=== PATIENT | male | born 1980 | race Two or more races ===

== ENCOUNTER 2024-03-11 21:15 | Inpatient (IN) | payer SELFPAY ==
[~2024-03-11] VITALS: Ht 175.3 cm; Wt 88.5 kg
[2024-03-11 21:45] LABS: Basophils # (auto) 0.1 10 ^3/uL (0-0.2); Basophils % (auto) 1.1 % (0.0-2.0); Eosinophils # (auto) 0.2 10 ^3/uL (0-0.8); Hematocrit 41.6 % (36.0-46.0); Hemoglobin 13.9 g/dL (12.2-16.2); Lymphocytes # (auto) 1.6 10 ^3/uL (0.4-5.4); Lymphocytes % (auto) 14.3 % (10.0-50.0); Mean Corpuscular Hemoglobin 27.5 pg (28.0-32.0); Mean Corpuscular Hgb Conc. 33.5 g/dL (32.0-36.0); Mean Corpuscular Volume 81.9 fL (80.0-100.0); Monocytes # (auto) 0.9 10 ^3/uL (0-1.3); Monocytes % (auto) 7.7 % (0.0-12.0); Neutrophils # (auto) 8.5 10 ^3/uL (1.6-8.6); Neutrophils % (auto) 74.9 % (37.0-80.0); Nucleated Red Blood Cells % 0.1 %; Red Blood Cells 5.08 10^6/uL (4.0-5.20); Red Cell Distribution Width 18.8 % (11.8-14.3); White Blood Cell 11.4 10^3/uL (4.4-10.8)
[2024-03-11 22:01] LABS: Anion Gap 8 (5-15); Carbon Dioxide 22 mmol/L (20-30); Chloride 109 mmol/L (98-107); Potassium 3.5 mmol/L (3.5-5.1); Sodium 139 mmol/L (136-145)
[2024-03-11 22:02] LABS: Calcium 8.7 mg/dL (8.5-10.1)
[2024-03-11 22:07] LABS: Blood Urea Nitrogen 22 mg/dL (9-23); Glucose 150 mg/dL (74-106)
[2024-03-12] VITALS (10 sets, daily range): BP systolic 103–190; BP diastolic 63–143; PULSE 67–100; RESP 16–22; TEMP 97.1–98.3; O2SAT 2–99
[2024-03-12] MEDS ORDERED: ONDANSETRON HCL 4 MG/2 ML VIAL IV PRN (03:15)
[2024-03-12] MEDS ORDERED: ACETAMINOPHEN 325 MG TAB PO PRN (03:15)
[2024-03-12] MEDS ORDERED: DOCUSATE SOD 100 MG CAP PO PRN (03:15)
[2024-03-12] MEDS: FUROSEMIDE 40 MG/4 ML VIAL IV ONE ×2 (03:21→09:41)
[2024-03-12] MEDS: cloNIDine HCL 0.1 MG TAB PO ONE (03:21)
[2024-03-12] MEDS: ASPirin 81 mg TAB PO ONE (03:30)
[2024-03-12] MEDS: HYDROcodone-ACET 5/325MG TAB PO PRN (04:07)
[2024-03-12 04:51] LABS: Basophils # (auto) 0.1 10 ^3/uL (0-0.2); Basophils % (auto) 1.1 % (0.0-2.0); Eosinophils # (auto) 0.3 10 ^3/uL (0-0.8); Eosinophils % (auto) 2.7 % (0.0-7.0); Hematocrit 41.4 % (41.0-53.0); Hemoglobin 13.7 g/dL (13.5-17.5); Lymphocytes # (auto) 1.9 10 ^3/uL (0.4-5.4); Mean Corpuscular Hemoglobin 27.2 pg (28.0-32.0); Mean Corpuscular Hgb Conc. 33.1 g/dL (32.0-36.0); Mean Corpuscular Volume 82.1 fL (80.0-100.0); Monocytes # (auto) 0.8 10 ^3/uL (0-1.3); Monocytes % (auto) 7.2 % (0.0-12.0); Neutrophils # (auto) 8.5 10 ^3/uL (1.6-8.6); Nucleated Red Blood Cells % 0.1 %; Red Blood Cells 5.05 10^6/uL (4.5-5.90); Red Cell Distribution Width 18.4 % (11.8-14.3); White Blood Cell 11.6 10^3/uL (4.4-10.8)
[2024-03-12 05:11] LABS: Alanine Aminotransferase 24 U/L (7-40); Albumin 3.6 g/dL (3.2-4.8); Alkaline Phosphatase 96 U/L (46-116); Anion Gap 10 (5-15); Aspartate Aminotransferase 23 U/L (13-40); BUN/Creatinine Ratio 18.6 (10.0-20.0); Blood Urea Nitrogen 21 mg/dL (9-23); Carbon Dioxide 24 mmol/L (20-30); Chloride 106 mmol/L (98-107); Glucose 119 mg/dL (74-106); Potassium 3.1 mmol/L (3.5-5.1); Sodium 140 mmol/L (136-145)
[2024-03-12 05:12] LABS: Bilirubin, Total 1.8 mg/dL (0.2-1.0); Total Protein 6.4 g/dL (5.7-8.2)
[2024-03-12] MEDS: SODIUM CHLOR 0.9% PF (SALINE LOCK) 10ML VIAL/SYR IV SCH (06:11)
[2024-03-12] MEDS ORDERED: MORPHINE SULFATE INJ 2 MG/ml SYRG IV PRN (06:15)
[2024-03-12] MEDS ORDERED: NITROGLYCERIN 0.4 MG SL TAB SL PRN (06:15)
[2024-03-12] MEDS: amLODIPine BESYLATE 5 MG TAB PO ONE (06:33)
[2024-03-12] MEDS: hydrALAZINE HCL 20 MG/ML VL IV PRN (07:01)
[2024-03-12] MEDS ORDERED: amLODIPine BESYLATE 5 MG TAB PO ONE (08:00)
[2024-03-12] MEDS: FUROSEMIDE 40 MG/4 ML VIAL IV SCH ×2 (08:17→18:29)
[2024-03-12] MEDS: CARVEDILOL 12.5 MG TAB PO SCH (08:17)
[2024-03-12] MEDS: amLODIPine BESYLATE 5 MG TAB PO SCH (08:17)
[2024-03-12] MEDS: ASPirin 81 mg TAB PO SCH (08:18)
[2024-03-12 08:29] LABS: Urine Bacteria None Seen /hpf (None Seen)
[2024-03-12 08:38] LABS: Urine Blood Negative /uL (Negative); Urine Clarity Clear (Clear); Urine Color Colorless (Yellow); Urine Protein, UAD Negative (Negative); Urine Specific Gravity 1.005 (1.001-1.035); Urine Urobilinogen Normal (Negative); Urine WBC 1 /hpf (0 - 3)
[2024-03-12 08:52] LABS: Amphetamine Screen, Urine Neg (NEGATIVE)
[2024-03-12 08:53] LABS: Barbiturate Scree,Urine Neg (NEGATIVE); Benzodiazephine Screen, Urine Neg (NEGATIVE); Cannabinoid Screen, Urine Pos (NEGATIVE); Cocaine Screen, Urine Neg (NEGATIVE); Opiate Scree,Urine Neg (NEGATIVE); Phencyclidine Screen, Urine Neg (NEGATIVE)
[2024-03-12 09:03] LABS: Magnesium 1.8 mg/dL (1.6-2.6)
[2024-03-12] MEDS: cloNIDine HCL 0.1 MG TAB PO PRN (09:39)
[2024-03-12] MEDS: ENOXAPARIN SOD 40 MG/0.4 ML SYRINGE SC ONE (09:40)
[2024-03-12] MEDS: POTASSIUM CHL 20 Meq TABLET PO ONE (09:41)
[2024-03-12] MEDS: cefTRIAXone 1GM/50ML D5W 50 ML IV SCH (09:41)
[2024-03-12] MEDS: LISINOPRIL 20 MG TAB PO SCH (10:45)
[2024-03-12] MEDS: SPIRONOLACTONE 25 MG TAB PO SCH (10:45)
[2024-03-12] MEDS: EMPAGLIFLOZIN 10 MG TAB PO SCH (10:45)
[2024-03-12] MEDS: MAGNESIUM SULFATE 1GM/100ML 100 ML IV SCH (11:34)
[2024-03-12] MEDS ORDERED: METO25TA93 PO (14:28)
[2024-03-12] MEDS ORDERED: ASPI-543 PO (14:28)
[2024-03-12] MEDS ORDERED: FURO1TAB32 PO (14:28)
[2024-03-12] MEDS ORDERED: SACU1TAB PO (14:28)
[2024-03-12] MEDS: ATORVASTATIN 20 MG TAB PO SCH (22:24)
[2024-03-13] VITALS (14 sets, daily range): BP systolic 118–137; BP diastolic 71–98; PULSE 68–86; RESP 16–23; TEMP 97.1–98.2; O2SAT 2–100
[2024-03-13 06:39] LABS: Basophils # (auto) 0.1 10 ^3/uL (0-0.2); Basophils % (auto) 0.6 % (0.0-2.0); Eosinophils # (auto) 0.4 10 ^3/uL (0-0.8); Eosinophils % (auto) 3.7 % (0.0-7.0); Hematocrit 41.8 % (41.0-53.0); Hemoglobin 13.9 g/dL (13.5-17.5); Lymphocytes # (auto) 1.4 10 ^3/uL (0.4-5.4); Lymphocytes % (auto) 12.4 % (10.0-50.0); Mean Corpuscular Hemoglobin 27.6 pg (28.0-32.0); Mean Corpuscular Hgb Conc. 33.2 g/dL (32.0-36.0); Monocytes # (auto) 1.2 10 ^3/uL (0-1.3); Monocytes % (auto) 10.1 % (0.0-12.0); Neutrophils # (auto) 8.4 10 ^3/uL (1.6-8.6); Neutrophils % (auto) 73.2 % (37.0-80.0); Nucleated Red Blood Cells % 0.6 %; Red Blood Cells 5.03 10^6/uL (4.5-5.90); Red Cell Distribution Width 18.3 % (11.8-14.3); White Blood Cell 11.5 10^3/uL (4.4-10.8)
[2024-03-13 06:58] LABS: Alanine Aminotransferase 24 U/L (7-40); Albumin 3.4 g/dL (3.2-4.8); Alkaline Phosphatase 94 U/L (46-116); Anion Gap 8 (5-15); Aspartate Aminotransferase 22 U/L (13-40); BUN/Creatinine Ratio 14.8 (10.0-20.0); Bilirubin, Total 1.2 mg/dL (0.2-1.0); Blood Urea Nitrogen 24 mg/dL (9-23); Carbon Dioxide 27 mmol/L (20-30); Chloride 104 mmol/L (98-107); Glucose 92 mg/dL (74-106); Sodium 139 mmol/L (136-145); Total Protein 6.4 g/dL (5.7-8.2)
[2024-03-13] MEDS ORDERED: amLODIPine BESYLATE 5 MG TAB PO SCH (10:00)
[2024-03-13] MEDS: ALBUTEROL SULF 2.5 MG/0.5ML(0.5%) NEB SOLN NEB PRN (14:20)
[2024-03-14] VITALS (9 sets, daily range): BP systolic 109–139; BP diastolic 76–101; PULSE 58–86; RESP 16–20; TEMP 97.4–98.9; O2SAT 92–97
[2024-03-14] MEDS: FUROSEMIDE 40 MG TAB PO SCH (17:34)
[2024-03-15] VITALS (7 sets, daily range): BP systolic 142–156; BP diastolic 95–98; PULSE 67–84; RESP 18–22; TEMP 36.7; O2SAT 96–98
[2024-03-15] MEDS: SPIRONOLACTONE 25 MG TAB PO SCH (10:00)
[2024-03-15] MEDS ORDERED: CLIN1CAP70 PO (10:25)
[2024-03-15] MEDS ORDERED: FURO1TAB32 PO (10:25)
== END 2024-03-15 17:36 | disposition home or self-care (01) | DRG 871 ==
LOC: EDSEX 21:15 → EDBD 21:15 → ER 21:15 → TELE 03-12 06:10 → EAST 03-12 13:30 → TELE-CENTR 03-12 16:23
PROVIDERS: ADMIT Internal Medicine; ATTEND Internal Medicine
DX: A41.9 Sepsis, unspecified organism (principal); I50.43 Acute on chronic combined systolic (congestive) and diastolic (congestive) heart failure; L03.115 Cellulitis of right lower limb; L03.116 Cellulitis of left lower limb; L97.919 Non-pressure chronic ulcer of unspecified part of right lower leg with unspecified severity; L97.929 Non-pressure chronic ulcer of unspecified part of left lower leg with unspecified severity; I42.7 Cardiomyopathy due to drug and external agent; I11.0 Hypertensive heart disease with heart failure; F17.210 Nicotine dependence, cigarettes, uncomplicated; F14.90 Cocaine use, unspecified, uncomplicated; E78.5 Hyperlipidemia, unspecified; R73.03 Prediabetes; I16.0 Hypertensive urgency; F19.10 Other psychoactive substance abuse, uncomplicated; I50.82 Biventricular heart failure; Z83.3 Family history of diabetes mellitus; Z91.199 Patient's noncompliance with other medical treatment and regimen due to unspecified reason
CPT/HCPCS: 36415; 71045; 80048; 80053; 80061; 80307; 81001; 82962; 83036; 83735; 83880; 84443; 84484; 85025; 87040; 87077; 87081; 87186; 87205; 93005; 93306; 94640; 99291; G0378

== ENCOUNTER 2024-06-27 13:09 | Inpatient (IN) | payer MEDICAID ==
[~2024-06-27] VITALS: Ht 175.3 cm; Wt 92.8 kg
[~2024-06-27 13:09] MED LIST: ASPI-543 PO; CLIN1CAP70 PO; FURO1TAB32 PO; METO25TA93 PO; SACU1TAB PO
[2024-06-27 14:19] LABS: Basophils # (auto) 0.1 10 ^3/uL (0-0.2); Basophils % (auto) 0.8 % (0.0-2.0); Eosinophils # (auto) 0.3 10 ^3/uL (0-0.8); Eosinophils % (auto) 2.8 % (0.0-7.0); Hematocrit 39.9 % (41.0-53.0); Hemoglobin 13.6 g/dL (13.5-17.5); Lymphocytes % (auto) 10.5 % (10.0-50.0); Mean Corpuscular Hemoglobin 29.8 pg (28.0-32.0); Mean Corpuscular Hgb Conc. 34.2 g/dL (32.0-36.0); Mean Corpuscular Volume 87.3 fL (80.0-100.0); Monocytes # (auto) 0.7 10 ^3/uL (0-1.3); Monocytes % (auto) 6.8 % (0.0-12.0); Neutrophils # (auto) 7.6 10 ^3/uL (1.6-8.6); Neutrophils % (auto) 79.1 % (37.0-80.0); Nucleated Red Blood Cells % 0.2 %; Red Blood Cells 4.57 10^6/uL (4.5-5.90); Red Cell Distribution Width 15.2 % (11.8-14.3); White Blood Cell 9.6 10^3/uL (4.4-10.8)
[2024-06-27 14:36] LABS: Alanine Aminotransferase 19 U/L (7-40); Albumin 3.8 g/dL (3.2-4.8); Alkaline Phosphatase 85 U/L (46-116); Anion Gap 8 (5-15); Aspartate Aminotransferase 20 U/L (13-40); BUN/Creatinine Ratio 18.4 (10.0-20.0); Bilirubin, Total 1.1 mg/dL (0.2-1.0); Blood Urea Nitrogen 21 mg/dL (9-23); Calcium 9.3 mg/dL (8.7-10.4); Carbon Dioxide 25 mmol/L (20-30); Chloride 106 mmol/L (98-107); Glucose 157 mg/dL (74-106); Potassium 3.4 mmol/L (3.5-5.1); Sodium 139 mmol/L (136-145); Total Protein 6.7 g/dL (5.7-8.2)
[2024-06-27] MEDS: FUROSEMIDE 40 MG/4 ML VIAL IV ONE (15:43)
[2024-06-27 15:51] VITALS: PULSE 102; O2SAT 98
[2024-06-27] MEDS: NICOTINE 14 MG/24HR TOPICAL PATCH TD ONE (16:23)
[2024-06-27] MEDS: hydrALAZINE HCL 20 MG/ML VL IV ONE (16:24)
[2024-06-27 16:56] LABS: Amphetamine Screen, Urine Pos (NEGATIVE); Barbiturate Scree,Urine Neg (NEGATIVE); Benzodiazephine Screen, Urine Neg (NEGATIVE); Cocaine Screen, Urine Neg (NEGATIVE); Opiate Scree,Urine Neg (NEGATIVE); Phencyclidine Screen, Urine Neg (NEGATIVE)
[2024-06-27 16:57] LABS: Cannabinoid Screen, Urine Pos (NEGATIVE)
[2024-06-27] MEDS ORDERED: ACETAMINOPHEN 325 MG TAB PO PRN (17:15)
[2024-06-27] MEDS ORDERED: MORPHINE SULFATE INJ 2 MG/ml SYRG IV PRN (17:15)
[2024-06-27] MEDS ORDERED: ONDANSETRON HCL 4 MG/2 ML VIAL IV PRN (17:15)
[2024-06-27] MEDS ORDERED: NITROGLYCERIN 0.4 MG SL TAB SL PRN (17:15)
[2024-06-27] MEDS ORDERED: DOCUSATE SOD 100 MG CAP PO PRN (17:15)
[2024-06-27] MEDS: ceFAZolin 1GM/50ML 50 ML IV ONE (18:00)
[2024-06-27] MEDS: HYDROmorphone HCL 2 MG/ML VL/or syr IV PRN (18:33)
[2024-06-27 19:30] VITALS: PULSE 77; RESP 20; O2SAT 97
[2024-06-27] MEDS: LABETALOL HCL 20 MG/4 ML VL IV PRN (21:19)
[2024-06-27] MEDS: SODIUM CHLOR 0.9% PF (SALINE LOCK) 10ML VIAL/SYR IV SCH (22:02)
[2024-06-28] MEDS: hydrALAZINE HCL 20 MG/ML VL IV ONE (03:34)
[2024-06-28] MEDS: HYDROcodone-ACET 5/325MG TAB PO PRN (04:18)
[2024-06-28 05:02] LABS: Alanine Aminotransferase 23 U/L (7-40); Albumin 3.9 g/dL (3.2-4.8); Alkaline Phosphatase 87 U/L (46-116); Anion Gap 5 (5-15); Aspartate Aminotransferase 21 U/L (13-40); BUN/Creatinine Ratio 16.4 (10.0-20.0); Basophils # (auto) 0.1 10 ^3/uL (0-0.2); Basophils % (auto) 0.5 % (0.0-2.0); Blood Urea Nitrogen 18 mg/dL (9-23); Calcium 9.3 mg/dL (8.7-10.4); Carbon Dioxide 30 mmol/L (20-30); Chloride 104 mmol/L (98-107); Eosinophils # (auto) 0.3 10 ^3/uL (0-0.8); Glucose 139 mg/dL (74-106); Hematocrit 41.5 % (41.0-53.0); Hemoglobin 14.4 g/dL (13.5-17.5); Lymphocytes # (auto) 0.8 10 ^3/uL (0.4-5.4); Lymphocytes % (auto) 7.9 % (10.0-50.0); Mean Corpuscular Hemoglobin 30.3 pg (28.0-32.0); Mean Corpuscular Hgb Conc. 34.7 g/dL (32.0-36.0); Mean Corpuscular Volume 87.2 fL (80.0-100.0); Monocytes # (auto) 0.6 10 ^3/uL (0-1.3); Monocytes % (auto) 5.8 % (0.0-12.0); Neutrophils # (auto) 8.2 10 ^3/uL (1.6-8.6); Neutrophils % (auto) 82.8 % (37.0-80.0); Nucleated Red Blood Cells % 0.1 %; Potassium 3.6 mmol/L (3.5-5.1); Red Blood Cells 4.76 10^6/uL (4.5-5.90); Red Cell Distribution Width 15.2 % (11.8-14.3); Sodium 139 mmol/L (136-145); White Blood Cell 9.9 10^3/uL (4.4-10.8)
[2024-06-28 05:03] LABS: Bilirubin, Total 1.5 mg/dL (0.2-1.0); Total Protein 7.2 g/dL (5.7-8.2)
[2024-06-28] MEDS: FUROSEMIDE 40 MG/4 ML VIAL IV SCH (06:03)
[2024-06-28 08:00] VITALS: PULSE 78; RESP 12; O2SAT 93
[2024-06-28] MEDS ORDERED: ATOR-507 PO (11:36)
[2024-06-28] MEDS ORDERED: CARV3.1240 PO (11:36)
[2024-06-28] MEDS: SACUBITRIL-VALSARTAN 24mg/26mg TAB PO SCH (22:54)
[2024-06-28] MEDS: CARVEDILOL 3.125 MG TAB PO SCH (23:00)
[2024-06-29] VITALS (10 sets, daily range): BP systolic 141–172; BP diastolic 92–118; PULSE 74–94; RESP 18–21; TEMP 97.6–98.1; O2SAT 95–100
[2024-06-29 07:25] LABS: Basophils # (auto) 0.1 10 ^3/uL (0-0.2); Basophils % (auto) 0.6 % (0.0-2.0); Eosinophils # (auto) 0.4 10 ^3/uL (0-0.8); Eosinophils % (auto) 3.9 % (0.0-7.0); Hematocrit 46.2 % (41.0-53.0); Hemoglobin 16.2 g/dL (13.5-17.5); Lymphocytes # (auto) 1.2 10 ^3/uL (0.4-5.4); Lymphocytes % (auto) 11.4 % (10.0-50.0); Mean Corpuscular Hgb Conc. 35.2 g/dL (32.0-36.0); Mean Corpuscular Volume 85.2 fL (80.0-100.0); Monocytes # (auto) 0.8 10 ^3/uL (0-1.3); Monocytes % (auto) 7.6 % (0.0-12.0); Neutrophils # (auto) 8.1 10 ^3/uL (1.6-8.6); Neutrophils % (auto) 76.5 % (37.0-80.0); Nucleated Red Blood Cells % 0.2 %; Red Blood Cells 5.42 10^6/uL (4.5-5.90); Red Cell Distribution Width 15.1 % (11.8-14.3); White Blood Cell 10.6 10^3/uL (4.4-10.8)
[2024-06-29 07:41] LABS: Alanine Aminotransferase 21 U/L (7-40); Alkaline Phosphatase 97 U/L (46-116); Anion Gap 8 (5-15); BUN/Creatinine Ratio 13.8 (10.0-20.0); Blood Urea Nitrogen 15 mg/dL (9-23); Calcium 9.3 mg/dL (8.7-10.4); Carbon Dioxide 28 mmol/L (20-30); Chloride 103 mmol/L (98-107); Glucose 115 mg/dL (74-106); Potassium 3.6 mmol/L (3.5-5.1); Sodium 139 mmol/L (136-145)
[2024-06-29 07:43] LABS: Aspartate Aminotransferase 19 U/L (13-40); Total Protein 7.7 g/dL (5.7-8.2)
[2024-06-29 09:06] LABS: LDL Cholesterol 87 mg/dL (< 100); Triglycerides 55 mg/dL (< 150)
[2024-06-29 09:08] LABS: Cholesterol 139 mg/dL (< 200); HDL Cholesterol 39 mg/dL (40-59)
[2024-06-29] MEDS ORDERED: SACUBITRIL-VALSARTAN 24mg/26mg TAB PO SCH (10:00)
[2024-06-29] MEDS: SPIRONOLACTONE 25 MG TAB PO SCH (10:00)
[2024-06-29] MEDS ORDERED: SACU1TAB PO (11:41)
[2024-06-29] MEDS ORDERED: ATOR-507 PO (11:41)
[2024-06-29] MEDS ORDERED: CARV3.1240 PO (11:41)
[2024-06-29] MEDS ORDERED: FURO1TAB31 PO (11:41)
[2024-06-29] MEDS ORDERED: ASPI-543 PO (11:41)
[2024-06-29] MEDS: EMPAGLIFLOZIN 10 MG TAB PO SCH (13:06)
[2024-06-29] MEDS: SACUBITRIL-VALSARTAN 24mg/26mg TAB PO SCH (13:06)
[2024-06-29] MEDS: CARVEDILOL 3.125 MG TAB PO SCH (16:00)
== END 2024-06-29 17:55 | disposition home or self-care (01) | DRG 194 ==
LOC: ER 13:09 → TELE 17:03 → TELE-WESTW 06-28 21:39
PROVIDERS: ADMIT Nurse Practitioner Acute Care; ATTEND Nurse Practitioner Acute Care
DX: I11.0 Hypertensive heart disease with heart failure (principal); J96.21 Acute and chronic respiratory failure with hypoxia; I50.43 Acute on chronic combined systolic (congestive) and diastolic (congestive) heart failure; L03.116 Cellulitis of left lower limb; R79.89 Other specified abnormal findings of blood chemistry; E78.5 Hyperlipidemia, unspecified; F15.10 Other stimulant abuse, uncomplicated; F12.90 Cannabis use, unspecified, uncomplicated; M13.88 Other specified arthritis, other site; F17.210 Nicotine dependence, cigarettes, uncomplicated; J44.9 Chronic obstructive pulmonary disease, unspecified; Z83.3 Family history of diabetes mellitus; Z91.148 Patient's other noncompliance with medication regimen for other reason; Z82.49 Family history of ischemic heart disease and other diseases of the circulatory system
CPT/HCPCS: 36415; 71045; 71046; 80053; 80061; 80307; 83036; 83605; 83880; 84443; 84484; 85025; 85379; 87040; 87081; 93005; 93925; G0378

== ENCOUNTER 2024-07-27 17:53 | Inpatient (IN) | payer MEDICAID ==
[~2024-07-27] VITALS: Ht 175.3 cm; Wt 78.9 kg
[~2024-07-27 17:53] MED LIST changes: +ATOR-507 PO; +CARV3.1240 PO; -CLIN1CAP70 PO; +FURO1TAB31 PO
[2024-07-27 18:28] LABS: Basophils # (auto) 0.1 10 ^3/uL (0-0.2); Eosinophils # (auto) 0.3 10 ^3/uL (0-0.8); Eosinophils % (auto) 3.5 % (0.0-7.0); Hematocrit 39.9 % (41.0-53.0); Lymphocytes # (auto) 1.1 10 ^3/uL (0.4-5.4); Lymphocytes % (auto) 13.8 % (10.0-50.0); Mean Corpuscular Hgb Conc. 35.1 g/dL (32.0-36.0); Mean Corpuscular Volume 85.4 fL (80.0-100.0); Monocytes # (auto) 0.6 10 ^3/uL (0-1.3); Monocytes % (auto) 8.1 % (0.0-12.0); Neutrophils # (auto) 5.9 10 ^3/uL (1.6-8.6); Neutrophils % (auto) 73.6 % (37.0-80.0); Nucleated Red Blood Cells % 0.2 %; Platelet Count (auto) 241 10^3/uL (140-450); Red Blood Cells 4.67 10^6/uL (4.5-5.90); Red Cell Distribution Width 15.2 % (11.8-14.3)
[2024-07-27] MEDS: IPRATROPIUM BROM 0.5 MG/2.5ML INH SOL NEB ONE (18:36)
[2024-07-27] MEDS: ALBUTEROL SULF 2.5 MG/0.5ML(0.5%) NEB SOLN NEB ONE (18:36)
[2024-07-27 18:38] VITALS: PULSE 87; RESP 20; O2SAT 98
[2024-07-27 18:49] LABS: INR 1.19 (0.9-1.15); Partial Thromboplastin Time 28.4 SEC (24.5-34.5); Prothrombin Time 12.5 sec (9.3-11.8)
[2024-07-27 18:54] LABS: Alanine Aminotransferase 23 U/L (7-40); Albumin 3.6 g/dL (3.2-4.8); Alkaline Phosphatase 99 U/L (46-116); Anion Gap 7 (5-15); Aspartate Aminotransferase 18 U/L (13-40); BUN/Creatinine Ratio 19.1 (10.0-20.0); Bilirubin, Total 1.2 mg/dL (0.2-1.0); Blood Urea Nitrogen 22 mg/dL (9-23); Calcium 9.1 mg/dL (8.7-10.4); Carbon Dioxide 22 mmol/L (20-30); Chloride 111 mmol/L (98-107); Glucose 153 mg/dL (74-106); Potassium 3.7 mmol/L (3.5-5.1); Sodium 140 mmol/L (136-145); Total Protein 6.8 g/dL (5.7-8.2)
[2024-07-27] MEDS: FUROSEMIDE 100 MG/10ML VIAL IV ONE (19:02)
[2024-07-27] MEDS: CARVEDILOL 3.125 MG TAB PO ONE (19:03)
[2024-07-27 19:47] VITALS: PULSE 87; RESP 19; O2SAT 94
[2024-07-27] MEDS: SPIRONOLACTONE 25 MG TAB PO ONE (20:40)
[2024-07-27] MEDS: hydrALAZINE HCL 20 MG/ML VL IV ONE (20:40)
[2024-07-27] MEDS ORDERED: NITROGLYCERIN 0.4 MG SL TAB SL PRN (22:45)
[2024-07-27] MEDS ORDERED: TEMAZEPAM 15 MG CAP PO PRN (22:45)
[2024-07-27] MEDS ORDERED: ONDANSETRON HCL 4 MG/2 ML VIAL IV PRN (22:45)
[2024-07-27] MEDS: ENOXAPARIN SOD 40 MG/0.4 ML SYRINGE SC ONE (23:51)
[2024-07-27] MEDS: CARVEDILOL 3.125 MG TAB PO SCH (23:53)
[2024-07-27] MEDS: SACUBITRIL-VALSARTAN 24mg/26mg TAB PO SCH (23:53)
[2024-07-27] MEDS: SILVER SULFADIAZINE 1 % TOPICAL CREAM 50GM TOP SCH (23:59)
[2024-07-28] MEDS: CLINDAMYCIN 600MG IV 50 ML IV ONE (00:05)
[2024-07-28] MEDS: HYDROcodone-ACET 5/325MG TAB PO PRN (00:59)
[2024-07-28 04:23] LABS: Chloride 110 mmol/L (98-107); Potassium 3.4 mmol/L (3.5-5.1); Sodium 141 mmol/L (136-145)
[2024-07-28 04:24] LABS: Anion Gap 6 (5-15); Calcium 8.8 mg/dL (8.7-10.4); Carbon Dioxide 25 mmol/L (20-30)
[2024-07-28 04:29] LABS: BUN/Creatinine Ratio 18.6 (10.0-20.0); Blood Urea Nitrogen 21 mg/dL (9-23); Glucose 102 mg/dL (74-106)
[2024-07-28] MEDS: hydrALAZINE HCL 20 MG/ML VL IV PRN (05:23)
[2024-07-28] MEDS: FUROSEMIDE 40 MG/4 ML VIAL IV SCH (06:15)
[2024-07-28 07:39] VITALS: PULSE 64; RESP 18; O2SAT 96
[2024-07-28 08:24] LABS: Rapid Influenza A Negative (Negative); Rapid Influenza B Negative (Negative)
[2024-07-28 08:25] LABS: COVID19 ANTIGEN SOFIA FIA NEGATIVE (NEGATIVE)
[2024-07-28] MEDS: MORPHINE SULFATE INJ 2 MG/ml SYRG IV PRN (08:40)
[2024-07-28] MEDS ORDERED: EMPAGLIFLOZIN 10 MG TAB PO SCH (10:00)
[2024-07-28] MEDS ORDERED: CARVEDILOL 3.125 MG TAB PO SCH (10:00)
[2024-07-28] MEDS: MAGNESIUM OXIDE 400 MG TAB PO ONE (10:37)
[2024-07-28] MEDS: EMPAGLIFLOZIN 10 MG TAB PO SCH (10:38)
[2024-07-28] MEDS: ASPirin 81 mg TAB PO SCH (10:38)
[2024-07-28] MEDS: ENOXAPARIN SOD 40 MG/0.4 ML SYRINGE SC SCH (10:39)
[2024-07-28] MEDS: SPIRONOLACTONE 25 MG TAB PO SCH (10:41)
[2024-07-28] MEDS ORDERED: VANCOMYCIN PER PHARMACY 0 MG IV SCH (12:00)
[2024-07-28] MEDS: POTASSIUM CHLORIDE 40 MEQ, LIDOCAINE 1% (LOCAL ANESTH.) 4 ML in SODIUM CHL 0.9% 250 ML IV ONE (12:18)
[2024-07-28 13:00] VITALS: BP 144/92; PULSE 69; RESP 20; TEMP 97.4; O2SAT 98
[2024-07-28] MEDS: VANCOMYCIN 1.5GM/300ML 300 ML IV ONE (13:00)
[2024-07-28] MEDS: NICOTINE 21MG/24 HR TOPICAL PATCH TD ONE (13:16)
[2024-07-28] MEDS: cefTRIAXone 1GM/50ML D5W 50 ML IV ONE (13:16)
[2024-07-28 17:00] VITALS: BP 128/88; PULSE 73; RESP 97; TEMP 98; O2SAT 97
[2024-07-28 20:00] VITALS: PULSE 82
[2024-07-28 21:00] VITALS: BP 111/83; PULSE 72; RESP 18; TEMP 98.3; O2SAT 99
[2024-07-28 21:41] LABS: Amphetamine Screen, Urine Neg (NEGATIVE); Barbiturate Scree,Urine Neg (NEGATIVE); Benzodiazephine Screen, Urine Neg (NEGATIVE); Cocaine Screen, Urine Neg (NEGATIVE)
[2024-07-28 21:42] LABS: Cannabinoid Screen, Urine Pos (NEGATIVE); Opiate Scree,Urine Neg (NEGATIVE); Phencyclidine Screen, Urine Neg (NEGATIVE)
[2024-07-28] MEDS: ATORVASTATIN 20 MG TAB PO SCH (21:53)
[2024-07-29] VITALS (9 sets, daily range): BP systolic 109–145; BP diastolic 78–104; PULSE 61–80; RESP 16–20; TEMP 97.6–98.6; O2SAT 96–98
[2024-07-29] MEDS: VANCOMYCIN 1GM/200ML 200 ML IV SCH (00:37)
[2024-07-29 06:26] LABS: Calcium 9.4 mg/dL (8.7-10.4); Chloride 106 mmol/L (98-107); Potassium 3.5 mmol/L (3.5-5.1); Sodium 136 mmol/L (136-145)
[2024-07-29 06:27] LABS: Anion Gap 8 (5-15); Carbon Dioxide 22 mmol/L (20-30)
[2024-07-29 06:32] LABS: Basophils # (auto) 0.1 10 ^3/uL (0-0.2); Eosinophils # (auto) 0.7 10 ^3/uL (0-0.8); Monocytes # (auto) 1.2 10 ^3/uL (0-1.3)
[2024-07-29 06:33] LABS: BUN/Creatinine Ratio 17.6 (10.0-20.0); Blood Urea Nitrogen 21 mg/dL (9-23); Glucose 112 mg/dL (74-106)
[2024-07-29 06:38] LABS: Basophils % (auto) 0.9 % (0.0-2.0); Eosinophils % (auto) 5.3 % (0.0-7.0); Hematocrit 50.2 % (41.0-53.0); Lymphocytes # (auto) 1.5 10 ^3/uL (0.4-5.4); Lymphocytes % (auto) 11.6 % (10.0-50.0); Mean Corpuscular Hemoglobin 30.2 pg (28.0-32.0); Mean Corpuscular Hgb Conc. 35.7 g/dL (32.0-36.0); Mean Corpuscular Volume 84.6 fL (80.0-100.0); Monocytes % (auto) 9.3 % (0.0-12.0); Neutrophils # (auto) 9.3 10 ^3/uL (1.6-8.6); Neutrophils % (auto) 72.9 % (37.0-80.0); Platelet Count (auto) 291 10^3/uL (140-450); Red Blood Cells 5.94 10^6/uL (4.5-5.90); Red Cell Distribution Width 15.1 % (11.8-14.3); White Blood Cell 12.7 10^3/uL (4.4-10.8)
[2024-07-29] MEDS: cefTRIAXone 1GM/50ML D5W 50 ML IV SCH (09:15)
[2024-07-29] MEDS: NICOTINE 21MG/24 HR TOPICAL PATCH TD SCH (09:18)
[2024-07-30 01:00] VITALS: BP 138/93; PULSE 78; RESP 16; TEMP 98.5; O2SAT 95
[2024-07-30 05:00] VITALS: BP 128/90; PULSE 77; RESP 16; TEMP 97.8; O2SAT 93
[2024-07-30] MEDS: FUROSEMIDE 40 MG/4 ML VIAL IV SCH (06:39)
[2024-07-30 08:00] VITALS: PULSE 79; O2SAT 96
[2024-07-30 08:14] LABS: Chloride 106 mmol/L (98-107); Potassium 3.9 mmol/L (3.5-5.1); Sodium 135 mmol/L (136-145)
[2024-07-30 08:15] LABS: Anion Gap 8 (5-15); Calcium 9.4 mg/dL (8.7-10.4); Carbon Dioxide 21 mmol/L (20-30)
[2024-07-30 08:20] LABS: Glucose 125 mg/dL (74-106)
[2024-07-30 09:00] VITALS: BP 145/90; PULSE 78; RESP 19; TEMP 97.6; O2SAT 94
[2024-07-30 10:19] LABS: Red Cell Distribution Width 15.2 % (11.8-14.3)
[2024-07-30 10:20] LABS: Hematocrit 52.5 % (41.0-53.0); Hemoglobin 18.2 g/dL (13.5-17.5); Mean Corpuscular Hemoglobin 29.2 pg (28.0-32.0); Mean Corpuscular Hgb Conc. 34.7 g/dL (32.0-36.0); Mean Corpuscular Volume 84.1 fL (80.0-100.0); Platelet Count (auto) 285 10^3/uL (140-450); Red Blood Cells 6.24 10^6/uL (4.5-5.90); White Blood Cell 12.3 10^3/uL (4.4-10.8)
[2024-07-30 10:31] LABS: Band Neutrophils % (manual) 0; Basophils % (manual) 0 (0.0-2.0); Blast Cells 0; Metamyelocytes % 0; Myelocytes % 0; Promyelocytes % 0; Reactive Lymphocytes 0
[2024-07-30 11:06] LABS: BUN/Creatinine Ratio 19.7 (10.0-20.0); Blood Urea Nitrogen 25 mg/dL (9-23)
[2024-07-30] MEDS ORDERED: DOXY-267 PO (11:48)
[2024-07-30 11:55] LABS: Eosinophils % (manual) 7 (0-7); Lymphocytes % (manual) 16 (10.0-50.0); Monocytes % (manual) 6 (0-12); Platelet Estimate Adequate
[2024-07-30 13:00] VITALS: BP 138/94; PULSE 69; RESP 19; TEMP 97.7; O2SAT 97
[2024-07-30 14:52] VITALS: BP 138/94; PULSE 69; RESP 19; TEMP 97.7; O2SAT 97
== END 2024-07-30 15:23 | disposition home or self-care (01) | DRG 133 ==
LOC: ER 17:53 → TELE 22:41 → TELE-WESTW 07-28 11:04
PROVIDERS: ADMIT Internal Medicine Pulmonary Disease; ATTEND Anesthesiology
DX: J96.21 Acute and chronic respiratory failure with hypoxia (principal); I50.23 Acute on chronic systolic (congestive) heart failure; I42.7 Cardiomyopathy due to drug and external agent; L97.929 Non-pressure chronic ulcer of unspecified part of left lower leg with unspecified severity; J44.9 Chronic obstructive pulmonary disease, unspecified; I11.0 Hypertensive heart disease with heart failure; Z99.81 Dependence on supplemental oxygen; I16.0 Hypertensive urgency; F17.210 Nicotine dependence, cigarettes, uncomplicated; F12.10 Cannabis abuse, uncomplicated; F15.10 Other stimulant abuse, uncomplicated; T50.905A Adverse effect of unspecified drugs, medicaments and biological substances, initial encounter; Z20.822 Contact with and (suspected) exposure to COVID-19; E87.6 Hypokalemia; F14.10 Cocaine abuse, uncomplicated; E78.5 Hyperlipidemia, unspecified; Z79.899 Other long term (current) drug therapy; Z83.3 Family history of diabetes mellitus; Z79.82 Long term (current) use of aspirin; Z81.1 Family history of alcohol abuse and dependence; Z71.6 Tobacco abuse counseling; Y92.89 Other specified places as the place of occurrence of the external cause
CPT/HCPCS: 36415; 71045; 80048; 80053; 80202; 80307; 82306; 82607; 83605; 83735; 83880; 84484; 85007; 85025; 85027; 85610; 85730; 87077; 87186; 87205; 87426; 87804; 93005; 93970; 94640; 97163; 99291; G0378; J2001; J3490

== ENCOUNTER 2024-10-03 12:17 | Inpatient (IN) | payer MEDICAID ==
[2024-10-03] VITALS (8 sets, daily range): BP systolic 170–177; BP diastolic 118–135; PULSE 78–104; RESP 16–26; TEMP 98.3–98.7; O2SAT 90–100
[~2024-10-03] VITALS: Ht 175.3 cm; Wt 106.3 kg
[~2024-10-03 12:17] MED LIST changes: +DOXY-267 PO; -FURO1TAB32 PO
[2024-10-03] MEDS ORDERED: ATORVASTATIN (12:26)
[2024-10-03] MEDS ORDERED: FURO40TA4 PO (12:26)
--- NOTE | 2024-10-03 12:53 | ED.PDOC ---
HPI Comments 44Y M with PMHx CHF, HTN, HLD, COPD, and hernia repair presents to ED for chief complaint chest pain with SOB, abd pain, back pain, leg pain, and nausea. Pt states chest pain is left-sided and feels like pressure. Pt denies vomiting and diarrhea. Pt says he feels his abd pain is coming from water retention. Pt is currently taking Lasix 40mg bid but it is prescribed as once daily. Pt states his urine output has decreased in the last 2-3days despite taking his Lasix. No known allergies. Chief Complaint: Chest Pain Time Seen by MD: 12:23 Primary Care Provider: DARYL Hernandez Notes: Medications, Allergies Allergies: Coded Allergies: NO KNOWN ALLERGIES (Unverified , 03/11/24) Home Meds Active Scripts Doxycycline Monohydrate (Doxycycline Monohydrate) 100 Mg Cap, 1 CAP PO BID, #14 CAP Prov:EMILY RENTERIA RESIDENT 07/30/24 Furosemide (Lasix) 40 Mg Tab, 40 MG PO DAILY for 30 Days, #30 TAB 3 Refills Prov:JASPER TRAVIS COMPOSITE BOND TECHNICIAN 06/29/24 Atorvastatin Calcium (Lipitor) 40 Mg Tab, 1 TAB PO DAILY for 30 Days, #30 TAB 3 Refills Prov:JASPER TRAVIS COMPOSITE BOND TECHNICIAN 06/29/24 Carvedilol (Carvedilol) 3.125 Mg Tab, 1 TAB PO BID for 30 Days, #60 TAB 3 Refills Prov:JASPER TRAVIS COMPOSITE BOND TECHNICIAN 06/29/24 Sacubitril-Valsartan (Entresto 24-26 mg) 1 Tab Tab, 1 TAB PO BID for 30 Days, #60 TAB 3 Refills Prov:JASPER TRAVIS COMPOSITE BOND TECHNICIAN 06/29/24 Aspirin (Aspir-Low) 81 Mg Tab, 1 TAB PO QAM for 30 Days, #30 TAB 3 Refills Prov:JASPER TRAVIS COMPOSITE BOND TECHNICIAN 06/29/24 Reported Medications Furosemide (Furosemide) 40 Mg Tab, 1 TAB PO DAILY 10/03/24 [Atorvastatin] No Conflict Check 10/03/24 Metoprolol Succinate (Metoprolol Succinate Er) 25 Mg Tab, 1 TAB PO DAILY 03/12/24 Information Source: Patient Mode of Arrival: Wheelchair Severity: Moderate Timing: Hours Duration: Since onset Location: Chest (L) Radiation: Abdomen, Back Quality: Pressure Onset: At Rest Cardiac Risk Factors: Smoker, Hyperlipidemia, HTN, Drugs PE Risk Factors: None History of: Other Modifying Factors: Nothing Associated Signs and Symptoms: SOB, Abdominal Pain, N/V, Back Pain Past Medical History PAST MEDICAL HISTORY: CHF, COPD, High Lipids, HTN Surgical History: Hernia Repair Family History Family History: Family hx of DM Social History Smoker: Cigarettes Alcohol: Rarely Drugs: Cocaine, Marijuana, Methamphetamine Lives In: Home Constitutional: denies: chills, diaphoresis, fatigue, fever, malaise, sweats, weakness, others EENTM: denies: blurred vision, double vision, ear bleeding, ear discharge, ear drainage, ear pain, ear ringing, eye pain, eye redness, hearing loss, mouth pain, mouth swelling, nasal discharge, nose bleeding, nose congestion, nose pain, photophobia, tearing, throat pain, throat swelling, voice changes, others Respiratory: reports: shortness of breath; denies: cough, hemoptysis, orthopnea, SOB at rest, SOB with excertion, stridor, wheezing, others Cardiovascular: reports: chest pain; denies: dizzy spells, diaphoresis, Dyspnea on exertion, edema, irregular heart beat, left arm pain, lightheadedness, palpitations, PND, syncope, others Gastrointestinal: reports: abdominal pain, nausea; denies: abdomen distended, blood streaked bowels, constipated, diarrhea, dysphagia, difficulty swallowing, hematemesis, melena, poor appetite, poor fluid intake, rectal bleeding, rectal pain, vomiting, others Genitourinary: denies: burning, dysuria, flank pain, frequency, hematuria, incontinence, penile discharge, penile sore, pain, testicle pain, testicle swelling, urgency, others Neurological: denies: dizziness, fainting, headache, left sided numbness, left sided weakness, numbness, paresthesia, pre-existing deficit, right sided numbness, right sided weakness, seizure, speech problems, tingling, tremors, weakness, others Musculoskeletal: reports: back pain; denies: gout, joint pain, joint swelling, muscle pain, muscle stiffness, neck pain, others Integumetry: denies: bruises, change in color, change in hair/nails, dryness, laceration, lesions, lumps, rash, wounds, others Allergic/Immunocompromised: denies: Difficulty Healing, Frequent Infections, Hives, Itching, others Hematologic/Lymphatic: denies: anemia, blood clots, easy bleeding, easy bruising, swollen glands, others Endocrine: denies: excessive hunger, excessive sweating, excessive thirst, excessive urination, flushing, intolerance to cold, intolerance to heat, unexplained weight gain, unexplained weight loss, others Psychiatric: denies: anxiety, bipolar disorder, depression, hopeless, panic disorder, schizophrenia, sleepless, suicidal, others All Other Systems: Reviewed and Negative Physical Exam General Appearance: Moderate Distress HEENT: Other (Pupils symmetric, dry mucous membranes) Neck: Full Range of Motion, Normal Inspection, Supple Respiratory: Accessory Muscle Use, Rales, Respiratory Distress Cardiovascular: No JVD, Regular Rate/Rhythm Breast Exam: Deferred Gastrointestinal: Soft, Tenderness (Diffuse lower abdominal soft tissue tenderness, edema and mild erythema) Genitalia: Deferred Pelvic: Deferred Rectal: Deferred Extremities: Leg edema, Normal range of motion, Pedal edema, Swelling, Tender Neurologic: Alert, No Motor Deficits, Normal Affect, Normal Mood, No Sensory Deficits Cerebellar Function: NOT DONE Reflexes: NOT DONE Skin: Dry, Warm, Other (Bilateral lower extremity erythema, edema and soft tissue tenderness. Lower abdominal soft tissue tenderness, edema and erythema in) Lymphatic: NOT DONE EKG EKG : Comments Sinus rhythm, rate 95, short MN interval at 69, normal QRS interval, QTC slightly prolonged at 462, normal axis, normal QRS complex, baseline wander, nonspecific T change Was a procedure done? Was a procedure done?: No CP Differential Dx Differential Diagnosis: Anxiety / Panic Attack, Electrolyte Disorder, Heart Failure, MO Differential Diagnosis: CHF Differential Diagnosis: Angina, Chest Wall Pain, Esophageal reflux/spasm, Pericarditis X-Ray, Labs, Meds, VS Vital Signs Date Time Temp Pulse Resp B/P (MAP) Pulse Ox O2 Delivery O2 Flow Rate FiO2 10/03/24 14:39 86 16 96 Nasal Cannula* 4 36 10/03/24 14:38 98.3 86 16 176/128 (144) 96 98.3 10/03/24 14:35 171/126 10/03/24 14:10 20 100 Simple Mask* 6 50 10/03/24 14:00 91 26 171/126 (141) 90 10/03/24 13:21 89 10/03/24 13:19 98.1 92 26 180/144 (156) 98 98.1 10/03/24 13:19 92 26 Simple Mask* 8 60 10/03/24 13:15 180/93 10/03/24 13:07 180/144 10/03/24 12:33 98.4 93 20 162/121 (135) 96 10/03/24 12:23 95 Lab Test 10/03/24 14:09 10/03/24 13:30 10/03/24 12:56 Range/Units Troponin I High Sensitivity 72 *H 73 *H </=54 ng/L Triglycerides Level 56 < 150 mg/dL Cholesterol Level 92 < 200 mg/dL LDL Cholesterol 48 < 100 mg/dL HDL Cholesterol 34 L 40-59 mg/dL Urine Color Light-yellow Yellow Urine Clarity Clear Clear Urine pH 5.5 5.0-9.0 Urine Specific [place] 1.011 1.001-1.035 Urine Protein Trace H Negative Urine Ketones Negative Negative Urine Blood 1+ H Negative /uL Urine Nitrite Negative Negative Urine Bilirubin Negative Negative Urine Urobilinogen Normal Negative mg/dL Urine Leukocyte Esterase Negative Negative /uL Urine RBC 1 0 - 3 /hpf Urine WBC 1 0 - 3 /hpf Urine Squamous Epithelial Cells None seen <5 /hpf Urine Bacteria None seen None Seen /hpf Urine Glucose Normal Normal mg/dL Urine Opiates Screen Neg NEGATIVE Urine Fentanyl Screen Neg NEGATIVE Urine Barbiturates Screen Neg NEGATIVE Urine Phencyclidine Screen Neg NEGATIVE Urine Amphetamines Screen Pos NEGATIVE Urine Benzodiazepines Screen Neg NEGATIVE Urine Cocaine Screen Neg NEGATIVE Urine Cannabinoids Screen Pos NEGATIVE White Blood Count 10.1 4.4-10.8 10^3/uL Red Blood Count 4.78 4.5-5.90 10^6/uL Hemoglobin 13.6 13.5-17.5 g/dL Hematocrit 40.2 L 41.0-53.0 % Mean Corpuscular Volume 83.9 80.0-100.0 fL Mean Corpuscular Hemoglobin 28.5 28.0-32.0 pg Mean Corpuscular Hemoglobin Concent 33.9 32.0-36.0 g/dL Red Cell Distribution Width 16.5 H 11.8-14.3 % Platelet Count 252 140-450 10^3/uL Mean Platelet Volume 7.6 6.9-10.8 fL Neutrophils (%) (Auto) 76.5 37.0-80.0 % Lymphocytes (%) (Auto) 11.4 10.0-50.0 % Monocytes (%) (Auto) 7.6 0.0-12.0 % Eosinophils (%) (Auto) 3.7 0.0-7.0 % Basophils (%) (Auto) 0.8 0.0-2.0 % Neutrophils # (Auto) 7.7 1.6-8.6 10 ^3/uL Lymphocytes # (Auto) 1.1 0.4-5.4 10 ^3/uL Monocytes # (Auto) 0.8 0-1.3 10 ^3/uL Eosinophils # (Auto) 0.4 0-0.8 10 ^3/uL Basophils # (Auto) 0.1 0-0.2 10 ^3/uL Nucleated Red Blood Cells 0.0 % Sodium Level 141 136-145 mmol/L Potassium Level 3.2 L 3.5-5.1 mmol/L Chloride Level 108 H 98-107 mmol/L Carbon Dioxide Level 24 20-31 mmol/L Anion Gap 9 5-15 Blood Urea Nitrogen 30 H 9-23 mg/dL Creatinine 1.37 H 0.700-1.30 mg/dL Glomerular Filtration Rate Calc 64 >90 mL/min BUN/Creatinine Ratio 21.9 H 10.0-20.0 Serum Glucose 105 74-106 mg/dL Calcium Level 9.1 8.7-10.4 mg/dL Magnesium Level 2.0 1.6-2.6 mg/dL B-Type Natriuretic Peptide 2911.67 0-100 pg/mL Current Medications Medications (Trade) Dose Ordered Sig/Guilherme Route Start Time Stop Time Status Last Admin Furosemide (Lasix Injection) 80 mg ONCE ONCE IV 10/03/24 13:00 10/03/24 13:01 DC 10/03/24 13:07 Nitroglycerin (Nitro-Bid) 1 pkg ONCE ONCE TD 10/03/24 13:00 10/03/24 13:01 DC 10/03/24 13:15 Albuterol (Ventolin Medneb) 5 mg ONCE ONCE NEB 10/03/24 13:00 10/03/24 13:01 DC 10/03/24 14:10 Ipratropium Cornelia (Atrovent Medneb) 0.5 mg ONCE ONCE NEB 10/03/24 13:00 10/03/24 13:01 DC 10/03/24 14:09 Potassium Chloride (Klor-Con Tablet) 40 meq ONCE ONCE PO 10/03/24 14:00 10/03/24 15:44 DC 10/03/24 15:50 Methylprednisolone Sodium Succinate (Solu Medrol) 125 mg ONCE ONCE IV 10/03/24 14:15 10/03/24 15:44 DC 10/03/24 15:50 Aspirin 325 mg ONCE ONCE PO 10/03/24 14:15 10/03/24 15:44 DC 10/03/24 15:49 Morphine Sulfate 4 mg ONCE ONCE IV 10/03/24 14:15 10/03/24 15:44 DC 10/03/24 15:51 Ondansetron HCl (Zofran) 4 mg ONCE ONCE IV 10/03/24 14:15 10/03/24 15:44 DC 10/03/24 15:50 PROCEDURE(s): CXRP - CHEST PORTABLE REASON: sob ORDER NUMBER(s): [id number], ACCESSION NUMBER(s): [id number] CHEST RADIOGRAPH Indication:sob Technique: Single frontal view of the chest was obtained COMPARISON: XY CHEST PORTABLE on DOS: 07/27/24, XY CHEST PORTABLE on DOS: 06/29/24, XY CHEST PORTABLE on DOS: 06/28/24, XY CHEST PORTABLE on DOS: 03/11/24 FINDINGS: Lines and Tubes: None Lungs: Probable mild interstitial pulmonary edema. Pleura: No effusion. No pneumothorax. Cardiomediastinal contours: Cardiomegaly Bones: Unremarkable IMPRESSION: 1. Probable mild interstitial pulmonary edema. X-Ray, Labs, Meds, VS Comment 44Y M with PMHx CHF, HTN, HLD, COPD, and hernia repair feeling with shortness of breath, chest pain and lower abdominal and lower extremity swelling and pain Vitals remarkable for BP 162/121 Exam remarkable for bilateral rales, respiratory distress, lower abdominal wall and bilateral lower extremity edema erythema EKG sinus rhythm, rate 95, short MN interval at 69, normal QRS interval, QTC 462, normal axis, nonspecific T changes of baseline wander Chest x-ray independently interpreted by me cardiomegaly with pulmonary vascular congestion, right greater than left, increased interstitial markings on the right which may represent an infiltrate, no definite effusion, normal mediastinal width, grossly normal bony thorax, no free air, no pneumothorax CC unremarkable, basic metabolic panel remarkable for potassium 3.2, chloride 108, BUN 30, creatinine 1.37. Of note, BUN and creatinine in July 2024 were 25/1.27 Troponin 73 BNP pending Patient treated with the following in the ED: Aspirin 325 mg p.o., Lasix 80 mg IV, nitro Dur 1 in to chest wall, albuterol 5 mg/Atrovent 0.5 mg nebulized, Solu-Medrol 125 mg IV, morphine 4 mg IV, Zofran 4 mg IV On re-evaluation, patient states pain and difficulty breathing have improved. Plan is to admit the patient for diuresis, respiratory support as needed and cardiology evaluation Time of 1ST Reevaluation: 12:53 Reevaluation 1ST: Unchanged Patient Education/Counseling: Diagnosis, Treatment Family Education/Counseling: No Family Present Departure 1 Departure Time of Disposition: 14:08 Impression: Primary Impression: Acute chest pain Additional Impressions: Elevated troponin Acute exacerbation of chronic heart failure Decompensated COPD with exacerbation (chronic obstructive pulmonary disease) Acute kidney injury Disposition: ADMITTED INPATIENT Admit to: Tele Condition: Guarded Critical Care Note Critical Care Time?: Yes (35 min-critical care time only) Critical care comment: Critical care time including multiple bedside re-evaluations, review of laboratory and imaging studies, and discussion of the case with the admitting provider. Patient is high risk for hemodynamic and/or respiratory decompensation. Stability Stability form required: No Heart Score Heart Score: Heart Score Response (Comments) Value History Highly Suspicious 2 EKG Repolarization Disturb 1 Age 45-64 1 Risk Factors >3 or Hx ASHD 2 Troponin 1-2 x's Normal limit 1 Total 7 I personally scribed for EARLENE PASTOR MD ([email or web address]) on 10/03/24 at 12:53. Electronically submitted by Stephanie Nolan ([email or web address]). I personally scribed for EARLENE PASTOR MD ([email or web address]) on 10/03/24 at 14:52. Electronically submitted by Stephanie Nolan ([email or web address]). EARLENE PASTOR MD Oct 03, 2024 12:53
[2024-10-03] MEDS: FUROSEMIDE 100 MG/10ML VIAL IV ONE (13:07)
[2024-10-03] MEDS: NITROGLYCERIN 2% OINT 1GM PKG TD ONE (13:15)
[2024-10-03 13:32] LABS: Basophils # (auto) 0.1 10 ^3/uL (0-0.2); Basophils % (auto) 0.8 % (0.0-2.0); Eosinophils # (auto) 0.4 10 ^3/uL (0-0.8); Eosinophils % (auto) 3.7 % (0.0-7.0); Hematocrit 40.2 % (41.0-53.0); Hemoglobin 13.6 g/dL (13.5-17.5); Lymphocytes # (auto) 1.1 10 ^3/uL (0.4-5.4); Lymphocytes % (auto) 11.4 % (10.0-50.0); Mean Corpuscular Hemoglobin 28.5 pg (28.0-32.0); Mean Corpuscular Hgb Conc. 33.9 g/dL (32.0-36.0); Mean Corpuscular Volume 83.9 fL (80.0-100.0); Monocytes # (auto) 0.8 10 ^3/uL (0-1.3); Monocytes % (auto) 7.6 % (0.0-12.0); Neutrophils # (auto) 7.7 10 ^3/uL (1.6-8.6); Neutrophils % (auto) 76.5 % (37.0-80.0); Platelet Count (auto) 252 10^3/uL (140-450); Red Blood Cells 4.78 10^6/uL (4.5-5.90); Red Cell Distribution Width 16.5 % (11.8-14.3); White Blood Cell 10.1 10^3/uL (4.4-10.8)
[2024-10-03 13:44] LABS: Chloride 108 mmol/L (98-107); Potassium 3.2 mmol/L (3.5-5.1); Sodium 141 mmol/L (136-145)
[2024-10-03 13:45] LABS: Anion Gap 9 (5-15); Carbon Dioxide 24 mmol/L (20-31)
[2024-10-03 13:46] LABS: Calcium 9.1 mg/dL (8.7-10.4)
[2024-10-03 13:47] LABS: Urine Bacteria None Seen /hpf (None Seen)
[2024-10-03 13:50] LABS: BUN/Creatinine Ratio 21.9 (10.0-20.0); Blood Urea Nitrogen 30 mg/dL (9-23); Glucose 105 mg/dL (74-106)
--- NOTE | 2024-10-03 13:55 | DVH ---
CHEST RADIOGRAPH Indication:sob Technique: Single frontal view of the chest was obtained COMPARISON: XY CHEST PORTABLE on DOS: 07/27/24, XY CHEST PORTABLE on DOS: 06/29/24, XY CHEST PORTABLE o n DOS: 06/28/24, XY CHEST PORTABLE on DOS: 03/11/24 FINDINGS: Lines and Tubes: None Lungs: Probable mild interstitial pulmonary edema. Pleura: No effusion. No pneumothorax. Cardiomediastinal contours: Cardiomegaly Bones: Unremarkable IMPRESSION: 1. Probable mild interstitial pulmonary edema.
[2024-10-03 13:59] LABS: Urine Blood 1+ /uL (Negative); Urine Clarity Clear (Clear); Urine Color Light-Yellow (Yellow); Urine Protein, UAD TRACE (Negative); Urine Specific Gravity 1.011 (1.001-1.035); Urine Urobilinogen Normal (Negative); Urine WBC 1 /hpf (0 - 3); Urine pH 5.5 (5.0-9.0)
[2024-10-03] MEDS: IPRATROPIUM BROM 0.5 MG/2.5ML INH SOL NEB ONE (14:09)
[2024-10-03] MEDS: ALBUTEROL SULF 2.5 MG/0.5ML(0.5%) NEB SOLN NEB ONE (14:10)
[2024-10-03] MEDS ORDERED: MORPHINE SULFATE INJ 2 MG/ml SYRG IV PRN (15:45)
[2024-10-03] MEDS ORDERED: ACETAMINOPHEN 325 MG TAB PO PRN (15:45)
[2024-10-03] MEDS ORDERED: IPRATROPIUM BROM 0.5 MG/2.5ML INH SOL NEB PRN (15:45)
[2024-10-03] MEDS ORDERED: NITROGLYCERIN 0.4 MG SL TAB SL PRN (15:45)
[2024-10-03] MEDS ORDERED: ALBUTEROL SULF 2.5 MG/0.5ML(0.5%) NEB SOLN NEB PRN (15:45)
[2024-10-03] MEDS: ASPirin 325 MG TAB PO ONE (15:49)
[2024-10-03] MEDS: POTASSIUM CHL 20 Meq TABLET PO ONE (15:50)
[2024-10-03] MEDS: ONDANSETRON HCL 4 MG/2 ML VIAL IV ONE (15:50)
[2024-10-03] MEDS: methylPREDNISolone SOD SUCC 125 MG/2 ML VL IV ONE (15:50)
[2024-10-03] MEDS: MORPHINE SULFATE 4 MG/ML SYR/VIAL IV ONE (15:51)
--- NOTE | 2024-10-03 15:51 | DVHHP2 ---
History of Present Illness Reason for Visit: Shortness of breath History of Present Illness This 44-year-old male presents in the ED with a chief complaint of shortness of breath. The patient reports progressive shortness of breath for the past two days, associated with chest pain, dyspnea, and bilateral lower extremity edema. The patient reports Lasix prescription is prescribed 40 mg daily but due to water retention he started taking two tablets daily. The patient reports edema has progressed for which prompted his ER visit. The patient denies follow-up with Cardiology. Past medical history of heart failure with low EF 20%, drug- induced cardiomyopathy, hypertension, hyperlipidemia, COPD, and lower extremity open wound. Past Medical History As stated in HPI Past Surgical History Hernia Family History Reviewed, non-contributory to the management of this case. Past Social History Admit to tobacco and marijuana use Review of Systems Constitutional: Yes: Malaise; No: Fever, Chills, Sweats, Weakness, Other Eyes: No: Pain, Vision change, Conjunctivae inflammation, Eyelid inflammation, Other, Redness ENT: No: Ear pain, Ear discharge, Nose pain, Nose discharge, Nose congestion, Mouth pain, Mouth swelling, Throat pain, Throat swelling, Other Respiratory: No: Cough, Dry, Shortness of breath, SOB with excertion, Wheezing, Hemoptysis, Pleuritic Pain, Sputum, Wheezing, Other Cardiovascular: Chest Pain, Orthopnea, Paroxysmal Noc. Dyspnea, Edema; No: Palpitations, Lt Headedness, Other Gastrointestinal: No: Nausea, Vomiting, Abdominal Pain, Diarrhea, Constipation, Melena, Hematochezia, Other Genitourinary: No Dysuria, No Frequency, No Incontinence, No Hematuria, No Retention, No Other Musculoskeletal: No: other, neck pain, shoulder pain, arm pain, back pain, hand pain, leg pain, foot pain Skin: Lesions, Other (Left lower extremity open wound) Neurological: No: Weakness, Numbness, Incoordination, Change in speech, Confusion, Seizures, Other Allergies: Coded Allergies: NO KNOWN ALLERGIES (Unverified , 03/11/24) Exam Vital Signs Vital Signs Date Time Temp Pulse Resp B/P (MAP) Pulse Ox O2 Delivery O2 Flow Rate FiO2 10/03/24 14:39 86 16 96 Nasal Cannula* 4 36 10/03/24 14:38 98.3 176/128 (144) 98.3 General Appearance: Alert, Oriented X3, Cooperative, mild distress HEENT: Atraumatic, PERRLA, EOMI Respiratory: Clear to auscultation, Normal air movement Cardiovascular: Regular rate, Normal S1, Normal S2, Other (Dyspnea on exertion, orthopnea, bilateral lower extremity +3 pitting edema) Abdominal: Normal bowel sounds, Soft, No tenderness Extremities: No clubbing, No cyanosis, Other (Edema, venous stasis) Neuro: Normal gait, Normal speech, Normal tone Psych/Mental Status: Mental status NL Labs/Xrays Labs Test 10/03/24 14:09 10/03/24 13:30 10/03/24 12:56 Range/Units Troponin I High Sensitivity 72 *H </=54 ng/L Urine Color Light-yellow Yellow Urine Clarity Clear Clear Urine pH 5.5 5.0-9.0 Urine Specific [place] 1.011 1.001-1.035 Urine Protein Trace H Negative Urine Ketones Negative Negative Urine Blood 1+ H Negative /uL Urine Nitrite Negative Negative Urine Bilirubin Negative Negative Urine Urobilinogen Normal Negative mg/dL Urine Leukocyte Esterase Negative Negative /uL Urine RBC 1 0 - 3 /hpf Urine WBC 1 0 - 3 /hpf Urine Squamous Epithelial Cells None seen <5 /hpf Urine Bacteria None seen None Seen /hpf Urine Glucose Normal Normal mg/dL White Blood Count 10.1 4.4-10.8 10^3/uL Red Blood Count 4.78 4.5-5.90 10^6/uL Hemoglobin 13.6 13.5-17.5 g/dL Hematocrit 40.2 L 41.0-53.0 % Mean Corpuscular Volume 83.9 80.0-100.0 fL Mean Corpuscular Hemoglobin 28.5 28.0-32.0 pg Mean Corpuscular Hemoglobin Concent 33.9 32.0-36.0 g/dL Red Cell Distribution Width 16.5 H 11.8-14.3 % Platelet Count 252 140-450 10^3/uL Mean Platelet Volume 7.6 6.9-10.8 fL Neutrophils (%) (Auto) 76.5 37.0-80.0 % Lymphocytes (%) (Auto) 11.4 10.0-50.0 % Monocytes (%) (Auto) 7.6 0.0-12.0 % Eosinophils (%) (Auto) 3.7 0.0-7.0 % Basophils (%) (Auto) 0.8 0.0-2.0 % Neutrophils # (Auto) 7.7 1.6-8.6 10 ^3/uL Lymphocytes # (Auto) 1.1 0.4-5.4 10 ^3/uL Monocytes # (Auto) 0.8 0-1.3 10 ^3/uL Eosinophils # (Auto) 0.4 0-0.8 10 ^3/uL Basophils # (Auto) 0.1 0-0.2 10 ^3/uL Nucleated Red Blood Cells 0.0 % Sodium Level 141 136-145 mmol/L Potassium Level 3.2 L 3.5-5.1 mmol/L Chloride Level 108 H 98-107 mmol/L Carbon Dioxide Level 24 20-31 mmol/L Anion Gap 9 5-15 Blood Urea Nitrogen 30 H 9-23 mg/dL Creatinine 1.37 H 0.700-1.30 mg/dL Glomerular Filtration Rate Calc 64 >90 mL/min BUN/Creatinine Ratio 21.9 H 10.0-20.0 Serum Glucose 105 74-106 mg/dL Calcium Level 9.1 8.7-10.4 mg/dL B-Type Natriuretic Peptide 2911.67 0-100 pg/mL PROCEDURE(s): CXRP - CHEST PORTABLE REASON: sob ORDER NUMBER(s): [id number], ACCESSION NUMBER(s): [id number] CHEST RADIOGRAPH Indication:sob Technique: Single frontal view of the chest was obtained COMPARISON: XY CHEST PORTABLE on DOS: 07/27/24, XY CHEST PORTABLE on DOS: 06/29/24, XY CHEST PORTABLE on DOS: 06/28/24, XY CHEST PORTABLE on DOS: 03/11/24 FINDINGS: Lines and Tubes: None Lungs: Probable mild interstitial pulmonary edema. Pleura: No effusion. No pneumothorax. Cardiomediastinal contours: Cardiomegaly Bones: Unremarkable IMPRESSION: 1. Probable mild interstitial pulmonary edema. Assessment/Plan Assessment/Plan # Acute exacerbation of systolic and diastolic heart failure # HFrEF - recent echo (03/12/24) EF 20% # drug-induced cardiomyopathy # atypical chest pain # NSTEMI likely 2/2 to CHF exacerbation Admit telemetry unit Continue with heart failure medication IV diuresis with furosemide 40 b.i.d. Hart catheter- strict I & O, Daily wt Chest x-ray in a.m. BNP in AM Cardiology consult # left lower extremity cellulitis # lower venous stasis # rule out DVT Clindamycin IV Ultrasound bilateral lower extremity pending Wound consult Wound Care # GASTON on CKD 3B # acute cardiorenal syndrome # hypokalemia Nephrology consult Potassium replaced in ED Monitor, consider Nephrology consult as necessary # tobacco use # marijuana use Nicotine patch UDS Smoking cessation and marijuana use counseled # hypertension On Entresto, carvedilol Hydralazine prn Monitor DASH diet education # hyperlipidemia Statins Check lipid panel # copd MED NEB O2 SUPPLEMENT # obesity Lifestyle modification counseled with regular diet, exercise and weight loss # possible medical noncompliant Counseled DVT prophylaxis Medical plan discussed with patient and RN Plan discussed with: Patient My Orders Orders - ECTOR MUÑOZ [employer]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 Procedure Category Date Status Time Aspirin Enteric PHA 10/04/24 Logged Coated Tablet 07:00 Carvedilol Tablet PHA 10/03/24 Logged (Coreg Tablet) 22:00 Sacubitril-Valsartan PHA 10/03/24 Logged (Entresto 24-26 Mg 22:00 (Nf) Atorvastatin PHA 10/04/24 Logged Calcium (Lipitor) 10:00 * Cardiology Consult CONS 10/03/24 Transmitted 15:25 Electrocardigram EKG 10/04/24 Logged 04:00 Furosemide Injection PHA 10/03/24 Logged (Lasix Injection) 18:00 Insert Hart Catheter STEVAN 10/03/24 In Process 15:25 Strict I & O STEVAN 10/03/24 In Process 15:25 Daily Weight STEVAN 10/03/24 In Process 15:25 * Wound Consult CONS 10/03/24 Transmitted Wound Culture W/ Gs MONTY 10/03/24 Logged 15:25 Blood Culture MONTY 10/03/24 Logged 15:25 Magnesium LAB 10/03/24 Logged 15:25 Clindamycin 600mg Iv PHA 10/03/24 Logged (Cleocin Iv) 22:00 Clindamycin 600mg Iv PHA 10/03/24 Logged (Cleocin Iv) 15:45 Drug Screen LAB 10/03/24 Logged 15:35 Nicotine 7mg/24hr PHA 10/03/24 Logged (Nicoderm 7mg/24hr) 15:45 Nicotine 7mg/24hr PHA 10/04/24 Logged (Nicoderm 7mg/24hr) 10:00 Date of Service: Oct 03, 2024 Billing Provider: ECTOR MUÑOZ Common Visit Codes: [id number] INP/OBS CARE (HIGH) ECTOR MUÑOZ Oct 03, 2024 15:51
[2024-10-03 15:58] LABS: Amphetamine Screen, Urine Pos (NEGATIVE); Barbiturate Scree,Urine Neg (NEGATIVE); Benzodiazephine Screen, Urine Neg (NEGATIVE); Cannabinoid Screen, Urine Pos (NEGATIVE); Cocaine Screen, Urine Neg (NEGATIVE); Opiate Scree,Urine Neg (NEGATIVE); Phencyclidine Screen, Urine Neg (NEGATIVE)
[2024-10-03 16:14] LABS: Triglycerides 56 mg/dL (< 150)
[2024-10-03 16:15] LABS: LDL Cholesterol 48 mg/dL (< 100)
[2024-10-03 16:16] LABS: Cholesterol 92 mg/dL (< 200); HDL Cholesterol 34 mg/dL (40-59)
--- NOTE | 2024-10-03 16:21 | DVH ---
Bilateral lower extremity venous duplex Clinical History: swelling bilat LE Comparison: US BILAT LOWER DVT on DOS: 07/27/24, US BILAT LOW EXT ART DUPLEX on DOS: 06/28/24 Technique: Duplex Doppler evaluation of the deep venous systems of both lower extremities from the common femora l veins to the popliteal veins including color Doppler and spectral/pulsed waveform analysis was perf ormed. Findings: RIGHT SIDE: The common femoral vein demonstrates appropriate compressibility and waveform variability. There is compressibility/patency of the great saphenous vein at the proximal thigh. The femoral vein demonstrates appropriate compressibility and waveform variability. The deep femoral vein demonstrates appropriate compressibility and waveform variability. The popliteal vein demonstrates appropriate compressibility and waveform variability. There is normal compressibility at the tibioperoneal trunk. LEFT SIDE: The common femoral vein demonstrates appropriate compressibility and waveform variability. There is compressibility/patency of the great saphenous vein at the proximal thigh. The femoral vein demonstrates appropriate compressibility and waveform variability. The deep femoral vein demonstrates appropriate compressibility and waveform variability. The popliteal vein demonstrates appropriate compressibility and waveform variability. There is normal compressibility at the tibioperoneal trunk. Impression: 1. No right or left femoropopliteal venous thrombosis.
[2024-10-03] MEDS: NICOTINE 7MG/24HR TOPICAL PATCH TD ONE (16:40)
[2024-10-03] MEDS: CLINDAMYCIN 600MG IV 50 ML IV ONE (16:40)
[2024-10-03] MEDS: FUROSEMIDE 40 MG/4 ML VIAL IV SCH (17:18)
[2024-10-03 18:23] LABS: Base Excess -3.6 mmol/L (-2.0-3.0)
[2024-10-03] MEDS: hydrALAZINE HCL 20 MG/ML VL IV PRN (18:50)
[2024-10-03] MEDS: SACUBITRIL-VALSARTAN 24mg/26mg TAB PO SCH (21:53)
[2024-10-03] MEDS: ATORVASTATIN 20 MG TAB PO SCH (21:54)
[2024-10-03] MEDS: cloNIDine HCL 0.1 MG TAB PO ONE (21:54)
[2024-10-03] MEDS: CARVEDILOL 3.125 MG TAB PO SCH (21:54)
[2024-10-03] MEDS: CLINDAMYCIN 600MG IV 50 ML IV SCH (22:40)
[2024-10-04] VITALS (11 sets, daily range): BP systolic 100–150; BP diastolic 68–104; PULSE 72–102; RESP 17–19; TEMP 97.3–98.8; O2SAT 90–97
[2024-10-04] MEDS: hydrALAZINE HCL 20 MG/ML VL IV ONE (02:15)
[2024-10-04] MEDS: ASPirin-EC 81 mg tab PO SCH (05:45)
[2024-10-04 05:53] LABS: Basophils # (auto) 0 10 ^3/uL (0-0.2); Basophils % (auto) 0.2 % (0.0-2.0); Eosinophils # (auto) 0 10 ^3/uL (0-0.8); Hematocrit 41.1 % (41.0-53.0); Lymphocytes # (auto) 0.6 10 ^3/uL (0.4-5.4); Lymphocytes % (auto) 5.6 % (10.0-50.0); Mean Corpuscular Hemoglobin 28.7 pg (28.0-32.0); Mean Corpuscular Hgb Conc. 34.1 g/dL (32.0-36.0); Mean Corpuscular Volume 84.1 fL (80.0-100.0); Monocytes # (auto) 0.5 10 ^3/uL (0-1.3); Monocytes % (auto) 4.3 % (0.0-12.0); Neutrophils # (auto) 9.5 10 ^3/uL (1.6-8.6); Neutrophils % (auto) 89.9 % (37.0-80.0); Nucleated Red Blood Cells % 0.1 %; Platelet Count (auto) 264 10^3/uL (140-450); Red Blood Cells 4.88 10^6/uL (4.5-5.90); Red Cell Distribution Width 16.1 % (11.8-14.3); White Blood Cell 10.5 10^3/uL (4.4-10.8)
[2024-10-04 06:08] LABS: Alanine Aminotransferase 26 U/L (7-40); Albumin 3.6 g/dL (3.2-4.8); Alkaline Phosphatase 114 U/L (46-116); Anion Gap 8 (5-15); Aspartate Aminotransferase 26 U/L (13-40); BUN/Creatinine Ratio 18.5 (10.0-20.0); Bilirubin, Total 1.4 mg/dL (0.2-1.0); Blood Urea Nitrogen 24 mg/dL (9-23); Calcium 8.9 mg/dL (8.7-10.4); Carbon Dioxide 27 mmol/L (20-31); Chloride 104 mmol/L (98-107); Potassium 3.5 mmol/L (3.5-5.1); Sodium 139 mmol/L (136-145)
[2024-10-04 06:09] LABS: Glucose 242 mg/dL (74-106)
--- NOTE | 2024-10-04 06:36 | ECG ---
[facility] Test Date: 2024-10-03 Test Time: 12:23:28 Pat Name: KLEBER ARREDONDO Department: ER Room: 0212T Gender: M Thoracic Surgeon: YONNY : 1980 Requested By: EARLENE SOOD Order Number: [id number] Reading MD: Measurements Intervals [place] Rate: 95 P: 72 NE: 69 QRS: 80 QRSD: 109 T: 230 QT: 367 QTc: 462 Interpretive Statements Sinus rhythm Short NE interval LAE, consider biatrial enlargement Repol abnrm suggests ischemia, diffuse leads Minimal ST elevation, lateral leads Baseline wander in lead(s) V4 Please click the below link to view image of tracing.
--- NOTE | 2024-10-04 09:34 | DVHPN2 ---
Subjective 44-year-old male with a history of cardiomyopathy, drug-induced, hypertension, dyslipidemia, COPD, tobacco abuse, methamphetamine use, cannabinoids uterus comes with chief complaint of shortness of breaths and swelling for 2 days He has a history of ejection fraction 20% cardiomyopathy, has a history of chronic wounds on his bilateral lower extremities Changes from previous H/P or p: Changes Eyes: No Pain, No Vision change, No Conjunctivae inflammation, No Eyelid inflammation, No Other, No Redness ENT: No Ear pain, No Ear discharge, No Nose pain, No Nose discharge, No Nose congestion, No Mouth pain, No Mouth swelling, No Throat pain, No Throat swelling, No Other Cardiovascular: Chest Pain; No Palpitations; Orthopnea, Paroxysmal Noc. Dyspnea , Edema; No Lt Headedness, No Other Respiratory: No Cough, No Dry, No Shortness of breath, No SOB with excertion, No Wheezing, No Hemoptysis, No Pleuritic Pain, No Sputum, No Other Gastrointestinal: No Nausea, No Vomiting, No Abdominal Pain, No Diarrhea, No Constipation, No Melena, No Hematochezia, No Other Genitourinary: No Dysuria, No Frequency, No Incontinence, No Hematuria, No Retention, No Other Musculoskeletal: No other, No neck pain, No shoulder pain, No arm pain, No back pain, No hand pain, No leg pain, No foot pain Skin: Lesions, Other (Left lower extremity open wound) Objective Vitals Vital Signs Date Time Temp Pulse Resp B/P (MAP) Pulse Ox O2 Delivery O2 Flow Rate FiO2 10/04/24 09:05 98.2 95 19 150/103 (119) 93 98.2 10/03/24 21:47 Nasal Cannula* 6 44 Intake/Output Intake and Output 10/04/24 07:00 Intake Total 820 ml Output Total 800 ml Balance 20 ml Intake Oral 670 ml IV Total 150 ml Output Urine Total 800 ml General Appearance: Alert, Oriented X3, Cooperative, No acute distress Lungs: Clear to auscultation, Normal air movement Cardiovascular: Regular rate, Normal S1, Normal S2 Abdomen: Normal bowel sounds, Soft, No tenderness Extremities: Other (1+ edema bilaterally in the lower extremities) Medications Current Medications Medications Dose Ordered Sig/Guilherme Route Start Time Stop Time Status Last Admin Dose Admin Aspirin 81 mg QAM PO 10/04/24 07:00 10/04/24 05:45 81 MG Carvedilol 3.125 mg BID PO 10/03/24 22:00 10/03/24 21:54 3.125 MG Sacubitril/ Valsartan 1 tab BID PO 10/03/24 22:00 10/03/24 21:53 1 TAB Atorvastatin Calcium 40 mg HS PO 10/03/24 22:00 10/03/24 21:54 40 MG Furosemide 40 mg BIDD IV 10/03/24 18:00 10/04/24 05:46 40 MG Clindamycin Phosphate 50 ml @ 50 mls/hr Q8HR IV 10/03/24 22:00 10/04/24 05:46 50 MLS/HR Nicotine 1 patch DAILY TD 10/04/24 10:00 Acetaminophen/ Hydrocodone Bitart 1 tab Q4HP PRN PO 10/03/24 15:45 Ondansetron HCl 4 mg Q4HP PRN IV 10/03/24 15:45 Enoxaparin Sodium 40 mg DAILY SC 10/04/24 10:00 Acetaminophen 650 mg Q6HP PRN PO 10/03/24 15:45 Morphine Sulfate 2 mg Q4HPRN PRN IV 10/03/24 15:45 Nitroglycerin 0.4 mg Q5MINP PRN SL 10/03/24 15:45 Morphine Sulfate 2 mg Q30M PRN IV 10/03/24 15:45 Albuterol 2.5 mg Q4HPRN PRN NEB 10/03/24 15:45 Ipratropium [place] 0.5 mg Q4HPRN PRN NEB 10/03/24 15:45 Laboratory Results Laboratory Tests 10/04/24 05:10 Chemistry Test 10/03/24 12:56 10/04/24 05:10 Calcium Level 9.1 mg/dL (8.7-10.4) 8.9 mg/dL (8.7-10.4) Magnesium Level 2.0 mg/dL (1.6-2.6) Albumin 3.6 g/dL (3.2-4.8) Total Protein 7.0 g/dL (5.7-8.2) Lipid panel Test 10/03/24 14:09 Cholesterol Level 92 mg/dL (< 200) HDL Cholesterol 34 mg/dL (40-59) L Triglycerides Level 56 mg/dL (< 150) Cardiac Markers Test 10/03/24 12:56 10/04/24 05:10 B-Type Natriuretic Peptide 2911.67 pg/mL (0-100) 3634.58 pg/mL (0-100) LFT Test 10/04/24 05:10 Alanine Aminotransferase (ALT) 26 U/L (7-40) Alkaline Phosphatase 114 U/L (46-116) Aspartate Amino Transferase (AST) 26 U/L (13-40) Total Bilirubin 1.4 mg/dL (0.2-1.0) H Urinalysis Test 10/03/24 13:30 Urine Color Light-yellow (Yellow) Urine Clarity Clear (Clear) Urine pH 5.5 (5.0-9.0) Urine Specific [place] 1.011 (1.001-1.035) Urine Protein Trace (Negative) H Urine Ketones Negative (Negative) Urine Blood 1+ /uL (Negative) H Urine Nitrite Negative (Negative) Urine Bilirubin Negative (Negative) Urine Urobilinogen Normal mg/dL (Negative) Urine Leukocyte Esterase Negative /uL (Negative) Urine RBC 1 /hpf (0 - 3) Urine WBC 1 /hpf (0 - 3) Urine Squamous Epithelial Cells None seen /hpf (<5) Urine Bacteria None seen /hpf (None Seen) Urine Glucose Normal mg/dL (Normal) Blood Gas Results Test 10/03/24 18:16 Arterial Blood pH 7.365 (7.350-7.450) FiO2 % 44.0 Microbiology Microbiology Date/Time Source Procedure Growth Status 10/03/24 16:10 Leg Gram Stain Pending Resulted 10/03/24 16:10 Leg Wound Culture - Preliminary Resulted Assessment/Plan Assessment/Plan Acute on chronic hypoxic respiratory failure Acute on chronic systolic heart failure, Drug-induced cardiomyopathy, last ejection fraction 20% COPD 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 cellulitis Dyslipidemia Hypertension Tobacco use Cannabinoids use Methamphetamine use Plan IV antibiotics clindamycin Beta gadiel, continue Coreg Continue Entresto Add Aldactone 25 mg daily Add Jardiance 10 mg daily Echocardiogram Cardiology consult Lipitor Aspirin Med neb treatments as needed Lasix 40 mg IV twice a day [place] p.r.n. Nicotine patch Patient was counseled about drug and smoking abuse cessation Full code Advance directives discussed for more than 20 minutes Plan discussed with: Patient My Orders Orders - SKYLAR ANDERSON MD Procedure Category Date Status Time Mrsa Screen MONTY 10/04/24 Uncollected 09:17 Echo 2d Mode Cardiac US 10/04/24 Logged DOP 09:18 Date of Service: Oct 04, 2024 Billing Provider: SKYLAR ANDERSON MD Common Visit Codes: [id number] INP/OBS CARE(HIGH) Secondary Visit Codes: [id number] CARE PLAN 30 MINUTES SKYLAR ANDERSON MD Oct 04, 2024 09:34
[2024-10-04] MEDS ORDERED: NICOTINE 7MG/24HR TOPICAL PATCH TD SCH (10:00)
[2024-10-04] MEDS: EMPAGLIFLOZIN 10 MG TAB PO SCH (10:38)
[2024-10-04] MEDS: SPIRONOLACTONE 25 MG TAB PO ONE (10:39)
[2024-10-04] MEDS: ENOXAPARIN SOD 40 MG/0.4 ML SYRINGE SC SCH (10:41)
[2024-10-04] MEDS: NICOTINE 21MG/24 HR TOPICAL PATCH TD ONE (10:41)
[2024-10-04] MEDS ORDERED: hydrALAZINE HCL 20 MG/ML VL IV PRN (11:30)
--- NOTE | 2024-10-04 11:34 | DVHINCON2 ---
Date Seen: Oct 04, 2024 Referring Physician SANTIAGO Rodríguez Reason for Consultation CHF History of Present Illness This is a 44-year-old man who presented to the emergency room with a chief complaint of chest pain. At time of assessment the patient was found extremely somnolent. Information obtained from records which indicate the patient presented with complaints of chest pain localized to the left inframammary area, pressure-like, and associated with shortness of breath, abdominal pain, back pain, lower extremity pain, and nausea. At time of assessment the patient endorsed his symptoms to fluid overload. Denies following up with the primary director of hotel operations as an outpatient. He underwent a 12 lead electrocardiogram revealing a sinus rhythm suggestive of left atrial enlargement. Troponin levels peaked at 73 ng/L. Significant medical history includes a drug-induced cardiomyopathy, hypertension, dyslipidemia, prediabetes, polysubstance abuse including methamphetamines, cannabinoids, tobacco, and remote history of cocaine use. Past Medical History Past medical history reviewed. No other significant than mentioned above. Past Surgical History Past surgical history reviewed. No other significant than mentioned above. Family History: Alcoholism G8 FATHER Arthritis Diabetes mellitus FH: congestive heart failure G8 MOTHER, Family History Unable to retrieve family history at this time. Social History See HPI. Allergies: Coded Allergies: NO KNOWN ALLERGIES (Unverified , 03/11/24) Home Meds Active Scripts Furosemide (Lasix) 40 Mg Tab, 40 MG PO DAILY for 30 Days, #30 TAB 3 Refills Prov:JASPER TRAVIS NP 06/29/24 Atorvastatin Calcium (Lipitor) 40 Mg Tab, 1 TAB PO DAILY for 30 Days, #30 TAB 3 Refills Prov:JASPER TRAVIS NP 06/29/24 Carvedilol (Carvedilol) 3.125 Mg Tab, 1 TAB PO BID for 30 Days, #60 TAB 3 Refills Prov:JASPER TRAVIS NP 06/29/24 Aspirin (Aspir-Low) 81 Mg Tab, 1 TAB PO QAM for 30 Days, #30 TAB 3 Refills Prov:JASPER TRAVIS NP 06/29/24 Reported Medications Furosemide (Furosemide) 40 Mg Tab, 1 TAB PO DAILY 10/03/24 [Atorvastatin] No Conflict Check 10/03/24 Metoprolol Succinate (Metoprolol Succinate Er) 25 Mg Tab, 1 TAB PO DAILY 03/12/24 Home Meds Home medications reviewed. Current Medications Current Medications Medications (Trade) Dose Ordered Sig/Guilherme Route PRN Reason Start Time Stop Time Status Last Admin Aspirin (Ecotrin Enteric Coated Tablet) 81 mg QAM PO 10/04/24 07:00 10/04/24 05:45 Carvedilol (Coreg Tablet) 3.125 mg BID PO 10/03/24 22:00 10/04/24 10:39 Sacubitril/ Valsartan (Entresto 24-26 Mg tab) 1 tab BID PO 10/03/24 22:00 10/04/24 10:40 Atorvastatin Calcium (Lipitor) 40 mg HS PO 10/03/24 22:00 10/03/24 21:54 Furosemide (Lasix Injection) 40 mg BIDD IV 10/03/24 18:00 10/04/24 05:46 Clindamycin Phosphate 50 ml @ 50 mls/hr Q8HR IV 10/03/24 22:00 10/04/24 05:46 Nicotine (Nicoderm 7MG/ 24HR) 1 patch DAILY TD 10/04/24 10:00 10/04/24 09:31 DC Acetaminophen/ Hydrocodone Bitart ([place] 5/325MG Tab) 1 tab Q4HP PRN PO MODERATE PAIN (4-6 PAIN SCALE) 10/03/24 15:45 Ondansetron HCl (Zofran) 4 mg Q4HP PRN IV NAUSEA / VOMITING 10/03/24 15:45 Enoxaparin Sodium (Lovenox) 40 mg DAILY SC 10/04/24 10:00 10/04/24 10:41 Acetaminophen (Tylenol Tablet) 650 mg Q6HP PRN PO PAIN SCALE 1-3 OR TEMP>100.4 10/03/24 15:45 Morphine Sulfate 2 mg Q4HPRN PRN IV SEVERE PAIN (7-10 PAIN SCALE) 10/03/24 15:45 Nitroglycerin (Ntrostat Sublingual) 0.4 mg Q5MINP PRN SL FOR CHEST PAIN 10/03/24 15:45 Morphine Sulfate 2 mg Q30M PRN IV FOR CHEST PAIN 10/03/24 15:45 Hydralazine HCl (Apresoline Injection) 10 mg Q6HP PRN IV SBP>150 10/03/24 15:45 10/03/24 21:47 DC 10/03/24 18:50 Albuterol (Ventolin Medneb) 2.5 mg Q4HPRN PRN NEB SHORTNESS OF BREATH 10/03/24 15:45 Ipratropium [place] (Atrovent Medneb) 0.5 mg Q4HPRN PRN NEB SHORTNESS OF BREATH 10/03/24 15:45 Nicotine (Nicoderm 21MG/ 24HR) 1 patch DAILY TD 10/05/24 10:00 Empaglifozin (Jardiance) 10 mg DAILY PO 10/04/24 10:00 10/04/24 10:38 Review of Systems Constitutional: No symptom reported Ears, Nose, & Throat: No symptom reported Eyes: No symptom reported Neurological: No symptoms reported Pulmonary/Respiratory: SOB Cardiovascular: Chest pain Gastrointestinal: No symptom reported Genitourinary: No symptom reported Musculoskeletal: No symptom reported Skin: No symptom reported Psychiatric: No symptom reported Endocrine: No symptom reported Hemotologic/Lymphatic: No symptom reported Vital Signs Vital Signs Date Time Temp Pulse Resp B/P (MAP) Pulse Ox O2 Delivery O2 Flow Rate FiO2 10/04/24 10:39 95 150/103 10/04/24 09:05 98.2 19 93 98.2 10/03/24 21:47 Nasal Cannula* 6 44 Physical Exam General Appearance: Somnolent. Unkept Head Exam: Normal inspection Neck Exam: Normal inspection. Non-tender. Normal alignment Pulmonary/Respiratory: Chest non-tender. Crackles to bilateral breath sounds Cardiovascular/Chest: Regular rate and rhythm. S1, S2. SR with LAE. Peripheral Pulses: 2+ Radial (R). 2+ Radial (L). 2+ Pedal (R). 2+ Pedal (L) Abdominal Exam: Normal bowel sounds. Soft. Nontender. No hepatospenomegaly. No masses Ankle Exam: Positive ankle edema ++ Lower extremities: Positive lower extremity edema +++ Neuro/Mental Status: A&O x2. Very poor historian. Somnolent Thoughts/Psych: Unable to assess at this time Appearance: Somnolent. Unkept Skin Exam: Wound/scab to left lateral lower extremity Labs/Diagnostic Data Labs Test 10/04/24 05:10 10/03/24 18:16 10/03/24 14:09 11/17/24 13:30 Range/Units White Blood Count 10.5 4.4-10.8 10^3/uL Red Blood Count 4.88 4.5-5.90 10^6/uL Hemoglobin 14.0 13.5-17.5 g/dL Hematocrit 41.1 41.0-53.0 % Mean Corpuscular Volume 84.1 80.0-100.0 fL Mean Corpuscular Hemoglobin 28.7 28.0-32.0 pg Mean Corpuscular Hemoglobin Concent 34.1 32.0-36.0 g/dL Red Cell Distribution Width 16.1 H 11.8-14.3 % Platelet Count 264 140-450 10^3/uL Mean Platelet Volume 7.6 6.9-10.8 fL Neutrophils (%) (Auto) 89.9 H 37.0-80.0 % Lymphocytes (%) (Auto) 5.6 L 10.0-50.0 % Monocytes (%) (Auto) 4.3 0.0-12.0 % Eosinophils (%) (Auto) 0.0 0.0-7.0 % Basophils (%) (Auto) 0.2 0.0-2.0 % Neutrophils # (Auto) 9.5 H 1.6-8.6 10 ^3/uL Lymphocytes # (Auto) 0.6 0.4-5.4 10 ^3/uL Monocytes # (Auto) 0.5 0-1.3 10 ^3/uL Eosinophils # (Auto) 0 0-0.8 10 ^3/uL Basophils # (Auto) 0 0-0.2 10 ^3/uL Nucleated Red Blood Cells 0.1 % Sodium Level 139 136-145 mmol/L Potassium Level 3.5 3.5-5.1 mmol/L Chloride Level 104 98-107 mmol/L Carbon Dioxide Level 27 20-31 mmol/L Anion Gap 8 5-15 Blood Urea Nitrogen 24 H 9-23 mg/dL Creatinine 1.30 0.700-1.30 mg/dL Glomerular Filtration Rate Calc 69 >90 mL/min BUN/Creatinine Ratio 18.5 10.0-20.0 Serum Glucose 242 #H 74-106 mg/dL Calcium Level 8.9 8.7-10.4 mg/dL Total Bilirubin 1.4 H 0.2-1.0 mg/dL Aspartate Amino Transferase (AST) 26 13-40 U/L Alanine Aminotransferase (ALT) 26 7-40 U/L Alkaline Phosphatase 114 46-116 U/L B-Type Natriuretic Peptide 3634.58 0-100 pg/mL Total Protein 7.0 5.7-8.2 g/dL Albumin 3.6 3.2-4.8 g/dL Blood Gas Specimen Type Arterial Blood Gas Sample Site Right radial Blood Gas Patient Temperature 37.0 Arterial Blood Date Drawn [id number] Arterial Blood pH 7.365 7.350-7.450 Arterial Blood Partial Pressure CO2 38.0 35.0-48.0 mmHg Arterial Blood Partial Pressure O2 67.1 L 83.0-108.0 mmHg Arterial Blood HCO3 21.2 21.0-28.0 mmol/L Arterial Blood Oxygen Saturation 89.9 L 94.0-98.0 % Arterial Blood Base Excess -3.6 L -2.0-3.0 mmol/L Arterial Blood Oxyhemoglobin 87.7 L 94.0-98.0 % Arterial Blood Carboxyhemoglobin 1.8 H 0.5-1.5 % Arterial Blood Methemoglobin 0.6 0.0-1.5 % Samson Test Yes Blood Gas Total Hemoglobin 15.40 13.5-17.5 g/dL Blood Gas Liter Flow 6.00 Blood Gas Modality Nasal cannula FiO2 % 44.0 Troponin I High Sensitivity 72 *H </=54 ng/L Triglycerides Level 56 < 150 mg/dL Cholesterol Level 92 < 200 mg/dL LDL Cholesterol 48 < 100 mg/dL HDL Cholesterol 34 L 40-59 mg/dL Urine Color Light-yellow Yellow Urine Clarity Clear Clear Urine pH 5.5 5.0-9.0 Urine Specific [place] 1.011 1.001-1.035 Urine Protein Trace H Negative Urine Ketones Negative Negative Urine Blood 1+ H Negative /uL Urine Nitrite Negative Negative Urine Bilirubin Negative Negative Urine Urobilinogen Normal Negative mg/dL Urine Leukocyte Esterase Negative Negative /uL Urine RBC 1 0 - 3 /hpf Urine WBC 1 0 - 3 /hpf Urine Squamous Epithelial Cells None seen <5 /hpf Urine Bacteria None seen None Seen /hpf Urine Glucose Normal Normal mg/dL Urine Opiates Screen Neg NEGATIVE Urine Fentanyl Screen Neg NEGATIVE Urine Barbiturates Screen Neg NEGATIVE Urine Phencyclidine Screen Neg NEGATIVE Urine Amphetamines Screen Pos NEGATIVE Urine Benzodiazepines Screen Neg NEGATIVE Urine Cocaine Screen Neg NEGATIVE Urine Cannabinoids Screen Pos NEGATIVE Test 10/03/24 12:56 Range/Units Magnesium Level 2.0 1.6-2.6 mg/dL Microbiology Date/Time Source Procedure Growth Status 10/03/24 16:10 Leg Gram Stain Pending Resulted 10/03/24 16:10 Leg Wound Culture - Preliminary Resulted Assessment Acute on chronic decompensated HFrEF Drug-induced/biventricular cardiomyopathy with an EF of 20% Hypertensive urgency NSTEMI type 2 secondary to above Polysubstance abuse Medical noncompliance/nonadherence Obesity Plan/Recommendation We will continue the following plan/recommendations (Dr. Mccollum): * Echocardiogram from 03/12/24 revealed EF 20% * GDMT for CHF, uptitrate as tolerated * Strict I&Os. Daily weight. Maintain fluid restrictions * Aggressive blood pressure control as above * Conservative management given poor medical compliance * DVT/VTE prophylaxis Thank you for allowing us to participate in this patient's care. Please call if you have any questions or concerns. This medical document was created using an electronic medical record system with voice recognition software and computerized dictation system. Although this document has been carefully reviewed, there might still be some phonetic and typographical errors. Occasional wrong-word or ``sound-alike substitutions may have occurred due to the inherent limitations of voice recognition software. These areas are purely typographical due to imperfections of the software programs and do not reflect any compromise in the patient's medical care. Pl ease read the chart carefully and recognize, using context, where these substitutions have occurred. Plan discussed with: Patient, Other Date of Service: Oct 04, 2024 Billing Provider: KAMRAN MCCOLLUM MD Cardiology Common Codes: [id number] INP/OBS CARE (High) SAMINA GARCIA INSPECTOR TESTER SORTER Oct 04, 2024 11:33
[2024-10-04] MEDS: CARVEDILOL 12.5 MG TAB PO ONE (12:39)
[2024-10-04] MEDS: MORPHINE SULFATE INJ 2 MG/ml SYRG IV PRN (18:57)
[2024-10-04] MEDS: HYDROcodone-ACET 5/325MG TAB PO PRN (20:13)
[2024-10-04] MEDS: CARVEDILOL 12.5 MG TAB PO SCH (21:02)
[2024-10-05] VITALS (12 sets, daily range): BP systolic 109–127; BP diastolic 79–94; PULSE 68–78; RESP 18–21; TEMP 97.4–98.2; O2SAT 91–99
[2024-10-05 06:23] LABS: Anion Gap 5 (5-15); Carbon Dioxide 31 mmol/L (20-31); Chloride 102 mmol/L (98-107); Potassium 3.5 mmol/L (3.5-5.1); Sodium 138 mmol/L (136-145)
[2024-10-05 06:24] LABS: Calcium 8.6 mg/dL (8.7-10.4)
[2024-10-05 06:29] LABS: BUN/Creatinine Ratio 20.9 (10.0-20.0); Blood Urea Nitrogen 29 mg/dL (9-23)
[2024-10-05 06:30] LABS: Magnesium 2.1 mg/dL (1.6-2.6)
[2024-10-05 06:41] LABS: Glucose 115 mg/dL (74-106)
[2024-10-05 06:53] LABS: Triglycerides 60 mg/dL (< 150)
[2024-10-05 06:54] LABS: LDL Cholesterol 41 mg/dL (< 100)
[2024-10-05 06:55] LABS: Cholesterol 84 mg/dL (< 200); HDL Cholesterol 29 mg/dL (40-59)
[2024-10-05] MEDS: NICOTINE 21MG/24 HR TOPICAL PATCH TD SCH (09:29)
--- NOTE | 2024-10-05 09:31 | DVHPN2 ---
Subjective He is better Less swelling Still has 1+ edema in his legs Changes from previous H/P or p: Changes Eyes: No Pain, No Vision change, No Conjunctivae inflammation, No Eyelid inflammation, No Other, No Redness ENT: No Ear pain, No Ear discharge, No Nose pain, No Nose discharge, No Nose congestion, No Mouth pain, No Mouth swelling, No Throat pain, No Throat swelling, No Other Cardiovascular: Chest Pain; No Palpitations; Orthopnea, Paroxysmal Noc. Dyspnea , Edema; No Lt Headedness, No Other Respiratory: No Cough, No Dry, No Shortness of breath, No SOB with excertion, No Wheezing, No Hemoptysis, No Pleuritic Pain, No Sputum, No Other Gastrointestinal: No Nausea, No Vomiting, No Abdominal Pain, No Diarrhea, No Constipation, No Melena, No Hematochezia, No Other Genitourinary: No Dysuria, No Frequency, No Incontinence, No Hematuria, No Retention, No Other Musculoskeletal: No other, No neck pain, No shoulder pain, No arm pain, No back pain, No hand pain, No leg pain, No foot pain Skin: Lesions, Other (Left lower extremity open wound) Objective Vitals Vital Signs Date Time Temp Pulse Resp B/P (MAP) Pulse Ox O2 Delivery O2 Flow Rate FiO2 10/05/24 07:03 94 Nasal Cannula 5.0 10/05/24 07:03 40 10/05/24 05:47 127/94 10/05/24 05:00 97.5 68 20 97.5 Intake/Output Intake and Output 10/05/24 07:00 Intake Total 1750 ml Output Total 2150 ml Balance -400 ml Intake Oral 1650 ml IV Total 100 ml Output Urine Total 2150 ml # Voids 1 General Appearance: Alert, Oriented X3, Cooperative, No acute distress Lungs: Clear to auscultation, Normal air movement Cardiovascular: Regular rate, Normal S1, Normal S2 Abdomen: Normal bowel sounds, Soft, No tenderness Extremities: Other (1+ edema bilaterally in the lower extremities) Medications Current Medications Medications Dose Ordered Sig/Guilherme Route Start Time Stop Time Status Last Admin Dose Admin Aspirin 81 mg QAM PO 10/04/24 07:00 10/05/24 05:47 81 MG Sacubitril/ Valsartan 1 tab BID PO 10/03/24 22:00 10/04/24 21:03 1 TAB Furosemide 40 mg BIDD IV 10/03/24 18:00 10/05/24 05:47 40 MG Clindamycin Phosphate 50 ml @ 50 mls/hr Q8HR IV 10/03/24 22:00 10/05/24 05:47 50 MLS/HR Acetaminophen/ Hydrocodone Bitart 1 tab Q4HP PRN PO 10/03/24 15:45 10/04/24 20:13 1 TAB Ondansetron HCl 4 mg Q4HP PRN IV 10/03/24 15:45 Enoxaparin Sodium 40 mg DAILY SC 10/04/24 10:00 10/04/24 10:41 40 MG Acetaminophen 650 mg Q6HP PRN PO 10/03/24 15:45 Morphine Sulfate 2 mg Q4HPRN PRN IV 10/03/24 15:45 10/04/24 18:57 2 MG Nitroglycerin 0.4 mg Q5MINP PRN SL 10/03/24 15:45 Morphine Sulfate 2 mg Q30M PRN IV 10/03/24 15:45 Albuterol 2.5 mg Q4HPRN PRN NEB 10/03/24 15:45 Ipratropium [place] 0.5 mg Q4HPRN PRN NEB 10/03/24 15:45 Nicotine 1 patch DAILY TD 10/05/24 10:00 Empaglifozin 10 mg DAILY PO 10/04/24 10:00 10/04/24 10:38 10 MG Carvedilol 25 mg Q12HR PO 10/04/24 22:00 10/04/24 21:02 25 MG Hydralazine HCl 10 mg Q6HP PRN IV 10/04/24 11:30 Laboratory Results Laboratory Tests 10/04/24 05:10 10/05/24 04:36 Chemistry Test 10/05/24 04:36 Calcium Level 8.6 mg/dL (8.7-10.4) L Magnesium Level 2.1 mg/dL (1.6-2.6) Lipid panel Test 10/05/24 04:36 Cholesterol Level 84 mg/dL (< 200) HDL Cholesterol 29 mg/dL (40-59) L Triglycerides Level 60 mg/dL (< 150) Urinalysis Test 10/03/24 13:30 Urine Color Light-yellow (Yellow) Urine Clarity Clear (Clear) Urine pH 5.5 (5.0-9.0) Urine Specific [place] 1.011 (1.001-1.035) Urine Protein Trace (Negative) H Urine Ketones Negative (Negative) Urine Blood 1+ /uL (Negative) H Urine Nitrite Negative (Negative) Urine Bilirubin Negative (Negative) Urine Urobilinogen Normal mg/dL (Negative) Urine Leukocyte Esterase Negative /uL (Negative) Urine RBC 1 /hpf (0 - 3) Urine WBC 1 /hpf (0 - 3) Urine Squamous Epithelial Cells None seen /hpf (<5) Urine Bacteria None seen /hpf (None Seen) Urine Glucose Normal mg/dL (Normal) Microbiology Microbiology Date/Time Source Procedure Growth Status 10/03/24 16:30 Blood Blood Culture - Preliminary NO GROWTH AFTER 24 HOURS OF INCUBATION. Resulted 10/03/24 16:10 Leg Gram Stain Pending Resulted 10/03/24 16:10 Leg Wound Culture - Preliminary Resulted Assessment/Plan Assessment/Plan Acute on chronic hypoxic respiratory failure Acute on chronic systolic heart failure, Drug-induced cardiomyopathy, last ejection fraction 20% COPD 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 cellulitis Dyslipidemia Hypertension Tobacco use Cannabinoids use Methamphetamine use Plan 10/04/2024: IV antibiotics clindamycin Beta gadiel, continue Coreg Continue Entresto Add Aldactone 25 mg daily Add Jardiance 10 mg daily Echocardiogram Cardiology consult Lipitor Aspirin Med neb treatments as needed Lasix 40 mg IV twice a day [place] p.r.n. Nicotine patch Patient was counseled about drug and smoking abuse cessation Full code Advance directives discussed for more than 20 minutes 10/05/2024: Continue IV Lasix Continue IV antibiotics Aldactone was discontinued by Cardiology Entresto was added Monitor the patient in the hospital 1 more day Plan discussed with: Patient My Orders Orders - SKYALR ANDERSON MD Procedure Category Date Status Time Empagliflozin PHA 10/04/24 In Process (Jardiance) 10:00 Nicotine 21mg/24hr PHA 10/05/24 In Process (Nicoderm 21mg/24hr) 10:00 * Dietary Consult CONS 10/04/24 Transmitted 14:00 Cleanse Wound With STEVAN 10/04/24 In Process Wound Clean 10:38 Date of Service: Oct 05, 2024 Billing Provider: SKYLAR ANDERSON MD Common Visit Codes: [id number] INP/OBS CARE(HIGH) SKYLAR ANDERSON MD Oct 05, 2024 09:31
[2024-10-05] MEDS: ONDANSETRON HCL 4 MG/2 ML VIAL IV PRN (09:33)
--- NOTE | 2024-10-05 10:28 | DVHPN2 ---
Consult Progress Note Date Seen: Oct 05, 2024 Subjective Review of Systems: CVS:Normal, RESPIRATORY:Normal, MSK:Abnormal, NEURO:Normal Other Systems: C/o LLE pain Objective vital signs Vital Sign Date Time Temp Pulse Resp B/P (MAP) Pulse Ox O2 Delivery O2 Flow Rate FiO2 10/05/24 09:34 69 18 127/84 10/05/24 09:00 97.8 94 97.8 10/05/24 07:03 Nasal Cannula 5.0 10/05/24 07:03 40 Total Intake and Output 10/04/24 10/04/24 10/05/24 15:00 23:00 07:00 Intake Total 1600 ml 150 ml Output Total 950 ml 1200 ml Balance 650 ml -1050 ml medications Current Medications Medications Dose Ordered Sig/Guilherme Route Start Time Stop Time Status Last Admin Dose Admin Aspirin 81 mg QAM PO 10/04/24 07:00 10/05/24 05:47 81 MG Sacubitril/ Valsartan 1 tab BID PO 10/03/24 22:00 10/05/24 09:31 1 TAB Furosemide 40 mg BIDD IV 10/03/24 18:00 10/05/24 05:47 40 MG Clindamycin Phosphate 50 ml @ 50 mls/hr Q8HR IV 10/03/24 22:00 10/05/24 05:47 50 MLS/HR Acetaminophen/ Hydrocodone Bitart 1 tab Q4HP PRN PO 10/03/24 15:45 10/04/24 20:13 1 TAB Ondansetron HCl 4 mg Q4HP PRN IV 10/03/24 15:45 10/05/24 09:33 4 MG Enoxaparin Sodium 40 mg DAILY SC 10/04/24 10:00 10/05/24 09:32 40 MG Acetaminophen 650 mg Q6HP PRN PO 10/03/24 15:45 Morphine Sulfate 2 mg Q4HPRN PRN IV 10/03/24 15:45 10/05/24 09:34 2 MG Nitroglycerin 0.4 mg Q5MINP PRN SL 10/03/24 15:45 Morphine Sulfate 2 mg Q30M PRN IV 10/03/24 15:45 Albuterol 2.5 mg Q4HPRN PRN NEB 10/03/24 15:45 Ipratropium [place] 0.5 mg Q4HPRN PRN NEB 10/03/24 15:45 Nicotine 1 patch DAILY TD 10/05/24 10:00 10/05/24 09:29 1 PATCH Empaglifozin 10 mg DAILY PO 10/04/24 10:00 10/05/24 09:31 10 MG Carvedilol 25 mg Q12HR PO 10/04/24 22:00 10/05/24 09:31 25 MG Hydralazine HCl 10 mg Q6HP PRN IV 10/04/24 11:30 Examination: GENERAL:Abnormal (Unkept), LUNGS:Abnormal (Crackles), CVS:Normal, NEURO:Normal laboratory and microbiology Laboratory Tests 10/05/24 04:36 10/04/24 05:10 Test 10/05/24 04:36 Range/Units Serum Glucose 115 #H 74-106 mg/dL Problem List/Assessment/Plan Problem List/Assessment/Plan Acute on chronic decompensated HFrEF 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 Mccollum) * Echocardiogram from 03/12/24 revealed EF 20% * GDMT for CHF, uptitrate as tolerated. Monitor renal function closely * Strict I&Os. Daily weight. Maintain fluid restrictions * Aggressive blood pressure control as above * Conservative management given poor medical compliance * DVT/VTE prophylaxis There is no further cardiac work-up indicated at this time. Strongly counseled on polysubstance abuse cessation, medical compliance, and regular follow-ups with Cardiology within 3-4 weeks post-discharge. Kindly call if in need to re- consult. Thank you for allowing us to participate in this patient's care. This medical document was created using an electronic medical record system with voice recognition software and computerized dictation system. Although this document has been carefully reviewed, there might still be some phonetic and typographical errors. Occasional wrong-word or ``sound-alike substitutions may have occurred due to the inherent limitations of voice recognition software. These areas are purely typographical due to imperfections of the software programs and do not reflect any compromise in the patient's medical care. Please read the chart carefully and recognize, using context, where these substitutions have occurred. Plan discussed with: Patient, Other Date of Service: Oct 05, 2024 Billing Provider: KAMRAN MCCOLLUM MD Cardiology Common Codes: [id number] INP/OBS CARE(Mod) SAMINA GARCIA [facility] Oct 05, 2024 10:28
--- NOTE | 2024-10-05 11:19 | DVHSR ---
APPROVED REPORT EXAM: Two-dimensional and M-mode echocardiogram with Doppler and color Doppler. Blood Pressure: 150/103 mmHg INDICATION CHF RISK FACTORS Height: 5'9", Weight: 229 DIMENSIONS LVDd5.5 (3.8-5.7cm)LA (2D)5.1 (1.9-4.0cm)Aortic Root3.8 (2.0-3.7cm) LVDs4.9 (2.5-4.0cm)LA (MM) (1.9-4.0cm)Aortic Cusp Exc1.8 (1.5-2.0cm) EF (%) 20.0 (55-70%)Rt. Atrium5.6 (1.9-4.0cm)Asc. Aorta cm IVSd1.5 (0.7-1.1cm)RV (D)5.2 (1.8-2.4cm) PWd1.6 (0.7-1.1cm) Mitral Valve MitralMitral Stenosis E wave1.13m/sMV Mean GR.mmHg A wave0.36m/sMV Peak GR.mmHg E/A ratio3.12D MVAcm2 DECEL [id number] 1/2 Tim[place] Aortic Valve Aortic ValveAortic Stenosis V10.89m/Bakari Mean GR.2mmHg V20.93m/Bakari Peak GR.3mmHg LVOT Diameter2.0 (1.8-2.4cm)Doppler AVA3.00cm2 Pulmonic Valve V20.73m/s Tricuspid Valve TR Velocity2.42m/s [id number] Conclusion Severely dilated left ventricle. Severely reduced left ventricular systolic function estimated eject ion fraction of 20% in a global fashion. There is a grade 3 restrictive filling pattern of diastolic dysfunction. Severely reduced right ventricular systolic function. [id number] increased right ventricular systolic [id number] mm of mercury Moderately dilated right and left atria. Normal aortic valve structure and function. Normal mitral valve structure and function. There is mild mitral valve regurgitation. Normal tricuspid valve structure and function. There is mild tricuspid valve regurgitation. The pulmonary valve is grossly normal. No pericardial effusion.
[2024-10-05] MEDS: POTASSIUM CHL 20 Meq TABLET PO ONE (11:45)
[2024-10-06] VITALS (9 sets, daily range): BP systolic 101–128; BP diastolic 75–92; PULSE 67–78; RESP 16–21; TEMP 36.8; O2SAT 93–99
[2024-10-06 06:09] LABS: Calcium 9.1 mg/dL (8.7-10.4); Chloride 100 mmol/L (98-107); Potassium 3.9 mmol/L (3.5-5.1); Sodium 137 mmol/L (136-145)
[2024-10-06 06:10] LABS: Anion Gap 5 (5-15); Carbon Dioxide 32 mmol/L (20-31)
[2024-10-06 06:15] LABS: BUN/Creatinine Ratio 19.6 (10.0-20.0); Blood Urea Nitrogen 31 mg/dL (9-23); Glucose 119 mg/dL (74-106)
[2024-10-06] MEDS ORDERED: ASPI1TAB20 PO (09:45)
[2024-10-06] MEDS ORDERED: FURO1TAB31 PO (09:45)
[2024-10-06] MEDS ORDERED: EMPA1TAB PO (09:45)
[2024-10-06] MEDS ORDERED: SPIR25TA PO (09:45)
[2024-10-06] MEDS ORDERED: SACU1TAB PO (09:45)
[2024-10-06] MEDS ORDERED: MUPI2CRE17 EX (09:45)
[2024-10-06] MEDS ORDERED: ATOR-507 PO (09:45)
[2024-10-06] MEDS ORDERED: CARV-216 OR (09:45)
[2024-10-06] MEDS ORDERED: DOXY1CAP57 PO (09:46)
[2024-10-06] MEDS: SPIRONOLACTONE 25 MG TAB PO SCH (10:47)
--- NOTE | 2024-10-06 15:52 | DVHDS2 ---
Discharge Summary Date of Admission Oct 03, 2024 at 15:36 Date of Discharge: Oct 06, 2024 Labs/Diagnostic Data: Laboratory Results Test 10/06/24 05:30 10/05/24 04:36 10/04/24 05:10 10/03/24 18:16 Sodium Level 137 mmol/L (136-145) Potassium Level 3.9 mmol/L (3.5-5.1) Chloride Level 100 mmol/L (98-107) Carbon Dioxide Level 32 mmol/L (20-31) Anion Gap 5 (5-15) Blood Urea Nitrogen 31 mg/dL (9-23) Creatinine 1.58 mg/dL (0.700-1.30) Glomerular Filtration Rate Calc 54 mL/min (>90) BUN/Creatinine Ratio 19.6 (10.0-20.0) Serum Glucose 119 mg/dL (74-106) Calcium Level 9.1 mg/dL (8.7-10.4) Magnesium Level 2.1 mg/dL (1.6-2.6) Triglycerides Level 60 mg/dL (< 150) Cholesterol Level 84 mg/dL (< 200) LDL Cholesterol 41 mg/dL (< 100) HDL Cholesterol 29 mg/dL (40-59) White Blood Count 10.5 10^3/uL (4.4-10.8) Red Blood Count 4.88 10^6/uL (4.5-5.90) Hemoglobin 14.0 g/dL (13.5-17.5) Hematocrit 41.1 % (41.0-53.0) Mean Corpuscular Volume 84.1 fL (80.0-100.0) Mean Corpuscular Hemoglobin 28.7 pg (28.0-32.0) Mean Corpuscular Hemoglobin Concent 34.1 g/dL (32.0-36.0) Red Cell Distribution Width 16.1 % (11.8-14.3) Platelet Count 264 10^3/uL (140-450) Mean Platelet Volume 7.6 fL (6.9-10.8) Neutrophils (%) (Auto) 89.9 % (37.0-80.0) Lymphocytes (%) (Auto) 5.6 % (10.0-50.0) Monocytes (%) (Auto) 4.3 % (0.0-12.0) Eosinophils (%) (Auto) 0.0 % (0.0-7.0) Basophils (%) (Auto) 0.2 % (0.0-2.0) Neutrophils # (Auto) 9.5 10 ^3/uL (1.6-8.6) Lymphocytes # (Auto) 0.6 10 ^3/uL (0.4-5.4) Monocytes # (Auto) 0.5 10 ^3/uL (0-1.3) Eosinophils # (Auto) 0 10 ^3/uL (0-0.8) Basophils # (Auto) 0 10 ^3/uL (0-0.2) Nucleated Red Blood Cells 0.1 % Total Bilirubin 1.4 mg/dL (0.2-1.0) Aspartate Amino Transferase (AST) 26 U/L (13-40) Alanine Aminotransferase (ALT) 26 U/L (7-40) Alkaline Phosphatase 114 U/L (46-116) B-Type Natriuretic Peptide 3634.58 pg/mL (0-100) Total Protein 7.0 g/dL (5.7-8.2) Albumin 3.6 g/dL (3.2-4.8) Blood Gas Specimen Type Arterial Blood Gas Sample Site Right radial Blood Gas Patient Temperature 37.0 Arterial Blood Date Drawn [id number] Arterial Blood pH 7.365 (7.350-7.450) Arterial Blood Partial Pressure CO2 38.0 mmHg (35.0-48.0) Arterial Blood Partial Pressure O2 67.1 mmHg (83.0-108.0) Arterial Blood HCO3 21.2 mmol/L (21.0-28.0) Arterial Blood Oxygen Saturation 89.9 % (94.0-98.0) Arterial Blood Base Excess -3.6 mmol/L (-2.0-3.0) Arterial Blood Oxyhemoglobin 87.7 % (94.0-98.0) Arterial Blood Carboxyhemoglobin 1.8 % (0.5-1.5) Arterial Blood Methemoglobin 0.6 % (0.0-1.5) Samson Test Yes Blood Gas Total Hemoglobin 15.40 g/dL (13.5-17.5) Blood Gas Liter Flow 6.00 Blood Gas Modality Nasal cannula FiO2 % 44.0 Test 10/03/24 14:09 10/03/24 13:30 Troponin I High Sensitivity 72 ng/L (</=54) Urine Color Light-yellow (Yellow) Urine Clarity Clear (Clear) Urine pH 5.5 (5.0-9.0) Urine Specific [place] 1.011 (1.001-1.035) Urine Protein Trace (Negative) Urine Ketones Negative (Negative) Urine Blood 1+ /uL (Negative) Urine Nitrite Negative (Negative) Urine Bilirubin Negative (Negative) Urine Urobilinogen Normal mg/dL (Negative) Urine Leukocyte Esterase Negative /uL (Negative) Urine RBC 1 /hpf (0 - 3) Urine WBC 1 /hpf (0 - 3) Urine Squamous Epithelial Cells None seen /hpf (<5) Urine Bacteria None seen /hpf (None Seen) Urine Glucose Normal mg/dL (Normal) Urine Opiates Screen Neg (NEGATIVE) Urine Fentanyl Screen Neg (NEGATIVE) Urine Barbiturates Screen Neg (NEGATIVE) Urine Phencyclidine Screen Neg (NEGATIVE) Urine Amphetamines Screen Pos (NEGATIVE) Urine Benzodiazepines Screen Neg (NEGATIVE) Urine Cocaine Screen Neg (NEGATIVE) Urine Cannabinoids Screen Pos (NEGATIVE) Other Laboratory Tests 10/06/24 05:30 10/04/24 05:10 Brief Hx & Hospital Course: Final diagnoses: Acute on chronic hypoxic respiratory failure Acute on chronic systolic heart failure, Drug-induced cardiomyopathy COPD 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 He was diuresed with IV Lasix He also had wounds on his legs Cardiology saw him and repeat echocardiogram showed ejection fraction of 20% Overall he did well He is stable now to be discharged He uses oxygen at 2-4 L at home and he has been maintaining same level here He ran out of his medications at home and therefore he will be given new prescriptions for aspirin and Lipitor and Coreg and Jardiance and Lasix and Entresto and Aldactone Also he is going to be on doxycycline for 10 days and mupirocin cream to apply to his bilateral legs wounds twice a day Follow up with his primary care physician as soon as possible He already has home O2 Condition at Discharge: Stable Final Diagnosis/Problems List Acute on chronic hypoxic respiratory failure Acute on chronic systolic heart failure, Drug-induced cardiomyopathy COPD 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 Patient was counseled about treatment plan, medications, possible side effects, patientverbalized understanding. All questions were answered to the best of my ability. 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
== END 2024-10-06 14:36 | disposition left against medical advice (07) | DRG 133 ==
LOC: ER 12:17 → TELE 15:36 → TELE-CENTR 21:26
PROVIDERS: ADMIT Registered Nurse; ATTEND Internal Medicine Geriatric Medicine
DX: J96.21 Acute and chronic respiratory failure with hypoxia (principal); I21.A1 Myocardial infarction type 2; I50.23 Acute on chronic systolic (congestive) heart failure; N17.9 Acute kidney failure, unspecified; I42.7 Cardiomyopathy due to drug and external agent; L03.115 Cellulitis of right lower limb; J44.1 Chronic obstructive pulmonary disease with (acute) exacerbation; I13.0 Hypertensive heart and chronic kidney disease with heart failure and stage 1 through stage 4 chronic kidney disease, or unspecified chronic kidney disease; E78.5 Hyperlipidemia, unspecified; Z53.29 Procedure and treatment not carried out because of patient's decision for other reasons; L03.116 Cellulitis of left lower limb; I87.8 Other specified disorders of veins; N18.32 Chronic kidney disease, stage 3b; E87.6 Hypokalemia; F17.210 Nicotine dependence, cigarettes, uncomplicated; E66.9 Obesity, unspecified; F15.90 Other stimulant use, unspecified, uncomplicated; I16.0 Hypertensive urgency; T50.995A Adverse effect of other drugs, medicaments and biological substances, initial encounter; Z83.3 Family history of diabetes mellitus; Z82.49 Family history of ischemic heart disease and other diseases of the circulatory system; Z91.199 Patient's noncompliance with other medical treatment and regimen due to unspecified reason; Y92.89 Other specified places as the place of occurrence of the external cause; Z68.31 Body mass index [BMI] 31.0-31.9, adult
CPT/HCPCS: 36415; 36600; 71045; 80048; 80053; 80061; 80307; 81001; 82805; 83735; 83880; 84484; 85025; 87040; 87077; 87081; 87186; 87205; 93005; 93306; 93970; 94640; 99291; G0378; J2405; J3490

== ENCOUNTER 2024-11-16 07:50 | Inpatient (IN) | payer MEDICAID ==
[~2024-11-16] VITALS: Ht 182.9 cm; Wt 91.5 kg
[~2024-11-16 07:50] MED LIST changes: +ASPI1TAB20 PO; +CARV-216 OR; +CARV12.544 PO; -DOXY-267 PO; +DOXY1CAP57 PO; +EMPA1TAB PO; +FURO40TA4 PO; +MUPI2CRE17 EX; +SPIR25TA PO
--- NOTE | 2024-11-16 08:09 | ED.PDOC ---
History of Present Illness HPI Comments 44 y/o M, with a Hx of CHF, COPD, HLD, HTN, and polysubstance abuse, is BIBA for c/o shortness of breath and left lower leg wound with associated drainage and pain for the past 3x days, today. Per EMS report, patient was found with an initial SpO2 of 90% RA and increased work of breathing and infected wound to his left lower leg. En route, patient was placed on 2LPM NC, with improvement. At time of assessment, patient comments on pain in his legs worsening, last night, in addition to it feeling "rock hard" to touch. He reports no additional relevant or pertinent Hx. He denies having any chest pain, palpitations, cough, wheezing, fever, chills, or other associated symptoms or modifiers at this time. Time Seen by MD: 07:45 Primary Care Provider: DARYL Reviewed Notes: Nurses Notes, Casting Technician Notes, Medications, Allergies Allergies: Coded Allergies: NO KNOWN ALLERGIES (Unverified , 03/11/24) Home Meds Active Scripts Doxycycline Monohydrate (Doxycycline Monohydrate) 100 Mg Cap, 1 CAP PO BID, #20 CAP Prov:SKYLAR ANDERSON MD 10/06/24 Atorvastatin Calcium (Lipitor) 40 Mg Tab, 1 TAB PO DAILY, #30 TAB 5 Refills Prov:SKYLAR ANDERSON MD 10/06/24 Aspirin (Aspir-81) 81 Mg Tab, 1 TAB PO DAILY, #90 TAB 1 Refill Prov:SKYLAR ANDERSON MD 10/06/24 Empagliflozin (Jardiance) 10 Mg Tab, 10 MG PO DAILY for 30 Days, #30 TAB 3 Refills Prov:SKYLAR ANDERSON MD 10/06/24 Mupirocin Calcium (Topical) (MUPIROCIN) 2 % Cre, 2 % EX BID, #60 GRAMS 0 Refills APPLY BID TO LEG WOUNDS X 2 WEEKS Prov:SKYLAR ANDERSON MD 10/06/24 Carvedilol (COREG) 12.5 Mg Tab, 12.5 MG OR BID for 30 Days, #60 TAB 3 Refills Prov:SKYLAR ANDERSON MD 10/06/24 Furosemide (Lasix) 40 Mg Tab, 40 MG PO DAILY, #30 TAB 3 Refills Prov:SKYLAR ANDERSON MD 10/06/24 Sacubitril-Valsartan (Entresto 24-26 mg) 1 Tab Tab, 1 TAB PO BID for 30 Days, #60 TAB 3 Refills Prov:SKYLAR ANDERSON MD 10/06/24 Spironolactone (Aldactone) 25 Mg Tab, 12.5 MG PO DAILY for 30 Days, #15 TAB 3 Refills Prov:SKYLAR ANDERSON MD 10/06/24 Atorvastatin Calcium (Lipitor) 40 Mg Tab, 1 TAB PO DAILY for 30 Days, #30 TAB 3 Refills Prov:JASPER TRAVIS NP 06/29/24 Carvedilol (Carvedilol) 3.125 Mg Tab, 1 TAB PO BID for 30 Days, #60 TAB 3 Refills Prov:JASPER TRAVIS NP 06/29/24 Aspirin (Aspir-Low) 81 Mg Tab, 1 TAB PO QAM for 30 Days, #30 TAB 3 Refills Prov:JASPER TRAVIS NP 06/29/24 Reported Medications Furosemide (Furosemide) 40 Mg Tab, 1 TAB PO DAILY 10/03/24 Metoprolol Succinate (Metoprolol Succinate Er) 25 Mg Tab, 1 TAB PO DAILY 03/12/24 Information Source: Patient, Emergency Med Personnel Mode of Arrival: EMS Severity: Moderate Timing: Days Duration: Since onset Prehospital treatment: 12 Lead EKG, Menagerie Superintendent, Oxygen Past Medical History PAST MEDICAL HISTORY: CHF, COPD, High Lipids, HTN Past Medical History (Other): acute on chronic hypoxic respiratory failure, Drug-induced cardiomyopathy 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 cellulitis Surgical History: Hernia Repair Family History Family History: Family hx of DM Social History Smoker: Cigarettes Alcohol: Rarely Drugs: Cocaine, Marijuana, Methamphetamine Lives In: Home Respiratory: reports: shortness of breath Musculoskeletal: reports: others (left leg pain) Integumetry: reports: wounds (left lower leg wound w/associated discharge ) All Other Systems: Reviewed and Negative Physical Exam General Appearance: No Apparent Distress, Normal HEENT: Normal ENT Inspection, Pharynx Normal, TMs Normal Neck: Full Range of Motion, Non-Tender, Normal, Normal Inspection Respiratory: Chest Non-Tender, Lungs Clear, No Accessory Muscle Use, No Respira tory Distress, Normal Breath Sounds Cardiovascular: No Edema, No JVD, No Murmur, No Gallop, Normal Peripheral Pulses, Regular Rate/Rhythm Breast Exam: Deferred Gastrointestinal: No Organomegaly, Non Tender, No Pulsatile Mass, Normal Bowel Sounds, Soft Genitalia: Deferred Pelvic: Deferred Rectal: Deferred Extremities: Leg edema (2+ bilateral pedal edema), No calf tenderness, Normal capillary refill, Normal range of motion, Swelling Musculoskeletal : Apperance: Normal Neurologic: Alert, vmware architect II-XII nml as Tested, No Motor Deficits, Normal Affect, Normal Mood, No Sensory Deficits Cerebellar Function: Normal Reflexes: Normal Skin: Dry, Normal Color, Warm, Wounds (posterior left lower extremity dry open wound with erythema ) Lymphatic: No Adenopathy Was a procedure done? Was a procedure done?: No EKG EKG : Pulse Rate (adult): 86 Hood: Normal Cardiac Rhythm: NSR Block: None Hypertrophy: None ST: Nonsp Differential Dx Considerations may include: cellulitis, CHF exacerbation, COPD exacerbation, PE, ID, PNA, URI, viral syndrome X-Ray, Labs, Meds, VS Vital Signs Date Time Temp Pulse Resp B/P (MAP) Pulse Ox O2 Delivery O2 Flow Rate FiO2 11/16/24 10:19 98.6 82 24 158/121 (133) 98.6 11/16/24 09:33 82 24 158/121 11/16/24 09:03 81 16 128/97 11/16/24 08:27 74 18 95 Room Air* 0 21 11/16/24 08:25 97.8 77 22 134/93 (107) 95 97.8 11/16/24 08:25 77 11/16/24 08:01 86 11/16/24 07:55 Nasal Cannula* 2 28 11/16/24 07:54 97.7 82 18 142/91 (108) 93 Lab Test 11/16/24 09:32 11/16/24 08:28 Range/Units Troponin I High Sensitivity 32 31 </=54 ng/L White Blood Count 8.0 4.4-10.8 10^3/uL Red Blood Count 4.81 4.5-5.90 10^6/uL Hemoglobin 12.5 L 13.5-17.5 g/dL Hematocrit 38.5 L 41.0-53.0 % Mean Corpuscular Volume 80.0 80.0-100.0 fL Mean Corpuscular Hemoglobin 25.9 L 28.0-32.0 pg Mean Corpuscular Hemoglobin Concent 32.4 32.0-36.0 g/dL Red Cell Distribution Width 17.5 H 11.8-14.3 % Platelet Count 250 140-450 10^3/uL Mean Platelet Volume 7.5 6.9-10.8 fL Neutrophils (%) (Auto) 75.5 37.0-80.0 % Lymphocytes (%) (Auto) 10.3 10.0-50.0 % Monocytes (%) (Auto) 10.9 0.0-12.0 % Eosinophils (%) (Auto) 2.4 0.0-7.0 % Basophils (%) (Auto) 0.9 0.0-2.0 % Neutrophils # (Auto) 6.1 1.6-8.6 10 ^3/uL Lymphocytes # (Auto) 0.8 0.4-5.4 10 ^3/uL Monocytes # (Auto) 0.9 0-1.3 10 ^3/uL Eosinophils # (Auto) 0.2 0-0.8 10 ^3/uL Basophils # (Auto) 0.1 0-0.2 10 ^3/uL Nucleated Red Blood Cells 0.1 % Sodium Level 141 136-145 mmol/L Potassium Level 3.8 3.5-5.1 mmol/L Chloride Level 111 H 98-107 mmol/L Carbon Dioxide Level 21 20-31 mmol/L Anion Gap 9 5-15 Blood Urea Nitrogen 26 H 9-23 mg/dL Creatinine 1.49 H 0.700-1.30 mg/dL Glomerular Filtration Rate Calc 58 >90 mL/min BUN/Creatinine Ratio 17.4 10.0-20.0 Serum Glucose 141 H 74-106 mg/dL Calcium Level 9.2 8.7-10.4 mg/dL B-Type Natriuretic Peptide 2518.27 0-100 pg/mL Current Medications Medications (Trade) Dose Ordered Sig/Guilherme Route Start Time Stop Time Status Last Admin Ceftriaxone Sodium 50 ml @ 100 mls/hr ONCE ONCE IV 11/16/24 08:15 11/16/24 08:44 DC 11/16/24 08:22 Ketorolac Tromethamine (Toradol Injection) 15 mg ONCE ONCE IM 11/16/24 08:15 11/16/24 08:16 DC 11/16/24 08:23 Morphine Sulfate 2 mg ONCE ONCE IV 11/16/24 09:00 11/16/24 09:01 DC 11/16/24 09:03 Time of 1ST Reevaluation: 08:15 Reevaluation 1ST: Unchanged (cardiac rrhythm- nsr) Time of 2ND Reevaluation: 10:47 Reevaluation 2ND: Improved (cardiac rhythm- nsr) Patient Education/Counseling: Diagnosis, Treatment, Prognosis, Need For Follow Up Family Education/Counseling: No Family Present Additional Information - I reviewed the following notes from patient's past medical encounters: hospital admission discharge summary report on 10/06/24 - The following tests were ordered, and results were reviewed by me: CXR,CBC, CHEMISTRY, TROPONIN, AND BNP, EKG, US LLE DVT - Additional information was gathered from interviewing the following independent Historian: EMT - I reviewed and agreed with the following test results read by other provider: CXR, US LLE DVT - I discussed treatments and results with medical personnel Departure 1 Departure Time of Disposition: 10:42 Impression: Primary Impression: Acute exacerbation of CHF (congestive heart failure) Qualified Codes: I50.23 - Acute on chronic systolic (congestive) heart failure Additional Impressions: Lower extremity cellulitis Qualified Codes: L03.116 - Cellulitis of left lower limb Chronic pain syndrome Disposition: ADMITTED INPATIENT Condition: Stable Critical Care Note Critical Care Time?: Yes (55 min-critical care time only) Critical care comment: Due to concerns for patients condition deteriorating, the care required my highest level of attention and readiness to intervene. I assessed the patient, reviewed the medical records, ordered the appropriate tests and treatments, then reassessed for results and responsiveness. I communicated with medical personnel and consultants and formulated a plan of care. Total critical care time excludes any procedures Stability Stability form required: No Heart Score Heart Score: Heart Score Response (Comments) Value History N/A 0 EKG N/A 0 Age N/A 0 Risk Factors N/A 0 Troponin N/A 0 Total 0 I personally scribed for STAS RAYMUNDO MD ([email or web address]) on 11/16/24 at 08:09. Electr onically submitted by Femi Kolb ([email or web address]). STAS RAYMUNDO MD Nov 16, 2024 08:09
--- NOTE | 2024-11-16 08:12 | ECG ---
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
[2024-11-16] MEDS: cefTRIAXone 1GM/50ML D5W 50 ML IV ONE (08:22)
[2024-11-16] MEDS: KETOROLAC TROMETH 30 MG/ML 1ML VIAL IM ONE (08:23)
[2024-11-16 08:27] VITALS: PULSE 74; RESP 18; O2SAT 95
[2024-11-16 08:50] LABS: Basophils # (auto) 0.1 10 ^3/uL (0-0.2); Eosinophils # (auto) 0.2 10 ^3/uL (0-0.8); Eosinophils % (auto) 2.4 % (0.0-7.0); Lymphocytes # (auto) 0.8 10 ^3/uL (0.4-5.4); Neutrophils # (auto) 6.1 10 ^3/uL (1.6-8.6); Nucleated Red Blood Cells % 0.1 %
[2024-11-16 08:52] LABS: Basophils % (auto) 0.9 % (0.0-2.0); Hematocrit 38.5 % (41.0-53.0); Hemoglobin 12.5 g/dL (13.5-17.5); Lymphocytes % (auto) 10.3 % (10.0-50.0); Mean Corpuscular Hemoglobin 25.9 pg (28.0-32.0); Mean Corpuscular Hgb Conc. 32.4 g/dL (32.0-36.0); Monocytes # (auto) 0.9 10 ^3/uL (0-1.3); Monocytes % (auto) 10.9 % (0.0-12.0); Neutrophils % (auto) 75.5 % (37.0-80.0); Platelet Count (auto) 250 10^3/uL (140-450); Red Blood Cells 4.81 10^6/uL (4.5-5.90); Red Cell Distribution Width 17.5 % (11.8-14.3)
[2024-11-16] MEDS: MORPHINE SULFATE INJ 2 MG/ml SYRG IV ONE (09:03)
[2024-11-16 09:16] LABS: Potassium 3.8 mmol/L (3.5-5.1); Sodium 141 mmol/L (136-145)
[2024-11-16 09:17] LABS: Anion Gap 9 (5-15); Calcium 9.2 mg/dL (8.7-10.4); Carbon Dioxide 21 mmol/L (20-31)
[2024-11-16 09:18] LABS: Chloride 111 mmol/L (98-107)
[2024-11-16 09:22] LABS: BUN/Creatinine Ratio 17.4 (10.0-20.0)
[2024-11-16 09:24] LABS: Blood Urea Nitrogen 26 mg/dL (9-23); Glucose 141 mg/dL (74-106)
--- NOTE | 2024-11-16 10:13 | DVH ---
Left lower extremity venous duplex Clinical History: r/o dvt Comparison: US BILAT LOWER DVT on DOS: 10/03/24, US BILAT LOWER DVT on DOS: 07/27/24 Technique: Duplex Doppler evaluation of the deep venous system of the left lower extremity from the common femor al vein to the popliteal vein including color Doppler and spectral/pulsed waveform analysis was perfo rmed. Findings: The common femoral vein demonstrates appropriate compressibility and waveform variability. There is compressibility/patency of the great saphenous vein at the proximal thigh. The femoral vein demonstrates appropriate compressibility and waveform variability. The deep femoral vein demonstrates appropriate compressibility and waveform variability. The popliteal vein demonstrates appropriate compressibility and waveform variability. There is normal compressibility at the tibioperoneal trunk. Impression: No left femoropopliteal venous thrombosis.
--- NOTE | 2024-11-16 10:48 | DVH ---
EXAM: XY CHEST PORTABLE Indication: sob Technique: Single frontal view of the chest was obtained Comparison: XY CHEST PORTABLE on DOS: 10/03/24, XY CHEST PORTABLE on DOS: 07/27/24, XY CHEST PORTABLE on DOS: 06/29/24, XY CHEST PORTABLE on DOS: 06/28/24, XY CHEST PORTABLE on DOS: 03/11/24 FINDINGS: Lines and Tubes: None Lungs: Pulmonary vascular congestion. Pleura: No effusion. No pneumothorax. Cardiomediastinal contours: Cardiomegaly Bones: No acute osseous abnormality. IMPRESSION: Cardiomegaly with pulmonary vascular congestion
[2024-11-16] MEDS ORDERED: DOCUSATE SOD 100 MG CAP PO PRN (12:30)
[2024-11-16] MEDS: HYDROcodone-ACET 5/325MG TAB PO PRN (16:36)
[2024-11-16] MEDS: FUROSEMIDE 40 MG/4 ML VIAL IV ONE (16:36)
--- NOTE | 2024-11-16 17:33 | DVHHP2 ---
History of Present Illness Reason for Visit: Acute exacerbation congestive heart failure History of Present Illness The patient is a 44-year-old male with multiple past medical history including COPD, CHF, and hypertension who presented to [facility] ED with complaint of shortness of breaths. Patient reports symptoms progressively get worse with bilateral lower extremity swelling, chronic left lower leg drainage, painful, rating pain 7/10 numeric scale, increased work of breathing, getting worse that prompted this visit. Patient was seen and evaluated in the ED, la boratory data shows WBC 8.0, platelets 250, sodium 141, potassium 3.8, BUN 26, creatinine 1.49, GFR 58, glucose 141, troponin 30, BNP 2518.27, blood pressure 155/121, heart rate 86, temperature 98.6 F, O2 saturation 96% on oxygen. Chest x-ray revealing cardiomegaly with pulmonary vascular congestion. Patient was started on IV Lasix 40 mg daily, given morphine sulfate 2 mg IV x1, please see medication orders section in the computer. On my assessment, patient denies chest pain, no headache, no dizziness, no diarrhea, no nausea, no vomiting, no fever, no chills. Patient was admitted for further evaluation and medical management. Past Medical History CHF, COPD, High Lipids, HTN, Drug-induced cardiomyopathy 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 cellulitis Past Surgical History Hernia Repair Family History Reviewed, noncontributory to the management of this case. Past Social History Patient lives at home, smokes cigarettes, drinks alcohol occasionally, uses cocaine, marijuana, and methamphetamine. Review of Systems Constitutional: Yes: Weakness; No: Fever, Chills, Sweats, Malaise, Other Eyes: No: Pain, Vision change, Conjunctivae inflammation, Eyelid inflammation, Other, Redness ENT: No: Ear pain, Ear discharge, Nose pain, Nose discharge, Nose congestion, Mouth pain, Mouth swelling, Throat pain, Throat swelling, Other Respiratory: Shortness of breath, SOB with excertion, Other (SOB at rest); No: Cough, Dry, Wheezing, Hemoptysis, Pleuritic Pain, Sputum, Wheezing Cardiovascular: No: Chest Pain, Palpitations, Orthopnea, Paroxysmal Noc. Dyspnea, Edema, Lt Headedness, Other Gastrointestinal: No: Nausea, Vomiting, Abdominal Pain, Diarrhea, Constipation, Melena, Hematochezia, Other Genitourinary: No Dysuria, No Frequency, No Incontinence, No Hematuria, No Retention, No Other Musculoskeletal: other (left leg pain); No: neck pain, shoulder pain, arm pain, back pain, hand pain, leg pain, foot pain Skin: Other (left lower leg wound w/associated discharge ); No: Rash, Lesions, Jaundice, Bruising Neurological: No: Weakness, Numbness, Incoordination, Change in speech, Confusion, Seizures, Other Allergies: Coded Allergies: NO KNOWN ALLERGIES (Unverified , 03/11/24) Medications Current Medications Medications Dose Ordered Sig/Guilherme Route Start Time Stop Time Status Last Admin Dose Admin Aspirin 81 mg DAILY PO 11/17/24 10:00 Carvedilol 3.125 mg Q12HR PO 11/16/24 22:00 Atorvastatin Calcium 40 mg HS PO 11/16/24 22:00 Furosemide 40 mg DAILY IV 11/17/24 10:00 Acetaminophen/ Hydrocodone Bitart 1 tab Q4HP PRN PO 11/16/24 12:30 11/16/24 16:36 1 TAB Ondansetron HCl 4 mg Q4HP PRN IV 11/16/24 12:30 Docusate Sodium 100 mg BIDPRN PRN PO 11/16/24 12:30 Acetaminophen 650 mg Q6HP PRN PO 11/16/24 12:30 Exam Vital Signs Vital Signs Date Time Temp Pulse Resp B/P (MAP) Pulse Ox O2 Delivery O2 Flow Rate FiO2 11/16/24 16:36 163/122 11/16/24 10:48 86 11/16/24 10:19 98.6 24 98.6 11/16/24 08:27 95 Room Air* 0 21 General Appearance: Alert, Oriented X3, Cooperative, No acute distress HEENT: Atraumatic, PERRLA, EOMI, Mucous membr. moist/pink Respiratory: Other (Diminished breath sounds) Cardiovascular: Regular rate, Normal S1, Normal S2, No murmurs Abdominal: Normal bowel sounds, Soft, No tenderness, No hepatospenomegaly, No masses Extremities: No clubbing, No cyanosis, No edema, Normal pulses, Other (Left lower extremity swelling) Skin: No rashes, No breakdown, No significant lesion Neuro: Normal speech, Normal tone, Sensation intact, Cranial nerves 3-12 NL, Reflexes 2+, Other (Generalized weakness) Psych/Mental Status: Mental status NL, Mood NL Labs/Xrays Labs Test 11/16/24 11:40 11/16/24 08:28 Range/Units Troponin I High Sensitivity 30 </=54 ng/L White Blood Count 8.0 4.4-10.8 10^3/uL Red Blood Count 4.81 4.5-5.90 10^6/uL Hemoglobin 12.5 L 13.5-17.5 g/dL Hematocrit 38.5 L 41.0-53.0 % Mean Corpuscular Volume 80.0 80.0-100.0 fL Mean Corpuscular Hemoglobin 25.9 L 28.0-32.0 pg Mean Corpuscular Hemoglobin Concent 32.4 32.0-36.0 g/dL Red Cell Distribution Width 17.5 H 11.8-14.3 % Platelet Count 250 140-450 10^3/uL Mean Platelet Volume 7.5 6.9-10.8 fL Neutrophils (%) (Auto) 75.5 37.0-80.0 % Lymphocytes (%) (Auto) 10.3 10.0-50.0 % Monocytes (%) (Auto) 10.9 0.0-12.0 % Eosinophils (%) (Auto) 2.4 0.0-7.0 % Basophils (%) (Auto) 0.9 0.0-2.0 % Neutrophils # (Auto) 6.1 1.6-8.6 10 ^3/uL Lymphocytes # (Auto) 0.8 0.4-5.4 10 ^3/uL Monocytes # (Auto) 0.9 0-1.3 10 ^3/uL Eosinophils # (Auto) 0.2 0-0.8 10 ^3/uL Basophils # (Auto) 0.1 0-0.2 10 ^3/uL Nucleated Red Blood Cells 0.1 % Sodium Level 141 136-145 mmol/L Potassium Level 3.8 3.5-5.1 mmol/L Chloride Level 111 H 98-107 mmol/L Carbon Dioxide Level 21 20-31 mmol/L Anion Gap 9 5-15 Blood Urea Nitrogen 26 H 9-23 mg/dL Creatinine 1.49 H 0.700-1.30 mg/dL Glomerular Filtration Rate Calc 58 >90 mL/min BUN/Creatinine Ratio 17.4 10.0-20.0 Serum Glucose 141 H 74-106 mg/dL Hemoglobin A1c 6.4 H <5.7 % A1C Calcium Level 9.2 8.7-10.4 mg/dL B-Type Natriuretic Peptide 2518.27 0-100 pg/mL PATIENT: KLEBER ARREDONDO TACCT: [id number] UNIT: [id number] : 1980 LOC: ER ROOM / BED: / AGE / SEX: 44 / M ADM STATUS: REG ER SERVICE 5 ORDERING PHYSICIAN: STAS RAYMUNDO MD PROCEDURE(s): LLDVT - LT Lower DVT REASON: r/o dvt ORDER NUMBER(s): [id number], ACCESSION NUMBER(s): [id number] Left lower extremity venous duplex Clinical History: r/o dvt Comparison: US BILAT LOWER DVT on DOS: 10/03/24, US BILAT LOWER DVT on DOS: 07/27/24 Technique: Duplex Doppler evaluation of the deep venous system of the left lower extremity from the common femoral vein to the popliteal vein including color Doppler and spectral/pulsed waveform analysis was performed. Findings: The common femoral vein demonstrates appropriate compressibility and waveform variability. There is compressibility/patency of the great saphenous vein at the proximal thigh. The femoral vein demonstrates appropriate compressibility and waveform variability. The deep femoral vein demonstrates appropriate compressibility and waveform variability. The popliteal vein demonstrates appropriate compressibility and waveform variability. There is normal compressibility at the tibioperoneal trunk. Impression: No left femoropopliteal venous thrombosis. ORDERING PHYSICIAN: STAS RAYMUNDO MD PROCEDURE(s): CXRP - CHEST PORTABLE REASON: sob ORDER NUMBER(s): [id number], ACCESSION NUMBER(s): [id number] EXAM: XY CHEST PORTABLE Indication: sob Technique: Single frontal view of the chest was obtained Comparison: XY CHEST PORTABLE on DOS: 10/03/24, XY CHEST PORTABLE on DOS: 07/27/24, XY CHEST PORTABLE on DOS: 06/29/24, XY CHEST PORTABLE on DOS: 06/28/24, XY CHEST PORTABLE on DOS: 03/11/24 FINDINGS: Lines and Tubes: None Lungs: Pulmonary vascular congestion. Pleura: No effusion. No pneumothorax. Cardiomediastinal contours: Cardiomegaly Bones: No acute osseous abnormality. IMPRESSION: Cardiomegaly with pulmonary vascular congestion Assessment/Plan Assessment/Plan Acute exacerbation of congestive heart failure Lower extremity cellulitis Cellulitis of left lower limb Chronic pain syndrome Hypertension Acute on chronic systolic (congestive) heart failure Plan 1. Admit to telemetry unit 2. Breathing treatment 3. Pain control management 4. IV antibiotic management 5. Management of fluids and electrolytes 6. Consultation for hospitalist/wound care 7. Diagnostic test extremity venous study 8. DVT prophylaxis-on Lovenox 9. Repeat labs CBC, CMP in a.m. 10. Home medication reviewed and reconciled 11. Continue with current medical management 12. Treatment plan discussed with patient and RN. Patient verbalized understanding. Plan discussed with: Patient, Other (RN) My Orders Orders - LARRY MARCOS DNP Procedure Category Date Status Time Aspirin Tablet PHA 11/17/24 In Process 10:00 Carvedilol Tablet PHA 11/16/24 In Process (Coreg Tablet) 22:00 Atorvastatin (Lipitor) PHA 11/16/24 In Process 22:00 Furosemide Injection PHA 11/17/24 In Process (Lasix Injection) 10:00 Allergies SETVAN 11/16/24 In Process 12:25 Code Status CODE 11/16/24 Transmitted 12:25 Oxygen Per Hour RT 11/16/24 Transmitted 12:25 Hydrocodone-Acet PHA 11/16/24 In Process 5/325mg Tab ([place] 12:30 Ondansetron Hcl PHA 11/16/24 In Process (Zofran) 12:30 Docusate Sodium PHA 11/16/24 In Process Capsule (Colace 12:30 Complete Blood Count LAB 11/17/24 Verified 04:00 Comprehensive LAB 11/17/24 Verified Metabolic Panel 04:00 Cardiac DIET 11/16/24 Transmitted Diet-2gna,Lofat,Lochol Lunch Condition: Serious STEVAN 11/16/24 In Process 12:25 Acetaminophen Tablet PHA 11/16/24 In Process (Tylenol Tablet) 12:30 Bedrest With Bathroom STEVAN 11/16/24 In Process Privileg 12:25 Sequential STEVAN 11/16/24 In Process Compression Device * Cardiology Consult CONS 11/16/24 Transmitted 12:25 Problem List: (1) Acute exacerbation of CHF (congestive heart failure) (2) Chronic pain syndrome (3) Cellulitis of left lower limb (4) Lower extremity cellulitis (5) Hypertension (6) Acute on chronic systolic (congestive) heart failure Date of Service: Nov 16, 2024 Billing Provider: LARRY MARCOS DNP Common Visit Codes: [id number] INP/OBS CARE (HIGH) LARRY MARCOS DNP Nov 16, 2024 17:33
[2024-11-16] MEDS ORDERED: NITROGLYCERIN 0.4 MG SL TAB SL PRN (17:45)
[2024-11-16] MEDS: HYDROcodone-ACET 5/325MG TAB PO ONE (18:37)
[2024-11-16] MEDS: amLODIPine BESYLATE 5 MG TAB PO ONE (20:59)
[2024-11-16] MEDS: HYDROcodone-ACET 10/325MG TAB PO PRN (20:59)
[2024-11-16 22:00] VITALS: PULSE 100; RESP 20; O2SAT 96
[2024-11-16] MEDS: CARVEDILOL 3.125 MG TAB PO SCH (22:15)
[2024-11-16] MEDS: ATORVASTATIN 20 MG TAB PO SCH (22:16)
[2024-11-16 23:40] VITALS: O2SAT 92
[2024-11-17] MEDS: MORPHINE SULFATE INJ 2 MG/ml SYRG IV PRN (02:35)
[2024-11-17 04:38] LABS: Basophils # (auto) 0.1 10 ^3/uL (0-0.2); Eosinophils # (auto) 0.2 10 ^3/uL (0-0.8)
[2024-11-17 04:39] LABS: Basophils % (auto) 0.4 % (0.0-2.0); Hematocrit 39.3 % (41.0-53.0); Hemoglobin 13.1 g/dL (13.5-17.5); Lymphocytes # (auto) 1.3 10 ^3/uL (0.4-5.4); Lymphocytes % (auto) 5.7 % (10.0-50.0); Mean Corpuscular Hemoglobin 26.3 pg (28.0-32.0); Mean Corpuscular Hgb Conc. 33.3 g/dL (32.0-36.0); Mean Corpuscular Volume 79.1 fL (80.0-100.0); Monocytes # (auto) 2.3 10 ^3/uL (0-1.3); Neutrophils # (auto) 19.2 10 ^3/uL (1.6-8.6); Neutrophils % (auto) 82.9 % (37.0-80.0); Platelet Count (auto) 272 10^3/uL (140-450); Red Blood Cells 4.97 10^6/uL (4.5-5.90); Red Cell Distribution Width 17.2 % (11.8-14.3); White Blood Cell 23.1 10^3/uL (4.4-10.8)
[2024-11-17 04:55] LABS: Alanine Aminotransferase 22 U/L (7-40); Albumin 3.7 g/dL (3.2-4.8); Alkaline Phosphatase 112 U/L (46-116); Anion Gap 9 (5-15); Aspartate Aminotransferase 27 U/L (13-40); BUN/Creatinine Ratio 14.5 (10.0-20.0); Calcium 9.2 mg/dL (8.7-10.4); Carbon Dioxide 24 mmol/L (20-31); Chloride 105 mmol/L (98-107); Potassium 3.5 mmol/L (3.5-5.1); Sodium 138 mmol/L (136-145); Total Protein 7.2 g/dL (5.7-8.2)
[2024-11-17 05:22] LABS: Bilirubin, Total 1.6 mg/dL (0.2-1.0); Blood Urea Nitrogen 23 mg/dL (9-23); Glucose 157 mg/dL (74-106)
[2024-11-17] MEDS: ACETAMINOPHEN 325 MG TAB PO PRN (06:35)
[2024-11-17 08:00] VITALS: PULSE 93; RESP 22; O2SAT 91
[2024-11-17] MEDS: hydrALAZINE HCL 20 MG/ML VL IV PRN (08:34)
[2024-11-17] MEDS: cefTRIAXone 1GM/50ML D5W 50 ML IV SCH (10:24)
[2024-11-17] MEDS: ASPirin 81 mg TAB PO SCH (10:25)
[2024-11-17] MEDS: FUROSEMIDE 40 MG/4 ML VIAL IV SCH (10:25)
[2024-11-17] MEDS: amLODIPine BESYLATE 5 MG TAB PO SCH (10:26)
--- NOTE | 2024-11-17 10:47 | DVHINCON2 ---
Date Seen: Nov 17, 2024 Referring Physician SANTIAGO Aguillon Reason for Consultation CHF History of Present Illness This is a 44-year-old male patient who presents to the emergency room with chief complaint of worsening shortness of breath, bilateral lower extremity edema, and left lower extremity wound. Patient denies any chest pain or palpitations. Patient does report dyspnea on exertion and orthopnea. Cardiology has now been consulted for CHF exacerbation. Initial twelve lead electrocardiogram reveals normal sinus rhythm with nonspecific ST segment changes to lateral leads. Serial troponin levels have been negative. Initial BNP level of 2518.27pg/mL. Significant past medical history includes congestive heart failure, hypertension, dyslipidemia, prediabetes, polysubstance abuse, cannabinoid use, and tobacco use. He denies any recent amphetamine use, toxicology screen positive for amphetamines. 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 Past Medical History Past medical history reviewed. No other significant than mentioned above. Past Surgical History Umbilical hernia repair Family History: Alcoholism G8 FATHER Arthritis Diabetes mellitus FH: congestive heart failure G8 MOTHER, Family History Family history reviewed. Social History Patient has a 10 pack-year history, smokes approximately half a pack per day Patient denies any alcohol use Polysubstance abuse including amphetamines and cannabinoids Allergies: Coded Allergies: NO KNOWN ALLERGIES (Unverified , 03/11/24) Home Meds Active Scripts Doxycycline Monohydrate (Doxycycline Monohydrate) 100 Mg Cap, 1 CAP PO BID, #20 CAP Prov:SKYLAR ANDERSON MD 10/06/24 Atorvastatin Calcium (Lipitor) 40 Mg Tab, 1 TAB PO DAILY, #30 TAB 5 Refills Prov:SKYLAR ANDERSON MD 10/06/24 Aspirin (Aspir-81) 81 Mg Tab, 1 TAB PO DAILY, #90 TAB 1 Refill Prov:SKYLAR ANDERSON MD 10/06/24 Empagliflozin (Jardiance) 10 Mg Tab, 10 MG PO DAILY for 30 Days, #30 TAB 3 Refills Prov:SKYLAR ANDERSON MD 10/06/24 Mupirocin Calcium (Topical) (MUPIROCIN) 2 % Cre, 2 % EX BID, #60 GRAMS 0 Refills APPLY BID TO LEG WOUNDS X 2 WEEKS Prov:SKYLAR ANDERSON MD 10/06/24 Furosemide (Lasix) 40 Mg Tab, 40 MG PO DAILY, #30 TAB 3 Refills Prov:SKYLAR ANDERSON MD 10/06/24 Sacubitril-Valsartan (Entresto 24-26 mg) 1 Tab Tab, 1 TAB PO BID for 30 Days, #60 TAB 3 Refills Prov:SKYLAR ANDERSON MD 10/06/24 Spironolactone (Aldactone) 25 Mg Tab, 12.5 MG PO DAILY for 30 Days, #15 TAB 3 Refills Prov:SKYLAR ANDERSON MD 10/06/24 Reported Medications Carvedilol (Carvedilol) 12.5 Mg Tab, 1 TAB PO BID for 30 Days, #60 11/17/24 Metoprolol Succinate (Metoprolol Succinate Er) 25 Mg Tab, 1 TAB PO DAILY 03/12/24 Home Meds Home medications reviewed. Current Medications Current Medications Medications (Trade) Dose Ordered Sig/Guilherme Route PRN Reason Start Time Stop Time Status Last Admin Aspirin 81 mg DAILY PO 11/17/24 10:00 11/17/24 10:25 Carvedilol (Coreg Tablet) 3.125 mg Q12HR PO 11/16/24 22:00 11/17/24 10:26 Atorvastatin Calcium (Lipitor) 40 mg HS PO 11/16/24 22:00 11/16/24 22:16 Furosemide (Lasix Injection) 40 mg DAILY IV 11/17/24 10:00 11/17/24 10:25 Acetaminophen/ Hydrocodone Bitart ([place] 5/325MG Tab) 1 tab Q4HP PRN PO MODERATE PAIN (4-6 PAIN SCALE) 11/16/24 12:30 11/16/24 16:36 Ondansetron HCl (Zofran) 4 mg Q4HP PRN IV NAUSEA / VOMITING 11/16/24 12:30 Docusate Sodium (Colace Capsule) 100 mg BIDPRN PRN PO FOR CONSTIPATION 11/16/24 12:30 Acetaminophen (Tylenol Tablet) 650 mg Q6HP PRN PO PAIN SCALE 1-3 OR TEMP>100.4 11/16/24 12:30 11/17/24 06:35 Nitroglycerin (Ntrostat Sublingual) 0.4 mg Q5MINP PRN SL FOR CHEST PAIN 11/16/24 17:45 Morphine Sulfate 2 mg Q30M PRN IV FOR CHEST PAIN 11/16/24 17:45 1/1/25 07:05 Amlodipine Besylate (Norvasc Tablet) 5 mg DAILY PO 11/17/24 10:00 11/17/24 10:26 Hydralazine HCl (Apresoline Injection) 10 mg Q6HP PRN IV SBP>150 11/16/24 18:15 11/17/24 08:34 Ceftriaxone Sodium 50 ml @ 100 mls/hr DAILY@09 IV 11/17/24 09:00 11/17/24 10:24 Acetaminophen/ Hydrocodone Bitart ([place] 10/325MG Tab) 1 tab Q4HP PRN PO SEVERE PAIN (7-10 PAIN SCALE) 11/16/24 22:20 11/17/24 06:35 Review of Systems Constitutional: No symptom reported Ears, Nose, & Throat: No symptom reported Eyes: No symptom reported Neurological: No symptoms reported Pulmonary/Respiratory: Shortness of breath Cardiovascular: Bilateral lower extremity edema Gastrointestinal: No symptom reported Genitourinary: No symptom reported Musculoskeletal: No symptom reported Skin: Left lower extremity wound Psychiatric: No symptom reported Endocrine: No symptom reported Hematologic/Lymphatic: No symptom reported Vital Signs Vital Signs Date Time Temp Pulse Resp B/P (MAP) Pulse Ox O2 Delivery O2 Flow Rate FiO2 11/17/24 10:26 150/96 11/17/24 10:26 90 11/17/24 08:00 98.6 22 91 98.6 11/17/24 08:00 Nasal Cannula* 2 28 Physical Exam General Appearance: Cooperative. Well-developed. Well-nourished. No acute distress. Pulmonary/Respiratory: Coarse bilateral upper lobes Cardiovascular/Chest: Regular rate and rhythm. Peripheral Pulses: 2+ Radial (R). 2+ Radial (L). Abdominal Exam: Normal bowel sounds. Ankle Exam: 3+ pitting edema Lower extremities: 3+ pitting edema Neuro/Mental Status: A/OX4, coherent. Thoughts/Psych: Normal thought pattern. Appropriate mood and affect. Good judgment and insight. Appearance: No acute distress. Skin Exam: Left lower extremity wound, covered with dressing. Dorsal right toes scattered scabs Labs/Diagnostic Data Labs Test 11/17/24 05:46 11/17/24 04:56 11/17/24 04:26 11/16/24 11:40 Range/Units Thyroid Stimulating Hormone (TSH) 1.88 0.55-4.78 uIU/mL White Blood Count 23.1 #H 4.4-10.8 10^3/uL Red Blood Count 4.97 4.5-5.90 10^6/uL Hemoglobin 13.1 L 13.5-17.5 g/dL Hematocrit 39.3 L 41.0-53.0 % Mean Corpuscular Volume 79.1 L 80.0-100.0 fL Mean Corpuscular Hemoglobin 26.3 L 28.0-32.0 pg Mean Corpuscular Hemoglobin Concent 33.3 32.0-36.0 g/dL Red Cell Distribution Width 17.2 H 11.8-14.3 % Platelet Count 272 140-450 10^3/uL Mean Platelet Volume 7.3 6.9-10.8 fL Neutrophils (%) (Auto) 82.9 H 37.0-80.0 % Lymphocytes (%) (Auto) 5.7 L 10.0-50.0 % Monocytes (%) (Auto) 10.0 0.0-12.0 % Eosinophils (%) (Auto) 1.0 0.0-7.0 % Basophils (%) (Auto) 0.4 0.0-2.0 % Neutrophils # (Auto) 19.2 H 1.6-8.6 10 ^3/uL Lymphocytes # (Auto) 1.3 0.4-5.4 10 ^3/uL Monocytes # (Auto) 2.3 H 0-1.3 10 ^3/uL Eosinophils # (Auto) 0.2 0-0.8 10 ^3/uL Basophils # (Auto) 0.1 0-0.2 10 ^3/uL Nucleated Red Blood Cells 0.0 % Sodium Level 138 136-145 mmol/L Potassium Level 3.5 3.5-5.1 mmol/L Chloride Level 105 98-107 mmol/L Carbon Dioxide Level 24 20-31 mmol/L Anion Gap 9 5-15 Blood Urea Nitrogen 23 9-23 mg/dL Creatinine 1.59 H 0.700-1.30 mg/dL Glomerular Filtration Rate Calc 54 >90 mL/min BUN/Creatinine Ratio 14.5 10.0-20.0 Serum Glucose 157 H 74-106 mg/dL Calcium Level 9.2 8.7-10.4 mg/dL Total Bilirubin 1.6 H 0.2-1.0 mg/dL Aspartate Amino Transferase (AST) 27 13-40 U/L Alanine Aminotransferase (ALT) 22 7-40 U/L Alkaline Phosphatase 112 46-116 U/L Total Protein 7.2 5.7-8.2 g/dL Albumin 3.7 3.2-4.8 g/dL Troponin I High Sensitivity 30 </=54 ng/L Test 11/16/24 08:28 Range/Units Hemoglobin A1c 6.4 H <5.7 % A1C B-Type Natriuretic Peptide 2518.27 0-100 pg/mL Assessment Acute on chronic decompensated HFrEF, NYHA class III Likely drug induced cardiomyopathy Hypertension Dyslipidemia Prediabetes Mild mitral valve regurgitation Mild tricuspid valve regurgitation Acute kidney injury History of polysubstance use Obesity Medical noncompliance Plan/Recommendation We will continue with following plan/recommendations (Dr. Abreu): * Transthoracic echocardiogram from 10/04/2024 reveals EF 20%, RVSP 38 mmHg * Initiate guideline directed medical therapy for CHF * Hold JUAN/ARB/ARNI and spironolactone until creatinine improves * Strict intake and output, daily weights, maintain fluid restriction * Aggressive diuresis as tolerated * Lipid-lowering agent Patient seen and examined at bedside with . Thank you for allowing us to care for this patient. Please call with any questions or concerns. Critical care time spent: 40 minutes This medical document was created using an electronic medical record system with voice recognition software and computerized dictation system. Although this document has been carefully reviewed, there might still be some phonetic and typographical errors. Occasional wrong-word or ``sound-alike substitutions may have occurred due to the inherent limitations of voice recognition software. These areas are purely typographical due to imperfections of the software programs and do not reflect any compromise in the patient's medical care. Please read the chart carefully and recognize, using context, where these substitutions have occurred. Plan discussed with: Patient NYHA Physical activity limitations: Class3(Marked) ordinary (activity causes symtoms) Date of Service: Nov 17, 2024 Billing Provider: SHELLIE SIERRA Cardiology Common Codes: [id number] INP/OBS CARE (High) Cardiology Consultation Codes: [id number] CONSULT <45MIN SHELLIE SIERRA Nov 17, 2024 10:47
[2024-11-17 10:52] LABS: Magnesium 1.7 mg/dL (1.6-2.6)
[2024-11-17 11:20] VITALS: BP 123/92; PULSE 93; RESP 22; TEMP 97.5; O2SAT 96
[2024-11-17 11:23] VITALS: BP 141/97; PULSE 93; RESP 22; TEMP 97.9; O2SAT 97
[2024-11-17 12:20] LABS: Amphetamine Screen, Urine Pos (NEGATIVE); Barbiturate Scree,Urine Neg (NEGATIVE); Benzodiazephine Screen, Urine Neg (NEGATIVE)
[2024-11-17 12:21] LABS: Cannabinoid Screen, Urine Pos (NEGATIVE)
[2024-11-17 12:23] LABS: Cocaine Screen, Urine Neg (NEGATIVE); Opiate Scree,Urine Pos (NEGATIVE); Phencyclidine Screen, Urine Neg (NEGATIVE)
--- NOTE | 2024-11-17 13:23 | DVHPN2 ---
Subjective Still redness and pain in the left foot Reviewed: Care Plan, H&P, Labs, Medications, Previous Orders, Radiology Changes from previous H/P or p: No Changes Objective Vitals Vital Signs Date Time Temp Pulse Resp B/P (MAP) Pulse Ox O2 Delivery O2 Flow Rate FiO2 11/17/24 11:26 93 141/97 11/17/24 11:23 97.9 22 97 97.9 11/17/24 11:23 Nasal Cannula* 4 36 General Appearance: Alert, Oriented X3, Cooperative, No acute distress HEENT: Atraumatic Lungs: Other (Very few crackles bilateral lungs and good air entry) Abdomen: Other (Presence of ventral hernias) Extremities: Other (Redness bilateral feet more so on the left with some swelling. right 2nd and 4th dorsal scab on left fott and dry wounds on dorsal 1st,2nd and 3rd toes on left) Medications Current Medications Medications Dose Ordered Sig/Guilherme Route Start Time Stop Time Status Last Admin Dose Admin Aspirin 81 mg DAILY PO 11/17/24 10:00 11/17/24 10:25 81 MG Carvedilol 3.125 mg Q12HR PO 11/16/24 22:00 11/17/24 10:26 3.125 MG Atorvastatin Calcium 40 mg HS PO 11/16/24 22:00 11/16/24 22:16 40 MG Furosemide 40 mg DAILY IV 11/17/24 10:00 11/17/24 10:25 40 MG Acetaminophen/ Hydrocodone Bitart 1 tab Q4HP PRN PO 11/16/24 12:30 11/16/24 16:36 1 TAB Ondansetron HCl 4 mg Q4HP PRN IV 11/16/24 12:30 Docusate Sodium 100 mg BIDPRN PRN PO 11/16/24 12:30 Acetaminophen 650 mg Q6HP PRN PO 11/16/24 12:30 11/17/24 06:35 650 MG Nitroglycerin 0.4 mg Q5MINP PRN SL 11/16/24 17:45 Morphine Sulfate 2 mg Q30M PRN IV 11/16/24 17:45 11/17/24 07:05 2 MG Amlodipine Besylate 5 mg DAILY PO 11/17/24 10:00 11/17/24 10:26 5 MG Hydralazine HCl 10 mg Q6HP PRN IV 11/16/24 18:15 11/17/24 08:34 10 MG Ceftriaxone Sodium 50 ml @ 100 mls/hr DAILY@09 IV 11/17/24 09:00 11/17/24 10:24 100 MLS/HR Acetaminophen/ Hydrocodone Bitart 1 tab Q4HP PRN PO 11/16/24 22:20 11/17/24 06:35 1 TAB Linezolid 300 ml @ 150 mls/hr Q12HR IV 11/17/24 22:00 Empaglifozin 10 mg DAILY PO 11/18/24 10:00 Laboratory Results Laboratory Tests 11/17/24 04:26 Chemistry Test 11/17/24 04:26 11/17/24 04:56 Albumin 3.7 g/dL (3.2-4.8) Calcium Level 9.2 mg/dL (8.7-10.4) Total Protein 7.2 g/dL (5.7-8.2) Magnesium Level 1.7 mg/dL (1.6-2.6) Lipid panel Test 11/17/24 04:56 Cholesterol Level 86 mg/dL (< 200) HDL Cholesterol 31 mg/dL (40-59) L Triglycerides Level 62 mg/dL (< 150) LFT Test 11/17/24 04:26 Alanine Aminotransferase (ALT) 22 U/L (7-40) Alkaline Phosphatase 112 U/L (46-116) Aspartate Amino Transferase (AST) 27 U/L (13-40) Total Bilirubin 1.6 mg/dL (0.2-1.0) H HgA1c, TSH Test 11/17/24 05:46 Thyroid Stimulating Hormone (TSH) 1.88 uIU/mL (0.55-4.78) Assessment/Plan Assessment/Plan LEFT FOOT CELLULITIS ACUTE ON CHRONIC HFrEF/cardiomyopathy GASTON/CKD HTN DYSLIPIDEMIA COPD PRE DM NEUROPATHY AND CHRONIC PAIN SYNDROME MILD MR/TR OBESITY POLYSUBSTANCE USE PLAN: PER ORDERS. ANTIBIOTICS. PAIN CONTROL. REPEAT LABS. Plan discussed with: Patient, Other (NURSING) My Orders Orders - MONROE NIEVES MD Procedure Category Date Status Time Linezolid 600mg/300ml PHA 11/17/24 In Process (Zyvox) 22:00 Education - Smoking STEVAN 11/17/24 In Process Cessation 12:16 * Smoking Cessation CONS 11/17/24 Transmitted Consult 12:16 * Continuity Reader CONS 1/1/25 Transmitted Consult 12:16 Date of Service: Nov 17, 2024 Billing Provider: MONROE NIEVES MD Common Visit Codes: [id number] INP/OBS CARE(HIGH) MONROE NIEVES MD Nov 17, 2024 13:23
[2024-11-17 17:00] VITALS: BP 164/105; PULSE 94; RESP 20; TEMP 97.5; O2SAT 96
[2024-11-17 20:00] VITALS: PULSE 95; RESP 20; O2SAT 96
[2024-11-17 21:00] VITALS: BP 146/100; PULSE 95; RESP 20; TEMP 97.7; O2SAT 96
[2024-11-17] MEDS: LINEZOLID 600MG/300ML 300 ML IV SCH (21:55)
--- NOTE | 2024-11-17 22:37 | DVHINCON2 ---
Date Seen: Nov 17, 2024 Referring Physician SANTIAGO Aguillon Reason for Consultation CHF History of Present Illness This is a 44-year-old male with a past medical history congestive heart failure, hypertension, dyslipidemia, prediabetes, polysubstance abuse, cannabinoid use, and tobacco use who presents to the emergency room with a complaint of worsening shortness of breath, bilateral lower extremity edema, and left lower extremity wound. Patient denies any chest pain or palpitations. Patient does report dyspnea on exertion and orthopnea. He denies any recent amphetamine use, toxicology screen positive for amphetamines. The patient states that he does not follow up with a certified pedorthotist in the outpatient setting. Cardiology has now been consulted for CHF exacerbation. Initial twelve lead electrocardiogram reveals normal sinus rhythm with nonspecific ST segment changes to lateral leads. Serial troponin levels have been negative. Initial BNP level of 2518.27pg/mL. Chest x- ray shows cardiomegaly with pulmonary vascular congestion. Left lower extremity venous duplex is negative for DVT. Family History: Alcoholism G8 FATHER Arthritis Diabetes mellitus FH: congestive heart failure G8 MOTHER, Allergies: Coded Allergies: NO KNOWN ALLERGIES (Unverified , 03/11/24) Home Meds Active Scripts Doxycycline Monohydrate (Doxycycline Monohydrate) 100 Mg Cap, 1 CAP PO BID, #20 CAP Prov:SKYLAR ANDERSON MD 10/06/24 Atorvastatin Calcium (Lipitor) 40 Mg Tab, 1 TAB PO DAILY, #30 TAB 5 Refills Prov:SKYLAR ANDERSON MD 10/06/24 Aspirin (Aspir-81) 81 Mg Tab, 1 TAB PO DAILY, #90 TAB 1 Refill Prov:SKYLAR ANDERSON MD 10/06/24 Empagliflozin (Jardiance) 10 Mg Tab, 10 MG PO DAILY for 30 Days, #30 TAB 3 Refills Prov:SKYLAR ANDERSON MD 10/06/24 Mupirocin Calcium (Topical) (MUPIROCIN) 2 % Cre, 2 % EX BID, #60 GRAMS 0 Refills APPLY BID TO LEG WOUNDS X 2 WEEKS Prov:SKYLAR ANDERSON MD 10/06/24 Furosemide (Lasix) 40 Mg Tab, 40 MG PO DAILY, #30 TAB 3 Refills Prov:SKYLAR ANDERSON MD 10/06/24 Sacubitril-Valsartan (Entresto 24-26 mg) 1 Tab Tab, 1 TAB PO BID for 30 Days, #60 TAB 3 Refills Prov:SKYLAR ANDERSON MD 10/06/24 Spironolactone (Aldactone) 25 Mg Tab, 12.5 MG PO DAILY for 30 Days, #15 TAB 3 Refills Prov:SKYLAR ANDERSON MD 10/06/24 Reported Medications Carvedilol (Carvedilol) 12.5 Mg Tab, 1 TAB PO BID for 30 Days, #60 11/17/24 Metoprolol Succinate (Metoprolol Succinate Er) 25 Mg Tab, 1 TAB PO DAILY 03/12/24 Current Medications Current Medications Medications (Trade) Dose Ordered Sig/Guilherme Route PRN Reason Start Time Stop Time Status Last Admin Aspirin 81 mg DAILY PO 11/17/24 10:00 11/17/24 10:25 Furosemide (Lasix Injection) 40 mg DAILY IV 11/17/24 10:00 11/17/24 10:25 Amlodipine Besylate (Norvasc Tablet) 5 mg DAILY PO 11/17/24 10:00 11/17/24 10:26 Ceftriaxone Sodium 50 ml @ 100 mls/hr DAILY@09 IV 11/17/24 09:00 11/17/24 10:24 Linezolid 300 ml @ 150 mls/hr Q12HR IV 11/17/24 22:00 11/17/24 21:55 Empaglifozin (Jardiance) 10 mg DAILY PO 11/18/24 10:00 Review of Systems Constitutional: No symptom reported Ears, Nose, & Throat: No symptom reported Eyes: No symptom reported Neurological: No symptoms reported Pulmonary/Respiratory: Shortness of breath Cardiovascular: Bilateral lower extremity edema Gastrointestinal: No symptom reported Genitourinary: No symptom reported Musculoskeletal: No symptom reported Skin: Left lower extremity wound Psychiatric: No symptom reported Endocrine: No symptom reported Hematologic/Lymphatic: No symptom reported Vital Signs Vital Signs Date Time Temp Pulse Resp B/P (MAP) Pulse Ox O2 Delivery O2 Flow Rate FiO2 11/17/24 21:54 95 146/100 11/17/24 21:00 97.7 20 96 97.7 11/17/24 20:00 Nasal Cannula* 4 36 Physical Exam GENERAL: Awake, alert, oriented. LUNGS: Coarse breath sounds. CARDIOVASCULAR: Heart sounds are good. ABDOMEN: Soft. EXT: +3 pitting edema. SKIN: Left lower extremity wound, covered with dressing. Dorsal right toes scattered scabs Labs/Diagnostic Data Labs Test 11/17/24 09:02 11/17/24 05:46 11/17/24 04:56 11/17/24 04:26 Range/Units Urine Opiates Screen Pos NEGATIVE Urine Fentanyl Screen Neg NEGATIVE Urine Barbiturates Screen Neg NEGATIVE Urine Phencyclidine Screen Neg NEGATIVE Urine Amphetamines Screen Pos NEGATIVE Urine Benzodiazepines Screen Neg NEGATIVE Urine Cocaine Screen Neg NEGATIVE Urine Cannabinoids Screen Pos NEGATIVE Thyroid Stimulating Hormone (TSH) 1.88 0.55-4.78 uIU/mL Magnesium Level 1.7 1.6-2.6 mg/dL Triglycerides Level 62 < 150 mg/dL Cholesterol Level 86 < 200 mg/dL LDL Cholesterol 48 < 100 mg/dL HDL Cholesterol 31 L 40-59 mg/dL White Blood Count 23.1 #H 4.4-10.8 10^3/uL Red Blood Count 4.97 4.5-5.90 10^6/uL Hemoglobin 13.1 L 13.5-17.5 g/dL Hematocrit 39.3 L 41.0-53.0 % Mean Corpuscular Volume 79.1 L 80.0-100.0 fL Mean Corpuscular Hemoglobin 26.3 L 28.0-32.0 pg Mean Corpuscular Hemoglobin Concent 33.3 32.0-36.0 g/dL Red Cell Distribution Width 17.2 H 11.8-14.3 % Platelet Count 272 140-450 10^3/uL Mean Platelet Volume 7.3 6.9-10.8 fL Neutrophils (%) (Auto) 82.9 H 37.0-80.0 % Lymphocytes (%) (Auto) 5.7 L 10.0-50.0 % Monocytes (%) (Auto) 10.0 0.0-12.0 % Eosinophils (%) (Auto) 1.0 0.0-7.0 % Basophils (%) (Auto) 0.4 0.0-2.0 % Neutrophils # (Auto) 19.2 H 1.6-8.6 10 ^3/uL Lymphocytes # (Auto) 1.3 0.4-5.4 10 ^3/uL Monocytes # (Auto) 2.3 H 0-1.3 10 ^3/uL Eosinophils # (Auto) 0.2 0-0.8 10 ^3/uL Basophils # (Auto) 0.1 0-0.2 10 ^3/uL Nucleated Red Blood Cells 0.0 % Sodium Level 138 136-145 mmol/L Potassium Level 3.5 3.5-5.1 mmol/L Chloride Level 105 98-107 mmol/L Carbon Dioxide Level 24 20-31 mmol/L Anion Gap 9 5-15 Blood Urea Nitrogen 23 9-23 mg/dL Creatinine 1.59 H 0.700-1.30 mg/dL Glomerular Filtration Rate Calc 54 >90 mL/min BUN/Creatinine Ratio 14.5 10.0-20.0 Serum Glucose 157 H 74-106 mg/dL Calcium Level 9.2 8.7-10.4 mg/dL Total Bilirubin 1.6 H 0.2-1.0 mg/dL Aspartate Amino Transferase (AST) 27 13-40 U/L Alanine Aminotransferase (ALT) 22 7-40 U/L Alkaline Phosphatase 112 46-116 U/L Total Protein 7.2 5.7-8.2 g/dL Albumin 3.7 3.2-4.8 g/dL Test 11/16/24 11:40 11/16/24 08:28 Range/Units Troponin I High Sensitivity 30 </=54 ng/L Hemoglobin A1c 6.4 H <5.7 % A1C B-Type Natriuretic Peptide 2518.27 0-100 pg/mL Assessment Acute on chronic decompensated HFrEF, NYHA class III. 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 Hypertension. Dyslipidemia. Prediabetes. Mild mitral valve regurgitation. Mild tricuspid valve regurgitation. Acute kidney injury. History of polysubstance use. Obesity. Medical noncompliance. Plan/Recommendation I agree with your ongoing assessment and care of plan. Patient has been seen by Georgiana Singletary NP on my behalf, her and I discussed the plan with the patient. Transthoracic echocardiogram from 10/04/2024 reveals EF 20%, RVSP 38 mmHg. Initiate guideline directed medical therapy for CHF. Hold JUAN/ARB/ARNI and spironolactone until creatinine improves. Strict intake and output, daily weights, maintain fluid restriction. Aggressive diuresis as tolerated. Lipid-lowering agent. Additional plan as per the hospital course. Plan discussed with: Patient Date of Service: Nov 17, 2024 Billing Provider: ROSA ISELA GUILLERMO MD Cardiology Common Codes: [id number] INP/OBS CARE (High) Cardiology Consultation Codes: [id number] CONSULT <45MIN ROSA ISELA GUILLERMO MD Nov 17, 2024 22:26
[2024-11-18] VITALS (7 sets, daily range): BP systolic 14–155; BP diastolic 85–108; PULSE 79–90; RESP 19–20; TEMP 97.4–99; O2SAT 90–96
--- NOTE | 2024-11-18 05:45 | DVH ---
CHEST RADIOGRAPH Indication: FU CHF Technique: Single frontal view of the chest was obtained COMPARISON: XY CHEST PORTABLE on DOS: 11/16/24, XY CHEST PORTABLE on DOS: 10/03/24, XY CHEST PORTABLE on DOS: 07/27/24, XY CHEST PORTABLE on DOS: 06/29/24, XY CHEST PORTABLE on DOS: 06/28/24 FINDINGS: Lines and Tubes: None Lungs: Congestion Pleura: No effusion. No pneumothorax. Cardiomediastinal contours: Cardiomegaly Bones: Unremarkable IMPRESSION: No significant interval change.
[2024-11-18 07:56] LABS: Eosinophils # (auto) 0.4 10 ^3/uL (0-0.8); Hemoglobin 12.5 g/dL (13.5-17.5); Lymphocytes # (auto) 1.2 10 ^3/uL (0.4-5.4); Monocytes # (auto) 1.5 10 ^3/uL (0-1.3); Neutrophils # (auto) 8.3 10 ^3/uL (1.6-8.6); Nucleated Red Blood Cells % 0.1 %; White Blood Cell 11.4 10^3/uL (4.4-10.8)
[2024-11-18 07:59] LABS: Basophils # (auto) 0 10 ^3/uL (0-0.2); Basophils % (auto) 0.4 % (0.0-2.0); Eosinophils % (auto) 3.3 % (0.0-7.0); Lymphocytes % (auto) 10.6 % (10.0-50.0); Mean Corpuscular Hemoglobin 25.9 pg (28.0-32.0); Mean Corpuscular Hgb Conc. 32.2 g/dL (32.0-36.0); Mean Corpuscular Volume 80.5 fL (80.0-100.0); Monocytes % (auto) 13.1 % (0.0-12.0); Neutrophils % (auto) 72.6 % (37.0-80.0); Platelet Count (auto) 268 10^3/uL (140-450); Red Blood Cells 4.84 10^6/uL (4.5-5.90); Red Cell Distribution Width 17.7 % (11.8-14.3)
[2024-11-18 08:01] LABS: Alanine Aminotransferase 20 U/L (7-40); Albumin 3.5 g/dL (3.2-4.8); Alkaline Phosphatase 99 U/L (46-116); Anion Gap 8 (5-15); Aspartate Aminotransferase 20 U/L (13-40); BUN/Creatinine Ratio 19.1 (10.0-20.0); Bilirubin, Total 1.2 mg/dL (0.2-1.0); Blood Urea Nitrogen 21 mg/dL (9-23); Calcium 9.2 mg/dL (8.7-10.4); Carbon Dioxide 24 mmol/L (20-31); Chloride 106 mmol/L (98-107); Potassium 3.5 mmol/L (3.5-5.1); Sodium 138 mmol/L (136-145); Total Protein 6.7 g/dL (5.7-8.2)
[2024-11-18 08:08] LABS: Glucose 112 mg/dL (74-106)
[2024-11-18 08:58] LABS: Erythrocyte Sedimentation Rate 10 mm/hr (0-20)
[2024-11-18] MEDS: EMPAGLIFLOZIN 10 MG TAB PO SCH (09:20)
--- NOTE | 2024-11-18 19:37 | DVHPN2 ---
Subjective Still redness and pain in the left foot Reviewed: Care Plan, H&P, Labs, Medications, Previous Orders, Radiology Changes from previous H/P or p: No Changes Objective Vitals Vital Signs Date Time Temp Pulse Resp B/P (MAP) Pulse Ox O2 Delivery O2 Flow Rate FiO2 11/18/24 13:00 97.9 79 20 147/85 (105) 91 97.9 11/18/24 08:00 Room Air* 0 21 Intake/Output Intake and Output 11/18/24 07:00 Intake Total 1250 ml Output Total 1450 ml Balance -200 ml Intake Oral 900 ml IV Total 350 ml Output Urine Total 1450 ml # Bowel Movements 1 General Appearance: Alert, Oriented X3, Cooperative, No acute distress HEENT: Atraumatic Lungs: Other (Very few crackles bilateral lungs and good air entry) Abdomen: Other (Presence of ventral hernias) Extremities: Other (Redness bilateral feet more so on the left with some swelling. right 2nd and 4th dorsal scab on left fott and dry wounds on dorsal 1st,2nd and 3rd toes on left) Medications Current Medications Medications Dose Ordered Sig/Guilherme Route Start Time Stop Time Status Last Admin Dose Admin Aspirin 81 mg DAILY PO 11/17/24 10:00 11/18/24 09:21 81 MG Carvedilol 3.125 mg Q12HR PO 11/16/24 22:00 11/18/24 09:27 3.125 MG Atorvastatin Calcium 40 mg HS PO 11/16/24 22:00 11/17/24 21:53 40 MG Furosemide 40 mg DAILY IV 11/17/24 10:00 11/18/24 09:26 40 MG Acetaminophen/ Hydrocodone Bitart 1 tab Q4HP PRN PO 11/16/24 12:30 11/16/24 16:36 1 TAB Ondansetron HCl 4 mg Q4HP PRN IV 11/16/24 12:30 Docusate Sodium 100 mg BIDPRN PRN PO 11/16/24 12:30 Acetaminophen 650 mg Q6HP PRN PO 11/16/24 12:30 11/17/24 06:35 650 MG Nitroglycerin 0.4 mg Q5MINP PRN SL 11/16/24 17:45 Morphine Sulfate 2 mg Q30M PRN IV 11/16/24 17:45 11/17/24 07:05 2 MG Amlodipine Besylate 5 mg DAILY PO 11/17/24 10:00 11/18/24 09:27 5 MG Hydralazine HCl 10 mg Q6HP PRN IV 11/16/24 18:15 11/17/24 16:45 10 MG Ceftriaxone Sodium 50 ml @ 100 mls/hr DAILY@09 IV 11/17/24 09:00 11/18/24 09:20 100 MLS/HR Acetaminophen/ Hydrocodone Bitart 1 tab Q4HP PRN PO 11/16/24 22:20 11/18/24 16:07 1 TAB Linezolid 300 ml @ 150 mls/hr Q12HR IV 11/17/24 22:00 11/18/24 09:20 150 MLS/HR Empaglifozin 10 mg DAILY PO 11/18/24 10:00 11/18/24 09:20 10 MG Laboratory Results Laboratory Tests 11/18/24 06:33 Chemistry Test 11/18/24 06:33 Albumin 3.5 g/dL (3.2-4.8) Calcium Level 9.2 mg/dL (8.7-10.4) Total Protein 6.7 g/dL (5.7-8.2) LFT Test 11/18/24 06:33 Alanine Aminotransferase (ALT) 20 U/L (7-40) Alkaline Phosphatase 99 U/L (46-116) Aspartate Amino Transferase (AST) 20 U/L (13-40) Total Bilirubin 1.2 mg/dL (0.2-1.0) H Assessment/Plan Assessment/Plan LEFT FOOT CELLULITIS ACUTE ON CHRONIC HFrEF/cardiomyopathy GASTON/CKD HTN DYSLIPIDEMIA COPD PRE DM NEUROPATHY AND CHRONIC PAIN SYNDROME MILD MR/TR OBESITY 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 ANTIBIOTICS. PAIN CONTROL. REPEAT LABS. Plan discussed with: Patient My Orders Orders - MONROE NIEVES MD Procedure Category Date Status Time Cleanse Wound With STEVAN 11/18/24 In Process Wound Clean 15:00 Apply: STEVAN 11/18/24 In Process 15:00 Date of Service: Nov 18, 2024 Billing Provider: MONROE NIEVES MD Common Visit Codes: [id number] INP/OBS CARE(HIGH) MONROE NIEVES MD Nov 18, 2024 19:37
--- NOTE | 2024-11-18 20:25 | DVHPN2 ---
Progress Note - Dictate Date Seen: Nov 18, 2024 Medical Necessity Reason Pt with a Central, PICC or Fol: No Subjective Patient was seen and evaluated in follow up. Patient is complaining of generalized pain. Patient received wound care earlier today. WBC 11.4. HDL 31. TSH is WNL. vital signs Vital Sign Date Time Temp Pulse Resp B/P (MAP) Pulse Ox O2 Delivery O2 Flow Rate FiO2 11/18/24 10:27 79 147/85 11/18/24 09:00 99.0 20 90 99.0 11/18/24 08:00 Room Air* 0 21 Total Intake and Output 11/17/24 11/17/24 11/18/24 15:00 23:00 07:00 Intake Total 50 ml 340 ml 860 ml Output Total 1000 ml 450 ml Balance 50 ml -660 ml 410 ml medications Current Medications Medications Dose Ordered Sig/Guilherme Route Start Time Stop Time Status Last Admin Dose Admin Aspirin 81 mg DAILY PO 11/17/24 10:00 11/18/24 09:21 81 MG Carvedilol 3.125 mg Q12HR PO 11/16/24 22:00 11/18/24 09:27 3.125 MG Atorvastatin Calcium 40 mg HS PO 11/16/24 22:00 11/17/24 21:53 40 MG Furosemide 40 mg DAILY IV 11/17/24 10:00 11/18/24 09:26 40 MG Acetaminophen/ Hydrocodone Bitart 1 tab Q4HP PRN PO 11/16/24 12:30 11/16/24 16:36 1 TAB Ondansetron HCl 4 mg Q4HP PRN IV 11/16/24 12:30 Docusate Sodium 100 mg BIDPRN PRN PO 11/16/24 12:30 Acetaminophen 650 mg Q6HP PRN PO 11/16/24 12:30 11/17/24 06:35 650 MG Nitroglycerin 0.4 mg Q5MINP PRN SL 11/16/24 17:45 Morphine Sulfate 2 mg Q30M PRN IV 11/16/24 17:45 11/17/24 07:05 2 MG Amlodipine Besylate 5 mg DAILY PO 11/17/24 10:00 11/18/24 09:27 5 MG Hydralazine HCl 10 mg Q6HP PRN IV 11/16/24 18:15 11/17/24 16:45 10 MG Ceftriaxone Sodium 50 ml @ 100 mls/hr DAILY@09 IV 11/17/24 09:00 11/18/24 09:20 100 MLS/HR Acetaminophen/ Hydrocodone Bitart 1 tab Q4HP PRN PO 11/16/24 22:20 11/18/24 16:07 1 TAB Linezolid 300 ml @ 150 mls/hr Q12HR IV 11/17/24 22:00 11/18/24 09:20 150 MLS/HR Empaglifozin 10 mg DAILY PO 11/18/24 10:00 11/18/24 09:20 10 MG objective GENERAL: Awake, alert, oriented. LUNGS: Coarse breath sounds. CARDIOVASCULAR: Heart sounds are good. ABDOMEN: Soft. EXT: +3 pitting edema. SKIN: Left lower extremity wound, covered with dressing. Dorsal right toes scattered scabs laboratory and microbiology Laboratory Tests 11/18/24 06:33 Test 11/18/24 06:33 Range/Units Serum Glucose 112 H 74-106 mg/dL Problem List Acute on chronic decompensated HFrEF, NYHA class III. 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 Hypertension. Dyslipidemia. Prediabetes. Mild mitral valve regurgitation. Mild tricuspid valve regurgitation. Acute kidney injury. History of polysubstance use. Obesity. Medical noncompliance. Assessment/Plan Continued all current supportive medical care. Morphine and [place] for pain management. Amlodipine, Coreg. Aspirin, Lipitor. IV antibiotics as ordered. Jardiance. Diuretics with Lasix. Additional plan as per the hospital course. Dietary Evaluation Review Comments: recommend CCHO-60 2GNa Low Fat Low choleterol cardiac Diet Expected Outcomes/Goals: maintained blood glucose WNL, gradual weight loss Plan discussed with: Patient ROSA ISELA GUILLERMO MD Nov 18, 2024 17:23
--- NOTE | 2024-11-18 20:46 | DVH ---
EXAM: US BILAT LOW EXT ART DUPLEX HISTORY: maximilian toes lesions COMPARISON: US BILAT LOW EXT ART DUPLEX on DOS: 06/28/24 TECHNIQUE: Real-time grayscale and color Doppler images of the bilateral lower extremities were obta ined with spectral waveform analysis. Findings: Arterial peak systolic velocities reported in units of centimeters per second (cm/sec): Right side: Common femoral - 132.2 Profunda femoris - 59.5 Proximal SFA - 136.9 Mid SFA - 107.3 Distal SFA - 94.2 Popliteal - 102.0 Posterior tibial - 133.7 Dorsalis pedis - 115.4 Diffuse triphasic waveforms. Left side: Common femoral - 124.2 Profunda femoris - 57.4 Proximal SFA - 105.2 Mid SFA - 110.9 Distal SFA - 112.7 Popliteal - 116.3 Posterior tibial - 91.6 Dorsalis pedis - 61.0 Diffuse triphasic waveforms. IMPRESSION: No evidence of hemodynamically significant stenosis throughout the bilateral lower extremity arterial systems.
[2024-11-18 22:02] LABS: Erythrocyte Sedimentation Rate 13 mm/hr (0-20)
[2024-11-19] VITALS (8 sets, daily range): BP systolic 134–163; BP diastolic 93–111; PULSE 80–95; RESP 18–21; TEMP 97.5–98.8; O2SAT 92–97
--- NOTE | 2024-11-19 10:27 | DVH ---
CLINICAL INDICATION: pain, ro osteo TECHNIQUE: 3 radiographic views of the right foot were obtained. Comparison: None FINDINGS/IMPRESSION: There is no evidence of acute fracture or dislocation. The visualized joint space is well maintained. The alignment is anatomical. There is no radiopaque foreign body.
--- NOTE | 2024-11-19 10:27 | DVH ---
CLINICAL INDICATION: pain, ro osteo TECHNIQUE: 3 radiographic views of the left foot were obtained. Comparison: None FINDINGS/IMPRESSION: There is no evidence of acute fracture or dislocation. Small posterior calcaneal enthesophyte. The visualized joint space is well maintained. The alignment is anatomical. There is no radiopaque foreign body.
--- NOTE | 2024-11-19 11:48 | DVH ---
CLINICAL INDICATION: 44 years old, Male; ro ostep. COMPARISON: Radiographs of the left foot performed earlier same date TECHNIQUE: Multiplanar, multisequence MRI of the left foot was performed without intravenous contrast . Contrast: None. INTERPRETATION: Bones: No evidence of acute fracture. There is no marrow replacing lesion. Soft tissues: The Lisfranc ligament is intact. The medial and lateral collateral ligaments are intac t at the metatarsophalangeal joints. The flexor and extensor tendons are intact. There is no planta r plate tear. There is soft tissue swelling in the medial and lateral foot. There is no soft tissue mass or fluid collection. The intrinsic muscles of the foot are unremarkable. IMPRESSION: 1. Soft tissue swelling in the medial and lateral aspects of the hindfoot which may represent celluli tis or sequela of venous stasis. No fluid collection. 2. No MR evidence of osteomyelitis.
--- NOTE | 2024-11-19 12:26 | DVH ---
EXAM: MRI MRI R FOOT WO CONTRAST HISTORY: ro osteo COMPARISON: Radiograph dated 11/19/2024 TECHNIQUE: Multiplanar, multisequence MRI of the right foot was performed. FINDINGS: The visualized osseous structures demonstrate normal cortical and bone marrow signal intensity withou t evidence of fracture, trabecular bony injury, or dislocation. Hallux sesamoid complex is intact. The Lisfranc ligament is intact. The visualized portions of tibialis posterior, flexor hallucis longus, and flexor digitorum tendons a re intact. Visualized portions of peroneus longus and brevis tendons are intact. Visualized portion s of the tibialis anterior, extensor digitorum, and extensor hallucis tendons are intact. The partially visualized plantar fascia is intact. There is no evidence of intermetatarsal bursitis or Kelly's neuroma. No significant muscle atrophy is noted. Moderate dorsal subcutaneous edema noted. No drainable fluid collection this limited unenh anced and motion degraded exam. IMPRESSION: 1. Suboptimal motion degraded study. 2. Moderate subcutaneous edema. No drainable fluid collection or signs of osteomyelitis.
--- NOTE | 2024-11-19 14:53 | DVHPN2 ---
Subjective Still redness and pain in the left foot Reviewed: Care Plan, H&P, Labs, Medications, Previous Orders, Radiology Changes from previous H/P or p: No Changes Objective Vitals Vital Signs Date Time Temp Pulse Resp B/P (MAP) Pulse Ox O2 Delivery O2 Flow Rate FiO2 11/19/24 12:56 97.8 91 18 163/99 (120) 92 97.8 11/19/24 08:00 Nasal Cannula* 4 36 Intake/Output Intake and Output 11/19/24 07:00 Intake Total 1988 ml Output Total 4275 ml Balance -2287 ml Intake Oral 1338 ml IV Total 650 ml Output Urine Total 4275 ml # Bowel Movements 1 General Appearance: Alert, Oriented X3, Cooperative, No acute distress HEENT: Atraumatic Lungs: Other (Very few crackles bilateral lungs and good air entry) Abdomen: Other (Presence of ventral hernias) Extremities: Other (Redness bilateral feet more so on the left with some swelling. right 2nd and 4th dorsal scab on left fott and dry wounds on dorsal 1st,2nd and 3rd toes on left) Medications Current Medications Medications Dose Ordered Sig/Guilherme Route Start Time Stop Time Status Last Admin Dose Admin Aspirin 81 mg DAILY PO 11/17/24 10:00 11/19/24 09:20 81 MG Carvedilol 3.125 mg Q12HR PO 11/16/24 22:00 11/19/24 09:21 3.125 MG Atorvastatin Calcium 40 mg HS PO 11/16/24 22:00 11/18/24 21:23 40 MG Furosemide 40 mg DAILY IV 11/17/24 10:00 11/19/24 09:23 40 MG Acetaminophen/ Hydrocodone Bitart 1 tab Q4HP PRN PO 11/16/24 12:30 11/19/24 04:03 1 TAB Ondansetron HCl 4 mg Q4HP PRN IV 11/16/24 12:30 Docusate Sodium 100 mg BIDPRN PRN PO 11/16/24 12:30 Acetaminophen 650 mg Q6HP PRN PO 11/16/24 12:30 11/17/24 06:35 650 MG Nitroglycerin 0.4 mg Q5MINP PRN SL 11/16/24 17:45 Morphine Sulfate 2 mg Q30M PRN IV 11/16/24 17:45 11/17/24 07:05 2 MG Amlodipine Besylate 5 mg DAILY PO 11/17/24 10:00 11/19/24 09:21 5 MG Hydralazine HCl 10 mg Q6HP PRN IV 11/16/24 18:15 11/19/24 00:56 10 MG Ceftriaxone Sodium 50 ml @ 100 mls/hr DAILY@09 IV 11/17/24 09:00 11/19/24 09:23 100 MLS/HR Acetaminophen/ Hydrocodone Bitart 1 tab Q4HP PRN PO 11/16/24 22:20 11/19/24 09:22 1 TAB Linezolid 300 ml @ 150 mls/hr Q12HR IV 11/17/24 22:00 11/19/24 11:55 150 MLS/HR Empaglifozin 10 mg DAILY PO 11/18/24 10:00 11/19/24 09:23 10 MG Laboratory Results Laboratory Tests 11/18/24 06:33 Assessment/Plan Assessment/Plan LEFT FOOT CELLULITIS ACUTE ON CHRONIC HFrEF/cardiomyopathy GASTON/CKD HTN DYSLIPIDEMIA COPD PRE DM NEUROPATHY AND CHRONIC PAIN SYNDROME MILD MR/TR OBESITY POLYSUBSTANCE USE PLAN: Continue current plan of care Plan discussed with: Patient My Orders Orders - MONROE NIEVES MD Procedure Category Date Status Time Cleanse Wound With STEVAN 11/18/24 In Process Wound Clean 15:00 Apply: STEVAN 11/18/24 In Process 15:00 Bilat Low Ext Art US 11/18/24 Resulted Duplex 19:38 *Podiatry Consult CONS 11/18/24 Transmitted [facility]) 19:38 L Foot 3 View Xray XY 11/18/24 Resulted 19:38 R Foot 3 View Xray XY 11/18/24 Resulted 19:38 Mri L Foot Wo Contrast MRI 11/19/24 Resulted 19:38 Mri R Foot Wo Contrast MRI 11/19/24 Resulted 19:38 Date of Service: Nov 19, 2024 Billing Provider: MONROE NIEVES MD Common Visit Codes: [id number] INP/OBS CARE(HIGH) MONROE NIEVES MD Nov 19, 2024 14:53
--- NOTE | 2024-11-19 15:25 | DVHINCON2 ---
Date Seen: Nov 19, 2024 Reason for Consultation Bilateral foot wounds History of Present Illness The patient is a 44-year-old male with multiple past medical history including COPD, CHF, and hypertension who presented to [facility] ED with complaint of shortness of breaths. Patient reports symptoms progressively get worse with bilateral lower extremity swelling, chronic left lower leg drainage, painful, rating pain 7/10 numeric scale, increased work of breathing, getting worse that prompted this visit. Patient was seen and evaluated in the ED, laboratory data shows WBC 8.0, platelets 250, sodium 141, potassium 3.8, BUN 26, creatinine 1.49, GFR 58, glucose 141, troponin 30, BNP 2518.27, blood pressure 155/121, heart rate 86, temperature 98.6 F, O2 saturation 96% on oxygen. Chest x-ray revealing cardiomegaly with pulmonary vascular congestion. Patient was started on IV Lasix 40 mg daily, given morphine sulfate 2 mg IV x1, please see medication orders section in the computer. On my assessment, patient denies chest pain, no headache, no dizziness, no diarrhea, no nausea, no vomiting, no fever, no chills. Patient was admitted for further evaluation and medical management. Past Medical History See H&P Past Surgical History See H&P Family History: Alcoholism G8 FATHER Arthritis Diabetes mellitus FH: congestive heart failure G8 MOTHER, Allergies: Coded Allergies: NO KNOWN ALLERGIES (Unverified , 03/11/24) Home Meds Active Scripts Doxycycline Monohydrate (Doxycycline Monohydrate) 100 Mg Cap, 1 CAP PO BID, #20 CAP Prov:SKYLAR ANDERSON MD 10/06/24 Atorvastatin Calcium (Lipitor) 40 Mg Tab, 1 TAB PO DAILY, #30 TAB 5 Refills Prov:SKYLAR ANDERSON MD 10/06/24 Aspirin (Aspir-81) 81 Mg Tab, 1 TAB PO DAILY, #90 TAB 1 Refill Prov:SKYLAR ANDERSON MD 10/06/24 Empagliflozin (Jardiance) 10 Mg Tab, 10 MG PO DAILY for 30 Days, #30 TAB 3 Refills Prov:SKYLAR ANDERSON MD 10/06/24 Mupirocin Calcium (Topical) (MUPIROCIN) 2 % Cre, 2 % EX BID, #60 GRAMS 0 Refills APPLY BID TO LEG WOUNDS X 2 WEEKS Prov:SKYLAR ANDERSON MD 10/06/24 Furosemide (Lasix) 40 Mg Tab, 40 MG PO DAILY, #30 TAB 3 Refills Prov:SKYLAR ANDERSON MD 10/06/24 Sacubitril-Valsartan (Entresto 24-26 mg) 1 Tab Tab, 1 TAB PO BID for 30 Days, #60 TAB 3 Refills Prov:SKYLAR ANDERSON MD 10/06/24 Spironolactone (Aldactone) 25 Mg Tab, 12.5 MG PO DAILY for 30 Days, #15 TAB 3 Refills Prov:SKYLAR ANDERSON MD 10/06/24 Reported Medications Carvedilol (Carvedilol) 12.5 Mg Tab, 1 TAB PO BID for 30 Days, #60 11/17/24 Metoprolol Succinate (Metoprolol Succinate Er) 25 Mg Tab, 1 TAB PO DAILY 03/12/24 Vital Signs Vital Signs Date Time Temp Pulse Resp B/P (MAP) Pulse Ox O2 Delivery O2 Flow Rate FiO2 11/19/24 12:56 97.8 91 18 163/99 (120) 92 97.8 11/19/24 08:00 Nasal Cannula* 4 36 Physical Exam DERMATOLOGIC EXAM: - Skin is dry and cool to the touch dry bilaterally. - Nails 1-5 of the bilateral foot are thickened, discolored, dystrophic, and tender to palpate with subungual debris - Hair loss noted to bilateral feet - multiple eschars on toes Wound #1: Location: Left posterior leg Measurements: Length 4 cm x width 3 cm x depth 0.5 cm. Wound margins: Hyperkeratotic. Wound base: Full thickness. General Appearance: Mixed fibrosis Probes to Bone: No Purulent drainage: No Serous drainage: No Erythema: Absent VASCULAR EXAM: - DP and PT pulses are palpable bilaterally. - TABLET TECHNICIAN is brisk to all digits. - Feet are cool to touch compared to lower legs bilaterally. NEUROLOGIC EXAM: - Normal light touch sensation to the superficial peroneal, deep peroneal, sural, saphenous, and tibial nerve branches. - Protective sensation is diminished as tested with a 5.07 10g [place] bilaterally. MUSCULOSKELETAL EXAM: - No gross deformities - Muscle strength is 5/5 and active motion is pain-free and symmetrical bilaterally - No pain or crepitation with passive range of motion bilaterally to all major pedal joints Labs/Diagnostic Data Labs Test 11/18/24 20:57 11/18/24 06:33 11/17/24 09:02 11/17/24 05:46 Range/Units Erythrocyte Sedimentation Rate 13 0-20 mm/hr C-Reactive Protein High Sensitivity 5.18 H <1.0 mg/dL White Blood Count 11.4 #H 4.4-10.8 10^3/uL Red Blood Count 4.84 4.5-5.90 10^6/uL Hemoglobin 12.5 L 13.5-17.5 g/dL Hematocrit 39.0 L 41.0-53.0 % Mean Corpuscular Volume 80.5 80.0-100.0 fL Mean Corpuscular Hemoglobin 25.9 L 28.0-32.0 pg Mean Corpuscular Hemoglobin Concent 32.2 32.0-36.0 g/dL Red Cell Distribution Width 17.7 H 11.8-14.3 % Platelet Count 268 140-450 10^3/uL Mean Platelet Volume 7.5 6.9-10.8 fL Neutrophils (%) (Auto) 72.6 37.0-80.0 % Lymphocytes (%) (Auto) 10.6 10.0-50.0 % Monocytes (%) (Auto) 13.1 H 0.0-12.0 % Eosinophils (%) (Auto) 3.3 0.0-7.0 % Basophils (%) (Auto) 0.4 0.0-2.0 % Neutrophils # (Auto) 8.3 1.6-8.6 10 ^3/uL Lymphocytes # (Auto) 1.2 0.4-5.4 10 ^3/uL Monocytes # (Auto) 1.5 H 0-1.3 10 ^3/uL Eosinophils # (Auto) 0.4 0-0.8 10 ^3/uL Basophils # (Auto) 0 0-0.2 10 ^3/uL Nucleated Red Blood Cells 0.1 % Sodium Level 138 136-145 mmol/L Potassium Level 3.5 3.5-5.1 mmol/L Chloride Level 106 98-107 mmol/L Carbon Dioxide Level 24 20-31 mmol/L Anion Gap 8 5-15 Blood Urea Nitrogen 21 9-23 mg/dL Creatinine 1.10 0.700-1.30 mg/dL Glomerular Filtration Rate Calc 84 >90 mL/min BUN/Creatinine Ratio 19.1 10.0-20.0 Serum Glucose 112 H 74-106 mg/dL Calcium Level 9.2 8.7-10.4 mg/dL Total Bilirubin 1.2 H 0.2-1.0 mg/dL Aspartate Amino Transferase (AST) 20 13-40 U/L Alanine Aminotransferase (ALT) 20 7-40 U/L Alkaline Phosphatase 99 46-116 U/L Total Protein 6.7 5.7-8.2 g/dL Albumin 3.5 3.2-4.8 g/dL Urine Opiates Screen Pos NEGATIVE Urine Fentanyl Screen Neg NEGATIVE Urine Barbiturates Screen Neg NEGATIVE Urine Phencyclidine Screen Neg NEGATIVE Urine Amphetamines Screen Pos NEGATIVE Urine Benzodiazepines Screen Neg NEGATIVE Urine Cocaine Screen Neg NEGATIVE Urine Cannabinoids Screen Pos NEGATIVE Thyroid Stimulating Hormone (TSH) 1.88 0.55-4.78 uIU/mL Test 11/17/24 04:56 11/16/24 11:40 11/16/24 08:28 Range/Units Magnesium Level 1.7 1.6-2.6 mg/dL Triglycerides Level 62 < 150 mg/dL Cholesterol Level 86 < 200 mg/dL LDL Cholesterol 48 < 100 mg/dL HDL Cholesterol 31 L 40-59 mg/dL Troponin I High Sensitivity 30 </=54 ng/L Hemoglobin A1c 6.4 H <5.7 % A1C B-Type Natriuretic Peptide 2518.27 0-100 pg/mL Problems(with codes): (1) Leukocytosis, unspecified (2) Accelerated hypertension (3) Acute on chronic diastolic heart failure (4) Cellulitis of left leg (5) Acute on chronic congestive heart failure (6) Ulcer of left lower extremity (7) Hypertensive urgency (8) Decompensated COPD with exacerbation (chronic obstructive pulmonary disease) (9) Elevated troponin (10) Acute chest pain (11) Acute kidney injury (12) Acute exacerbation of chronic heart failure (13) Chronic pain syndrome (14) Acute exacerbation of CHF (congestive heart failure) (15) Lower extremity cellulitis (16) Acute on chronic systolic (congestive) heart failure (17) Cellulitis of left lower limb (18) Hypertension Plan/Recommendation ASSESSMENT: Patient is a 44-year-old male seen on the floor for a left leg wound and bilateral foot wounds PLAN: - The patients chart was reviewed, clinical findings were discussed with the patient, the etiologies of the conditions were discussed in detail, and a treatment plan was agreed to at this time, with both oral and written instructions provided. - discussed with the patient that the wounds appear to be superficial at this point - reviewed MRI which did not show any abscess or signs of osteomyelitis - discussed with the patient that he will just need local wound care - recommend Medihoney of the posterior leg to perform enzymatic debridement - patient can be followed by wound care as an inpatient - patient can follow up with me as an outpatient once discharged All questions were answered and concerns addressed to the patient's satisfaction. The patient was given the phone number to the clinic and was told how to make contact with the clinic should any concerns or questions arise. Patient understands that if any questions or concerns arise prior to the next appointment, we should be contacted immediately. FOLLOW-UP: Patient will follow up with me in 1 week for continued wound care Plan discussed with: Patient Date of Service: Nov 19, 2024 Billing Provider: CHASTITY EWING DPM Common Visit Codes: [id number] INP/OBS CARE (HIGH) CHASTITY EWING DPM Nov 19, 2024 15:25
[2024-11-19] MEDS: guaiFENesin-DM 100/10mg/5ml SYR PO PRN (23:24)
[2024-11-20] VITALS (7 sets, daily range): BP systolic 145–174; BP diastolic 91–111; PULSE 92–104; RESP 19–26; TEMP 98–98.7; O2SAT 95–99
--- NOTE | 2024-11-20 00:02 | DVHPN2 ---
Progress Note - Dictate Date Seen: Nov 19, 2024 Medical Necessity Reason Pt with a Central, PICC or Fol: No Subjective Patient was seen and evaluated in follow up. Patient is complaining of generalized pain. MRI right foot showed suboptimal motion degraded study. Moderate subcutaneous edema. No drainable fluid collection or signs of osteomyelitis. MRI left foot revealed soft tissue swelling in the medial and lateral aspects of the hindfoot which may represent cellulitis or sequela of venous stasis. No fluid collection. vital signs Vital Sign Date Time Temp Pulse Resp B/P (MAP) Pulse Ox O2 Delivery O2 Flow Rate FiO2 11/19/24 09:23 160/97 11/19/24 09:21 88 11/19/24 09:00 97.5 20 96 97.5 11/19/24 08:00 Nasal Cannula* 4 36 Total Intake and Output 11/18/24 11/18/24 11/19/24 15:00 23:00 07:00 Intake Total 350 ml 920 ml 718 ml Output Total 3050 ml 1225 ml Balance 350 ml -2130 ml -507 ml medications Current Medications Medications Dose Ordered Sig/Guilherme Route Start Time Stop Time Status Last Admin Dose Admin Aspirin 81 mg DAILY PO 11/17/24 10:00 11/19/24 09:20 81 MG Carvedilol 3.125 mg Q12HR PO 11/16/24 22:00 11/19/24 09:21 3.125 MG Atorvastatin Calcium 40 mg HS PO 11/16/24 22:00 11/18/24 21:23 40 MG Furosemide 40 mg DAILY IV 11/17/24 10:00 11/19/24 09:23 40 MG Acetaminophen/ Hydrocodone Bitart 1 tab Q4HP PRN PO 11/16/24 12:30 11/19/24 04:03 1 TAB Ondansetron HCl 4 mg Q4HP PRN IV 11/16/24 12:30 Docusate Sodium 100 mg BIDPRN PRN PO 11/16/24 12:30 Acetaminophen 650 mg Q6HP PRN PO 11/16/24 12:30 11/17/24 06:35 650 MG Nitroglycerin 0.4 mg Q5MINP PRN SL 11/16/24 17:45 Morphine Sulfate 2 mg Q30M PRN IV 11/16/24 17:45 11/17/24 07:05 2 MG Amlodipine Besylate 5 mg DAILY PO 11/17/24 10:00 11/19/24 09:21 5 MG Hydralazine HCl 10 mg Q6HP PRN IV 11/16/24 18:15 11/19/24 00:56 10 MG Ceftriaxone Sodium 50 ml @ 100 mls/hr DAILY@09 IV 11/17/24 09:00 11/19/24 09:23 100 MLS/HR Acetaminophen/ Hydrocodone Bitart 1 tab Q4HP PRN PO 11/16/24 22:20 11/19/24 09:22 1 TAB Linezolid 300 ml @ 150 mls/hr Q12HR IV 11/17/24 22:00 11/19/24 11:55 150 MLS/HR Empaglifozin 10 mg DAILY PO 11/18/24 10:00 11/19/24 09:23 10 MG objective GENERAL: Awake, alert, oriented. LUNGS: Coarse breath sounds. CARDIOVASCULAR: Heart sounds are good. ABDOMEN: Soft. EXT: +3 pitting edema. SKIN: Left lower extremity wound, covered with dressing. Dorsal right toes scattered scabs laboratory and microbiology Laboratory Tests 11/18/24 06:33 Test 11/18/24 06:33 Range/Units Serum Glucose 112 H 74-106 mg/dL Problem List Acute on chronic decompensated HFrEF, NYHA class III. 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 Hypertension. Dyslipidemia. Prediabetes. Mild mitral valve regurgitation. Mild tricuspid valve regurgitation. Acute kidney injury. History of polysubstance use. Obesity. Medical noncompliance. Assessment/Plan Continued all current supportive medical care. Morphine and [place] for pain management. Amlodipine, Coreg. Aspirin, Lipitor. IV antibiotics as ordered. Jardiance. Diuretics with Lasix. Additional plan as per the hospital course. Dietary Evaluation Review Comments: recommend CCHO-60 2GNa Low Fat Low choleterol cardiac Diet Expected Outcomes/Goals: maintained blood glucose WNL, gradual weight loss Plan discussed with: Patient ROSA ISELA GUILLERMO MD Nov 19, 2024 12:57
[2024-11-20 06:22] LABS: Eosinophils # (auto) 0.2 10 ^3/uL (0-0.8); Lymphocytes # (auto) 0.4 10 ^3/uL (0.4-5.4); Mean Corpuscular Hemoglobin 26.2 pg (28.0-32.0)
[2024-11-20 06:25] LABS: Basophils # (auto) 0 10 ^3/uL (0-0.2); Basophils % (auto) 0.5 % (0.0-2.0); Eosinophils % (auto) 2.2 % (0.0-7.0); Hematocrit 37.9 % (41.0-53.0); Hemoglobin 12.6 g/dL (13.5-17.5); Lymphocytes % (auto) 4.5 % (10.0-50.0); Mean Corpuscular Hgb Conc. 33.3 g/dL (32.0-36.0); Mean Corpuscular Volume 78.4 fL (80.0-100.0); Monocytes % (auto) 10.8 % (0.0-12.0); Neutrophils # (auto) 7.4 10 ^3/uL (1.6-8.6); Nucleated Red Blood Cells % 0.1 %; Platelet Count (auto) 265 10^3/uL (140-450); Red Blood Cells 4.83 10^6/uL (4.5-5.90); Red Cell Distribution Width 17.6 % (11.8-14.3)
[2024-11-20 08:50] LABS: Rapid Influenza A Negative (Negative); Rapid Influenza B Negative (Negative)
[2024-11-20] MEDS: ONDANSETRON HCL 4 MG/2 ML VIAL IV PRN (10:10)
--- NOTE | 2024-11-20 14:15 | DVHPN2 ---
Progress Note - Dictate Date Seen: Nov 20, 2024 Medical Necessity Reason Pt with a Central, PICC or Fol: No Subjective Patient was seen and evaluated in follow up. Patient is complaining of flu-like symptoms. Influenza A&B returned negative. vital signs Vital Sign Date Time Temp Pulse Resp B/P (MAP) Pulse Ox O2 Delivery O2 Flow Rate FiO2 11/20/24 12:57 98.1 94 22 146/91 (109) 96 98.1 11/20/24 07:30 Nasal Cannula* 4 36 Total Intake and Output 11/19/24 11/19/24 11/20/24 15:00 23:00 07:00 Intake Total 350 ml 716 ml 600 ml Output Total 3375 ml 1500 ml Balance 350 ml -2659 ml -900 ml medications Current Medications Medications Dose Ordered Sig/Guilherme Route Start Time Stop Time Status Last Admin Dose Admin Aspirin 81 mg DAILY PO 11/17/24 10:00 11/20/24 08:37 81 MG Carvedilol 3.125 mg Q12HR PO 11/16/24 22:00 11/20/24 08:37 3.125 MG Atorvastatin Calcium 40 mg HS PO 11/16/24 22:00 11/19/24 21:46 40 MG Furosemide 40 mg DAILY IV 11/17/24 10:00 11/20/24 08:31 40 MG Acetaminophen/ Hydrocodone Bitart 1 tab Q4HP PRN PO 11/16/24 12:30 11/19/24 04:03 1 TAB Ondansetron HCl 4 mg Q4HP PRN IV 11/16/24 12:30 11/20/24 10:10 4 MG Docusate Sodium 100 mg BIDPRN PRN PO 11/16/24 12:30 Acetaminophen 650 mg Q6HP PRN PO 11/16/24 12:30 11/17/24 06:35 650 MG Nitroglycerin 0.4 mg Q5MINP PRN SL 11/16/24 17:45 Morphine Sulfate 2 mg Q30M PRN IV 11/16/24 17:45 11/17/24 07:05 2 MG Amlodipine Besylate 5 mg DAILY PO 11/17/24 10:00 11/20/24 08:38 5 MG Hydralazine HCl 10 mg Q6HP PRN IV 11/16/24 18:15 11/20/24 04:10 10 MG Ceftriaxone Sodium 50 ml @ 100 mls/hr DAILY@09 IV 11/17/24 09:00 11/20/24 08:30 100 MLS/HR Acetaminophen/ Hydrocodone Bitart 1 tab Q4HP PRN PO 11/16/24 22:20 11/20/24 08:23 1 TAB Linezolid 300 ml @ 150 mls/hr Q12HR IV 11/17/24 22:00 11/20/24 10:00 150 MLS/HR Empaglifozin 10 mg DAILY PO 11/18/24 10:00 11/20/24 08:37 10 MG Guaifenesin/ Dextromethorphan 10 ml Q6HP PRN PO 11/19/24 23:00 11/20/24 05:32 10 ML objective GENERAL: Awake, alert, oriented. LUNGS: Coarse breath sounds. CARDIOVASCULAR: Heart sounds are good. ABDOMEN: Soft. EXT: +3 pitting edema. SKIN: Left lower extremity wound, covered with dressing. Dorsal right toes scattered scabs laboratory and microbiology Laboratory Tests 11/20/24 05:40 11/18/24 06:33 Test 11/18/24 06:33 Range/Units Serum Glucose 112 H 74-106 mg/dL Problem List Acute on chronic decompensated HFrEF, NYHA class III. 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 Hypertension. Dyslipidemia. Prediabetes. Mild mitral valve regurgitation. Mild tricuspid valve regurgitation. Acute kidney injury. History of polysubstance use. Obesity. Medical noncompliance. Assessment/Plan Continued all current supportive medical care. Morphine and [place] for pain management. Amlodipine, Coreg. Aspirin, Lipitor. IV antibiotics as ordered. Jardiance. Diuretics with Lasix. Additional plan as per the hospital course. Dietary Evaluation Review Comments: recommend CCHO-60 2GNa Low Fat Low choleterol cardiac Diet Expected Outcomes/Goals: maintained blood glucose WNL, gradual weight loss Plan discussed with: Patient ROSA ISELA GUILLERMO MD Nov 20, 2024 13:31
--- NOTE | 2024-11-20 18:47 | DVHPN2 ---
Subjective Better feet. Complain of some cough and congestion in the upper respiratory and nose Reviewed: Care Plan, H&P, Labs, Medications, Previous Orders, Radiology Changes from previous H/P or p: No Changes Objective Vitals Vital Signs Date Time Temp Pulse Resp B/P (MAP) Pulse Ox O2 Delivery O2 Flow Rate FiO2 11/20/24 17:00 98.7 96 24 161/105 (123) 95 98.7 11/20/24 07:30 Nasal Cannula* 4 36 Intake/Output Intake and Output 11/20/24 07:00 Intake Total 1666 ml Output Total 4875 ml Balance -3209 ml Intake Oral 1016 ml IV Total 650 ml Output Urine Total 4875 ml General Appearance: Alert, Oriented X3, Cooperative, No acute distress HEENT: Atraumatic Lungs: Other (Very few crackles bilateral lungs and good air entry) Abdomen: Other (Presence of ventral hernias) Extremities: Other (Redness bilateral feet more so on the left with some swelling. right 2nd and 4th dorsal scab on left fott and dry wounds on dorsal 1st,2nd and 3rd toes on left) Medications Current Medications Medications Dose Ordered Sig/Guilherme Route Start Time Stop Time Status Last Admin Dose Admin Aspirin 81 mg DAILY PO 11/17/24 10:00 11/20/24 08:37 81 MG Carvedilol 3.125 mg Q12HR PO 11/16/24 22:00 11/20/24 08:37 3.125 MG Atorvastatin Calcium 40 mg HS PO 11/16/24 22:00 11/19/24 21:46 40 MG Furosemide 40 mg DAILY IV 11/17/24 10:00 11/20/24 08:31 40 MG Acetaminophen/ Hydrocodone Bitart 1 tab Q4HP PRN PO 11/16/24 12:30 11/19/24 04:03 1 TAB Ondansetron HCl 4 mg Q4HP PRN IV 11/16/24 12:30 11/20/24 10:10 4 MG Docusate Sodium 100 mg BIDPRN PRN PO 11/16/24 12:30 Acetaminophen 650 mg Q6HP PRN PO 11/16/24 12:30 11/17/24 06:35 650 MG Nitroglycerin 0.4 mg Q5MINP PRN SL 11/16/24 17:45 Morphine Sulfate 2 mg Q30M PRN IV 11/16/24 17:45 11/17/24 07:05 2 MG Amlodipine Besylate 5 mg DAILY PO 11/17/24 10:00 11/20/24 08:38 5 MG Hydralazine HCl 10 mg Q6HP PRN IV 11/16/24 18:15 11/20/24 04:10 10 MG Ceftriaxone Sodium 50 ml @ 100 mls/hr DAILY@09 IV 11/17/24 09:00 11/20/24 08:30 100 MLS/HR Acetaminophen/ Hydrocodone Bitart 1 tab Q4HP PRN PO 11/16/24 22:20 11/20/24 15:37 1 TAB Linezolid 300 ml @ 150 mls/hr Q12HR IV 11/17/24 22:00 11/20/24 10:00 150 MLS/HR Empaglifozin 10 mg DAILY PO 11/18/24 10:00 11/20/24 08:37 10 MG Guaifenesin/ Dextromethorphan 10 ml Q6HP PRN PO 11/19/24 23:00 11/20/24 05:32 10 ML Laboratory Results Laboratory Tests 11/18/24 06:33 11/20/24 05:40 Assessment/Plan Assessment/Plan LEFT FOOT CELLULITIS ACUTE ON CHRONIC HFrEF/cardiomyopathy Upper respiratory infection GASTON/CKD HTN DYSLIPIDEMIA COPD PRE DM NEUROPATHY AND CHRONIC PAIN SYNDROME MILD MR/TR OBESITY POLYSUBSTANCE USE PLAN: Chest x-ray. Sputum culture. Continue antibiotics. Further plan per orders Plan discussed with: Patient My Orders Orders - MONROE NIEVES MD Procedure Category Date Status Time Respiratory Culture MONTY 11/20/24 In Process W/ Gs 15:47 Chest Portable XY 11/20/24 Transmitted 18:45 Date of Service: Nov 20, 2024 Billing Provider: MONROE NIEVES MD Common Visit Codes: [id number] INP/OBS CARE(HIGH) MONROE NIEVES MD Nov 20, 2024 18:47
[2024-11-21] VITALS (9 sets, daily range): BP systolic 122–175; BP diastolic 80–120; PULSE 80–102; RESP 16–20; TEMP 97.6–98.8; O2SAT 90–97
--- NOTE | 2024-11-21 06:31 | DVH ---
CHEST RADIOGRAPH Indication: cough Technique: Single frontal view of the chest was obtained Comparison: XY CHEST PORTABLE on DOS: 11/18/24, XY CHEST PORTABLE on DOS: 11/16/24, XY CHEST PORTABLE o n DOS: 10/03/24, XY CHEST PORTABLE on DOS: 07/27/24, XY CHEST PORTABLE on DOS: 06/29/24, XY CHEST VANDANA BLE on DOS: 11/18/24 FINDINGS: Lines and Tubes: None Lungs: Congestion Pleura: No effusion. No pneumothorax. Cardiomediastinal contours: Cardiomegaly Bones: Unremarkable IMPRESSION: No significant interval change.
--- NOTE | 2024-11-21 15:27 | DVHPN2 ---
Subjective Better feet. Still Complain of some cough and congestion in the upper respiratory and nose Reviewed: Care Plan, H&P, Labs, Medications, Previous Orders, Radiology Changes from previous H/P or p: No Changes Objective Vitals Vital Signs Date Time Temp Pulse Resp B/P (MAP) Pulse Ox O2 Delivery O2 Flow Rate FiO2 11/21/24 09:55 92 137/94 11/21/24 05:00 98.8 20 97 98.8 11/20/24 20:00 Nasal Cannula* 4 36 Intake/Output Intake and Output 11/21/24 07:00 Intake Total 1085 ml Output Total 2675 ml Balance -1590 ml Intake Oral 785 ml IV Total 300 ml Output Urine Total 2675 ml # Bowel Movements 1 General Appearance: Alert, Oriented X3, Cooperative, No acute distress HEENT: Atraumatic Lungs: Other (Some wheezes and rhonchi bilateral lungs) Abdomen: Other (Presence of ventral hernias) Extremities: Other (Redness bilateral feet more so on the left with some swelling. right 2nd and 4th dorsal scab on left fott and dry wounds on dorsal 1st,2nd and 3rd toes on left) Medications Current Medications Medications Dose Ordered Sig/Guilherme Route Start Time Stop Time Status Last Admin Dose Admin Aspirin 81 mg DAILY PO 11/17/24 10:00 11/21/24 08:54 81 MG Carvedilol 3.125 mg Q12HR PO 11/16/24 22:00 11/21/24 08:55 3.125 MG Atorvastatin Calcium 40 mg HS PO 11/16/24 22:00 11/20/24 22:13 40 MG Furosemide 40 mg DAILY IV 11/17/24 10:00 11/21/24 08:53 40 MG Acetaminophen/ Hydrocodone Bitart 1 tab Q4HP PRN PO 11/16/24 12:30 11/19/24 04:03 1 TAB Ondansetron HCl 4 mg Q4HP PRN IV 11/16/24 12:30 11/20/24 10:10 4 MG Docusate Sodium 100 mg BIDPRN PRN PO 11/16/24 12:30 Acetaminophen 650 mg Q6HP PRN PO 11/16/24 12:30 11/21/24 13:25 650 MG Nitroglycerin 0.4 mg Q5MINP PRN SL 11/16/24 17:45 Morphine Sulfate 2 mg Q30M PRN IV 11/16/24 17:45 11/17/24 07:05 2 MG Amlodipine Besylate 5 mg DAILY PO 11/17/24 10:00 11/21/24 08:54 5 MG Hydralazine HCl 10 mg Q6HP PRN IV 11/16/24 18:15 11/21/24 06:45 10 MG Ceftriaxone Sodium 50 ml @ 100 mls/hr DAILY@09 IV 11/17/24 09:00 11/21/24 08:42 100 MLS/HR Acetaminophen/ Hydrocodone Bitart 1 tab Q4HP PRN PO 11/16/24 22:20 11/21/24 04:34 1 TAB Linezolid 300 ml @ 150 mls/hr Q12HR IV 11/17/24 22:00 11/21/24 10:00 150 MLS/HR Empaglifozin 10 mg DAILY PO 11/18/24 10:00 11/21/24 08:54 10 MG Guaifenesin/ Dextromethorphan 10 ml Q6HP PRN PO 11/19/24 23:00 11/20/24 05:32 10 ML Laboratory Results Laboratory Tests 11/18/24 06:33 11/20/24 05:40 Microbiology Microbiology Date/Time Source Procedure Growth Status 11/20/24 15:36 Sputum Gram Stain - Final Resulted 11/20/24 15:36 Sputum Respiratory Culture - Preliminary Resulted Assessment/Plan Assessment/Plan COPD exacerbation/started with upper respiratory infection started yesterday LEFT FOOT CELLULITIS ACUTE ON CHRONIC HFrEF/cardiomyopathy Upper respiratory infection G[place]/CKD HTN DYSLIPIDEMIA COPD PRE DM NEUROPATHY AND CHRONIC PAIN SYNDROME MILD MR/TR OBESITY POLYSUBSTANCE USE PLAN: Solu-Medrol. Med nebs. Plan discussed with: Patient My Orders Orders - MONROE NIEVES MD Procedure Category Date Status Time Respiratory Culture MONTY 11/20/24 In Process W/ Gs 15:47 Chest Portable XY 11/20/24 Resulted 18:45 Date of Service: Nov 21, 2024 Billing Provider: MONROE NIEVES MD Common Visit Codes: [id number] INP/OBS CARE(HIGH) MONROE NIEVES MD Nov 21, 2024 15:27
[2024-11-21] MEDS ORDERED: ALBUTEROL SULF 2.5 MG/0.5ML(0.5%) NEB SOLN NEB PRN (15:30)
[2024-11-21] MEDS: methylPREDNISolone SOD SUCC 40 MG/ML VL IV SCH (17:08)
[2024-11-21] MEDS: IPRATROPIUM BROM 0.5 MG/2.5ML INH SOL NEB SCH (18:00)
[2024-11-21] MEDS: ALBUTEROL SULF 2.5 MG/0.5ML(0.5%) NEB SOLN NEB SCH (18:00)
[2024-11-22] VITALS (10 sets, daily range): BP systolic 137–166; BP diastolic 98–117; PULSE 82–103; RESP 18–20; TEMP 97.5–98.7; O2SAT 91–99
--- NOTE | 2024-11-22 00:14 | DVHPN2 ---
Progress Note - Dictate Date Seen: Nov 21, 2024 Medical Necessity Reason Pt with a Central, PICC or Fol: No Subjective Patient was seen and evaluated in follow up. Patient complains of a productive cough with chest and nose congestion. Patient is hypertensive 150/105. vital signs Vital Sign Date Time Temp Pulse Resp B/P (MAP) Pulse Ox O2 Delivery O2 Flow Rate FiO2 11/21/24 09:55 92 137/94 11/21/24 05:00 98.8 20 97 98.8 11/20/24 20:00 Nasal Cannula* 4 36 Total Intake and Output 11/20/24 11/20/24 11/21/24 15:00 23:00 07:00 Intake Total 360 ml 725 ml Output Total 1750 ml 925 ml Balance -1390 ml -200 ml medications Current Medications Medications Dose Ordered Sig/Guilherme Route Start Time Stop Time Status Last Admin Dose Admin Aspirin 81 mg DAILY PO 11/17/24 10:00 11/21/24 08:54 81 MG Carvedilol 3.125 mg Q12HR PO 11/16/24 22:00 11/21/24 08:55 3.125 MG Atorvastatin Calcium 40 mg HS PO 11/16/24 22:00 11/20/24 22:13 40 MG Furosemide 40 mg DAILY IV 11/17/24 10:00 11/21/24 08:53 40 MG Acetaminophen/ Hydrocodone Bitart 1 tab Q4HP PRN PO 11/16/24 12:30 11/19/24 04:03 1 TAB Ondansetron HCl 4 mg Q4HP PRN IV 11/16/24 12:30 11/20/24 10:10 4 MG Docusate Sodium 100 mg BIDPRN PRN PO 11/16/24 12:30 Acetaminophen 650 mg Q6HP PRN PO 11/16/24 12:30 11/21/24 13:25 650 MG Nitroglycerin 0.4 mg Q5MINP PRN SL 11/16/24 17:45 Morphine Sulfate 2 mg Q30M PRN IV 11/16/24 17:45 11/17/24 07:05 2 MG Amlodipine Besylate 5 mg DAILY PO 11/17/24 10:00 11/21/24 08:54 5 MG Hydralazine HCl 10 mg Q6HP PRN IV 11/16/24 18:15 11/21/24 06:45 10 MG Ceftriaxone Sodium 50 ml @ 100 mls/hr DAILY@09 IV 11/17/24 09:00 11/21/24 08:42 100 MLS/HR Acetaminophen/ Hydrocodone Bitart 1 tab Q4HP PRN PO 11/16/24 22:20 11/21/24 04:34 1 TAB Linezolid 300 ml @ 150 mls/hr Q12HR IV 11/17/24 22:00 11/21/24 10:00 150 MLS/HR Empaglifozin 10 mg DAILY PO 11/18/24 10:00 11/21/24 08:54 10 MG Guaifenesin/ Dextromethorphan 10 ml Q6HP PRN PO 11/19/24 23:00 11/20/24 05:32 10 ML objective GENERAL: Awake, alert, oriented. LUNGS: Coarse breath sounds. CARDIOVASCULAR: Heart sounds are good. ABDOMEN: Soft. EXT: +3 pitting edema. SKIN: Left lower extremity wound, covered with dressing. Dorsal right toes scattered scabs laboratory and microbiology Laboratory Tests 11/20/24 05:40 11/18/24 06:33 Test 11/18/24 06:33 Range/Units Serum Glucose 112 H 74-106 mg/dL Problem List Acute on chronic decompensated HFrEF, NYHA class III. 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 Hypertension. Dyslipidemia. Prediabetes. Mild mitral valve regurgitation. Mild tricuspid valve regurgitation. Acute kidney injury. History of polysubstance use. Obesity. Medical noncompliance. Assessment/Plan Continued all current supportive medical care. Morphine and [place] for pain management. Amlodipine, Coreg. Aspirin, Lipitor. IV antibiotics as ordered. Jardiance. Diuretics with Lasix. Additional plan as per the hospital course. Dietary Evaluation Review Comments: recommend CCHO-60 2GNa Low Fat Low choleterol cardiac Diet Expected Outcomes/Goals: maintained blood glucose WNL, gradual weight loss Plan discussed with: Patient ROSA ISELA GUILLERMO MD Nov 21, 2024 13:46
[2024-11-22] MEDS ORDERED: CEPH500T PO (14:12)
--- NOTE | 2024-11-22 14:19 | DVHDS2 ---
Discharge Summary Date of Admission Nov 16, 2024 at 17:32 Date of Discharge: Nov 22, 2024 Admitting Diagnosis Acute exacerbation of congestive heart failure Labs/Diagnostic Data: Laboratory Results Test 11/20/24 05:45 11/20/24 05:40 11/18/24 20:57 11/18/24 06:33 Influenza Type A Antigen Negative (Negative) Influenza Type B Antigen Negative (Negative) White Blood Count 9.0 10^3/uL (4.4-10.8) Red Blood Count 4.83 10^6/uL (4.5-5.90) Hemoglobin 12.6 g/dL (13.5-17.5) Hematocrit 37.9 % (41.0-53.0) Mean Corpuscular Volume 78.4 fL (80.0-100.0) Mean Corpuscular Hemoglobin 26.2 pg (28.0-32.0) Mean Corpuscular Hemoglobin Concent 33.3 g/dL (32.0-36.0) Red Cell Distribution Width 17.6 % (11.8-14.3) Platelet Count 265 10^3/uL (140-450) Mean Platelet Volume 7.3 fL (6.9-10.8) Neutrophils (%) (Auto) 82.0 % (37.0-80.0) Lymphocytes (%) (Auto) 4.5 % (10.0-50.0) Monocytes (%) (Auto) 10.8 % (0.0-12.0) Eosinophils (%) (Auto) 2.2 % (0.0-7.0) Basophils (%) (Auto) 0.5 % (0.0-2.0) Neutrophils # (Auto) 7.4 10 ^3/uL (1.6-8.6) Lymphocytes # (Auto) 0.4 10 ^3/uL (0.4-5.4) Monocytes # (Auto) 1.0 10 ^3/uL (0-1.3) Eosinophils # (Auto) 0.2 10 ^3/uL (0-0.8) Basophils # (Auto) 0 10 ^3/uL (0-0.2) Nucleated Red Blood Cells 0.1 % C-Reactive Protein High Sensitivity 3.22 mg/dL (<1.0) Erythrocyte Sedimentation Rate 13 mm/hr (0-20) Sodium Level 138 mmol/L (136-145) Potassium Level 3.5 mmol/L (3.5-5.1) Chloride Level 106 mmol/L (98-107) Carbon Dioxide Level 24 mmol/L (20-31) Anion Gap 8 (5-15) Blood Urea Nitrogen 21 mg/dL (9-23) Creatinine 1.10 mg/dL (0.700-1.30) Glomerular Filtration Rate Calc 84 mL/min (>90) BUN/Creatinine Ratio 19.1 (10.0-20.0) Serum Glucose 112 mg/dL (74-106) Calcium Level 9.2 mg/dL (8.7-10.4) Total Bilirubin 1.2 mg/dL (0.2-1.0) Aspartate Amino Transferase (AST) 20 U/L (13-40) Alanine Aminotransferase (ALT) 20 U/L (7-40) Alkaline Phosphatase 99 U/L (46-116) Total Protein 6.7 g/dL (5.7-8.2) Albumin 3.5 g/dL (3.2-4.8) Test 11/17/24 09:02 11/17/24 05:46 11/17/24 04:56 11/16/24 11:40 Urine Opiates Screen Pos (NEGATIVE) Urine Fentanyl Screen Neg (NEGATIVE) Urine Barbiturates Screen Neg (NEGATIVE) Urine Phencyclidine Screen Neg (NEGATIVE) Urine Amphetamines Screen Pos (NEGATIVE) Urine Benzodiazepines Screen Neg (NEGATIVE) Urine Cocaine Screen Neg (NEGATIVE) Urine Cannabinoids Screen Pos (NEGATIVE) Thyroid Stimulating Hormone (TSH) 1.88 uIU/mL (0.55-4.78) Magnesium Level 1.7 mg/dL (1.6-2.6) Triglycerides Level 62 mg/dL (< 150) Cholesterol Level 86 mg/dL (< 200) LDL Cholesterol 48 mg/dL (< 100) HDL Cholesterol 31 mg/dL (40-59) Troponin I High Sensitivity 30 ng/L (</=54) Test 11/16/24 08:28 Hemoglobin A1c 6.4 % A1C (<5.7) B-Type Natriuretic Peptide 2518.27 pg/mL (0-100) Other Laboratory Tests 11/20/24 05:40 11/18/24 06:33 Brief Hx & Hospital Course: History of Present Illness The patient is a 44-year-old male with multiple past medical history including COPD, CHF, and hypertension who presented to [facility] ED with complaint of shortness of breaths. Patient reports symptoms progressively get worse with bilateral lower extremity swelling, chronic left lower leg drainage, painful, rating pain 7/10 numeric scale, increased work of breathing, getting worse that prompted this visit. Patient was seen and evaluated in the ED, laboratory data shows WBC 8.0, platelets 250, sodium 141, potassium 3.8, BUN 26, creatinine 1.49, GFR 58, glucose 141, troponin 30, BNP 2518.27, blood pressure 155/121, heart rate 86, temperature 98.6 F, O2 saturation 96% on oxygen. Chest x-ray revealing cardiomegaly with pulmonary vascular congestion. Patient was started on IV Lasix 40 mg daily, given morphine sulfate 2 mg IV x1, please see medication orders section in the computer. On my assessment, patient denies chest pain, no headache, no dizziness, no diarrhea, no nausea, no vomiting, no fever, no chills. Patient was admitted for further evaluation and medical management. Course of hospitalization: Patient was started on IV antibiotic therapy, goal-directed medical therapy for heart failure. Patient was wound has improved without any noticeable drainage. All cultures have been negative. Patient's white blood cell count is now normal. Discussion was made with the patient regarding illicit drug use, given positive toxicology screen. Lifestyle modification education for 10 minutes spent with the patient. Patient is requesting to be discharged home. Patient will be provided antibiotic therapy for additional seven days in the form of Keflex 500 mg 4 times a day. Continue all previous home medications. He was instructed to follow up with his PCP in 2-3 weeks, in the discharge Clinic in one week. Patient was agreeable with discharge plan. All questions answered. Physical examination General: Alert and Oriented x3. No acute distress. Well-nourished. Eyes: EOMI. Anicteric. HENT: Moist mucous membranes. Lungs: Clear to auscultation bilaterally. No accessory muscle use. Cardiovascular: Regular rate and rhythm. No murmur. No JVD. Abdomen: Soft, non-tender and non-distended. No palpable masses. Extremities: No edema. Non-tender. Skin: No rashes or lesions. Warm. Wound dry and intact Neurologic: No focal neurological deficits. CN II-XII grossly intact, but not individually tested. Psychiatric: Cooperative. Appropriate mood and affect. Total time spent with patient discussing and formulating plan of care: 35 minutes. This medical document was created using an electronic medical record system with [employer] dictation system. Although this document has been carefully reviewed, there may still be some phonetic and typographical errors. These areas are purely typographical due to imperfections of the software programs, and do not reflect any compromise in the patient's medical care. Consults/Reason for consult Cardiology: Decompensated heart failure Condition at Discharge: Fair Final Diagnosis/Problems List ACUTE ON CHRONIC SYSTOLIC HEART FAILURE Secondary Diagnosis: Sepsis secondary to cellulitis Cellulitis left lower extremity Polysubstance use Acute kidney injury, vasomotor nephropathy Discharge Disposition: Home Discharge Instruct/Medications Diet: Consistent carbohydrate, Cardiac 2g Na,low cholest Activity: No Restrictions, As Tolerated Follow Up/Referral: Discharge Clinic in one week Follow up with PCP in 2-3 weeks Medications: Continue all previous home medications Keflex 500 mg p.o. 4 times a day x7 days 36 Discharge Statement: "Patient was advised to return to the ER or call 911 if any headaches, dizziness, shortness of breath, chest pain, abdominal pain, bleeding, fevers, or worsening of medical condition. Patient was counseled about treatment plan, medications, possible side effects, patientverbalized understanding. All questions were answered to the best of my ability. This discharge took greater then 30 minutes in planning, reviewing documentation, counseling the patient, and discussing with other team members." ASSESSMENT ASSESSMENT Assessment ACUTE ON CHRONIC SYSTOLIC HEART FAILURE Date of Service: Nov 22, 2024 Billing Provider: JASPER TRAVIS NP Common Visit Codes: 00081-IDW/OBS DISCH DAY >30min JASPER TRAVIS NP Nov 22, 2024 14:19
[2024-11-22] MEDS ORDERED: ACET300T51 PO (14:23)
--- NOTE | 2024-11-22 23:43 | DVHPN2 ---
Progress Note - Dictate Date Seen: Nov 22, 2024 Medical Necessity Reason Pt with a Central, PICC or Fol: No Subjective Patient was seen and evaluated in follow up. Patient has no new complaints at this time. Patient denies any cardiac symptoms. Patient is cardiac stable for discharge. vital signs Vital Sign Date Time Temp Pulse Resp B/P (MAP) Pulse Ox O2 Delivery O2 Flow Rate FiO2 11/22/24 12:55 97.9 90 18 149/98 (115) 94 97.9 11/22/24 11:30 Nasal Cannula* 2 28 Total Intake and Output 11/21/24 11/21/24 11/22/24 15:00 23:00 07:00 Intake Total 50 ml 1060 ml 737 ml Output Total 1630 ml 1000 ml Balance 50 ml -570 ml -263 ml objective GENERAL: Awake, alert, oriented. LUNGS: Coarse breath sounds. CARDIOVASCULAR: Heart sounds are good. ABDOMEN: Soft. EXT: +3 pitting edema. SKIN: Left lower extremity wound, covered with dressing. Dorsal right toes scattered scabs laboratory and microbiology Laboratory Tests 11/20/24 05:40 11/18/24 06:33 Test 11/18/24 06:33 Range/Units Serum Glucose 112 H 74-106 mg/dL Problem List Acute on chronic decompensated HFrEF, NYHA class III. 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 Hypertension. Dyslipidemia. Prediabetes. Mild mitral valve regurgitation. Mild tricuspid valve regurgitation. Acute kidney injury. History of polysubstance use. Obesity. Medical noncompliance. Assessment/Plan Continued all current supportive medical care. Morphine and [place] for pain management. Amlodipine, Coreg. Aspirin, Lipitor. IV antibiotics as ordered. Jardiance. Diuretics with Lasix. Additional plan as per the hospital course. Dietary Evaluation Review Comments: recommend CCHO-60 2GNa Low Fat Low choleterol cardiac Diet Expected Outcomes/Goals: maintained blood glucose WNL, gradual weight loss Plan discussed with: Patient ROSA ISELA GUILELRMO MD Nov 22, 2024 23:43
== END 2024-11-22 16:00 | disposition home or self-care (01) | DRG 720 ==
LOC: EDBD 07:50 → ER 07:50 → TELE 17:32 → TELE-EAST 11-17 11:19
PROVIDERS: ADMIT Internal Medicine; ATTEND Nurse Practitioner Acute Care
DX: A41.9 Sepsis, unspecified organism (principal); N17.0 Acute kidney failure with tubular necrosis; J96.01 Acute respiratory failure with hypoxia; I50.23 Acute on chronic systolic (congestive) heart failure; J44.1 Chronic obstructive pulmonary disease with (acute) exacerbation; S91.301A Unspecified open wound, right foot, initial encounter; L03.116 Cellulitis of left lower limb; G89.4 Chronic pain syndrome; E66.9 Obesity, unspecified; E78.5 Hyperlipidemia, unspecified; G62.9 Polyneuropathy, unspecified; I13.0 Hypertensive heart and chronic kidney disease with heart failure and stage 1 through stage 4 chronic kidney disease, or unspecified chronic kidney disease; N18.9 Chronic kidney disease, unspecified; F17.210 Nicotine dependence, cigarettes, uncomplicated; I08.1 Rheumatic disorders of both mitral and tricuspid valves; S91.302A Unspecified open wound, left foot, initial encounter; F14.90 Cocaine use, unspecified, uncomplicated; Z68.27 Body mass index [BMI] 27.0-27.9, adult; Z83.3 Family history of diabetes mellitus; Z82.49 Family history of ischemic heart disease and other diseases of the circulatory system; Z91.199 Patient's noncompliance with other medical treatment and regimen due to unspecified reason; X58.XXXA Exposure to other specified factors, initial encounter; Y93.89 Activity, other specified; Y92.89 Other specified places as the place of occurrence of the external cause; Y99.8 Other external cause status
CPT/HCPCS: 36415; 71045; 73630; 73718; 80048; 80053; 80061; 80307; 83036; 83735; 83880; 84443; 84484; 85025; 85652; 86141; 87070; 87077; 87081; 87205; 87804; 93005; 93925; 93971; 94640; 99291; G0378; J1885; J2405

== ENCOUNTER 2025-06-22 14:10 | Inpatient (IN) | payer MEDICAID ==
[~2025-06-22] VITALS: Ht 167.6 cm; Wt 73.0 kg
[~2025-06-22 14:10] MED LIST changes: +ACET300T51 PO; -ASPI-543 PO; -CARV-216 OR; -CARV3.1240 PO; +CEPH500T PO; -DOXY1CAP57 PO; -FURO40TA4 PO; -MUPI2CRE17 EX
--- NOTE | 2025-06-22 14:33 | ED.PDOC ---
SOB-HPI HPI Comments 44-year-old male with PMHx CHF brought in by EMS presents with a chief complaint of SOB. Patient states "I can't breathe". Patient is currently on 2L via [place] by EMS. Patient mentions that he also is having chest pain that is localized to his sternal chest, nonradiating, and started yesterday. 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 Past Medical History PAST MEDICAL HISTORY: CHF, COPD, High Lipids, HTN Surgical History: Hernia Repair Family History Family History: Family hx of DM Social History Smoker: Cigarettes Alcohol: Rarely Drugs: Cocaine, Marijuana, Methamphetamine Lives In: Home Constitutional: denies: chills, diaphoresis, fatigue, fever, malaise, sweats, weakness, others EENTM: denies: blurred vision, double vision, ear bleeding, ear discharge, ear drainage, ear pain, ear ringing, eye pain, eye redness, hearing loss, mouth pain, mouth swelling, nasal discharge, nose bleeding, nose congestion, nose pain, photophobia, tearing, throat pain, throat swelling, voice changes, others Respiratory: reports: shortness of breath; denies: cough, hemoptysis, orthopnea, SOB at rest, SOB with excertion, stridor, wheezing, others Cardiovascular: denies: chest pain, dizzy spells, diaphoresis, Dyspnea on exertion, edema, irregular heart beat, left arm pain, lightheadedness, palpitations, PND, syncope, others Gastrointestinal: denies: abdomen distended, abdominal pain, blood streaked bowels, constipated, diarrhea, dysphagia, difficulty swallowing, hematemesis, melena, nausea, poor appetite, poor fluid intake, rectal bleeding, rectal pain, vomiting, others Genitourinary: denies: burning, dysuria, flank pain, frequency, hematuria, incontinence, penile discharge, penile sore, pain, testicle pain, testicle swelling, urgency, others Neurological: denies: dizziness, fainting, headache, left sided numbness, left sided weakness, numbness, paresthesia, pre-existing deficit, right sided numbness, right sided weakness, seizure, speech problems, tingling, tremors, weakness, others Musculoskeletal: denies: back pain, gout, joint pain, joint swelling, muscle pain, muscle stiffness, neck pain, others Integumetry: denies: bruises, change in color, change in hair/nails, dryness, laceration, lesions, lumps, rash, wounds, others Allergic/Immunocompromised: denies: Difficulty Healing, Frequent Infections, Hives, Itching, others Hematologic/Lymphatic: denies: anemia, blood clots, easy bleeding, easy bruising, swollen glands, others Endocrine: denies: excessive hunger, excessive sweating, excessive thirst, excessive urination, flushing, intolerance to cold, intolerance to heat, un explained weight gain, unexplained weight loss, others Psychiatric: denies: anxiety, bipolar disorder, depression, hopeless, panic disorder, schizophrenia, sleepless, suicidal, others All Other Systems: Reviewed and Negative Physical Exam General Appearance: Moderate Distress, Obese HEENT: Normal ENT Inspection, PERRL/EOMI, Pharynx Normal, TMs Normal, Other (Slurred speech) Neck: Full Range of Motion, Non-Tender, Normal, Normal Inspection Respiratory: Chest Non-Tender, Lungs Clear, No Accessory Muscle Use, No Respiratory Distress, Normal Breath Sounds Cardiovascular: No Edema, No JVD, No Murmur, No Gallop, Normal Peripheral Pulses, Regular Rate/Rhythm Breast Exam: Deferred Gastrointestinal: No Organomegaly, Non Tender, No Pulsatile Mass, Normal Bowel Sounds, Soft Genitalia: Deferred Pelvic: Deferred Rectal: Deferred Extremities: No calf tenderness, Normal capillary refill, Normal inspection, Normal range of motion, Non-tender, No pedal edema Musculoskeletal : Apperance: Normal Neurologic: Alert, angiographer II-XII nml as Tested, Depressed Affect, No Motor Deficits, No Sensory Deficits Cerebellar Function: Normal Reflexes: Normal Skin: Dry, Normal Color, Warm Peripheral Pulses: 1+ carotid (R), 1+ carotid (L) Lymphatic: No Adenopathy EKG EKG : Pulse Rate (adult): 67 [place]: LAD Cardiac Rhythm: NSR Was a procedure done? Was a procedure done?: No Differential Dx Differential Diagnosis: CHF, Dysrhythmia, Hypertension, Hyponatremia, Pneumonia X-Ray, Labs, Meds, VS Vital Signs Date Time Temp Pulse Resp B/P (MAP) Pulse Ox O2 Delivery O2 Flow Rate FiO2 06/22/25 14:46 67 06/22/25 14:16 67 06/22/25 14:15 97.7 77 26 165/120 98 97.7 Lab Test 06/22/25 15:31 06/22/25 14:15 Range/Units Troponin I High Sensitivity Pending 44 </=54 ng/L White Blood Count 7.7 4.4-10.8 10^3/uL Red Blood Count 4.94 4.5-5.90 10^6/uL Hemoglobin 14.0 13.5-17.5 g/dL Hematocrit 41.5 41.0-53.0 % Mean Corpuscular Volume 83.9 80.0-100.0 fL Mean Corpuscular Hemoglobin 28.3 28.0-32.0 pg Mean Corpuscular Hemoglobin Concent 33.7 32.0-36.0 g/dL Red Cell Distribution Width 16.5 H 11.8-14.3 % Platelet Count 243 140-450 10^3/uL Mean Platelet Volume 7.3 6.9-10.8 fL Neutrophils (%) (Auto) 67.2 37.0-80.0 % Lymphocytes (%) (Auto) 16.2 10.0-50.0 % Monocytes (%) (Auto) 11.6 0.0-12.0 % Eosinophils (%) (Auto) 4.0 0.0-7.0 % Basophils (%) (Auto) 1.0 0.0-2.0 % Neutrophils # (Auto) 5.2 1.6-8.6 10 ^3/uL Lymphocytes # (Auto) 1.3 0.4-5.4 10 ^3/uL Monocytes # (Auto) 0.9 0-1.3 10 ^3/uL Eosinophils # (Auto) 0.3 0-0.8 10 ^3/uL Basophils # (Auto) 0.1 0-0.2 10 ^3/uL Nucleated Red Blood Cells 0.2 % Prothrombin Time 12.8 H 9.3-11.8 sec Prothrombin Time INR 1.23 H 0.9-1.15 Activated Partial Thromboplast Time 28.9 24.5-34.5 SEC D-Dimer, Quantitative 0.56 H 0.0-0.49 mg/L FEU Sodium Level 141 136-145 mmol/L Potassium Level 3.7 3.5-5.1 mmol/L Chloride Level 108 H 98-107 mmol/L Carbon Dioxide Level 24 20-31 mmol/L Anion Gap 9 5-15 Blood Urea Nitrogen 28 H 9-23 mg/dL Creatinine 1.17 0.700-1.30 mg/dL Glomerular Filtration Rate Calc 78 >90 mL/min BUN/Creatinine Ratio 23.9 H 10.0-20.0 Serum Glucose 109 H 74-106 mg/dL Calcium Level 8.5 L 8.7-10.4 mg/dL Magnesium Level 2.0 1.6-2.6 mg/dL Total Bilirubin 1.7 H 0.2-1.0 mg/dL Aspartate Amino Transferase (AST) 26 13-40 U/L Alanine Aminotransferase (ALT) 18 7-40 U/L Alkaline Phosphatase 96 46-116 U/L B-Type Natriuretic Peptide 3177.60 0-100 pg/mL Total Protein 6.5 5.7-8.2 g/dL Albumin 3.6 3.2-4.8 g/dL Thyroid Stimulating Hormone (TSH) 4.21 0.55-4.78 uIU/mL X-Ray, Labs, Meds, VS Comment Course in the emergency department eventful patient came in complaining of chest pain and shortness of breath EKG shows normal sinus rhythm at 67 with left atrial enlargement chest x-ray shows CHF and cardiomegaly CBC normal CMP normal Magnesium 2.0 BNP 3177.60 TSH 0.21 INR 1.23 D-dimer 0.56 Troponin 44 Patient will be admitted for further care Time of 1ST Reevaluation: 14:49 Reevaluation 1ST: Unchanged Patient Education/Counseling: Diagnosis, Treatment, Prognosis, Need For Follow Up Family Education/Counseling: Diagnosis, Treatment, Prognosis, Need For Follow Up, No Family Present SEPSIS Sepsis Screen Physician Orders Electrocardigram (06/22/25 14:21) Electrocardigram (06/22/25 15:21) Electrocardigram (06/22/25 17:21) Chest Portable (06/22/25 14:34) He[place]ock Iv (06/22/25 14:34) Sodium Chloride 0.9% (06/22/25 14:45) Urinalysis (06/22/25 14:34) Troponin-I Hs (06/22/25 15:34) Troponin-I Hs (06/22/25 17:34) Vital Signs Date Time Temp Pulse Resp B/P (MAP) Pulse Ox O2 Delivery O2 Flow Rate FiO2 06/22/25 14:46 67 06/22/25 14:16 67 06/22/25 14:15 97.7 77 26 165/120 98 97.7 Laboratory Tests Test 06/22/25 14:15 White Blood Count 7.7 10^3/uL (4.4-10.8) Departure 1 Departure Time of Disposition: 16:04 Impression: Primary Impression: Acute exacerbation of chronic heart failure Additional Impression: Acute chest pain Disposition: ADMITTED INPATIENT Admit to: Tele Condition: Serious Critical Care Note Critical Care Time?: No Stability Stability form required: Yes Heart Score Heart Score: Heart Score Response (Comments) Value History Moderate Suspicious 1 EKG Normal 0 Age 45-64 1 Risk Factors >3 or Hx ASHD 2 Troponin Normal limit 0 Total 4 I personally scribed for SAÚL BELTRAN MD ([email or web address]) on 06/22/25 at 14:33. Electronically submitted by Stu George [email or web address]). SAÚL BELTRAN MD Jun 22, 2025 14:33
[2025-06-22] MEDS: SODIUM CHLORIDE 0.9% 1,000 ML IV ONE (14:45)
[2025-06-22 14:57] LABS: Hematocrit 41.5 % (41.0-53.0); Hemoglobin 14.0 g/dL (13.5-17.5); Mean Corpuscular Hemoglobin 28.3 pg (28.0-32.0); Mean Corpuscular Volume 83.9 fL (80.0-100.0); Nucleated Red Blood Cells % 0.2 %
[2025-06-22 15:10] LABS: INR 1.23 (0.9-1.15); Partial Thromboplastin Time 28.9 SEC (24.5-34.5); Prothrombin Time 12.8 sec (9.3-11.8)
[2025-06-22 15:15] LABS: Alanine Aminotransferase 18 U/L (7-40); Albumin 3.6 g/dL (3.2-4.8); Alkaline Phosphatase 96 U/L (46-116); Anion Gap 9 (5-15); BUN/Creatinine Ratio 23.9 (10.0-20.0); Carbon Dioxide 24 mmol/L (20-31); Magnesium 2.0 mg/dL (1.6-2.6); Potassium 3.7 mmol/L (3.5-5.1); Sodium 141 mmol/L (136-145); Total Protein 6.5 g/dL (5.7-8.2)
[2025-06-22 15:16] LABS: Bilirubin, Total 1.7 mg/dL (0.2-1.0); Blood Urea Nitrogen 28 mg/dL (9-23); Calcium 8.5 mg/dL (8.7-10.4); Chloride 108 mmol/L (98-107); Glucose 109 mg/dL (74-106)
--- NOTE | 2025-06-22 15:40 | DVH ---
CHEST RADIOGRAPH Indication: Chest pain CHF Technique: Single frontal view of the chest was obtained Comparison: XY CHEST PORTABLE on DOS: 11/21/24, XY CHEST PORTABLE on DOS: 11/18/24, XY CHEST PORTABLE on DOS: 11/16/24 FINDINGS: Lines and Tubes: None Lungs: Mild interstitial prominence with perihilar fullness. Pleura: No effusion. No pneumothorax. Cardiomediastinal contours: Moderate cardiomegaly with [id number] atherosclerotic calcification and uncoiling of the aorta. Bones: No acute osseous abnormality. IMPRESSION: Moderate cardiomegaly with findings suggestive of mild congestive heart failure.
[2025-06-22] MEDS: SPIRONOLACTONE 25 MG TAB PO ONE (16:32)
[2025-06-22 16:34] VITALS: PULSE 64; TEMP 96.1; O2SAT 94
[2025-06-22] MEDS: FUROSEMIDE 40 MG/4 ML VIAL IV ONE (16:34)
[2025-06-22 16:36] VITALS: BP 154/127; RESP 20
[2025-06-22 17:37] LABS: Urine Protein, UAD Negative (Negative)
[2025-06-22] MEDS ORDERED: FUROSEMIDE 40 MG/4 ML VIAL IV ONE (18:15)
[2025-06-22] MEDS ORDERED: ONDANSETRON HCL 4 MG/2 ML VIAL IV PRN (18:15)
[2025-06-22] MEDS ORDERED: MORPHINE SULFATE INJ 2 MG/ml SYRG IV PRN (18:15)
[2025-06-22] MEDS ORDERED: NITROGLYCERIN 0.4 MG SL TAB SL PRN (18:15)
[2025-06-22] MEDS ORDERED: ACETAMINOPHEN 325 MG TAB PO PRN (18:15)
[2025-06-22] MEDS ORDERED: SPIRONOLACTONE 25 MG TAB PO SCH (18:30)
[2025-06-22] MEDS ORDERED: EMPAGLIFLOZIN 10 MG TAB PO SCH (18:30)
[2025-06-22 18:47] LABS: Cannabinoid Screen, Urine Pos (NEGATIVE); Phencyclidine Screen, Urine Neg (NEGATIVE)
[2025-06-22 18:53] LABS: Amphetamine Screen, Urine Pos (NEGATIVE); Barbiturate Scree,Urine Neg (NEGATIVE); Benzodiazephine Screen, Urine Neg (NEGATIVE); Cocaine Screen, Urine Neg (NEGATIVE); Opiate Scree,Urine Neg (NEGATIVE)
--- NOTE | 2025-06-22 18:55 | DVHHPRES ---
History of Present Illness Resident Creating Document: KATE SOSA RESIDENT History of Present Illness 44 year old male with history of Congestive heart failure, hyperlipidemia, hypertension presents to the ED with complaints of SOB and cough. The patient is currently on 2L of O2 via nasal cannula. There is bilaterasl lower limb edema . The shortness of breath was present since today. It is present at rest and with minimal exertion. Cardiovascular: CHF, HTN, hyperipidemia Past Surgical History: Hernia Repair Family History: DM Smoke: 1 pack per day ALCOHOL: rare Drugs: Cocaine, Marijuana Review of Systems Respiratory: Cough, Shortness of breath Cardiovascular: Orthopnea, Edema Allergies: Coded Allergies: NO KNOWN ALLERGIES (Unverified , 03/11/24) Medications Current Medications Medications Dose Ordered Sig/Guilherme Route Start Time Stop Time Status Last Admin Dose Admin Ondansetron HCl 4 mg Q4HP PRN IV 06/22/25 18:15 Acetaminophen 650 mg Q6HP PRN PO 06/22/25 18:15 Nitroglycerin 0.4 mg Q5MINP PRN SL 06/22/25 18:15 Morphine Sulfate 2 mg Q30M PRN IV 06/22/25 18:15 Enoxaparin Sodium 40 mg DAILY SC 06/23/25 10:00 UNV Spironolactone 25 mg DAILY PO 06/22/25 18:30 UNV Empaglifozin 10 mg DAILY PO 06/22/25 18:30 UNV Aspirin 81 mg DAILY PO 06/23/25 10:00 UNV Atorvastatin Calcium 40 mg HS PO 06/22/25 22:00 UNV Doxycycline Hyclate 100 ml @ 50 mls/hr BID IV 06/22/25 22:00 UNV Exam Vital Signs Vital Signs Date Time Temp Pulse Resp B/P (MAP) Pulse Ox O2 Delivery O2 Flow Rate FiO2 06/22/25 17:11 Nasal Cannula* 4 36 06/22/25 16:36 20 154/127 (136) 06/22/25 16:34 96.1 64 94 96.1 General Appearance: Alert, Oriented X3, Cooperative, moderate distress HEENT: Atraumatic, PERRLA, EOMI, Mucous membr. moist/pink Cardiovascular: Other Abdominal: Normal bowel sounds, Soft Extremities: No clubbing, No cyanosis, Normal pulses, No tenderness/swelling Neuro: Normal gait Psych/Mental Status: Mental status NL Labs/Xrays Labs Test 06/22/25 17:29 06/22/25 17:16 06/22/25 14:15 Range/Units Troponin I High Sensitivity 42 </=54 ng/L Urine Color Yellow Yellow Urine Clarity Clear Clear Urine pH 5.0 5.0-9.0 Urine Specific [place] 1.013 1.001-1.035 Urine Protein Negative Negative Urine Ketones Negative Negative Urine Blood 1+ H Negative /uL Urine Nitrite Negative Negative Urine Bilirubin Negative Negative Urine Urobilinogen Normal Negative mg/dL Urine Leukocyte Esterase Negative Negative /uL Urine RBC 1 0 - 3 /hpf Urine Microscopic WBC 1 0-3 /HPF Urine Squamous Epithelial Cells None seen <5 /hpf Urine Bacteria None seen None Seen /hpf Urine Glucose Normal Normal mg/dL White Blood Count 7.7 4.4-10.8 10^3/uL Red Blood Count 4.94 4.5-5.90 10^6/uL Hemoglobin 14.0 13.5-17.5 g/dL Hematocrit 41.5 41.0-53.0 % Mean Corpuscular Volume 83.9 80.0-100.0 fL Mean Corpuscular Hemoglobin 28.3 28.0-32.0 pg Mean Corpuscular Hemoglobin Concent 33.7 32.0-36.0 g/dL Red Cell Distribution Width 16.5 H 11.8-14.3 % Platelet Count 243 140-450 10^3/uL Mean Platelet Volume 7.3 6.9-10.8 fL Neutrophils (%) (Auto) 67.2 37.0-80.0 % Lymphocytes (%) (Auto) 16.2 10.0-50.0 % Monocytes (%) (Auto) 11.6 0.0-12.0 % Eosinophils (%) (Auto) 4.0 0.0-7.0 % Basophils (%) (Auto) 1.0 0.0-2.0 % Neutrophils # (Auto) 5.2 1.6-8.6 10 ^3/uL Lymphocytes # (Auto) 1.3 0.4-5.4 10 ^3/uL Monocytes # (Auto) 0.9 0-1.3 10 ^3/uL Eosinophils # (Auto) 0.3 0-0.8 10 ^3/uL Basophils # (Auto) 0.1 0-0.2 10 ^3/uL Nucleated Red Blood Cells 0.2 % Prothrombin Time 12.8 H 9.3-11.8 sec Prothrombin Time INR 1.23 H 0.9-1.15 Activated Partial Thromboplast Time 28.9 24.5-34.5 SEC D-Dimer, Quantitative 0.56 H 0.0-0.49 mg/L FEU Sodium Level 141 136-145 mmol/L Potassium Level 3.7 3.5-5.1 mmol/L Chloride Level 108 H 98-107 mmol/L Carbon Dioxide Level 24 20-31 mmol/L Anion Gap 9 5-15 Blood Urea Nitrogen 28 H 9-23 mg/dL Creatinine 1.17 0.700-1.30 mg/dL Glomerular Filtration Rate Calc 78 >90 mL/min BUN/Creatinine Ratio 23.9 H 10.0-20.0 Serum Glucose 109 H 74-106 mg/dL Calcium Level 8.5 L 8.7-10.4 mg/dL Magnesium Level 2.0 1.6-2.6 mg/dL Total Bilirubin 1.7 H 0.2-1.0 mg/dL Aspartate Amino Transferase (AST) 26 13-40 U/L Alanine Aminotransferase (ALT) 18 7-40 U/L Alkaline Phosphatase 96 46-116 U/L B-Type Natriuretic Peptide 3177.60 0-100 pg/mL Total Protein 6.5 5.7-8.2 g/dL Albumin 3.6 3.2-4.8 g/dL Thyroid Stimulating Hormone (TSH) 4.21 0.55-4.78 uIU/mL SEPSIS Sepsis Screen Date sepsis recognized/suspect: Jun 22, 2025 Time Sepsis recognized/suspect: 1414 Recent Procedure: No On Antibiotic Therapy: No Respiratory Rate >20: Yes Heart Rate >90: No Temp<36 C (96.8 F) or >38.3 C: No SBP <90 or MAP <65 mmHG: No New Acute Mental Status Change: No Is the patient on CPAP, BIPAP,: No Physician Orders Electrocardigram (06/22/25 14:21) Electrocardigram (06/22/25 15:21) Electrocardigram (06/22/25 17:21) Chest Portable (06/22/25 14:34) Heplock Iv (06/22/25 14:34) Admit (06/22/25 18:09) Allergies (06/22/25 18:09) Code Status (06/22/25 18:09) Ondansetron Hcl (Zofran) (06/22/25 18:15) Comprehensive Metabolic Panel (06/23/25 04:00) Cardiac Diet-2gna,Lofat,Lochol (06/22/25 Dinner) Condition: Fair (06/22/25 18:09) Acetaminophen Tablet (Tylenol Tablet) (06/22/25 18:15) Nitroglycerin Sublingual (Ntrostat Subli (06/22/25 18:15) Morphine Sulfate Injection (06/22/25 18:15) Oxygen By Nasal Cannula (06/22/25 18:09) Stat Ekg For Chest Pain (06/22/25 18:09) Notify Of Changes From Base (06/22/25 18:09) Steep Tender For 24 Hours (06/22/25 18:09) Emergency Dysrhythmia Protocol (06/22/25 18:09) Rhythm Strips Once Every Shift (06/22/25 18:09) Lactic Acid W/ Reflex Order (06/22/25 18:13) Echo 2d Mode Cardiac Dop (06/22/25 18:15) Furosemide Injection (Lasix Injection) (06/22/25 18:15) Furosemide Injection (Lasix Injection) (06/23/25 10:00) Enoxaparin Sodium (Lovenox) (06/23/25 10:00) * Wound Consult (06/22/25 ) Wound Culture W/ Gs (06/22/25 18:15) Blood Culture (06/22/25 18:15) Covid19 Antigen Betty (06/22/25 ) Rapid Influenza A&B (06/22/25 18:15) Drug Screen (06/22/25 18:15) Spironolactone (Aldactone) (06/22/25 18:30) Empagliflozin (Jardiance) (06/22/25 18:30) Aspirin Tablet (06/23/25 10:00) Atorvastatin (Lipitor) (06/22/25 22:00) Doxycycline 100mg/100ml (Vibramycin) (06/22/25 22:00) LIVER (06/22/25 18:25) Obtain Daily Weight 22 (06/22/25 18:27) Daily Weight (06/22/25 18:27) Teach: Heart Failure (06/22/25 18:27) Vital Signs Date Time Temp Pulse Resp B/P (MAP) Pulse Ox O2 Delivery O2 Flow Rate FiO2 06/22/25 17:11 Nasal Cannula* 4 36 06/22/25 16:36 20 154/127 (136) 06/22/25 16:34 163/143 06/22/25 16:34 163/143 (150) 06/22/25 16:34 96.1 64 20 163/131 (142) 94 96.1 06/22/25 14:46 67 06/22/25 14:16 67 06/22/25 14:15 97.7 77 26 165/120 98 97.7 Laboratory Tests Test 06/22/25 14:15 White Blood Count 7.7 10^3/uL (4.4-10.8) Medications Medications Dose Ordered Sig/Guilherme Route Start Time Stop Time Status Last Admin Dose Admin Furosemide 40 mg ONCE ONCE IV 06/22/25 16:15 06/22/25 16:16 DC 06/22/25 16:34 40 MG Spironolactone 50 mg ONCE ONCE PO 06/22/25 16:15 06/22/25 16:16 DC 06/22/25 16:32 50 MG Assessment/Plan Assessment/Plan # it with acute on chronic heart failure, IV Lasix, NYHA class 3, daily weight, salt restricted diet, education. # acute hypoxic respiratory failure on 4 L of nasal cannula oxygen # heart failure with reduced ejection fraction 20% ejection fraction last noted in 10/10, complicated with diastolic dysfunction, partially GDM T, started on spironolactone and Jardiance, at GDM T as tolerated # hypertension target blood pressure 140/90 or below # dyslipidemia, statin to continue # ASCVD risk on statin atorvastatin, continue Plan discussed with: Patient Date of Service: Jun 22, 2025 Billing Provider: KARMA RODRÍGUEZ MD Common Visit Codes: 79107-[id number] INP/OBS CARE (HIGH) KATE SOSA RESIDENT Jun 22, 2025 18:37 KARMA RODRÍGUEZ MD Jun 26, 2025 20:33
--- NOTE | 2025-06-22 18:59 | ECG ---
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
--- NOTE | 2025-06-22 20:03 | DVH ---
INDICATION: rule out hepatobiliary pathology TECHNIQUE: Multiple real-time sonographic images of the abdomen were obtained. COMPARISON: None FINDINGS: Hepatic steatosis. The liver measures 16.03 cm. No intrahepatic biliary ductal dilatation is noted. The gallbladder wall measures 0.261 cm and is unremarkable. No gallstones or sludge is seen. The c ommon duct measures 3.46 mm and is unremarkable. No pericholecystic fluid is noted. The right kidney measures 10.15 cm. No hydronephrosis. The pancreas is not well visualized due to obscuration from bowel gas. IMPRESSION: 1. 16.03 cm liver with steatosis. 2. No gallstones negative ultrasound price's sign. 3. Right kidney measures 10.15 cm with no hydronephrosis 4. Is a small right pleural effusion. 5. Ascites is present.
[2025-06-22] MEDS ORDERED: DOXYCYCLINE 100MG/100ML 100 ML IV SCH (22:00)
[2025-06-22] MEDS ORDERED: ATORVASTATIN 20 MG TAB PO SCH (22:00)
[2025-06-23] MEDS ORDERED: ENOXAPARIN SOD 40 MG/0.4 ML SYRINGE SC SCH (10:00)
[2025-06-23] MEDS ORDERED: FUROSEMIDE 40 MG/4 ML VIAL IV SCH (10:00)
--- NOTE | 2025-06-23 18:32 | DVHDSRES ---
Discharge Summary Date of Admission Resident Creating Document: KATE SOSA RESIDENT Jun 22, 2025 at 18:09 Date of Discharge: Jun 23, 2025 Admitting Diagnosis CHF exacerbation Wounds: left calf woozing wound. Labs/Diagnostic Data: Laboratory Results Test 06/22/25 17:29 06/22/25 17:16 06/22/25 16:39 06/22/25 14:15 Troponin I High Sensitivity 42 ng/L (</=54) Urine Color Yellow (Yellow) Urine Clarity Clear (Clear) Urine pH 5.0 (5.0-9.0) Urine Specific [place] 1.013 (1.001-1.035) Urine Protein Negative (Negative) Urine Ketones Negative (Negative) Urine Blood 1+ /uL (Negative) Urine Nitrite Negative (Negative) Urine Bilirubin Negative (Negative) Urine Urobilinogen Normal mg/dL (Negative) Urine Leukocyte Esterase Negative /uL (Negative) Urine RBC 1 /hpf (0 - 3) Urine Microscopic WBC 1 /HPF (0-3) Urine Squamous Epithelial Cells None seen /hpf (<5) Urine Bacteria None seen /hpf (None Seen) Urine Glucose Normal mg/dL (Normal) Urine Opiates Screen Neg (NEGATIVE) Urine Fentanyl Screen Neg (NEGATIVE) Urine Barbiturates Screen Neg (NEGATIVE) Urine Phencyclidine Screen Neg (NEGATIVE) Urine Amphetamines Screen Pos (NEGATIVE) Urine Benzodiazepines Screen Neg (NEGATIVE) Urine Cocaine Screen Neg (NEGATIVE) Urine Cannabinoids Screen Pos (NEGATIVE) Lactic Acid Level 1.4 mmol/L (0.4-2.0) White Blood Count 7.7 10^3/uL (4.4-10.8) Red Blood Count 4.94 10^6/uL (4.5-5.90) Hemoglobin 14.0 g/dL (13.5-17.5) Hematocrit 41.5 % (41.0-53.0) Mean Corpuscular Volume 83.9 fL (80.0-100.0) Mean Corpuscular Hemoglobin 28.3 pg (28.0-32.0) Mean Corpuscular Hemoglobin Concent 33.7 g/dL (32.0-36.0) Red Cell Distribution Width 16.5 % (11.8-14.3) Platelet Count 243 10^3/uL (140-450) Mean Platelet Volume 7.3 fL (6.9-10.8) Neutrophils (%) (Auto) 67.2 % (37.0-80.0) Lymphocytes (%) (Auto) 16.2 % (10.0-50.0) Monocytes (%) (Auto) 11.6 % (0.0-12.0) Eosinophils (%) (Auto) 4.0 % (0.0-7.0) Basophils (%) (Auto) 1.0 % (0.0-2.0) Neutrophils # (Auto) 5.2 10 ^3/uL (1.6-8.6) Lymphocytes # (Auto) 1.3 10 ^3/uL (0.4-5.4) Monocytes # (Auto) 0.9 10 ^3/uL (0-1.3) Eosinophils # (Auto) 0.3 10 ^3/uL (0-0.8) Basophils # (Auto) 0.1 10 ^3/uL (0-0.2) Nucleated Red Blood Cells 0.2 % Prothrombin Time 12.8 sec (9.3-11.8) Prothrombin Time INR 1.23 (0.9-1.15) Activated Partial Thromboplast Time 28.9 SEC (24.5-34.5) D-Dimer, Quantitative 0.56 mg/L FEU (0.0-0.49) Sodium Level 141 mmol/L (136-145) Potassium Level 3.7 mmol/L (3.5-5.1) Chloride Level 108 mmol/L (98-107) Carbon Dioxide Level 24 mmol/L (20-31) Anion Gap 9 (5-15) Blood Urea Nitrogen 28 mg/dL (9-23) Creatinine 1.17 mg/dL (0.700-1.30) Glomerular Filtration Rate Calc 78 mL/min (>90) BUN/Creatinine Ratio 23.9 (10.0-20.0) Serum Glucose 109 mg/dL (74-106) Calcium Level 8.5 mg/dL (8.7-10.4) Magnesium Level 2.0 mg/dL (1.6-2.6) Total Bilirubin 1.7 mg/dL (0.2-1.0) Aspartate Amino Transferase (AST) 26 U/L (13-40) Alanine Aminotransferase (ALT) 18 U/L (7-40) Alkaline Phosphatase 96 U/L (46-116) B-Type Natriuretic Peptide 3177.60 pg/mL (0-100) Total Protein 6.5 g/dL (5.7-8.2) Albumin 3.6 g/dL (3.2-4.8) Thyroid Stimulating Hormone (TSH) 4.21 uIU/mL (0.55-4.78) Other Laboratory Tests 06/22/25 14:15 Brief Hx & Hospital Course: 44-year-old male with a history of HFrEF (20%), congestive heart failure and hypertension presents with worsening dyspnea, lower extremity edema, and fatigue over the past week, accompanied by orthopnea and paroxysmal nocturnal dyspnea; denies chest pain, palpitations, or syncope was admitted and treated for CHF exacerbation with IV Lasix and GDMT management along with acute hypoxic respiratory failure. before patient could be revaluated eloped from hospital. Medical conditions treated in hospital: # acute on chronic heart failure, NYHA class 3 # acute hypoxic respiratory failure on 4 L of nasal cannula oxygen # heart failure with reduced ejection fraction 20% ejection fraction last noted in 10/10, complicated with diastolic dysfunction, partially on GDM T # essential hypertension # dyslipidemia on statin # ASCVD risk on statin atorvastatin, continue # Liver steatosis #small right pleural effusion. #Mild to moderate Ascites Physical Examination: Patient left before follow up Follow up instructions and medications: as per chart Discharge planning needed [address] Glover. Operations or Procedures PATIENT: KLEBER ARREDONDO ACCT: [id number] UNIT: [id number] : 1980 LOC: OVERFLOW ROOM / BED: [address] [place] [address] AGE / SEX: 44 / M ADM STATUS: ADM IN SERVICE 1825 ORDERING PHYSICIAN: JIGNA VARGAS RESIDENT PROCEDURE(s): LIVUS - LIVER REASON: rule out hepatobiliary pathology ORDER NUMBER(s): [id number], ACCESSION NUMBER(s): [id number] INDICATION: rule out hepatobiliary pathology TECHNIQUE: Multiple real-time sonographic images of the abdomen were obtained. COMPARISON: None FINDINGS: Hepatic steatosis. The liver measures 16.03 cm. No intrahepatic biliary ductal dilatation is noted. The gallbladder wall measures 0.261 cm and is unremarkable. No gallstones or sludge is seen. The common duct measures 3.46 mm and is unremarkable. No pericholecystic fluid is noted. The right kidney measures 10.15 cm. No hydronephrosis. The pancreas is not well visualized due to obscuration from bowel gas. IMPRESSION: 1. 16.03 cm liver with steatosis. 2. No gallstones negative ultrasound price's sign. 3. Right kidney measures 10.15 cm with no hydronephrosis 4. Is a small right pleural effusion. 5. Ascites is present. ATED BY: MARLON RODRIGUEZ Jr., DO DICTATED DATE/TIME: 06/22/252000 SIGNED BY: MARLON RODRIGUEZ Jr., DO SIGNED DATE/TIME: 06/22/252000 CC: [place] [id number] Ph: [phone] DIAGNOSTIC IMAGING Diagnostic Imaging Report : [id number] Signed PATIENT: KLEBER ARREDONDO ACCT: [id number] UNIT: [id number] : 1980 LOC: ER ROOM / BED: / AGE / SEX: 44 / M ADM STATUS: REG ER SERVICE 1434 ORDERING PHYSICIAN: SAÚL BELTRAN MD PROCEDURE(s): CXRP - CHEST PORTABLE REASON: Chest pain CHF ORDER NUMBER(s): [id number], ACCESSION NUMBER(s): [id number] CHEST RADIOGRAPH Indication: Chest pain CHF Technique: Single frontal view of the chest was obtained Comparison: XY CHEST PORTABLE on DOS: 11/21/24, XY CHEST PORTABLE on DOS: 11/18/24, XY CHEST PORTABLE on DOS: 11/16/24 FINDINGS: Lines and Tubes: None Lungs: Mild interstitial prominence with perihilar fullness. Pleura: No effusion. No pneumothorax. Cardiomediastinal contours: Moderate cardiomegaly with [id number] atherosclerotic calcification and uncoiling of the aorta. Bones: No acute osseous abnormality. IMPRESSION: Moderate cardiomegaly with findings suggestive of mild congestive heart failure. ATED BY: NEGRA FOSS DO DICTATED DATE/TIME: 06/22/25 1537 SIGNED BY: NEGRA FOSS DO SIGNED DATE/TIME: 06/22/25 1537 CC: Condition at Discharge: Guarded Final Diagnosis/Problems List # acute on chronic heart failure, NYHA class 3 # acute hypoxic respiratory failure on 4 L of nasal cannula oxygen # heart failure with reduced ejection fraction 20% ejection fraction last noted in 10/10, complicated with diastolic dysfunction, partially on GDM T # essential hypertension # dyslipidemia on statin # ASCVD risk on statin atorvastatin, continue # Liver steatosis #small right pleural effusion. #Mild to moderate Ascites Discharge Disposition: Eloped Discharge Instruct/Medications Diet: Cardiac 2g Na,low cholest Activity: No Restrictions, As Tolerated Follow Up/Referral: PCP follow up within 1 week Follow up Cardiology for HF management. Medications: as per EHR Scheduled Acetaminophen W/ Codeine (Acetaminophen/Codeine), 1 TAB PO TID Aspirin (Aspir-81), 1 TAB PO DAILY Atorvastatin Calcium (Lipitor), 1 TAB PO DAILY Carvedilol (Carvedilol), 1 TAB PO BID, (Reported) Cephalexin Monohydrate (Cephalexin), 1 TAB PO QID Empagliflozin (Jardiance), 10 MG PO DAILY Furosemide (Lasix), 40 MG PO DAILY Metoprolol Succinate (Metoprolol Succinate Er), 1 TAB PO DAILY, (Reported) Sacubitril-Valsartan (Entresto 24-26 mg), 1 TAB PO BID Spironolactone (Aldactone), 12.5 MG PO DAILY Discharge Statement: "Patient was advised to return to the ER or call 911 if any headaches, dizziness, shortness of breath, chest pain, abdominal pain, bleeding, fevers, or worsening of medical condition. Patient was counseled about treatment plan, medications, possible side effects, patientverbalized understanding. All questions were answered to the best of my ability. This discharge took greater then 30 minutes in planning, reviewing documentation, counseling the patient, and discussing with other team members." ASSESSMENT ASSESSMENT Assessment Date of Service: Jun 23, 2025 Billing Provider: KARMA GLOVER MD Common Visit Codes: 75999-HUD/OBS DISCH DAY >30min JIGNA VARGAS Jun 23, 2025 18:31 KARMA GLOVER MD Jun 26, 2025 20:47
== END 2025-06-22 22:14 | disposition left against medical advice (07) | DRG 194 ==
LOC: ER 14:10 → EDBD 14:10 → OVERFLOW 18:09
PROVIDERS: ADMIT Student in an Organized Health Care Education/Training Program; ATTEND Emergency Medicine
DX: I11.0 Hypertensive heart disease with heart failure (principal); J96.01 Acute respiratory failure with hypoxia; R18.8 Other ascites; I50.23 Acute on chronic systolic (congestive) heart failure; K76.0 Fatty (change of) liver, not elsewhere classified; J44.9 Chronic obstructive pulmonary disease, unspecified; E78.5 Hyperlipidemia, unspecified; F17.210 Nicotine dependence, cigarettes, uncomplicated; I25.10 Atherosclerotic heart disease of native coronary artery without angina pectoris; Z53.29 Procedure and treatment not carried out because of patient's decision for other reasons; Z83.3 Family history of diabetes mellitus
CPT/HCPCS: 36415; 71045; 76705; 80053; 80307; 81001; 83605; 83735; 83880; 84443; 84484; 85025; 85379; 85610; 85730; 87040; 93005; 96374; G0378

== ENCOUNTER 2025-07-11 10:02 | Inpatient (IN) | payer MEDICAID ==
[~2025-07-11] VITALS: Ht 175.3 cm; Wt 96.6 kg
--- NOTE | 2025-07-11 10:35 | DVH ---
CHEST RADIOGRAPH Indication: sob Technique: Single frontal view of the chest was obtained COMPARISON: XY CHEST PORTABLE on DOS: 06/22/25, XY CHEST PORTABLE on DOS: 11/21/24, XY CHEST PORTABLE on DOS: 11/18/24, XY CHEST PORTABLE on DOS: 11/16/24, XY CHEST PORTABLE on DOS: 10/03/24 FINDINGS: Lines and Tubes: None Lungs: Congestion Pleura: No effusion. No pneumothorax. Cardiomediastinal contours: Cardiomegaly Bones: Unremarkable IMPRESSION: Increased interstital prominence. This may represent pulmonary vascular congestion and/or viral pneum onia. Clinical correlation advised.
--- NOTE | 2025-07-11 10:41 | ED.PDOC ---
HPI Comments This is a 45 year old male presenting to the ED with chief complaint of chest pain. Patient reports that he has been experiencing chest pain with associated SOB, body pains, and bilateral leg swelling for the past few days. Patient relays that he has history of respiratory failure and heart failure. Patient states he is on O2 at home usually. Patient denies any hemoptysis, dizziness, headache, N/V, abdominal pain, fever, or chills. Chief Complaint: Chest Pain Time Seen by MD: 10:09 Primary Care Provider: DARYL Reviewed Notes: Nurses Notes, Medications, Allergies Allergies: Coded Allergies: NO KNOWN ALLERGIES (Unverified , 03/11/24) Home Meds Active Scripts Acetaminophen W/ Codeine (Acetaminophen/Codeine) 1 Tab Tab, 1 TAB PO TID for 5 Days, #15 TAB Prov:JASPER TRAVIS INHALATION THERAPY TEACHER 11/22/24 Cephalexin Monohydrate (Cephalexin) 500 Mg Tab, 1 TAB PO QID for 7 Days, #28 TAB Prov:JASPER TRAVIS INHALATION THERAPY TEACHER 11/22/24 Atorvastatin Calcium (Lipitor) 40 Mg Tab, 1 TAB PO DAILY, #30 TAB 5 Refills Prov:SKYLAR ANDERSON MD 10/06/24 Aspirin (Aspir-81) 81 Mg Tab, 1 TAB PO DAILY, #90 TAB 1 Refill Prov:SKYLAR ANDERSON MD 10/06/24 Empagliflozin (Jardiance) 10 Mg Tab, 10 MG PO DAILY for 30 Days, #30 TAB 3 Refills Prov:SKYLAR ANDERSON MD 10/06/24 Furosemide (Lasix) 40 Mg Tab, 40 MG PO DAILY, #30 TAB 3 Refills Prov:SKYLAR ANDERSON MD 10/06/24 Sacubitril-Valsartan (Entresto 24-26 mg) 1 Tab Tab, 1 TAB PO BID for 30 Days, #60 TAB 3 Refills Prov:SKYLAR ANDERSON MD 10/06/24 Spironolactone (Aldactone) 25 Mg Tab, 12.5 MG PO DAILY for 30 Days, #15 TAB 3 Refills Prov:SKYLAR ANDERSON MD 10/06/24 Reported Medications Carvedilol (Carvedilol) 12.5 Mg Tab, 1 TAB PO BID for 30 Days, #60 11/17/24 Metoprolol Succinate (Metoprolol Succinate Er) 25 Mg Tab, 1 TAB PO DAILY 03/12/24 Information Source: Patient Mode of Arrival: Wheelchair Severity: Moderate Timing: Hours Duration: Since onset Prehospital treatment: None Location: Substernal Radiation: No Radiation Quality: Aching Onset: At Rest Cardiac Risk Factors: HTN PE Risk Factors: None History of: Similar pain in past Associated Signs and Symptoms: SOB, Calf Swelling Past Medical History PAST MEDICAL HISTORY: CHF, COPD, High Lipids, HTN Surgical History: Hernia Repair Family History Family History: Reviewed,noncontributory to illness, Family hx of DM Social History Smoker: Cigarettes Alcohol: Rarely Drugs: Cocaine, Marijuana, Methamphetamine Lives In: Home Constitutional: denies: chills, diaphoresis, fatigue, fever, malaise, sweats, weakness, others EENTM: denies: blurred vision, double vision, ear bleeding, ear discharge, ear drainage, ear pain, ear ringing, eye pain, eye redness, hearing loss, mouth pain, mouth swelling, nasal discharge, nose bleeding, nose congestion, nose pain, photophobia, tearing, throat pain, throat swelling, voice changes, others Respiratory: reports: shortness of breath; denies: cough, hemoptysis, orthopnea, SOB at rest, SOB with excertion, stridor, wheezing, others Cardiovascular: reports: chest pain, edema; denies: dizzy spells, diaphoresis, Dyspnea on exertion, irregular heart beat, left arm pain, lightheadedness, palpitations, PND, syncope, others Gastrointestinal: denies: abdomen distended, abdominal pain, blood streaked bowels, constipated, diarrhea, dysphagia, difficulty swallowing, hematemesis, melena, nausea, poor appetite, poor fluid intake, rectal bleeding, rectal pain, vomiting, others Genitourinary: denies: burning, dysuria, flank pain, frequency, hematuria, incontinence, penile discharge, penile sore, pain, testicle pain, testicle swelling, urgency, others Neurological: denies: dizziness, fainting, headache, left sided numbness, left sided weakness, numbness, paresthesia, pre-existing deficit, right sided numbness, right sided weakness, seizure, speech problems, tingling, tremors, weakness, others Musculoskeletal: denies: back pain, gout, joint pain, joint swelling, muscle pain, muscle stiffness, neck pain, others Integumetry: denies: bruises, change in color, change in hair/nails, dryness, laceration, lesions, lumps, rash, wounds, others Allergic/Immunocompromised: denies: Difficulty Healing, Frequent Infections, Hives, Itching, others Hematologic/Lymphatic: denies: anemia, blood clots, easy bleeding, easy bruising, swollen glands, others Endocrine: denies: excessive hunger, excessive sweating, excessive thirst, excessive urination, flushing, intolerance to cold, intolerance to heat, unexplained weight gain, unexplained weight loss, others Psychiatric: denies: anxiety, bipolar disorder, depression, hopeless, panic disorder, schizophrenia, sleepless, suicidal, others All Other Systems: Reviewed and Negative Physical Exam General Appearance: Moderate Distress, Normal HEENT: Normal ENT Inspection, Pharynx Normal, TMs Normal Neck: Full Range of Motion, Non-Tender, Normal, Normal Inspection Respiratory: Chest Non-Tender, No Accessory Muscle Use, Other (Coarse breath sounds) Cardiovascular: No Edema, No JVD, No Murmur, No Gallop, Normal Peripheral Pulses, Regular Rate/Rhythm Breast Exam: Deferred Gastrointestinal: No Organomegaly, Non Tender, No Pulsatile Mass, Normal Bowel Sounds, Soft Genitalia: Deferred Pelvic: Deferred Rectal: Deferred Extremities: No calf tenderness, Normal capillary refill, Pedal edema, Swelling Musculoskeletal : Apperance: Normal Neurologic: Alert, curtain drier II-XII nml as Tested, No Motor Deficits, Normal Affect, Normal Mood, No Sensory Deficits Cerebellar Function: NOT DONE Reflexes: NOT DONE Skin: Dry, Normal Color, Warm Peripheral Pulses: 3+ Radial (R), 3+ Radial (L) Lymphatic: No Adenopathy EKG EKG : Pulse Rate (adult): 103 [place]: Normal Cardiac Rhythm: ST Block: None Hypertrophy: None ST: Normal Was a procedure done? Was a procedure done?: No CP Differential Dx Differential Diagnosis: A-fib, A-Flutter, Angina, Anxiety / Panic Attack, Atrial Dysrhythmia, Electrolyte Disorder X-Ray, Labs, Meds, VS Vital Signs Date Time Temp Pulse Resp B/P (MAP) Pulse Ox O2 Delivery O2 Flow Rate FiO2 07/11/25 10:41 103 07/11/25 10:07 103 07/11/25 10:03 97.4 99 25 180/129 96 97.4 Lab Test 07/11/25 10:17 Range/Units White Blood Count 10.0 4.4-10.8 10^3/uL Red Blood Count 5.23 4.5-5.90 10^6/uL Hemoglobin 14.9 13.5-17.5 g/dL Hematocrit 43.9 41.0-53.0 % Mean Corpuscular Volume 84.0 80.0-100.0 fL Mean Corpuscular Hemoglobin 28.5 28.0-32.0 pg Mean Corpuscular Hemoglobin Concent 33.9 32.0-36.0 g/dL Red Cell Distribution Width 16.4 H 11.8-14.3 % Platelet Count 315 140-450 10^3/uL Mean Platelet Volume 7.4 6.9-10.8 fL Neutrophils (%) (Auto) 71.5 37.0-80.0 % Lymphocytes (%) (Auto) 14.8 10.0-50.0 % Monocytes (%) (Auto) 11.3 0.0-12.0 % Eosinophils (%) (Auto) 1.5 0.0-7.0 % Basophils (%) (Auto) 0.9 0.0-2.0 % Neutrophils # (Auto) 7.2 1.6-8.6 10 ^3/uL Lymphocytes # (Auto) 1.5 0.4-5.4 10 ^3/uL Monocytes # (Auto) 1.1 0-1.3 10 ^3/uL Eosinophils # (Auto) 0.2 0-0.8 10 ^3/uL Basophils # (Auto) 0.1 0-0.2 10 ^3/uL Nucleated Red Blood Cells 0.6 % Sodium Level Pending Potassium Level Pending Chloride Level Pending Carbon Dioxide Level Pending Anion Gap Pending Blood Urea Nitrogen Pending Creatinine Pending Glomerular Filtration Rate Calc Pending BUN/Creatinine Ratio Pending Serum Glucose Pending Calcium Level Pending Troponin I High Sensitivity Pending B-Type Natriuretic Peptide 2899.12 0-100 pg/mL Patient alert. Complaining of chest pain shortness a breath. Chronic history. Placed on oxygen. Blood pressure elevated. Was given labetalol. Heart rate elevated. Mild lower extremity swelling. Was given Lasix. Was given aspirin. Was given nitro. EKG does show chronic changes. Explained to the patient. Continue monitoring. Chest XR: [facility] [id number] [facility] [address] Ph: [phone] DIAGNOSTIC IMAGING Diagnostic Imaging Report : [id number] Signed PATIENT: KLEBER ARREDONDO TACCT: [id number] UNIT: [id number] : 1980 LOC: ER ROOM / BED: / AGE / SEX: 45 / M ADM STATUS: REG ER SERVICE 1009 ORDERING PHYSICIAN: CONRADO LEIVA MD PROCEDURE(s): CXRP - CHEST PORTABLE REASON: sob ORDER NUMBER(s): [id number], ACCESSION NUMBER(s): [id number] CHEST RADIOGRAPH Indication: sob Technique: Single frontal view of the chest was obtained COMPARISON: XY CHEST PORTABLE on DOS: 06/22/25, XY CHEST PORTABLE on DOS: 11/21/24, XY CHEST PORTABLE on DOS: 11/18/24, XY CHEST PORTABLE on DOS: 11/16/24, XY CHEST PORTABLE on DOS: 10/03/24 FINDINGS: Lines and Tubes: None Lungs: Congestion Pleura: No effusion. No pneumothorax. Cardiomediastinal contours: Cardiomegaly Bones: Unremarkable IMPRESSION: Increased interstital prominence. This may represent pulmonary vascular congestion and/or viral pneumonia. Clinical correlation advised. ATED BY: DANIEL HOBSON MD DICTATED DATE/TIME: 07/11/25 1032 SIGNED BY: ADNIEL HOBSON MD SIGNED DATE/TIME: 07/11/25 1032 CC: Images Reviewed?: Images reviewed and evaluated by me Time of 1ST Reevaluation: 11:39 Reevaluation 1ST: Unchanged Patient Education/Counseling: Diagnosis, Treatment Family Education/Counseling: No Family Present SEPSIS Sepsis Screen Date sepsis recognized/suspect: Jul 11, 2025 Time Sepsis recognized/suspect: 1003 Recent Procedure: No On Antibiotic Therapy: No Respiratory Rate >20: No Heart Rate >90: No Temp<36 C (96.8 F) or >38.3 C: No SBP <90 or MAP <65 mmHG: No New Acute Mental Status Change: No Is the patient on CPAP, BIPAP,: No Physician Orders Chest Portable (8/25/25 10:09) Troponin-I Hs (07/11/25 10:09) Troponin-I Hs (07/11/25 11:09) Troponin-I Hs (07/11/25 13:09) Electrocardigram (07/11/25 10:11) Electrocardigram (07/11/25 11:11) Electrocardigram (07/11/25 13:11) Basic Metabolic Panel (07/11/25 10:25) Vital Signs Date Time Temp Pulse Resp B/P (MAP) Pulse Ox O2 Delivery O2 Flow Rate FiO2 07/11/25 10:41 103 07/11/25 10:07 103 07/11/25 10:03 97.4 99 25 180/129 96 97.4 Laboratory Tests Test 07/11/25 10:17 White Blood Count 10.0 10^3/uL (4.4-10.8) Departure 1 Departure Time of Disposition: 10:59 Impression: Primary Impression: Acute on chronic congestive heart failure Qualified Codes: I50.33 - Acute on chronic diastolic (congestive) heart failure Additional Impressions: Chest pain of unknown etiology Hypertensive emergency Disposition: ADMITTED INPATIENT Admit to: Med Surg Condition: Guarded Critical Care Note Critical Care Time?: Yes (90 min-critical care time only) Stability Stability form required: No Heart Score Heart Score: Heart Score Response (Comments) Value History Highly Suspicious 2 EKG Normal 0 Age 45-64 1 Risk Factors >3 or Hx ASHD 2 Troponin Normal limit 0 Total 5 I personally scribed for CONRADO LEIVA MD ([email or web address]) on 07/11/25 at 10:41. Electronically submitted by Dario Berkowitz ([email or web address]). I personally scribed for CONRADO LEIVA MD ([email or web address]) on 07/11/25 at 11:01. Electronically submitted by Dario Berkowitz ([email or web address]). CONRADO LEIVA MD Jul 11, 2025 10:41
[2025-07-11 10:49] LABS: Chloride 104 mmol/L (98-107); Potassium 3.9 mmol/L (3.5-5.1); Sodium 143 mmol/L (136-145)
[2025-07-11 10:50] LABS: Anion Gap 8 (5-15); Calcium 8.8 mg/dL (8.7-10.4)
[2025-07-11 10:52] LABS: Carbon Dioxide 31 mmol/L (20-31)
[2025-07-11 10:55] LABS: BUN/Creatinine Ratio 18.3 (10.0-20.0)
[2025-07-11 10:56] LABS: Blood Urea Nitrogen 24 mg/dL (9-23); Glucose 113 mg/dL (74-106)
[2025-07-11 10:57] LABS: Hematocrit 43.9 % (41.0-53.0); Hemoglobin 14.9 g/dL (13.5-17.5); Mean Corpuscular Hemoglobin 28.5 pg (28.0-32.0); Mean Corpuscular Volume 84.0 fL (80.0-100.0); Nucleated Red Blood Cells % 0.6 %
[2025-07-11 11:10] LABS: Chloride 104 mmol/L (98-107); Potassium 3.8 mmol/L (3.5-5.1); Sodium 142 mmol/L (136-145)
[2025-07-11 11:11] LABS: Anion Gap 8 (5-15); Carbon Dioxide 30 mmol/L (20-31)
[2025-07-11 11:12] LABS: Calcium 8.7 mg/dL (8.7-10.4)
[2025-07-11 11:17] LABS: BUN/Creatinine Ratio 18.3 (10.0-20.0); Blood Urea Nitrogen 24 mg/dL (9-23); Glucose 112 mg/dL (74-106)
[2025-07-11] MEDS: FUROSEMIDE 40 MG/4 ML VIAL IV ONE ×2 (11:42→16:06)
[2025-07-11 11:52] VITALS: RESP 20; O2SAT 99
[2025-07-11] MEDS ORDERED: NITROGLYCERIN 0.4 MG SL TAB SL PRN (14:45)
[2025-07-11] MEDS ORDERED: DOCUSATE SOD 100 MG CAP PO PRN (14:45)
[2025-07-11] MEDS ORDERED: ACETAMINOPHEN 325 MG TAB PO PRN (14:45)
[2025-07-11] MEDS ORDERED: ONDANSETRON HCL 4 MG/2 ML VIAL IV PRN (14:45)
[2025-07-11] MEDS ORDERED: MORPHINE SULFATE INJ 2 MG/ml SYRG IV PRN (14:45)
[2025-07-11] MEDS: LABETALOL HCL 20 MG/4 ML VL IV ONE (14:55)
--- NOTE | 2025-07-11 15:10 | DVHHP2 ---
History of Present Illness Reason for Visit: Chest pain History of Present Illness Héctor Patiño is a 45-year-old male with past medical history of COPD on home oxygen at 2-3L/NC, CHF, hypertension, and hyperlipidemia, who came to the hospital due to chest pain and shortness of breath. Patient states he has been experiencing shortness of breath and chest pain with associated bilateral leg swelling, scrotal swelling, and abdominal swelling for a couple days. Patient states he has been compliant with his medications and he follows with cardiology as an outpatient. He states he last used methamphetamines a few days ago. Cardiovascular: CHF, HTN, hyperipidemia Pulmonary: COPD (om home oxygen 2-3L/NC) Past Surgical History: Hernia Repair Smoke: <1 pack per day ALCOHOL: none Drugs: Marijuana, Other (methamphetamines) Review of Systems Constitutional: No: Fever, Chills, Sweats, Weakness, Malaise, Other Eyes: No: Pain, Vision change, Conjunctivae inflammation, Eyelid inflammation, Other, Redness ENT: No: Ear pain, Ear discharge, Nose pain, Nose discharge, Nose congestion, Mouth pain, Mouth swelling, Throat pain, Throat swelling, Other Respiratory: Shortness of breath; No: Cough, Dry, SOB with excertion, Wheezing, Hemoptysis, Pleuritic Pain, Sputum, Wheezing, Other Cardiovascular: Chest Pain; No: Palpitations, Orthopnea, Paroxysmal Noc. Dyspnea, Edema, Lt Headedness, Other Gastrointestinal: No: Nausea, Vomiting, Abdominal Pain, Diarrhea, Constipation, Melena, Hematochezia, Other Genitourinary: No Dysuria, No Frequency, No Incontinence, No Hematuria, No Retention, No Other Musculoskeletal: No: other, neck pain, shoulder pain, arm pain, back pain, hand pain, leg pain, foot pain Skin: No: Rash, Lesions, Jaundice, Bruising, Other Neurological: No: Weakness, Numbness, Incoordination, Change in speech, Confusion, Seizures, Other Allergies: Coded Allergies: NO KNOWN ALLERGIES (Unverified , 03/11/24) Exam Vital Signs Vital Signs Date Time Temp Pulse Resp B/P (MAP) Pulse Ox O2 Delivery O2 Flow Rate FiO2 07/11/25 14:15 97.5 90 32 171/120 (137) 96 97.5 07/11/25 11:52 Nasal Cannula* 3 32 General Appearance: Alert, Oriented X3, Cooperative, mild distress HEENT: Atraumatic, PERRLA Respiratory: Other (Diminished breath sounds) Cardiovascular: Regular rate, Normal S1, Normal S2, No murmurs Abdominal: Normal bowel sounds, Soft, No tenderness Extremities: No clubbing, No cyanosis, Normal pulses, Other (bilateral lower extremitiy edema, abdominal edema, ) Labs/Xrays Labs Test 07/11/25 13:36 07/11/25 10:17 Range/Units Troponin I High Sensitivity 61 *H </=54 ng/L White Blood Count 10.0 4.4-10.8 10^3/uL Red Blood Count 5.23 4.5-5.90 10^6/uL Hemoglobin 14.9 13.5-17.5 g/dL Hematocrit 43.9 41.0-53.0 % Mean Corpuscular Volume 84.0 80.0-100.0 fL Mean Corpuscular Hemoglobin 28.5 28.0-32.0 pg Mean Corpuscular Hemoglobin Concent 33.9 32.0-36.0 g/dL Red Cell Distribution Width 16.4 H 11.8-14.3 % Platelet Count 315 140-450 10^3/uL Mean Platelet Volume 7.4 6.9-10.8 fL Neutrophils (%) (Auto) 71.5 37.0-80.0 % Lymphocytes (%) (Auto) 14.8 10.0-50.0 % Monocytes (%) (Auto) 11.3 0.0-12.0 % Eosinophils (%) (Auto) 1.5 0.0-7.0 % Basophils (%) (Auto) 0.9 0.0-2.0 % Neutrophils # (Auto) 7.2 1.6-8.6 10 ^3/uL Lymphocytes # (Auto) 1.5 0.4-5.4 10 ^3/uL Monocytes # (Auto) 1.1 0-1.3 10 ^3/uL Eosinophils # (Auto) 0.2 0-0.8 10 ^3/uL Basophils # (Auto) 0.1 0-0.2 10 ^3/uL Nucleated Red Blood Cells 0.6 % Sodium Level 142 136-145 mmol/L Potassium Level 3.8 3.5-5.1 mmol/L Chloride Level 104 98-107 mmol/L Carbon Dioxide Level 30 20-31 mmol/L Anion Gap 8 5-15 Blood Urea Nitrogen 24 H 9-23 mg/dL Creatinine 1.31 H 0.700-1.30 mg/dL Glomerular Filtration Rate Calc 68 >90 mL/min BUN/Creatinine Ratio 18.3 10.0-20.0 Serum Glucose 112 H 74-106 mg/dL Calcium Level 8.7 8.7-10.4 mg/dL B-Type Natriuretic Peptide 2899.12 0-100 pg/mL CHEST RADIOGRAPH FINDINGS: Lines and Tubes: None Lungs: Congestion Pleura: No effusion. No pneumothorax. Cardiomediastinal contours: Cardiomegaly Bones: Unremarkable IMPRESSION: Increased interstitial prominence. This may represent pulmonary vascular congestion and/or viral pneumonia. Clinical correlation advised. SEPSIS Sepsis Screen Date sepsis recognized/suspect: Jul 11, 2025 Time Sepsis recognized/suspect: 1003 Recent Procedure: No On Antibiotic Therapy: No Respiratory Rate >20: No Heart Rate >90: No Temp<36 C (96.8 F) or >38.3 C: No SBP <90 or MAP <65 mmHG: No New Acute Mental Status Change: No Is the patient on CPAP, BIPAP,: No Physician Orders Chest Portable (07/11/25 10:09) Electrocardigram (07/11/25 10:11) Electrocardigram (07/11/25 11:11) Electrocardigram (07/11/25 13:11) Admit (07/11/25 14:42) Code Status (07/11/25 14:42) Sodium Chloride Lock (Saline Lock Ns) (07/11/25 22:00) Hydrocodone-Acet 5/325mg Tab ([place] 5/32 (07/11/25 14:45) Ondansetron Hcl (Zofran) (07/11/25 14:45) Docusate Sodium Capsule (Colace Capsule) (07/11/25 14:45) Complete Blood Count (07/12/25 04:00) Comprehensive Metabolic Panel (07/12/25 04:00) Cardiac Diet-2gna,Lofat,Lochol (07/11/25 Dinner) Condition: Serious (07/11/25 14:42) Acetaminophen Tablet (Tylenol Tablet) (07/11/25 14:45) Nitroglycerin Sublingual (Ntrostat Subli (07/11/25 14:45) Morphine Sulfate Injection (07/11/25 14:45) Stat Ekg For Chest Pain (07/11/25 14:42) Notify Md Of Changes From Base (07/11/25 14:42) Cosmetic Chemist For 24 Hours (07/11/25 14:42) Emergency Dysrhythmia Protocol (07/11/25 14:42) Rhythm Strips Once Every Shift (07/11/25 14:42) Oxygen By Nasal Cannula (07/11/25 14:42) Strict I & O QSHIFT (07/11/25 14:42) Maintain Fluid Restrictions QSHIFT (07/11/25 14:42) Furosemide Injection (Lasix Injection) (07/12/25 10:00) Vital Signs Date Time Temp Pulse Resp B/P (MAP) Pulse Ox O2 Delivery O2 Flow Rate FiO2 07/11/25 14:15 97.5 90 32 171/120 (137) 96 97.5 07/11/25 11:52 20 99 Nasal Cannula* 3 32 07/11/25 11:42 98.0 96 20 184/129 (147) 97 98.0 07/11/25 11:42 184/129 07/11/25 10:41 103 07/11/25 10:07 103 07/11/25 10:03 97.4 99 25 180/129 96 97.4 Laboratory Tests Test 07/11/25 10:17 White Blood Count 10.0 10^3/uL (4.4-10.8) Medications Medications Dose Ordered Sig/Guilherme Route Start Time Stop Time Status Last Admin Dose Admin Furosemide 40 mg ONCE ONCE IV 07/11/25 11:15 07/11/25 11:16 DC 07/11/25 11:42 40 MG Assessment/Plan Assessment/Plan Assessment: Acute on chronic congestive heart failure, Elevated troponin, Hypertension, Hyperlipidemia, COPD, Plan: Admit to Tele, Cardiology consult, ECHO, Strict I&O, Fluid restrictions, Breathing treatments as needed, Supplemental oxygen as needed, Home medications reconciled, Plan discussed with: Patient My Orders Orders - STACEY WHITE Procedure Category Date Status Time Admit ADMIT 07/11/25 Verified 14:42 Code Status CODE 07/11/25 Verified 14:42 Sodium Chloride Lock PHA 07/11/25 Verified (Saline Lock Ns) 22:00 Hydrocodone-Acet PHA 07/11/25 Verified 5/325mg Tab ([place] 14:45 Ondansetron Hcl PHA 07/11/25 Verified (Zofran) 14:45 Docusate Sodium PHA 07/11/25 Verified Capsule (Colace 14:45 Complete Blood Count LAB 07/12/25 Verified 04:00 Comprehensive LAB 07/12/25 Verified Metabolic Panel 04:00 Cardiac DIET 07/11/25 Verified Diet-2gna,Lofat,Lochol Dinner Condition: Serious [facility] 07/11/25 Verified 14:42 Acetaminophen Tablet [facility] 07/11/25 Verified (Tylenol Tablet) 14:45 Nitroglycerin [facility] 07/11/25 Verified Sublingual (Ntrostat 14:45 Morphine Sulfate [facility] 07/11/25 Verified Injection 14:45 Stat Ekg For Chest [facility] 07/11/25 Verified Pain 14:42 Notify Md Of Changes [facility] 07/11/25 Verified From Base 14:42 Cosmetic Chemist For [facility] 07/11/25 Verified 24 Hours 14:42 Emergency Dysrhythmia [facility] 07/11/25 Verified Protocol 14:42 Rhythm Strips Once [facility] 07/11/25 Verified Every Shift 14:42 Oxygen By Nasal RT 07/11/25 Verified Cannula 14:42 Strict I & O [facility] 07/11/25 Verified 14:42 Maintain Fluid [facility] 07/11/25 Verified Restrictions 14:42 Furosemide Injection [facility] 07/12/25 Verified (Lasix Injection) 10:00 Date of Service: Jul 11, 2025 Billing Provider: STACEY WHITE Common Visit Codes: [id number] INP/OBS CARE (MOD) STACEY WHITE Jul 11, 2025 15:10
[2025-07-11 15:26] VITALS: PULSE 89; RESP 32; O2SAT 100
[2025-07-11] MEDS: CARVEDILOL 12.5 MG TAB PO ONE (16:06)
--- NOTE | 2025-07-11 16:29 | DVHINCON2 ---
Date Seen: Jul 11, 2025 Referring Physician SANTIAGO Argueta Reason for Consultation Elevated troponin, CHF exacerbation History of Present Illness This is a 45-year-old man who presented to the emergency room with a chief complaint of SOB for one week. The patient complains of progressive shortness of breath associated with PND, NICKERSON, orthopnea, lower extremity edema, increased abdominal girth, and mild scrotal swelling. There was no 12 lead electrocardiogram found on hard chart or cardioserver. Latest troponin level was found at 61 ng/L. He has a known history of CHF, reports comliance with medical therapy at home. Denies following up with a current primary cardiolo gist. Last methamphetamine use was a week ago. Significant medical history includes drug-induced cardiomyopathy, hypertension, dyslipidemia, prediabetes, COPD with home O2 dependence, polysubstance abuse including methamphetamines, cannabinoids, tobacco, and remote history of cocaine use. Past Medical History Past medical history reviewed. No other significant than mentioned above. Past Surgical History Past surgical history reviewed. No other significant than mentioned above. Family History: Alcoholism G8 FATHER Arthritis Diabetes mellitus FH: congestive heart failure G8 MOTHER, Family History Family history reviewed. Social History Admits to methamphetamine and cannabinoid use. Admits to tobacco use. Remote history of cocaine use. Denies any use of alcohol. Allergies: Coded Allergies: NO KNOWN ALLERGIES (Unverified , 03/11/24) Home Meds Active Scripts Acetaminophen W/ Codeine (Acetaminophen/Codeine) 1 Tab Tab, 1 TAB PO TID for 5 Days, #15 TAB Prov:JASPER TRAVIS SAMPLE STEAMER 11/22/24 Cephalexin Monohydrate (Cephalexin) 500 Mg Tab, 1 TAB PO QID for 7 Days, #28 TAB Prov:SALJASPER HANLEY SAMPLE STEAMER 11/22/24 Atorvastatin Calcium (Lipitor) 40 Mg Tab, 1 TAB PO DAILY, #30 TAB 5 Refills Prov:SKYLAR ANDERSON MD 10/06/24 Aspirin (Aspir-81) 81 Mg Tab, 1 TAB PO DAILY, #90 TAB 1 Refill Prov:SKYLAR ANDERSON MD 10/06/24 Empagliflozin (Jardiance) 10 Mg Tab, 10 MG PO DAILY for 30 Days, #30 TAB 3 Refills Prov:SKYLAR ANDERSON MD 10/06/24 Furosemide (Lasix) 40 Mg Tab, 40 MG PO DAILY, #30 TAB 3 Refills Prov:SKYLAR ANDERSON MD 10/06/24 Sacubitril-Valsartan (Entresto 24-26 mg) 1 Tab Tab, 1 TAB PO BID for 30 Days, #60 TAB 3 Refills Prov:SKYLAR ANDERSON MD 10/06/24 Spironolactone (Aldactone) 25 Mg Tab, 12.5 MG PO DAILY for 30 Days, #15 TAB 3 Refills Prov:SKYLAR ANDERSON MD 10/06/24 Reported Medications Carvedilol (Carvedilol) 12.5 Mg Tab, 1 TAB PO BID for 30 Days, #60 11/17/24 Metoprolol Succinate (Metoprolol Succinate Er) 25 Mg Tab, 1 TAB PO DAILY 03/12/24 Home Meds Home medications reviewed. Current Medications Current Medications Medications (Trade) Dose Ordered Sig/Guilherme Route PRN Reason Start Time Stop Time Status Last Admin Sodium Chloride (Saline Lock Ns) 10 ml Q8HR IV 07/11/25 22:00 Acetaminophen/ Hydrocodone Bitart ([place] 5/325MG Tab) 1 tab Q4HP PRN PO MODERATE PAIN (4-6 PAIN SCALE) 07/11/25 14:45 Ondansetron HCl (Zofran) 4 mg Q4HP PRN IV NAUSEA / VOMITING 07/11/25 14:45 Docusate Sodium (Colace Capsule) 100 mg BIDPRN PRN PO FOR CONSTIPATION 07/11/25 14:45 Acetaminophen (Tylenol Tablet) 650 mg Q6HP PRN PO PAIN SCALE 1-3 OR TEMP>100.4 07/11/25 14:45 Nitroglycerin (Ntrostat Sublingual) 0.4 mg Q5MINP PRN SL FOR CHEST PAIN 07/11/25 14:45 Morphine Sulfate 2 mg Q30M PRN IV FOR CHEST PAIN 07/11/25 14:45 Furosemide (Lasix Injection) 40 mg DAILY IV 07/12/25 10:00 Aspirin (Ecotrin Enteric Coated Tablet) 81 mg DAILY PO 07/12/25 10:00 Carvedilol (Coreg Tablet) 12.5 mg BID PO 07/11/25 22:00 Patient Own Medication 1 tab DAILY PO 07/12/25 10:00 UNV Atorvastatin Calcium (Lipitor) 40 mg HS PO 07/11/25 22:00 Review of Systems Constitutional: No symptom reported Ears, Nose, & Throat: No symptom reported Eyes: No symptom reported Neurological: No symptoms reported Pulmonary/Respiratory: SOB, NICKERSON, PND Cardiovascular: BLE edema Gastrointestinal: No symptom reported Genitourinary: No symptom reported Musculoskeletal: No symptom reported Skin: No symptom reported Psychiatric: No symptom reported Endocrine: No symptom reported Hemotologic/Lymphatic: No symptom reported Vital Signs Vital Signs Date Time Temp Pulse Resp B/P (MAP) Pulse Ox O2 Delivery O2 Flow Rate FiO2 07/11/25 16:06 155/122 07/11/25 16:06 94 07/11/25 14:15 97.5 32 96 97.5 07/11/25 11:52 Nasal Cannula* 3 32 Physical Exam General Appearance: Cooperative. Uncomfortable. Tachypneic. O2 via NRB mask. Zyabvbom-rt-[id number] acute respiratory distress Head Exam: Normal inspection Neck Exam: Normal inspection. Non-tender. Normal alignment Pulmonary/Respiratory: Crackles to bilateral breath sounds Cardiovascular/Chest: Regular rate and rhythm. S1, S2. Sinus rhythm. No murmurs. + JVD. Peripheral Pulses: 2+ Radial (R). 2+ Radial (L). 2+ Pedal (R). 2+ Pedal (L) Abdominal Exam: Normal bowel sounds. Soft. Nontender Ankle Exam: Positive ankle pitting edema, 2+ Lower extremities: Positive lower extremity pitting edema, 2+ Neuro/Mental Status: A&O x4. Coherent Thoughts/Psych: Normal thought pattern. Appropriate mood and affect. Appearance: Shvkcrpv-om-bberyo acute respiratory distress Skin Exam: Normal inspection. Normal color. Warm. Dry Labs/Diagnostic Data Labs Test 07/11/25 13:36 07/11/25 10:17 Range/Units Troponin I High Sensitivity 61 *H </=54 ng/L White Blood Count 10.0 4.4-10.8 10^3/uL Red Blood Count 5.23 4.5-5.90 10^6/uL Hemoglobin 14.9 13.5-17.5 g/dL Hematocrit 43.9 41.0-53.0 % Mean Corpuscular Volume 84.0 80.0-100.0 fL Mean Corpuscular Hemoglobin 28.5 28.0-32.0 pg Mean Corpuscular Hemoglobin Concent 33.9 32.0-36.0 g/dL Red Cell Distribution Width 16.4 H 11.8-14.3 % Platelet Count 315 140-450 10^3/uL Mean Platelet Volume 7.4 6.9-10.8 fL Neutrophils (%) (Auto) 71.5 37.0-80.0 % Lymphocytes (%) (Auto) 14.8 10.0-50.0 % Monocytes (%) (Auto) 11.3 0.0-12.0 % Eosinophils (%) (Auto) 1.5 0.0-7.0 % Basophils (%) (Auto) 0.9 0.0-2.0 % Neutrophils # (Auto) 7.2 1.6-8.6 10 ^3/uL Lymphocytes # (Auto) 1.5 0.4-5.4 10 ^3/uL Monocytes # (Auto) 1.1 0-1.3 10 ^3/uL Eosinophils # (Auto) 0.2 0-0.8 10 ^3/uL Basophils # (Auto) 0.1 0-0.2 10 ^3/uL Nucleated Red Blood Cells 0.6 % Sodium Level 142 136-145 mmol/L Potassium Level 3.8 3.5-5.1 mmol/L Chloride Level 104 98-107 mmol/L Carbon Dioxide Level 30 20-31 mmol/L Anion Gap 8 5-15 Blood Urea Nitrogen 24 H 9-23 mg/dL Creatinine 1.31 H 0.700-1.30 mg/dL Glomerular Filtration Rate Calc 68 >90 mL/min BUN/Creatinine Ratio 18.3 10.0-20.0 Serum Glucose 112 H 74-106 mg/dL Calcium Level 8.7 8.7-10.4 mg/dL B-Type Natriuretic Peptide 2899.12 0-100 pg/mL Assessment Acute on chronic decompensated HFrEF, NYHA Class IV Drug-induced/biventricular/dilated cardiomyopathy Hypertensive urgency NSTEMI, likely type 2 secondary to above Polysubstance abuse Nicotine dependence Medical noncompliance/nonadherence Obesity Plan/Recommendation (Dr. Michael Ahuja transthoracic echocardiogram revealing LVEF of 20% with grade 3 restrictive filling pattern of diastolic dysfunction, severely dilated left ventricle, and severely reduced right ventricular systolic function. The patient with [id number]-[id number] respiratory distress will be initiated on a dobutamine drip for preload and afterload reduction in addition to Lasix IV. Continue strict I&Os, daily weight, and maintain fluid restrictions. Initiate GDMT for HFrEF with exception of BB. Obtain an ABG and continue O2 support via NRB mask. Obtain a twelve-lead electrocardiogram. CXR in the a.m. We will continue to monitor closely. Thank you for allowing us to participate in this patient's care. Please call if you have any questions or concerns. Critical care time: 40 min. This medical document was created using an electronic medical record system with voice recognition software and computerized dictation system. Although this document has been carefully reviewed, there might still be some phonetic and typographical errors. Occasional wrong-word or ``sound-alike substitutions may have occurred due to the inherent limitations of voice recognition software. These areas are purely typographical due to imperfections of the software programs and do not reflect any compromise in the patient's medical care. Please read the chart carefully and recognize, using context, where these substitutions have occurred. Plan discussed with: Patient, Other NYHA Physical activity limitations: Class4(Severe)discomfort (w any activit,symptoms at rest) Date of Service: Jul 11, 2025 Billing Provider: SAMINA GARCIA Cardiology Common Codes: [id number] CARE 30-74 MIN SAMINA GARCIA Jul 11, 2025 16:29
[2025-07-11] MEDS ORDERED: FUROSEMIDE 40 MG/4 ML VIAL IV ONE (16:30)
[2025-07-11] MEDS: SPIRONOLACTONE 25 MG TAB PO ONE (16:54)
[2025-07-11] MEDS: DOBUTamine 1000MCG/ML 250 ML IV SCH (16:55)
[2025-07-11 17:49] LABS: Base Excess 4.2 mmol/L (-2.0-3.0)
[2025-07-11 18:20] VITALS: O2SAT 96
[2025-07-11] MEDS: FUROSEMIDE 40 MG/4 ML VIAL IV SCH (18:31)
[2025-07-11] MEDS: hydrALAZINE HCL 20 MG/ML VL IV ONE (18:32)
[2025-07-11 19:09] LABS: Amphetamine Screen, Urine Neg (NEGATIVE); Cannabinoid Screen, Urine Pos (NEGATIVE)
[2025-07-11 19:11] LABS: Barbiturate Scree,Urine Neg (NEGATIVE); Benzodiazephine Screen, Urine Neg (NEGATIVE); Cocaine Screen, Urine Neg (NEGATIVE); Opiate Scree,Urine Neg (NEGATIVE); Phencyclidine Screen, Urine Neg (NEGATIVE)
[2025-07-11 19:30] VITALS: PULSE 81; RESP 21; O2SAT 96
[2025-07-11 20:33] VITALS: BP 145/105; PULSE 72; RESP 18; TEMP 97.5; O2SAT 96
[2025-07-11] MEDS ORDERED: CARVEDILOL 12.5 MG TAB PO SCH (22:00)
[2025-07-11] MEDS: ATORVASTATIN 20 MG TAB PO SCH (22:21)
[2025-07-11] MEDS: SACUBITRIL-VALSARTAN 24mg/26mg TAB PO SCH (22:21)
[2025-07-11] MEDS: SODIUM CHLOR 0.9% PF (SALINE LOCK) 10ML VIAL/SYR IV SCH (22:22)
--- NOTE | 2025-07-11 23:11 | DVHINCON2 ---
Date Seen: Jul 11, 2025 Referring Physician SANTIAGO Argueta Reason for Consultation Elevated troponin, CHF exacerbation History of Present Illness This is a 45-year-old male with a PMH of drug-induced cardiomyopathy, hypertension, dyslipidemia, prediabetes, COPD with home O2 dependence, polysubstance abuse including methamphetamines, cannabinoids, tobacco, and remote history of cocaine use who presented to the ED with a complaint of SOB for one week. The patient complains of progressive shortness of breath associated with PND, NICKERSON, orthopnea, lower extremity edema, increased abdominal girth, and mild scrotal swelling. There was no 12 lead electrocardiogram found on hard chart or cardioserver. Latest troponin level was found at 61 ng/L. He has a known history of CHF, reports comliance with medical therapy at home. 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 Last methamphetamine use was a week ago. Patient was admitted to the hospital. I am asked to consult on this patient. Past Medical History Past medical history reviewed. No other significant than mentioned above. Past Surgical History Past surgical history reviewed. No other significant than mentioned above. Family History: Alcoholism G8 FATHER Arthritis Diabetes mellitus FH: congestive heart failure G8 MOTHER, Allergies: Coded Allergies: NO KNOWN ALLERGIES (Unverified , 03/11/24) Home Meds Active Scripts Acetaminophen W/ Codeine (Acetaminophen/Codeine) 1 Tab Tab, 1 TAB PO TID for 5 Days, #15 TAB Prov:JASPER TRAVIS OPERATIONS MGR 11/22/24 Cephalexin Monohydrate (Cephalexin) 500 Mg Tab, 1 TAB PO QID for 7 Days, #28 TAB Prov:JASPER TRAVIS OPERATIONS MGR 11/22/24 Atorvastatin Calcium (Lipitor) 40 Mg Tab, 1 TAB PO DAILY, #30 TAB 5 Refills Prov:SKYLAR ANDERSON MD 10/06/24 Aspirin (Aspir-81) 81 Mg Tab, 1 TAB PO DAILY, #90 TAB 1 Refill Prov:SKYLAR ANDERSON MD 10/06/24 Empagliflozin (Jardiance) 10 Mg Tab, 10 MG PO DAILY for 30 Days, #30 TAB 3 Refills Prov:SKYLAR ANDERSON MD 10/06/24 Furosemide (Lasix) 40 Mg Tab, 40 MG PO DAILY, #30 TAB 3 Refills Prov:SKYLAR ANDERSON MD 10/06/24 Sacubitril-Valsartan (Entresto 24-26 mg) 1 Tab Tab, 1 TAB PO BID for 30 Days, #60 TAB 3 Refills Prov:SKYLAR ANDERSON MD 10/06/24 Spironolactone (Aldactone) 25 Mg Tab, 12.5 MG PO DAILY for 30 Days, #15 TAB 3 Refills Prov:SKYLAR ANDERSON MD 10/06/24 Reported Medications Carvedilol (Carvedilol) 12.5 Mg Tab, 1 TAB PO BID for 30 Days, #60 11/17/24 Metoprolol Succinate (Metoprolol Succinate Er) 25 Mg Tab, 1 TAB PO DAILY 03/12/24 Current Medications Current Medications Medications (Trade) Dose Ordered Sig/Guilherme Route PRN Reason Start Time Stop Time Status Last Admin Sodium Chloride (Saline Lock Ns) 10 ml Q8HR IV 07/11/25 22:00 07/11/25 22:22 Acetaminophen/ Hydrocodone Bitart ([place] 5/325MG Tab) 1 tab Q4HP PRN PO MODERATE PAIN (4-6 PAIN SCALE) 07/11/25 14:45 Ondansetron HCl (Zofran) 4 mg Q4HP PRN IV NAUSEA / VOMITING 07/11/25 14:45 Docusate Sodium (Colace Capsule) 100 mg BIDPRN PRN PO FOR CONSTIPATION 07/11/25 14:45 Acetaminophen (Tylenol Tablet) 650 mg Q6HP PRN PO PAIN SCALE 1-3 OR TEMP>100.4 07/11/25 14:45 Nitroglycerin (Ntrostat Sublingual) 0.4 mg Q5MINP PRN SL FOR CHEST PAIN 07/11/25 14:45 Morphine Sulfate 2 mg Q30M PRN IV FOR CHEST PAIN 07/11/25 14:45 Furosemide (Lasix Injection) 40 mg DAILY IV 07/12/25 10:00 07/11/25 16:29 DC Aspirin (Ecotrin Enteric Coated Tablet) 81 mg DAILY PO 07/12/25 10:00 Carvedilol (Coreg Tablet) 12.5 mg BID PO 07/11/25 22:00 07/11/25 16:29 DC Patient Own Medication 1 tab DAILY PO 07/12/25 10:00 UNV Atorvastatin Calcium (Lipitor) 40 mg HS PO 07/11/25 22:00 07/11/25 22:21 Furosemide (Lasix Injection) 40 mg BIDD IV 07/11/25 18:00 07/11/25 18:31 Spironolactone (Aldactone) 25 mg DAILY PO 07/12/25 10:00 Sacubitril/ Valsartan (Entresto 24-26 Mg tab) 1 tab BID PO 07/11/25 22:00 07/11/25 22:21 Empaglifozin (Jardiance) 10 mg DAILY PO 07/12/25 10:00 Dobutamine HCl/ Dextrose 250 ml @ 10.95 mls/ hr [id number] IV 07/11/25 16:45 07/11/25 16:55 Albuterol (Ventolin Medneb) 2.5 mg Q6HPRN PRN NEB SHORTNESS OF BREATH 07/11/25 18:30 Ipratropium [place] (Atrovent Medneb) 0.5 mg Q6HPRN PRN NEB SHORTNESS OF BREATH 07/11/25 18:30 Review of Systems Constitutional: No symptom reported Ears, Nose, & Throat: No symptom reported Eyes: No symptom reported Neurological: No symptoms reported Pulmonary/Respiratory: SOB, NICKERSON, PND Cardiovascular: BLE edema Gastrointestinal: No symptom reported Genitourinary: No symptom reported Musculoskeletal: No symptom reported Skin: No symptom reported Psychiatric: No symptom reported Endocrine: No symptom reported Hemotologic/Lymphatic: No symptom reported Vital Signs Vital Signs Date Time Temp Pulse Resp B/P (MAP) Pulse Ox O2 Delivery O2 Flow Rate FiO2 07/11/25 22:30 153/115 07/11/25 20:33 97.5 72 18 96 4.0 36 97.5 07/11/25 19:30 Nasal Cannula* Physical Exam GENERAL: Alert and oriented x 3. Uncomfortable. Tachypneic. O2 via NRB mask. Pxaqbqby-cj-pmxpef acute respiratory distress. EYES: PERRL, EOMI. Anicteric. HENT: Moist mucous membranes. LUNGS: Decreased breath sounds. CARDIOVASCULAR: Regular rate and rhythm. ABDOMEN: Soft, non-tender and non-distended. EXTREMITIES: 2+ BLE edema. NEUROLOGIC: No focal neurological deficits. SKIN: Warm, dry. Labs/Diagnostic Data Labs Test 07/11/25 18:15 07/11/25 17:30 07/11/25 13:36 07/11/25 10:17 Range/Units Urine Opiates Screen Neg NEGATIVE Urine Fentanyl Screen Neg NEGATIVE Urine Barbiturates Screen Neg NEGATIVE Urine Phencyclidine Screen Neg NEGATIVE Urine Amphetamines Screen Neg NEGATIVE Urine Benzodiazepines Screen Neg NEGATIVE Urine Cocaine Screen Neg NEGATIVE Urine Cannabinoids Screen Pos NEGATIVE Blood Gas Specimen Type Arterial Blood Gas Sample Site Right brachial Blood Gas Patient Temperature 37.0 Arterial Blood Date Drawn [id number] Arterial Blood pH 7.433 7.350-7.450 Arterial Blood Partial Pressure CO2 44.7 35.0-48.0 mmHg Arterial Blood Partial Pressure O2 70.3 L 83.0-108.0 mmHg Arterial Blood HCO3 29.2 H 21.0-28.0 mmol/L Arterial Blood Oxygen Saturation 92.6 L 94.0-98.0 % Arterial Blood Base Excess 4.2 H -2.0-3.0 mmol/L Arterial Blood Oxyhemoglobin 90.5 L 94.0-98.0 % Arterial Blood Carboxyhemoglobin 1.7 H 0.5-1.5 % Arterial Blood Methemoglobin 0.6 0.0-1.5 % Samson Test N/a Blood Gas Total Hemoglobin 15.10 13.5-17.5 g/dL Blood Gas Liter Flow 4.00 Blood Gas Modality Nasal cannula Blood Gas Spontaneous Rate 24 FiO2 % 36.0 Troponin I High Sensitivity 61 *H </=54 ng/L White Blood Count 10.0 4.4-10.8 10^3/uL Red Blood Count 5.23 4.5-5.90 10^6/uL Hemoglobin 14.9 13.5-17.5 g/dL Hematocrit 43.9 41.0-53.0 % Mean Corpuscular Volume 84.0 80.0-100.0 fL Mean Corpuscular Hemoglobin 28.5 28.0-32.0 pg Mean Corpuscular Hemoglobin Concent 33.9 32.0-36.0 g/dL Red Cell Distribution Width 16.4 H 11.8-14.3 % Platelet Count 315 140-450 10^3/uL Mean Platelet Volume 7.4 6.9-10.8 fL Neutrophils (%) (Auto) 71.5 37.0-80.0 % Lymphocytes (%) (Auto) 14.8 10.0-50.0 % Monocytes (%) (Auto) 11.3 0.0-12.0 % Eosinophils (%) (Auto) 1.5 0.0-7.0 % Basophils (%) (Auto) 0.9 0.0-2.0 % Neutrophils # (Auto) 7.2 1.6-8.6 10 ^3/uL Lymphocytes # (Auto) 1.5 0.4-5.4 10 ^3/uL Monocytes # (Auto) 1.1 0-1.3 10 ^3/uL Eosinophils # (Auto) 0.2 0-0.8 10 ^3/uL Basophils # (Auto) 0.1 0-0.2 10 ^3/uL Nucleated Red Blood Cells 0.6 % Sodium Level 142 136-145 mmol/L Potassium Level 3.8 3.5-5.1 mmol/L Chloride Level 104 98-107 mmol/L Carbon Dioxide Level 30 20-31 mmol/L Anion Gap 8 5-15 Blood Urea Nitrogen 24 H 9-23 mg/dL Creatinine 1.31 H 0.700-1.30 mg/dL Glomerular Filtration Rate Calc 68 >90 mL/min BUN/Creatinine Ratio 18.3 10.0-20.0 Serum Glucose 112 H 74-106 mg/dL Hemoglobin A1c 6.0 H <5.7 % A1C Calcium Level 8.7 8.7-10.4 mg/dL Magnesium Level 2.1 1.6-2.6 mg/dL B-Type Natriuretic Peptide 2899.12 0-100 pg/mL Assessment Acute on chronic decompensated HFrEF, NYHA Class IV. Drug-induced/biventricular/dilated cardiomyopathy. Hypertensive urgency. NSTEMI, likely type 2 secondary to above. Polysubstance abuse. Nicotine dependence. Medical noncompliance/nonadherence. Obesity. Plan/Recommendation I agree with your ongoing assessment and care of plan. Patient has been seen by Sera Shen NP on my behalf. We have discussed the plan with the patient. Nares transthoracic echocardiogram revealing LVEF of 20% with grade 3 rest rictive filling pattern of diastolic dysfunction, severely dilated left ventricle, and severely reduced right ventricular systolic function. The patient with [id number]-gc-jlkycx respiratory distress will be initiated on a dobutamine drip for preload and afterload reduction in addition to Lasix IV. Continue strict I&Os, daily weight, and maintain fluid restrictions. Initiate GDMT for HFrEF with exception of BB. Obtain an ABG and continue O2 support via NRB mask. Obtain a twelve-lead electrocardiogram. CXR in the a.m. We will continue to monitor closely. Additional plan as per the hospital course. Plan discussed with: Patient NYHA Physical activity limitations: Class4(Severe)discomfort Date of Service: Jul 11, 2025 Billing Provider: ROSA ISELA GUILLERMO MD Cardiology Common Codes: [id number] INP/OBS CARE (High), [id number] CARE 30-74 MIN ROSA ISELA GUILLERMO MD Jul 11, 2025 23:11
[2025-07-12] VITALS (11 sets, daily range): BP systolic 126–147; BP diastolic 87–98; PULSE 62–80; RESP 18–22; TEMP 97.4–98.8; O2SAT 95–98
[2025-07-12] MEDS: CARVEDILOL 12.5 MG TAB PO ONE (01:12)
--- NOTE | 2025-07-12 03:24 | DVH ---
CHEST RADIOGRAPH Indication: CHF Technique: 1 view Comparison: XY CHEST PORTABLE on DOS: 07/11/25, XY CHEST PORTABLE on DOS: 06/22/25, XY CHEST PORTABLE on DOS: 11/21/24, XY CHEST PORTABLE on DOS: 11/18/24, XY CHEST PORTABLE on DOS: 11/16/24 FINDINGS: Lines and Tubes: None Lungs/Pleura: Increasing hazy attenuation in the right lower lung. Persistent bilateral diffuse inte rstitial opacities. Suspected small pleural effusions. No pneumothorax. Azygous lobe. Cardiomediastinum: Unchanged. Other: Unchanged osseous structures. IMPRESSION: 1. More hazy appearance of the mid to lower lungs. Considerations include developing airspace diseas e, increasing/layering pleural effusions, technique related artifact, infection or aspiration. 2. No other significant interval change.
[2025-07-12] MEDS: HYDROcodone-ACET 5/325MG TAB PO PRN (06:14)
[2025-07-12] MEDS: DOBUTamine 1000MCG/ML 250 ML IV SCH (07:45)
[2025-07-12] MEDS ORDERED: CARVEDILOL 12.5 MG TAB PO SCH (10:00)
[2025-07-12] MEDS ORDERED: PATIENTS OWN MEDICATION (Atorvastatin Calcium (Lipitor) 1 TAB) PO SCH (10:00)
[2025-07-12] MEDS ORDERED: FUROSEMIDE 40 MG/4 ML VIAL IV SCH (10:00)
[2025-07-12] MEDS: OPTISON 3ml Vial for INJ IV ONE (10:08)
--- NOTE | 2025-07-12 10:13 | DVHPN2 ---
Consult Progress Note Date Seen: Jul 12, 2025 Subjective Patient reports: Feels better Review of Systems: CVS:Normal, RESPIRATORY:Abnormal, GI:Normal, NEURO:Normal Other Systems: States feeling better. SOB and abd discomfort improved Objective vital signs Vital Sign Date Time Temp Pulse Resp B/P (MAP) Pulse Ox O2 Delivery O2 Flow Rate FiO2 07/12/25 09:00 97.4 69 22 127/90 (102) 95 97.4 07/12/25 07:28 Nasal Cannula 4.0 07/12/25 07:28 36 Total Intake and Output 07/11/25 07/11/25 07/12/25 15:00 23:00 07:00 Intake Total 68.44 ml 410.95 ml Output Total 2300 ml 375 ml Balance -2231.56 ml 35.95 ml medications Current Medications Medications Dose Ordered Sig/Guilherme Route Start Time Stop Time Status Last Admin Dose Admin Sodium Chloride 10 ml Q8HR IV 07/11/25 22:00 07/12/25 06:12 10 ML Acetaminophen/ Hydrocodone Bitart 1 tab Q4HP PRN PO 07/11/25 14:45 07/12/25 06:14 1 TAB Ondansetron HCl 4 mg Q4HP PRN IV 07/11/25 14:45 Docusate Sodium 100 mg BIDPRN PRN PO 07/11/25 14:45 Acetaminophen 650 mg Q6HP PRN PO 07/11/25 14:45 Aspirin 81 mg DAILY PO 07/12/25 10:00 Patient Own Medication 1 tab DAILY PO 07/12/25 10:00 UNV Atorvastatin Calcium 40 mg HS PO 07/11/25 22:00 07/11/25 22:21 40 MG Furosemide 40 mg BIDD IV 07/11/25 18:00 07/12/25 06:14 40 MG Spironolactone 25 mg DAILY PO 07/12/25 10:00 Sacubitril/ Valsartan 1 tab BID PO 07/11/25 22:00 07/11/25 22:21 1 TAB Empaglifozin 10 mg DAILY PO 07/12/25 10:00 Albuterol 2.5 mg Q6HPRN PRN NEB 07/11/25 18:30 Ipratropium [place] 0.5 mg Q6HPRN PRN NEB 07/11/25 18:30 Dobutamine HCl/ Dextrose 250 ml @ 15.66 mls/ hr [id number] IV 07/12/25 07:45 Examination: LUNGS:Abnormal (Bilateral crackles ), CVS:Normal (NSR), MSK:Ab normal (BLE edema +), NEURO:Normal laboratory and microbiology Test 07/12/25 09:49 Range/Units Serum Glucose Pending Problem List/Assessment/Plan Problem List/Assessment/Plan Acute on chronic decompensated HFrEF, NYHA Class IV Drug-induced/biventricular/dilated cardiomyopathy Hypertensive urgency NSTEMI, likely type 2 secondary to above Rule out atrial septal defect Polysubstance abuse Nicotine dependence Medical noncompliance/non-adherence Obesity Plan/Recommendation (Dr. Abreu) Recent transthoracic echocardiogram revealing LVEF of 20% with grade 3 restrictive filling pattern of diastolic dysfunction, severely dilated left ventricle, and severely reduced right ventricular systolic function. Respeiratory status has improved significantly. Re-establish dobutamine drip x 24 hrs for preload and afterload reduction in addition to Lasix IV. Continue strict I&Os, daily weight, and maintain fluid restrictions. Initiate GDMT for HFrEF with exception of BB. Initiate DVT/VTE prophylaxis. Morning blood work pending at this time. We will continue to monitor closely. Thank you for allowing us to participate in this patient's care. Please call if you have any questions or concerns. This medical document was created using an electronic medical record system with voice recognition software and computerized dictation system. Although this document has been carefully reviewed, there might still be some phonetic and typographical errors. Occasional wrong-word or ``sound-alike substitutions may have occurred due to the inherent limitations of voice recognition software. These areas are purely typographical due to imperfections of the software progr ams and do not reflect any compromise in the patient's medical care. Please read the chart carefully and recognize, using context, where these substitutions have occurred. Plan discussed with: Patient, Other Date of Service: Jul 12, 2025 Billing Provider: SAMINA GARCIA Cardiology Common Codes: [id number] HOSP CARE(High SAMINA GARCIA Jul 12, 2025 10:13
[2025-07-12 10:15] LABS: Hematocrit 41.3 % (41.0-53.0); Hemoglobin 13.7 g/dL (13.5-17.5); Mean Corpuscular Hemoglobin 27.7 pg (28.0-32.0); Mean Corpuscular Volume 83.7 fL (80.0-100.0); Nucleated Red Blood Cells % 0.4 %
[2025-07-12 10:37] LABS: Alanine Aminotransferase 15 U/L (7-40); Alkaline Phosphatase 92 U/L (46-116); Anion Gap 6 (5-15); BUN/Creatinine Ratio 16.7 (10.0-20.0); Blood Urea Nitrogen 20 mg/dL (9-23); Chloride 103 mmol/L (98-107); Potassium 3.7 mmol/L (3.5-5.1); Sodium 140 mmol/L (136-145); Total Protein 6.1 g/dL (5.7-8.2)
[2025-07-12] MEDS: SPIRONOLACTONE 25 MG TAB PO SCH (10:37)
[2025-07-12] MEDS: ASPirin-EC 81 mg tab PO SCH (10:37)
[2025-07-12] MEDS: EMPAGLIFLOZIN 10 MG TAB PO SCH (10:37)
[2025-07-12] MEDS: ENOXAPARIN SOD 40 MG/0.4 ML SYRINGE SC ONE (10:38)
[2025-07-12 10:39] LABS: Albumin 3.1 g/dL (3.2-4.8); Bilirubin, Total 1.3 mg/dL (0.2-1.0); Calcium 8.2 mg/dL (8.7-10.4); Carbon Dioxide 31 mmol/L (20-31); Glucose 134 mg/dL (74-106)
--- NOTE | 2025-07-12 11:48 | DVHPN2 ---
Subjective The patient is seen and examined at bedside. Complain of shortness for breath. Patient on dobutamine drip. Reviewed: Care Plan, H&P, Labs, Medications, Previous Orders, Radiology Changes from previous H/P or p: No Changes Eyes: No Pain, No Vision change, No Conjunctivae inflammation, No Eyelid inflammation, No Other, No Redness ENT: No Ear pain, No Ear discharge, No Nose pain, No Nose discharge, No Nose congestion, No Mouth pain, No Mouth swelling, No Throat pain, No Throat swelling, No Other Cardiovascular: Chest Pain Respiratory: Shortness of breath Gastrointestinal: No Nausea, No Vomiting, No Abdominal Pain, No Diarrhea, No Constipation, No Melena, No Hematochezia, No Other Genitourinary: No Dysuria, No Frequency, No Incontinence, No Hematuria, No Retention, No Other Musculoskeletal: No other, No neck pain, No shoulder pain, No arm pain, No back pain, No hand pain, No leg pain, No foot pain Skin: No Rash, No Lesions, No Jaundice, No Bruising, No Other Objective Vitals Vital Signs Date Time Temp Pulse Resp B/P (MAP) Pulse Ox O2 Delivery O2 Flow Rate FiO2 07/12/25 09:00 97.4 69 22 127/90 (102) 95 97.4 07/12/25 07:28 Nasal Cannula 4.0 07/12/25 07:28 36 Intake/Output Intake and Output 07/12/25 07:00 Intake Total 479.39 ml Output Total 2675 ml Balance -2195.61 ml Intake Oral 400 ml IV Total 79.39 ml Output Urine Total 2675 ml General Appearance: Alert, Oriented X3, Cooperative, mild distress HEENT: Atraumatic, PERRLA, EOMI, Mucous membr. moist/pink Neck: Supple Lungs: Clear to auscultation, Normal air movement Cardiovascular: Regular rate, Normal S1, Normal S2, No murmurs, Gallops, Rubs Abdomen: Normal bowel sounds, Soft, No tenderness Neuro: Cranial nerves 3-12 NL Lymph: Lymphadenopathy Medications Current Medications Medications Dose Ordered Sig/Guilherme Route Start Time Stop Time Status Last Admin Dose Admin Sodium Chloride 10 ml Q8HR IV 07/11/25 22:00 07/12/25 06:12 10 ML Acetaminophen/ Hydrocodone Bitart 1 tab Q4HP PRN PO 07/11/25 14:45 07/12/25 10:38 1 TAB Ondansetron HCl 4 mg Q4HP PRN IV 07/11/25 14:45 Docusate Sodium 100 mg BIDPRN PRN PO 07/11/25 14:45 Acetaminophen 650 mg Q6HP PRN PO 07/11/25 14:45 Aspirin 81 mg DAILY PO 07/12/25 10:00 07/12/25 10:37 81 MG Patient Own Medication 1 tab DAILY PO 07/12/25 10:00 UNV Atorvastatin Calcium 40 mg HS PO 07/11/25 22:00 07/11/25 22:21 40 MG Furosemide 40 mg BIDD IV 07/11/25 18:00 07/12/25 06:14 40 MG Spironolactone 25 mg DAILY PO 07/12/25 10:00 07/12/25 10:37 25 MG Sacubitril/ Valsartan 1 tab BID PO 07/11/25 22:00 07/12/25 10:37 1 TAB Empaglifozin 10 mg DAILY PO 07/12/25 10:00 07/12/25 10:37 10 MG Albuterol 2.5 mg Q6HPRN PRN NEB 07/11/25 18:30 Ipratropium [place] 0.5 mg Q6HPRN PRN NEB 07/11/25 18:30 Dobutamine HCl/ Dextrose 250 ml @ 15.66 mls/ hr [id number] IV 07/12/25 07:45 07/12/25 07:45 15.66 MLS/HR Enoxaparin Sodium 40 mg DAILY SC 07/13/25 10:00 Laboratory Results Laboratory Tests 07/12/25 09:49 Chemistry Test 07/12/25 09:49 Albumin 3.1 g/dL (3.2-4.8) L Calcium Level 8.2 mg/dL (8.7-10.4) L Total Protein 6.1 g/dL (5.7-8.2) Cardiac Markers Test 07/12/25 09:49 B-Type Natriuretic Peptide 2098.85 pg/mL (0-100) LFT Test 07/12/25 09:49 Alanine Aminotransferase (ALT) 15 U/L (7-40) Alkaline Phosphatase 92 U/L (46-116) Aspartate Amino Transferase (AST) 25 U/L (13-40) Total Bilirubin 1.3 mg/dL (0.2-1.0) H Blood Gas Results Test 07/11/25 17:30 Arterial Blood pH 7.433 (7.350-7.450) FiO2 % 36.0 Labs and/or images reviewed: Labs reviewed by me Assessment/Plan Assessment/Plan Acute on chronic congestive heart failure, Elevated troponin, Hypertension, Hyperlipidemia, COPD, Continuing current management. Continuing with dobutamine drip. Continuing with Coreg, Entresto, spironolactone. This medical document was created using an electronic medical record system with [employer] dictation system. Although this document has been carefully reviewed, there may still be some phonetic and typographical errors. These areas are purely typographical due to imperfections of the software programs, and do not reflect any compromise in the patient's medical care. Plan discussed with: Patient Date of Service: Jul 13, 2025 Billing Provider: COLETTE REYNOSO MD Common Visit Codes: [id number] INP/OBS CARE(HIGH) COLETTE REYNOSO MD Jul 12, 2025 11:48
[2025-07-12 19:14] LABS: Urine Protein, UAD Negative (Negative)
--- NOTE | 2025-07-12 21:40 | DVHSR ---
APPROVED REPORT EXAM: Two-dimensional and M-mode echocardiogram with Doppler, color Doppler and Bubble Study & Optiso n Blood Pressure: 131/95 mmHg INDICATION chf exacerbation, elevate troponin Contrast Details Indication: Rule out thrombus Amount Used: 1ml RISK FACTORS Obesity: Height: 5'9, Weight: 230 DIMENSIONS LVDd5.8 (3.8-5.7cm)LA (2D)5.7 (1.9-4.0cm)Aortic Root3.4 (2.0-3.7cm) LVDs5.2 (2.5-4.0cm)LA (MM) (1.9-4.0cm)Aortic Cusp Exc2.0 (1.5-2.0cm) EF (%) 20.0 (55-70%)Rt. Atrium6.8 (1.9-4.0cm)Asc. Aorta3.6 cm IVSd1.5 (0.7-1.1cm)RV (D)6.5 (1.8-2.4cm) PWd1.2 (0.7-1.1cm) Mitral Valve MitralMitral Stenosis E wave1.19m/sMV Mean GR.mmHg A wave0.30m/sMV Peak GR.59mmHg E/A ratio4.02D MVAcm2 DECEL [id number] 1/2 Timems Aortic Valve Aortic ValveAortic Stenosis V10.92m/Bakari Mean GR.4mmHg V21.37m/Bakari Peak GR.8mmHg LVOT Diameter2.2 (1.8-2.4cm)Doppler AVA2.55cm2 Pulmonic Valve V21.06m/s Tricuspid Valve TR Velocity2.30m/s [id number] ATRIA Injection of bubbles documented an interatrial shunt. Conclusion STUDY REVEAL DILATED CARDIOMYOPATHY SEVERE GLOBAL HYPOKINESIS OF ALL CARDIAC CHAMBERS LV EF IS ONLY 15% NORMAL VALVES RVSP IS 42 MM OF HG MODERATE DEGREE PULMONARY HYPERTENSION NO EFFUSION
--- NOTE | 2025-07-12 23:07 | DVHPN2 ---
Consult Progress Note Date Seen: Jul 12, 2025 Subjective Other Systems: Patient was seen and evaluated in follow up. The patient reports feeling better today. Patients abdominal discomfort and SOB hare improving. Recent transthoracic echocardiogram revealing LVEF of 20% with grade 3 restrictive filling pattern of diastolic dysfunction, severely dilated left ventricle, and severely reduced right ventricular systolic function. Telemetry reviewed. Objective vital signs Vital Sign Date Time Temp Pulse Resp B/P (MAP) Pulse Ox O2 Delivery O2 Flow Rate FiO2 07/12/25 21:00 97.7 62 20 129/87 (101) 96 97.7 07/12/25 19:06 Nasal Cannula 4.0 07/12/25 19:06 36 Total Intake and Output 07/11/25 07/11/25 07/12/25 15:00 23:00 07:00 Intake Total 68.44 ml 410.95 ml Output Total 2300 ml 375 ml Balance -2231.56 ml 35.95 ml medications Current Medications Medications Dose Ordered Sig/Guilherme Route Start Time Stop Time Status Last Admin Dose Admin Sodium Chloride 10 ml Q8HR IV 07/11/25 22:00 07/12/25 21:33 10 ML Acetaminophen/ Hydrocodone Bitart 1 tab Q4HP PRN PO 07/11/25 14:45 07/12/25 21:34 1 TAB Ondansetron HCl 4 mg Q4HP PRN IV 07/11/25 14:45 Docusate Sodium 100 mg BIDPRN PRN PO 07/11/25 14:45 Acetaminophen 650 mg Q6HP PRN PO 07/11/25 14:45 Aspirin 81 mg DAILY PO 07/12/25 10:00 07/12/25 10:37 81 MG Patient Own Medication 1 tab DAILY PO 07/12/25 10:00 UNV Atorvastatin Calcium 40 mg HS PO 07/11/25 22:00 07/12/25 21:34 40 MG Furosemide 40 mg BIDD IV 07/11/25 18:00 07/12/25 18:00 40 MG Spironolactone 25 mg DAILY PO 07/12/25 10:00 07/12/25 10:37 25 MG Sacubitril/ Valsartan 1 tab BID PO 07/11/25 22:00 07/12/25 21:33 1 TAB Empaglifozin 10 mg DAILY PO 07/12/25 10:00 07/12/25 10:37 10 MG Albuterol 2.5 mg Q6HPRN PRN NEB 07/11/25 18:30 Ipratropium [place] 0.5 mg Q6HPRN PRN NEB 07/11/25 18:30 Dobutamine HCl/ Dextrose 250 ml @ 15.66 mls/ hr [id number] IV 07/12/25 07:45 07/12/25 07:45 15.66 MLS/HR Enoxaparin Sodium 40 mg DAILY SC 07/13/25 10:00 Examination: GENERAL:Normal, HEENT:Normal, NECK:Normal, LUNGS:Abnormal (Bilateral crackles), CVS:Normal, ABDOMEN:Normal, MSK:Abnormal (BLE edema ), SKIN:Normal, NEURO:Normal laboratory and microbiology Laboratory Tests 07/12/25 09:49 Test 07/12/25 09:49 Range/Units Serum Glucose 134 H 74-106 mg/dL Problem List/Assessment/Plan Problem List/Assessment/Plan Acute on chronic decompensated HFrEF, NYHA Class IV. Drug-induced/biventricular/dilated cardiomyopathy. Hypertensive urgency. NSTEMI, likely type 2 secondary to above. Rule out atrial septal defect. Polysubstance abuse. Nicotine dependence. Medical noncompliance/non-adherence. Obesity. Plan/Recommendation Continued all current supportive medical care. Patient has been seen by Sera Shen NP on my behalf. We have discussed the plan with the patient. Recent transthoracic echocardiogram revealing LVEF of 20% with grade 3 restrictive filling pattern of diastolic dysfunction, severely dilated left ventricle, and severely reduced right ventricular systolic function. Respiratory status has improved significantly. Re-establish dobutamine drip x 24 hrs for preload and afterload reduction in addition to Lasix IV. Continue strict I&Os, daily weight, and maintain fluid restrictions. Initiate GDMT for HFrEF with exception of BB. Initiate DVT/VTE prophylaxis. Morning blood work pending at this time. We will continue to monitor closely. Additional plan as per the hospital course. Plan discussed with: Patient Date of Service: Jul 12, 2025 Billing Provider: ROSA ISELA GUILLERMO MD Cardiology Common Codes: [id number] HOSP CARE([facility] ROSA ISELA GUILLERMO MD Jul 12, 2025 23:07
[2025-07-13] VITALS (13 sets, daily range): BP systolic 122–138; BP diastolic 73–103; PULSE 62–100; RESP 20–24; TEMP 97.6–98; O2SAT 92–98
[2025-07-13] MEDS: ENOXAPARIN SOD 40 MG/0.4 ML SYRINGE SC SCH (09:07)
--- NOTE | 2025-07-13 10:09 | DVHPN2 ---
Consult Progress Note Date Seen: Jul 13, 2025 Subjective Patient reports: Feels better Review of Systems: CVS:Normal, RESPIRATORY:Normal, NEURO:Normal Objective vital signs Vital Sign Date Time Temp Pulse Resp B/P (MAP) Pulse Ox O2 Delivery O2 Flow Rate FiO2 07/13/25 08:42 98.0 72 20 126/76 (93) 96 98.0 07/13/25 07:30 Nasal Cannula* 3 32 Total Intake and Output 07/12/25 07/12/25 07/13/25 15:00 23:00 07:00 Intake Total 500 ml 1074 ml Output Total 4000 ml 1150 ml Balance -3500 ml -76 ml medications Current Medications Medications Dose Ordered Sig/Guilherme Route Start Time Stop Time Status Last Admin Dose Admin Sodium Chloride 10 ml Q8HR IV 07/11/25 22:00 07/13/25 06:06 10 ML Acetaminophen/ Hydrocodone Bitart 1 tab Q4HP PRN PO 07/11/25 14:45 07/12/25 21:34 1 TAB Ondansetron HCl 4 mg Q4HP PRN IV 07/11/25 14:45 Docusate Sodium 100 mg BIDPRN PRN PO 07/11/25 14:45 Acetaminophen 650 mg Q6HP PRN PO 07/11/25 14:45 Aspirin 81 mg DAILY PO 07/12/25 10:00 07/13/25 09:01 81 MG Patient Own Medication 1 tab DAILY PO 07/12/25 10:00 UNV Atorvastatin Calcium 40 mg HS PO 07/11/25 22:00 07/12/25 21:34 40 MG Furosemide 40 mg BIDD IV 07/11/25 18:00 07/13/25 06:06 40 MG Spironolactone 25 mg DAILY PO 07/12/25 10:00 07/13/25 09:01 25 MG Sacubitril/ Valsartan 1 tab BID PO 07/11/25 22:00 07/13/25 09:01 1 TAB Empaglifozin 10 mg DAILY PO 07/12/25 10:00 07/13/25 09:01 10 MG Albuterol 2.5 mg Q6HPRN PRN NEB 07/11/25 18:30 Ipratropium [place] 0.5 mg Q6HPRN PRN NEB 07/11/25 18:30 Dobutamine HCl/ Dextrose 250 ml @ 15.66 mls/ hr [id number] IV 07/12/25 07:45 07/12/25 23:51 15.66 MLS/HR Enoxaparin Sodium 40 mg DAILY SC 07/13/25 10:00 07/13/25 09:07 40 MG Examination: LUNGS:Abnormal (Diminished), CVS:Normal, NEURO:Normal laboratory and microbiology Laboratory Tests 07/12/25 09:49 Test 07/12/25 09:49 Range/Units Serum Glucose 134 H 74-106 mg/dL Problem List/Assessment/Plan Problem List/Assessment/Plan Acute on chronic decompensated HFrEF, NYHA Class IV Drug-induced/biventricular/dilated cardiomyopathy Hypertensive urgency NSTEMI, likely type 2 secondary to above Pulmonary arterial hypertension, moderate degree Polysubstance abuse Nicotine dependence Medical noncompliance/non-adherence Obesity Plan/Recommendation (Dr. Abreu) Transthoracic echocardiogram completed revealing LVEF of 15%, dilated CM, severe global hypokinesis of all cardiac chambers, and moderate degree of PAH. Discontinue dobutamine drip. Initiate full GDMT for HFrEF including BB and transition to lasix p.o. DVT/VTE prophylaxis. Cardiac stable. Follow-up with a primary yield clerk within 3-4 weeks post discharge. Strongly counseled on drug abuse cessation and medical compliance. There is no further cardiac work- up indicated at this time. Kindly call with any questions or concerns. Thank you for allowing us to participate in this patient's care. This medical document was created using an electronic medical record system with voice recognition software and computerized dictation system. Although this document has been carefully reviewed, there might still be some phonetic and typographical errors. Occasional wrong-word or ``sound-alike substitutions may have occurred due to the inherent limitations of voice recognition software. These areas are purely typographical due to imperfections of the software programs and do not reflect any compromise in the patient's medical care. Please read the chart carefully and recognize, using context, where these substitutions have occurred. Plan discussed with: Patient, Other Date of Service: Jul 13, 2025 Billing Provider: SAMINA GARCIA Cardiology Common Codes: [id number] HOSP CARE([facility] SAMINA GARCIA Jul 13, 2025 10:09
[2025-07-13] MEDS: CARVEDILOL 3.125 MG TAB PO ONE (10:15)
--- NOTE | 2025-07-13 10:42 | ECG ---
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
[2025-07-13 11:16] LABS: Hematocrit 43.5 % (41.0-53.0); Hemoglobin 14.5 g/dL (13.5-17.5); Mean Corpuscular Hemoglobin 27.7 pg (28.0-32.0); Mean Corpuscular Volume 83.3 fL (80.0-100.0); Nucleated Red Blood Cells % 0.0 %
[2025-07-13 11:25] LABS: Chloride 104 mmol/L (98-107); Potassium 4.1 mmol/L (3.5-5.1); Sodium 140 mmol/L (136-145)
[2025-07-13 11:26] LABS: Anion Gap 3 (5-15)
[2025-07-13 11:32] LABS: BUN/Creatinine Ratio 12.6 (10.0-20.0); Blood Urea Nitrogen 17 mg/dL (9-23)
[2025-07-13 11:38] LABS: Calcium 8.4 mg/dL (8.7-10.4); Carbon Dioxide 33 mmol/L (20-31); Glucose 134 mg/dL (74-106)
--- NOTE | 2025-07-13 12:01 | DVHPN2 ---
Subjective The patient is seen and examined at bedside. Off dobutamine today Reviewed: Care Plan, H&P, Labs, Previous Orders, Radiology Changes from previous H/P or p: No Changes Eyes: No Pain, No Vision change, No Conjunctivae inflammation, No Eyelid inflammation, No Other, No Redness ENT: No Ear pain, No Ear discharge, No Nose pain, No Nose discharge, No Nose congestion, No Mouth pain, No Mouth swelling, No Throat pain, No Throat swelling, No Other Cardiovascular: Chest Pain Respiratory: Shortness of breath Gastrointestinal: No Nausea, No Vomiting, No Abdominal Pain, No Diarrhea, No Constipation, No Melena, No Hematochezia, No Other Genitourinary: No Dysuria, No Frequency, No Incontinence, No Hematuria, No Retention, No Other Musculoskeletal: No other, No neck pain, No shoulder pain, No arm pain, No back pain, No hand pain, No leg pain, No foot pain Skin: No Rash, No Lesions, No Jaundice, No Bruising, No Other Objective Vitals Vital Signs Date Time Temp Pulse Resp B/P (MAP) Pulse Ox O2 Delivery O2 Flow Rate FiO2 07/13/25 10:00 96 Nasal Cannula 4.0 07/13/25 10:00 36 07/13/25 08:42 98.0 72 20 126/76 (93) 98.0 Intake/Output Intake and Output 07/13/25 07:00 Intake Total 1574 ml Output Total 5150 ml Balance -3576 ml Intake Oral 1324 ml IV Total 250 ml Output Urine Total 5150 ml General Appearance: Alert, Oriented X3, Cooperative, No acute distress HEENT: Atraumatic, PERRLA, EOMI, Mucous membr. moist/pink Neck: Supple Lungs: Clear to auscultation, Normal air movement Cardiovascular: Regular rate, Normal S1, Normal S2, No murmurs, Gallops, Rubs Abdomen: Normal bowel sounds, Soft, No tenderness Neuro: Cranial nerves 3-12 NL Psych/Mental Status: Mental status NL Medications Current Medications Medications Dose Ordered Sig/Guilherme Route Start Time Stop Time Status Last Admin Dose Admin Sodium Chloride 10 ml Q8HR IV 07/11/25 22:00 07/13/25 06:06 10 ML Acetaminophen/ Hydrocodone Bitart 1 tab Q4HP PRN PO 07/11/25 14:45 07/12/25 21:34 1 TAB Ondansetron HCl 4 mg Q4HP PRN IV 07/11/25 14:45 Docusate Sodium 100 mg BIDPRN PRN PO 07/11/25 14:45 Acetaminophen 650 mg Q6HP PRN PO 07/11/25 14:45 Aspirin 81 mg DAILY PO 07/12/25 10:00 07/13/25 09:01 81 MG Patient Own Medication 1 tab DAILY PO 07/12/25 10:00 UNV Atorvastatin Calcium 40 mg HS PO 07/11/25 22:00 07/12/25 21:34 40 MG Spironolactone 25 mg DAILY PO 07/12/25 10:00 07/13/25 09:01 25 MG Sacubitril/ Valsartan 1 tab BID PO 07/11/25 22:00 07/13/25 09:01 1 TAB Empaglifozin 10 mg DAILY PO 07/12/25 10:00 07/13/25 09:01 10 MG Albuterol 2.5 mg Q6HPRN PRN NEB 07/11/25 18:30 Ipratropium [place] 0.5 mg Q6HPRN PRN NEB 07/11/25 18:30 Enoxaparin Sodium 40 mg DAILY SC 07/13/25 10:00 07/13/25 09:07 40 MG Carvedilol 6.25 mg Q12HR PO 07/13/25 22:00 Furosemide 40 mg BIDD PO 07/13/25 18:00 Laboratory Results Laboratory Tests 07/13/25 11:05 Chemistry Test 07/13/25 11:05 Calcium Level 8.4 mg/dL (8.7-10.4) L Cardiac Markers Test 07/13/25 11:05 B-Type Natriuretic Peptide 789.99 pg/mL (0-100) Urinalysis Test 07/12/25 18:00 Urine Color Yellow (Yellow) Urine Clarity Clear (Clear) Urine pH 7.5 (5.0-9.0) Urine Specific Elsa 1.011 (1.001-1.035) Urine Protein Negative (Negative) Urine Ketones Negative (Negative) Urine Blood Negative /uL (Negative) Urine Nitrite Negative (Negative) Urine Bilirubin Negative (Negative) Urine Urobilinogen 8 mg/dL (Negative) H Urine Leukocyte Esterase Negative /uL (Negative) Urine RBC 1 /hpf (0 - 3) Urine Microscopic WBC < 1 /HPF (0-3) Urine Squamous Epithelial Cells None seen /hpf (<5) Urine Bacteria None seen /hpf (None Seen) Urine Glucose Normal mg/dL (Normal) Labs and/or images reviewed: Labs reviewed by me Assessment/Plan Assessment/Plan Acute on chronic congestive heart failure, Elevated troponin, Hypertension, Hyperlipidemia, COPD, Continuing current management. Continuing with Lasix, Entresto, spironolactone, Coreg. Discharge planning. This medical document was created using an electronic medical record system with [employer] computerized dictation system. Although this document has been carefully reviewed, there may still be some phonetic and typographical errors. These areas are purely typographical due to imperfections of the software programs, and do not reflect any compromise in the patient's medical care. Plan discussed with: Patient My Orders Orders - COLETTE REYNSOO MD Procedure Category Date Status Time * Dietary Consult CONS 07/12/25 Transmitted 15:01 Cleanse Wound With STEVAN 07/12/25 In Process Wound Clean 12:04 Date of Service: Jul 13, 2025 Billing Provider: COLETTE REYNOSO MD Common Visit Codes: [id number] INP/OBS CARE(HIGH) COLETTE REYNOSO MD Jul 13, 2025 12:01
[2025-07-13] MEDS: FUROSEMIDE 40 MG TAB PO SCH (16:59)
[2025-07-13] MEDS: IPRATROPIUM BROM 0.5 MG/2.5ML INH SOL NEB PRN (19:01)
[2025-07-13] MEDS: ALBUTEROL SULF 2.5 MG/0.5ML(0.5%) NEB SOLN NEB PRN (19:01)
[2025-07-13] MEDS: CARVEDILOL 3.125 MG TAB PO SCH (22:02)
[2025-07-14] VITALS (7 sets, daily range): BP systolic 99–155; BP diastolic 105–112; PULSE 60–94; RESP 14–24; TEMP 97.6–98.4; O2SAT 94–98
--- NOTE | 2025-07-14 01:34 | DVHPN2 ---
Consult Progress Note Date Seen: Jul 13, 2025 Subjective Patient reports: Feels better Review of Systems: CVS:Normal, RESPIRATORY:Normal, NEURO:Normal Other Systems: Patient was seen and evaluated in follow up. Patient complains of generalized pain. CO2 33, PHARMACEUTICAL PHYSICIAN 1.35, CA 8.4. Telemetry reviewed. Objective vital signs Vital Sign Date Time Temp Pulse Resp B/P (MAP) Pulse Ox O2 Delivery O2 Flow Rate FiO2 07/13/25 12:53 97.6 73 24 122/83 (96) 98 97.6 07/13/25 10:00 Nasal Cannula 4.0 07/13/25 10:00 36 Total Intake and Output 07/12/25 07/12/25 07/13/25 15:00 23:00 07:00 Intake Total 500 ml 1074 ml Output Total 4000 ml 1150 ml Balance -3500 ml -76 ml medications Current Medications Medications Dose Ordered Sig/Guilherme Route Start Time Stop Time Status Last Admin Dose Admin Sodium Chloride 10 ml Q8HR IV 07/11/25 22:00 07/13/25 06:06 10 ML Acetaminophen/ Hydrocodone Bitart 1 tab Q4HP PRN PO 07/11/25 14:45 07/12/25 21:34 1 TAB Ondansetron HCl 4 mg Q4HP PRN IV 07/11/25 14:45 Docusate Sodium 100 mg BIDPRN PRN PO 07/11/25 14:45 Acetaminophen 650 mg Q6HP PRN PO 07/11/25 14:45 Aspirin 81 mg DAILY PO 07/12/25 10:00 07/13/25 09:01 81 MG Patient Own Medication 1 tab DAILY PO 07/12/25 10:00 UNV Atorvastatin Calcium 40 mg HS PO 07/11/25 22:00 07/12/25 21:34 40 MG Spironolactone 25 mg DAILY PO 07/12/25 10:00 07/13/25 09:01 25 MG Sacubitril/ Valsartan 1 tab BID PO 07/11/25 22:00 07/13/25 09:01 1 TAB Empaglifozin 10 mg DAILY PO 07/12/25 10:00 07/13/25 09:01 10 MG Albuterol 2.5 mg Q6HPRN PRN NEB 07/11/25 18:30 Ipratropium [place] 0.5 mg Q6HPRN PRN NEB 07/11/25 18:30 Enoxaparin Sodium 40 mg DAILY SC 07/13/25 10:00 07/13/25 09:07 40 MG Carvedilol 6.25 mg Q12HR PO 07/13/25 22:00 Furosemide 40 mg BIDD PO 07/13/25 18:00 Examination: GENERAL:Normal, HEENT:Normal, NECK:Normal, LUNGS:Abnormal (Diminished), CVS:Normal, ABDOMEN:Normal, SKIN:Normal, NEURO:Normal laboratory and microbiology Laboratory Tests 07/13/25 11:05 Test 07/13/25 11:05 Range/Units Serum Glucose 134 H 74-106 mg/dL Problem List/Assessment/Plan Problem List/Assessment/Plan Problem List Acute on chronic decompensated HFrEF, NYHA Class IV. Drug-induced/biventricular/dilated cardiomyopathy. Hypertensive urgency. NSTEMI, likely type 2 secondary to above. Pulmonary arterial hypertension, moderate degree. Polysubstance abuse. Nicotine dependence. Medical noncompliance/non-adherence. Obesity. Plan/Recommendation Continued all current supportive medical care. Patient has been seen by Sera Shen NP on my behalf. We have discussed the plan with the patient. Transthoracic echocardiogram completed revealing LVEF of 15%, dilated CM, severe global hypokinesis of all cardiac chambers, and moderate degree of PAH. Discontinue dobutamine drip. Initiate full GDMT for HFrEF including BB and transition to lasix p.o. DVT/VTE prophylaxis. Cardiac stable. Follow-up with a primary machine bander and cellophaner within 3-4 weeks post discharge. Strongly counseled on drug abuse cessation and medical compliance. Additional plan as per the hospital course. Plan discussed with: Patient Dietary Evaluation Review Comments: Nutrition Recommendation: 1) CCHO 75 gm + cardiac diet 2) Santana 1 pk BID 3) Refer Resident Advisor for diabetes education 4) Monitor PO intake, lab values, weight trend, and I/O Expected Outcomes/Goals: Wound to improve Fu 3-5 days Date of Service: Jul 13, 2025 Billing Provider: ROSA ISELA GUILLERMO MD Cardiology Common Codes: [id number] HOSP CARE([facility] ROSA ISELA GUILLERMO MD Jul 13, 2025 14:57
--- NOTE | 2025-07-14 12:35 | DVHDS2 ---
Discharge Summary Date of Admission Jul 11, 2025 at 14:42 Date of Discharge: Jul 14, 2025 Admitting Diagnosis Acute on chronic congestive heart failure, Elevated troponin, Hypertension, Hyperlipidemia, COPD, Labs/Diagnostic Data: Laboratory Results Test 07/13/25 11:05 07/12/25 18:00 07/12/25 09:49 07/11/25 18:15 White Blood Count 8.6 10^3/uL (4.4-10.8) Red Blood Count 5.22 10^6/uL (4.5-5.90) Hemoglobin 14.5 g/dL (13.5-17.5) Hematocrit 43.5 % (41.0-53.0) Mean Corpuscular Volume 83.3 fL (80.0-100.0) Mean Corpuscular Hemoglobin 27.7 pg (28.0-32.0) Mean Corpuscular Hemoglobin Concent 33.3 g/dL (32.0-36.0) Red Cell Distribution Width 16.2 % (11.8-14.3) Platelet Count 271 10^3/uL (140-450) Mean Platelet Volume 7.2 fL (6.9-10.8) Neutrophils (%) (Auto) 76.3 % (37.0-80.0) Lymphocytes (%) (Auto) 8.8 % (10.0-50.0) Monocytes (%) (Auto) 11.3 % (0.0-12.0) Eosinophils (%) (Auto) 2.8 % (0.0-7.0) Basophils (%) (Auto) 0.8 % (0.0-2.0) Neutrophils # (Auto) 6.6 10 ^3/uL (1.6-8.6) Lymphocytes # (Auto) 0.8 10 ^3/uL (0.4-5.4) Monocytes # (Auto) 1.0 10 ^3/uL (0-1.3) Eosinophils # (Auto) 0.2 10 ^3/uL (0-0.8) Basophils # (Auto) 0.1 10 ^3/uL (0-0.2) Nucleated Red Blood Cells 0.0 % Sodium Level 140 mmol/L (136-145) Potassium Level 4.1 mmol/L (3.5-5.1) Chloride Level 104 mmol/L (98-107) Carbon Dioxide Level 33 mmol/L (20-31) Anion Gap 3 (5-15) Blood Urea Nitrogen 17 mg/dL (9-23) Creatinine 1.35 mg/dL (0.700-1.30) Glomerular Filtration Rate Calc 65 mL/min (>90) BUN/Creatinine Ratio 12.6 (10.0-20.0) Serum Glucose 134 mg/dL (74-106) Calcium Level 8.4 mg/dL (8.7-10.4) B-Type Natriuretic Peptide 789.99 pg/mL (0-100) Urine Color Yellow (Yellow) Urine Clarity Clear (Clear) Urine pH 7.5 (5.0-9.0) Urine Specific [place] 1.011 (1.001-1.035) Urine Protein Negative (Negative) Urine Ketones Negative (Negative) Urine Blood Negative /uL (Negative) Urine Nitrite Negative (Negative) Urine Bilirubin Negative (Negative) Urine Urobilinogen 8 mg/dL (Negative) Urine Leukocyte Esterase Negative /uL (Negative) Urine RBC 1 /hpf (0 - 3) Urine Microscopic WBC < 1 /HPF (0-3) Urine Squamous Epithelial Cells None seen /hpf (<5) Urine Bacteria None seen /hpf (None Seen) Urine Glucose Normal mg/dL (Normal) Total Bilirubin 1.3 mg/dL (0.2-1.0) Aspartate Amino Transferase (AST) 25 U/L (13-40) Alanine Aminotransferase (ALT) 15 U/L (7-40) Alkaline Phosphatase 92 U/L (46-116) Total Protein 6.1 g/dL (5.7-8.2) Albumin 3.1 g/dL (3.2-4.8) Urine Opiates Screen Neg (NEGATIVE) Urine Fentanyl Screen Neg (NEGATIVE) Urine Barbiturates Screen Neg (NEGATIVE) Urine Phencyclidine Screen Neg (NEGATIVE) Urine Amphetamines Screen Neg (NEGATIVE) Urine Benzodiazepines Screen Neg (NEGATIVE) Urine Cocaine Screen Neg (NEGATIVE) Urine Cannabinoids Screen Pos (NEGATIVE) Test 07/11/25 17:30 07/11/25 13:36 07/11/25 10:17 Blood Gas Specimen Type Arterial Blood Gas Sample Site Right brachial Blood Gas Patient Temperature 37.0 Arterial Blood Date Drawn [id number] Arterial Blood pH 7.433 (7.350-7.450) Arterial Blood Partial Pressure CO2 44.7 mmHg (35.0-48.0) Arterial Blood Partial Pressure O2 70.3 mmHg (83.0-108.0) Arterial Blood HCO3 29.2 mmol/L (21.0-28.0) Arterial Blood Oxygen Saturation 92.6 % (94.0-98.0) Arterial Blood Base Excess 4.2 mmol/L (-2.0-3.0) Arterial Blood Oxyhemoglobin 90.5 % (94.0-98.0) Arterial Blood Carboxyhemoglobin 1.7 % (0.5-1.5) Arterial Blood Methemoglobin 0.6 % (0.0-1.5) Samson Test N/a Blood Gas Total Hemoglobin 15.10 g/dL (13.5-17.5) Blood Gas Liter Flow 4.00 Blood Gas Modality Nasal cannula Blood Gas Spontaneous Rate 24 FiO2 % 36.0 Troponin I High Sensitivity 61 ng/L (</=54) Hemoglobin A1c 6.0 % A1C (<5.7) Magnesium Level 2.1 mg/dL (1.6-2.6) Other Laboratory Tests 07/13/25 11:05 Brief Hx & Hospital Course: This is a 45 years old male with past medical history congestive heart failure on home oxygen 2-3 L of nasal cannula, congestive heart failure, hypertension, hyperlipidemia come to emergency department because of chest pain and shortness for breath. The patient had been experience shortness for breath and chest pain with associated bilateral lower extremity swelling, scrotal swelling and abdominal swelling for couple day. The patient had been compliant with his medication and follow up with personal banking representative as outpatient. The patient admitted that he used methamphetamine couple days prior to this admission. The patient was admitted. Echo was done. Showed EF of 60%. The patient was given dobutamine drip and subsequently switched to Lasix. The patient doing much better. He able to ambulate without shortness for breath. His edema improved. I am going to discharge him home today. Advised him to follow up with primary care physician 1-2 weeks. Follow up with personal banking representative per schedule. Activity as tolerated. Diet per home diet. Recommend low-salt low-cholesterol diet. Advised the patient to stop using methamphetamine. Physical exam: HEENT: Normocephalic atraumatic pupils equal react to light and accommodation. Extraocular muscles intact, conjunctiva pink, oropharynx moist, no thrush, no exudate. Lymphatic: No lymphadenopathy Cardiovascular exam: S1, S2 was heard. No murmurs, rubs, gallops Lung: Clear on auscultation bilaterally, no wheeze, rale, rhonchi. GI: Abdominal soft, nondistended, nontenderness, positive bowel sounds. Extremity: No crepitus, cyanosis, edema. Pedal pulses present bilateral. Full range of motion. Skin: Normal turgor, no rash. Psych: Alert, oriented x3. Neurology: No focal deficits, cranial nerve II to XII grossly intact. This medical document was created using an electronic medical record system with [employer] computerized dictation system. Although this document has been carefully reviewed, there may still be some phonetic and typographical errors. These areas are purely typographical due to imperfections of the software programs, and do not reflect any compromise in the patient's medical care. Condition at Discharge: Stable Final Diagnosis/Problems List Acute on chronic congestive heart failure, Elevated troponin, Hypertension, Hyperlipidemia, COPD, Discharge Disposition: Home Discharge Instruct/Medications Diet: Cardiac 2g Na,low cholest Activity: No Restrictions, As Tolerated Follow Up/Referral: pcp 1-2 weeks Medications: resume home meds Scheduled Acetaminophen W/ Codeine (Acetaminophen/Codeine), 1 TAB PO TID Aspirin (Aspir-81), 1 TAB PO DAILY Atorvastatin Calcium (Lipitor), 1 TAB PO DAILY Carvedilol (Carvedilol), 1 TAB PO BID, (Reported) Cephalexin Monohydrate (Cephalexin), 1 TAB PO QID Empagliflozin (Jardiance), 10 MG PO DAILY Furosemide (Lasix), 40 MG PO DAILY Metoprolol Succinate (Metoprolol Succinate Er), 1 TAB PO DAILY, (Reported) Sacubitril-Valsartan (Entresto 24-26 mg), 1 TAB PO BID Spironolactone (Aldactone), 12.5 MG PO DAILY Discharge Statement: "Patient was advised to return to the ER or call 911 if any headaches, dizziness, shortness of breath, chest pain, abdominal pain, bleeding, fevers, or worsening of medical condition. Patient was counseled about treatment plan, medications, possible side effects, patientverbalized understanding. All questions were answered to the best of my ability. This discharge took greater then 30 minutes in planning, reviewing documentation, counseling the patient, and discussing with other team members." ASSESSMENT ASSESSMENT Assessment CHF Date of Service: Jul 14, 2025 Billing Provider: COLETTE REYNOSO MD Common Visit Codes: 74053-DPG/OBS DISCH DAY >30min COLETTE REYNOSO MD Jul 14, 2025 12:35
--- NOTE | 2025-07-14 19:54 | DVHPN2 ---
Progress Note - Dictate Date Seen: Jul 14, 2025 Medical Necessity Reason Pt with a Central, PICC or Fol: No Subjective Patient was seen and evaluated in follow up. Patient has no new complaints at this time. Patient denies any cardiac symptoms. Patient is cardiac stable for discharge. Telemetry reviewed. vital signs Vital Sign Date Time Temp Pulse Resp B/P (MAP) Pulse Ox O2 Delivery O2 Flow Rate FiO2 07/14/25 13:00 98.4 94 14 155/105 (122) 98 98.4 07/14/25 10:00 Room Air* 0 21 Total Intake and Output 07/13/25 07/13/25 07/14/25 15:00 23:00 07:00 Intake Total 680 ml 0 ml Output Total 6650 ml 1200 ml Balance -5970 ml -1200 ml medications Current Medications Medications Dose Ordered Sig/Guilherme Route Start Time Stop Time Status Last Admin Dose Admin Patient Own Medication 1 tab DAILY PO 07/12/25 10:00 UNV objective GENERAL: Alert and oriented x 3. No acute distress. EYES: PERRL, EOMI. Anicteric. HENT: Moist mucous membranes. LUNGS: Clear to auscultation bilaterally. CARDIOVASCULAR: Regular rate and rhythm. ABDOMEN: Soft, nontender and nondistended. EXTREMITIES: No edema. NEUROLOGIC: No focal neurological deficits. SKIN: Warm, dry. laboratory and microbiology Laboratory Tests 07/13/25 11:05 Test 07/13/25 11:05 Range/Units Serum Glucose 134 H 74-106 mg/dL Problem List Acute on chronic decompensated HFrEF, NYHA Class IV. Drug-induced/biventricular/dilated cardiomyopathy. Hypertensive urgency. NSTEMI, likely type 2 secondary to above. Pulmonary arterial hypertension, moderate degree. Polysubstance abuse. Nicotine dependence. Medical noncompliance/non-adherence. Obesity. Assessment/Plan Continued all current supportive medical care. Coreg. Diuretics with Lasix. DVT prophylactics. Aspirin. Entresto. [place] for pain management. Additional plan as per the hospital course. Dietary Evaluation Review Comments: Nutrition Recommendation: 1) CCHO 75 gm + cardiac diet 2) Santana 1 pk BID 3) Refer [employer] for diabetes education 4) Monitor PO intake, lab values, weight trend, and I/O Expected Outcomes/Goals: Wound to improve Fu 3-5 days Plan discussed with: Patient ROSA ISELA GUILLERMO MD Jul 14, 2025 15:04
--- NOTE | 2025-07-15 12:02 | ECG ---
[facility] Test Date: 2025-07-11 Test Time: 10:07:22 Pat Name: KLEBER ARREDONDO Department: ED Room: [facility] A Gender: M Supervisor Publications Production: mary : 1980 Requested By: CONRADO LEIVA Order Number: [id number] Reading MD: Dwain Salas Measurements Intervals [place] Rate: 103 P: 62 ND: 171 QRS: 7 QRSD: 110 T: 45 QT: 381 QTc: 499 Interpretive Statements Sinus tachycardia Low voltage, extremity and precordial leads Borderline prolonged QT interval Electronically Signed On 07-16-2025 16:19:57 PDT by Dwain Salas Please click the below link to view image of tracing.
== END 2025-07-14 14:00 | disposition home or self-care (01) | DRG 133 ==
LOC: ER 10:02 → OVERFLOW 14:42 → TELE-WESTW 07-12 03:43
PROVIDERS: ADMIT Internal Medicine; ATTEND Internal Medicine
DX: J96.01 Acute respiratory failure with hypoxia (principal); I50.23 Acute on chronic systolic (congestive) heart failure; I21.A1 Myocardial infarction type 2; E44.1 Mild protein-calorie malnutrition; I27.21 Secondary pulmonary arterial hypertension; I42.0 Dilated cardiomyopathy; I11.0 Hypertensive heart disease with heart failure; I42.7 Cardiomyopathy due to drug and external agent; I43 Cardiomyopathy in diseases classified elsewhere; Z99.81 Dependence on supplemental oxygen; J44.9 Chronic obstructive pulmonary disease, unspecified; I16.1 Hypertensive emergency; F19.10 Other psychoactive substance abuse, uncomplicated; Z68.34 Body mass index [BMI] 34.0-34.9, adult; E66.9 Obesity, unspecified; E78.5 Hyperlipidemia, unspecified; R73.03 Prediabetes; N50.89 Other specified disorders of the male genital organs; F17.210 Nicotine dependence, cigarettes, uncomplicated; T50.995A Adverse effect of other drugs, medicaments and biological substances, initial encounter; Z91.199 Patient's noncompliance with other medical treatment and regimen due to unspecified reason; Z83.3 Family history of diabetes mellitus; Z82.49 Family history of ischemic heart disease and other diseases of the circulatory system; Y92.89 Other specified places as the place of occurrence of the external cause
CPT/HCPCS: 36415; 36600; 71045; 80048; 80053; 80307; 81001; 82805; 83036; 83735; 83880; 84484; 85025; 93005; 93306; 94640; 96374; 96375; 99291; 99292; G0378; Q9956

== ENCOUNTER 2025-09-15 21:03 | Inpatient (IN) | payer MEDICAID ==
[~2025-09-15] VITALS: Ht 175.3 cm; Wt 87.6 kg
--- NOTE | 2025-09-15 21:33 | ECG ---
[facility] Test Date: 2025-09-15 Test Time: 21:24:11 Pat Name: KLEBER ARREDONDO Department: Room: 0246T Gender: M Side Door Man: MOHAN : 1980 Requested By: RADHA BAUTISTA Order Number: [id number] Reading MD: Dwain Salas Measurements Intervals [place] Rate: 91 P: 68 ID: [id number] QRS: -83 QRSD: 121 T: 58 QT: 419 QTc: 516 Interpretive Statements Sinus rhythm Prolonged ID interval Probable left atrial enlargement RBBB and LAFB Abnormal T, consider ischemia, lateral leads Electronically Signed On 09-20-2025 13:28:36 PST by Dwain Salas Please click the below link to view image of tracing.
[2025-09-15 23:13] LABS: Hematocrit 41.6 % (41.0-53.0); Hemoglobin 13.4 g/dL (13.5-17.5); Mean Corpuscular Hemoglobin 25.6 pg (28.0-32.0); Mean Corpuscular Volume 79.6 fL (80.0-100.0); Nucleated Red Blood Cells % 0.1 %
--- NOTE | 2025-09-15 23:23 | DVH ---
CHEST RADIOGRAPH Indication: sob Technique: 1 view Comparison: XY CHEST PORTABLE on DOS: 07/12/25, XY CHEST PORTABLE on DOS: 07/11/25, XY CHEST PORTABLE o n DOS: 06/22/25, XY CHEST PORTABLE on DOS: 11/21/24, XY CHEST PORTABLE on DOS: 11/18/24 FINDINGS: Lines and Tubes: None. Lungs/Pleura: No evidence of acute consolidation. Mild perihilar interstitial prominence. Similar a ttenuation within the right apical azygous lobe. No evident pleural effusion or pneumothorax. Cardiomediastinum: Unchanged, upper normal heart size. Other: No acute osseous abnormality. IMPRESSION: Improved exam from most recent comparison. Findings suggestive of mild heart failure remain.
[2025-09-15 23:33] LABS: Alanine Aminotransferase 18 U/L (7-40); Albumin 3.7 g/dL (3.2-4.8); Anion Gap 8 (5-15); BUN/Creatinine Ratio 12.0 (10.0-20.0); Blood Urea Nitrogen 14 mg/dL (9-23); Calcium 8.8 mg/dL (8.7-10.4); Carbon Dioxide 26 mmol/L (20-31); Chloride 105 mmol/L (98-107); Potassium 4.1 mmol/L (3.5-5.1); Sodium 139 mmol/L (136-145); Total Protein 7.5 g/dL (5.7-8.2)
[2025-09-15 23:34] LABS: Bilirubin, Total 0.9 mg/dL (0.2-1.0)
[2025-09-15 23:37] LABS: Alkaline Phosphatase 116 U/L (46-116); Glucose 166 mg/dL (74-106)
[2025-09-16] VITALS (15 sets, daily range): BP systolic 146–176; BP diastolic 91–120; PULSE 82–106; RESP 18–20; TEMP 97.7–98.2; O2SAT 91–99
[2025-09-16] MEDS: IPRATROPIUM BROM 0.5 MG/2.5ML INH SOL NEB ONE (00:08)
[2025-09-16] MEDS: ALBUTEROL SULF 2.5 MG/0.5ML(0.5%) NEB SOLN NEB ONE (00:08)
[2025-09-16] MEDS ORDERED: NITROGLYCERIN 0.4 MG SL TAB SL PRN (00:30)
[2025-09-16] MEDS ORDERED: ONDANSETRON HCL 4 MG/2 ML VIAL IV PRN (00:30)
[2025-09-16] MEDS ORDERED: DOCUSATE SOD 100 MG CAP PO PRN (00:30)
[2025-09-16 02:53] LABS: COVID19 ANTIGEN SOFIA FIA NEGATIVE (NEGATIVE)
[2025-09-16] MEDS: FUROSEMIDE 100 MG/10ML VIAL IV ONE (04:06)
[2025-09-16] MEDS: methylPREDNISolone SOD SUCC 125 MG/2 ML VL IV ONE (04:06)
[2025-09-16 04:21] LABS: Hematocrit 42.5 % (41.0-53.0); Hemoglobin 14.2 g/dL (13.5-17.5); Mean Corpuscular Hemoglobin 26.2 pg (28.0-32.0); Mean Corpuscular Volume 78.1 fL (80.0-100.0); Nucleated Red Blood Cells % 0.2 %
[2025-09-16 04:36] LABS: Alanine Aminotransferase 17 U/L (7-40); Anion Gap 8 (5-15); BUN/Creatinine Ratio 15.2 (10.0-20.0); Blood Urea Nitrogen 16 mg/dL (9-23); Calcium 8.9 mg/dL (8.7-10.4); Carbon Dioxide 24 mmol/L (20-31); Chloride 106 mmol/L (98-107); Potassium 4.1 mmol/L (3.5-5.1); Sodium 138 mmol/L (136-145); Total Protein 7.9 g/dL (5.7-8.2)
[2025-09-16 04:38] LABS: Albumin 3.9 g/dL (3.2-4.8); Bilirubin, Total 1.2 mg/dL (0.2-1.0)
[2025-09-16 04:41] LABS: Alkaline Phosphatase 122 U/L (46-116); Glucose 120 mg/dL (74-106)
[2025-09-16] MEDS: SODIUM CHLOR 0.9% PF (SALINE LOCK) 10ML VIAL/SYR IV SCH (06:30)
[2025-09-16] MEDS: LEVALBUTEROL HCL 1.25 MG/3 ML NEB NEB SCH (07:26)
[2025-09-16] MEDS: CARVEDILOL 12.5 MG TAB PO SCH (09:21)
[2025-09-16] MEDS: methylPREDNISolone SOD SUCC 40 MG/ML VL IV SCH (09:22)
[2025-09-16] MEDS: FAMOTIDINE (10MG/ML) 2ML VL IV SCH (09:22)
[2025-09-16] MEDS: FUROSEMIDE 40 MG/4 ML VIAL IV SCH (09:22)
--- NOTE | 2025-09-16 11:29 | ED.PDOC ---
SOB-HPI HPI Comments HPI: Poor Historian. 45-year-old male with a history of CHF and COPD presents to emergency department for evaluation of few day history of worsening shortness of breath with minimal exertion. Patient states compliance with the medications including aspirin and Lasix. Patient is homeless. Past Medical History: CHF, hypertension, COPD, hyperlipidemia Past Surgical History: REVIEW OF SYSTEMS: CONSTITUTIONAL: Denies acute: fever, diaphoresis, chills, HEAD: Denies acute: headache, photophobia Eyes: Denies acute: Double vision, vision loss, eye pain, eye discharge. EARS: Denies acute: tinnitus, hearing loss, ear discharge, ear pain, THROAT: Denies acute: sore throat, swelling, difficulty swallowing , pain with swallowing, change in voice. NECK: Denies acute: neck pain, neck swelling, stiff neck. HEART: Denies acute : chest pain, palpitations, LUNGS: Denies acute: wheezing, cough, hemoptysis ABDOMEN: Denies acute: abdominal pain, Nausea, Vomiting, diarrhea, melena , hematemesis, hematochezia SKIN: Denies acute: rash, redness, lesions, itchiness. EXTREMITIES: Denies acute: calf pain, numbness, tingling, weakness, denies pain in extremity. Denies acute: Low back pain. Neuro: Denies acute: focal neurological deficit, motor or sensory focal neurological deficit, tremors, seizure like activity, confusion, dizziness, change in mental status, loss of bowel or bladder function, cauda equina like symptoms. : Denies acute: dysuria, hematuria, flank pain, increase in urinary frequency. PSYCH: Denies acute: hallucination, suicidal ideation, homicidal ideation. PHYSICAL EXAM: General: ----[id number]----acute distress, awake and alert. Head: normocephalic, atraumatic. Neck: supple, trachea is midline, no swelling. Throat: Normal phonation. Eyes:, no erythema, no purulent discharge, no proptosis, no icterus. Heart: regular rate, regular rhythm, no significant murmur appreciated. Lungs: no apparent respiratory distress, Able to speak in full sentences. No wheezing, no rhonchi, no crackles. No stridors Clear to auscultation bilaterally. Abdomen: non tender to palpation, non distended, soft, no guarding, no rebound, + bowel sounds. Neuro: Awake, Alert, oriented to name, self, situation, follows commands GCS=15. Speech is normal. Skin: no petechia, no purpura, no cyanosis, non-pale, not jaundice. Lower extremities: --trace bilateral - Pitting edema no deformity, no focal swelling, no calf TTP. Chronic bilateral lower extremity wounds. Makes eye contact. moves all four extremities. Face: no apparent facial droop. Ambulating in the ED independently. ED COURSE: DISCLAIMER: This medical document was created using an electronic medical record system with voice recognition software and computerized dictation system. Although this document has been carefully reviewed, there might still be some phonetic and typographical errors. Occasional wrong-word or "sound-alike" substitutions may have occurred due to the inherent limitations of voice recognition software. These areas are purely typographical due to imperfections of the software programs and do not reflect any compromise in the patient's medical care. Please read the chart carefully and recognize, using context, where these substitutions have occurred. Chief Complaint: Shortness of Breath Time Seen by MD: 22:50 Primary Care Provider: DARYL Hernandez notes: Allergies Information Source: Patient Mode of Arrival: Ambulatory Past Medical History PAST MEDICAL HISTORY: CHF, COPD, High Lipids, HTN Surgical History: Hernia Repair Family History Family History: Reviewed,noncontributory to illness, Family hx of DM Social History Smoker: Cigarettes Alcohol: Rarely Drugs: Cocaine, Marijuana, Methamphetamine Lives In: Home Was a procedure done? Was a procedure done?: No Differential Dx Differential Diagnosis: Other (DDx include ACS, unstable angina, anxiety, PE, pneumothroax, neoplasm, cardiac ischemia, COPD, asthma, CHF, pleural effusion, tobacco abuse, pneumonia, hypoxia, hypercapnia, anemia., infection/sepsis., pulmonary edema. Asthma, Cardiac tamponade, infection.) X-Ray, Labs, Meds, VS Vital Signs Date Time Temp Pulse Resp B/P (MAP) Pulse Ox O2 Delivery O2 Flow Rate FiO2 09/16/25 00:08 20 95 Room Air* 0 21 09/15/25 21:24 91 09/15/25 21:10 97.9 98 18 176/120 97 97.9 Lab Test 09/15/25 23:08 09/15/25 21:29 Range/Units Troponin I High Sensitivity 33 32 </=54 ng/L White Blood Count 8.4 4.4-10.8 10^3/uL Red Blood Count 5.22 4.5-5.90 10^6/uL Hemoglobin 13.4 L 13.5-17.5 g/dL Hematocrit 41.6 41.0-53.0 % Mean Corpuscular Volume 79.6 L 80.0-100.0 fL Mean Corpuscular Hemoglobin 25.6 L 28.0-32.0 pg Mean Corpuscular Hemoglobin Concent 32.2 32.0-36.0 g/dL Red Cell Distribution Width 18.1 H 11.8-14.3 % Platelet Count 219 140-450 10^3/uL Mean Platelet Volume 7.4 6.9-10.8 fL Neutrophils (%) (Auto) 70.3 37.0-80.0 % Lymphocytes (%) (Auto) 12.8 10.0-50.0 % Monocytes (%) (Auto) 11.0 0.0-12.0 % Eosinophils (%) (Auto) 4.9 0.0-7.0 % Basophils (%) (Auto) 1.0 0.0-2.0 % Neutrophils # (Auto) 5.9 1.6-8.6 10 ^3/uL Lymphocytes # (Auto) 1.1 0.4-5.4 10 ^3/uL Monocytes # (Auto) 0.9 0-1.3 10 ^3/uL Eosinophils # (Auto) 0.4 0-0.8 10 ^3/uL Basophils # (Auto) 0.1 0-0.2 10 ^3/uL Nucleated Red Blood Cells 0.1 % Sodium Level 139 136-145 mmol/L Potassium Level 4.1 3.5-5.1 mmol/L Chloride Level 105 98-107 mmol/L Carbon Dioxide Level 26 20-31 mmol/L Anion Gap 8 5-15 Blood Urea Nitrogen 14 9-23 mg/dL Creatinine 1.17 0.700-1.30 mg/dL Glomerular Filtration Rate Calc 77 >90 mL/min BUN/Creatinine Ratio 12.0 10.0-20.0 Serum Glucose 166 H 74-106 mg/dL Calcium Level 8.8 8.7-10.4 mg/dL Total Bilirubin 0.9 0.2-1.0 mg/dL Aspartate Amino Transferase (AST) 25 13-40 U/L Alanine Aminotransferase (ALT) 18 7-40 U/L Alkaline Phosphatase 116 46-116 U/L B-Type Natriuretic Peptide 1946.19 0-100 pg/mL Total Protein 7.5 5.7-8.2 g/dL Albumin 3.7 3.2-4.8 g/dL [place] [id number] Ph: [phone] DIAGNOSTIC IMAGING Diagnostic Imaging Report : [id number] Signed PATIENT: KLEBER ARREDONDO TACCT: [id number] UNIT: [id number] : 1980 LOC: ER ROOM / BED: / AGE / SEX: 45 / M ADM STATUS: REG ER SERVICE 50 ORDERING PHYSICIAN: NAOMY REID DO PROCEDURE(s): CXRP - CHEST PORTABLE REASON: sob ORDER NUMBER(s): [id number], ACCESSION NUMBER(s): [id number] CHEST RADIOGRAPH Indication: sob Technique: 1 view Comparison: XY CHEST PORTABLE on DOS: 07/12/25, XY CHEST PORTABLE on DOS: 07/11/25, XY CHEST PORTABLE on DOS: 06/22/25, XY CHEST PORTABLE on DOS: 11/21/24, XY CHEST PORTABLE on DOS: 11/18/24 FINDINGS: Lines and Tubes: None. Lungs/Pleura: No evidence of acute consolidation. Mild perihilar interstitial prominence. Similar attenuation within the right apical azygous lobe. No evident pleural effusion or pneumothorax. Cardiomediastinum: Unchanged, upper normal heart size. Other: No acute osseous abnormality. IMPRESSION: Improved exam from most recent comparison. Findings suggestive of mild heart failure remain. ATED BY: SAHARA HOBSON MD DICTATED DATE/TIME: 09/15/252320 SIGNED BY: SAHARA HOBSON MD SIGNED DATE/TIME: 09/15/252320 CC: Time of 1ST Reevaluation: 00:00 Reevaluation 1ST: N/A Patient Education/Counseling: Diagnosis, Treatment Family Education/Counseling: Other Comments MDM: patient presented with the above HPI.-shortness of breath-----workup was initiated. patient was found with the above mentioned diagnosis. the following medications were ordered: please refer to order lists of meds and tests obtained by myself Dr. Reid. Patient ED course and VS have been stabilized. Patient has been reassessed in the ED and remained in a stable condition. Pertinent incidental findings were discussed with the patient and/or family. Patient/family voices understanding and is agreeable with plan. Patient has been observed in the ED adequate length of time to insure improvement/stability. Escalation of care considered: Consideration of escalation to observation or admission Patient was ADMITTED to the medicine team for further evaluation and treatment of their presentation. All the reports of any imaging studies that were ordered by myself were reviewed by myself. Departure 1 Departure Time of Disposition: 23:41 Impression: Primary Impression: Acute exacerbation of chronic heart failure Additional Impression: Elevated brain natriuretic peptide (BNP) level Disposition: ADMITTED INPATIENT Admit to: Tele Condition: Guarded Discharged With: Self Critical Care Note Critical Care Time?: Yes (45 min-critical care time only) NAOMY REID DO Sep 15, 2025 23:42
--- NOTE | 2025-09-16 11:30 | DVHHP2 ---
History of Present Illness Reason for Visit: CHF exacerbation History of Present Illness The patient is a 45-year-old male homeless with past medical history of hypertension, hyperlipidemia, COPD, and congestive heart failure who presented to [facility] ED with complaint of shortness of breaths. Patient reports he has been experiencing difficulty breathing for the past 1 day, shortness of breaths at rest, increased work of breathing, getting worse today that prompted this visit. Patient was seen and evaluated in the ED, laboratory data shows WBC 8.4, platelets 219, sodium 139, potassium 4.1, BUN 14, creatinine 1.17, glucose 166, calcium 8.8, BNP 1946.19, troponin 32, blood pressure 176/120, heart rate 92, temperature 97.9 F, O2 saturation 97% on oxygen. Chest x-ray revealing improved exam from most recent comparison, findings suggestive of mild heart failure remains. Patient was started on Lasix 60 mg IV, please see medication orders section in the computer. On my assessment, patient denied chest pain, no headache, dizziness, diaphoresis, currently on oxygen, no abdominal pain, diarrhea, nausea, vomiting, fever, no chills. Patient was admitted for further evaluation and medical management. Past Medical History Hypertension, hyperlipidemia, CHF, COPD Past Surgical History Hernia Repair Family History Reviewed, noncontributory to the management of this case. Past Social History The patient lives at home, denies smoking, alcohol or illicit drugs abuse. Review of Systems Constitutional: Yes: Weakness; No: Fever, Chills, Sweats, Malaise, Other Eyes: No: Pain, Vision change, Conjunctivae inflammation, Eyelid inflammation, Other, Redness ENT: No: Ear pain, Ear discharge, Nose pain, Nose discharge, Nose congestion, Mouth pain, Mouth swelling, Throat pain, Throat swelling, Other Respiratory: Shortness of breath, Other (SOB at rest); No: Cough, Dry, SOB with excertion, Wheezing, Hemoptysis, Pleuritic Pain, Sputum, Wheezing Cardiovascular: No: Chest Pain, Palpitations, Orthopnea, Paroxysmal Noc. Dyspnea, Edema, Lt Headedness, Other Gastrointestinal: No: Nausea, Vomiting, Abdominal Pain, Diarrhea, Constipation, Melena, Hematochezia, Other Genitourinary: No Dysuria, No Frequency, No Incontinence, No Hematuria, No Retention, No Other Musculoskeletal: No: other, neck pain, shoulder pain, arm pain, back pain, hand pain, leg pain, foot pain Skin: No: Rash, Lesions, Jaundice, Bruising, Other Neurological: No: Weakness, Numbness, Incoordination, Change in speech, Confu vel, Seizures, Other Allergies: Coded Allergies: NO KNOWN ALLERGIES (Unverified , 03/11/24) Exam Vital Signs Vital Signs Date Time Temp Pulse Resp B/P (MAP) Pulse Ox O2 Delivery O2 Flow Rate FiO2 09/15/25 21:24 91 09/15/25 21:10 97.9 18 176/120 97 97.9 General Appearance: Alert, Oriented X3, Cooperative, No acute distress HEENT: Atraumatic, PERRLA, EOMI, Mucous membr. moist/pink Respiratory: Normal air movement, Other (On oxygen) Cardiovascular: Regular rate, Normal S1, Normal S2, No murmurs Abdominal: Normal bowel sounds, Soft, No tenderness, No hepatospenomegaly, No masses Extremities: No clubbing, No cyanosis, No edema, Normal pulses, No tenderness/swelling Skin: No rashes, No breakdown, No significant lesion Neuro: Normal speech, Normal tone, Sensation intact, Cranial nerves 3-12 NL, Reflexes 2+, Other (Generalized weakness) Psych/Mental Status: Mental status NL, Mood NL Labs/Xrays Labs Test 09/15/25 23:08 09/15/25 21:29 Range/Units Troponin I High Sensitivity 33 </=54 ng/L White Blood Count 8.4 4.4-10.8 10^3/uL Red Blood Count 5.22 4.5-5.90 10^6/uL Hemoglobin 13.4 L 13.5-17.5 g/dL Hematocrit 41.6 41.0-53.0 % Mean Corpuscular Volume 79.6 L 80.0-100.0 fL Mean Corpuscular Hemoglobin 25.6 L 28.0-32.0 pg Mean Corpuscular Hemoglobin Concent 32.2 32.0-36.0 g/dL Red Cell Distribution Width 18.1 H 11.8-14.3 % Platelet Count 219 140-450 10^3/uL Mean Platelet Volume 7.4 6.9-10.8 fL Neutrophils (%) (Auto) 70.3 37.0-80.0 % Lymphocytes (%) (Auto) 12.8 10.0-50.0 % Monocytes (%) (Auto) 11.0 0.0-12.0 % Eosinophils (%) (Auto) 4.9 0.0-7.0 % Basophils (%) (Auto) 1.0 0.0-2.0 % Neutrophils # (Auto) 5.9 1.6-8.6 10 ^3/uL Lymphocytes # (Auto) 1.1 0.4-5.4 10 ^3/uL Monocytes # (Auto) 0.9 0-1.3 10 ^3/uL Eosinophils # (Auto) 0.4 0-0.8 10 ^3/uL Basophils # (Auto) 0.1 0-0.2 10 ^3/uL Nucleated Red Blood Cells 0.1 % Sodium Level 139 136-145 mmol/L Potassium Level 4.1 3.5-5.1 mmol/L Chloride Level 105 98-107 mmol/L Carbon Dioxide Level 26 20-31 mmol/L Anion Gap 8 5-15 Blood Urea Nitrogen 14 9-23 mg/dL Creatinine 1.17 0.700-1.30 mg/dL Glomerular Filtration Rate Calc 77 >90 mL/min BUN/Creatinine Ratio 12.0 10.0-20.0 Serum Glucose 166 H 74-106 mg/dL Calcium Level 8.8 8.7-10.4 mg/dL Total Bilirubin 0.9 0.2-1.0 mg/dL Aspartate Amino Transferase (AST) 25 13-40 U/L Alanine Aminotransferase (ALT) 18 7-40 U/L Alkaline Phosphatase 116 46-116 U/L B-Type Natriuretic Peptide 1946.19 0-100 pg/mL Total Protein 7.5 5.7-8.2 g/dL Albumin 3.7 3.2-4.8 g/dL PATIENT: KLEBER ARREDONDO TACCT: [id number] UNIT: [id number] : 1980 LOC: ER ROOM / BED: / AGE / SEX: 45 / M ADM STATUS: REG ER SERVICE 2251 ORDERING PHYSICIAN: NAOMY REID DO PROCEDURE(s): CXRP - CHEST PORTABLE REASON: sob ORDER NUMBER(s): [id number], ACCESSION NUMBER(s): [id number] CHEST RADIOGRAPH Indication: sob Technique: 1 view Comparison: XY CHEST PORTABLE on DOS: 07/12/25, XY CHEST PORTABLE on DOS: 07/11/25, XY CHEST PORTABLE on DOS: 06/22/25, XY CHEST PORTABLE on DOS: 11/21/24, XY CHEST PORTABLE on DOS: 11/18/24 FINDINGS: Lines and Tubes: None. Lungs/Pleura: No evidence of acute consolidation. Mild perihilar interstitial prominence. Similar attenuation within the right apical azygous lobe. No evident pleural effusion or pneumothorax. Cardio-mediastinum: Unchanged, upper normal heart size. Other: No acute osseous abnormality. IMPRESSION: Improved exam from most recent comparison. Findings suggestive of mild heart failure remain. SEPSIS Sepsis Screen Date sepsis recognized/suspect: Sep 15, 2025 Time Sepsis recognized/suspect: 2113 Recent Procedure: No On Antibiotic Therapy: No Respiratory Rate >20: No Heart Rate >90: No Temp<36 C (96.8 F) or >38.3 C: No SBP <90 or MAP <65 mmHG: No New Acute Mental Status Change: No Is the patient on CPAP, BIPAP,: No Physician Orders Electrocardigram (09/15/25 22:31) Electrocardigram (09/16/25 00:31) Cleaning Maid (09/15/25 ) Chest Portable (09/15/25 22:51) Covid19 Antigen Betty (09/15/25 ) Rapid Influenza A&B (09/15/25 22:53) Complete Blood Count (09/16/25 04:00) Comprehensive Metabolic Panel (09/16/25 04:00) Aspirin Tablet (09/16/25 10:00) Atorvastatin (Lipitor) (09/16/25 22:00) Carvedilol Tablet (Coreg Tablet) (09/16/25 10:00) Famotidine Injection (Pepcid Injection) (09/16/25 10:00) Furosemide Injection (Lasix Injection) (09/16/25 10:00) Methylprednisolone Sod Succ (Solu Medrol (09/16/25 10:00) Levalbuterol Hcl (Xopenex Medneb) (09/16/25 06:00) Hemoglobin A1c (09/16/25 00:23) Clonidine Hcl Tablet (Catapres Tablet) (09/16/25 00:30) Clonidine Hcl Tablet (Catapres Tablet) (09/16/25 00:30) Admit (09/16/25:23) Allergies (09/16/25) Code Status (09/16/25) Sodium Chloride Lock (Saline Lock Ns) (09/16/25 06:00) Oxygen Per Hour (09/16/25:) Hydrocodone-Acet 5/325mg Tab ([place] /32 (09/16/25 00:30) Ondansetron Hcl (Zofran) (09/16/25 00:30) Docusate Sodium Capsule (Colace Capsule) (09/16/25 00:30) Complete Blood Count (09/17/25 04:00) Comprehensive Metabolic Panel (09/17/25 04:00) Cardiac Diet-2gna,Lofat,Lochol (09/16/25 Breakfast) Condition: Serious (09/16/25:) Acetaminophen Tablet (Tylenol Tablet) (09/16/25 00:) Bedrest With Bathroom Privileg (09/16/25:) Maintain Bed Rest (09/16/25:) Sequential Compression Device (09/16/25 ) Nitroglycerin Sublingual (Ntrostat Subli (09/16/25:) Morphine Sulfate Injection (09/16/25:) Stat Ekg For Chest Pain (09/16/25:) Notify Md Of Changes From Base (09/16/25:) Watermelon Inspector For 24 Hours (09/16/25:) Emergency Dysrhythmia Protocol (09/16/25) Rhythm Strips Once Every Shift (09/16/25:23) Oxygen By Nasal Cannula (09/16/25:) Vital Signs Date Time Temp Pulse Resp B/P (MAP) Pulse Ox O2 Delivery O2 Flow Rate FiO2 09/15/25 21:24 91 09/15/25 21:10 97.9 98 18 176/120 97 97.9 Laboratory Tests Test 09/15/25 21:29 White Blood Count 8.4 10^3/uL (4.4-10.8) Medications Medications Dose Ordered Sig/Guilherme Route Start Time Stop Time Status Last Admin Dose Admin Albuterol 2.5 mg ONCE ONCE NEB 09/15/25 23:45 09/15/25 23:46 DC 09/16/25 00:08 2.5 MG Ipratropium [place] 1 mg ONCE ONCE NEB 09/15/25 23:45 09/15/25 23:46 DC 09/16/25 00:08 1 MG Assessment/Plan Assessment/Plan Acute on chronic systolic heart failure Hypertensive urgency Hyperglycemia Generalized weakness Plan 1. Admit to telemetry unit 2. Breathing treatment 3. Pain control management 4. Management of fluids and electrolytes 5. Consultation for hospitalist 6. Diagnostic tests chest x-ray 7. DVT prophylaxis-on aspirin 8. Repeat labs CBC, CMP in a.m. 9. Continue with current medical management 10. Treatment plan discussed with patient and RN. Patient verbalized understanding. Plan discussed with: Patient, Other (RN) My Orders Orders - LARRY MARCOS DNP Procedure Category Date Status Time Complete Blood Count LAB 09/16/25 Verified 04:00 Comprehensive LAB 09/16/25 Verified Metabolic Panel 04:00 Aspirin Tablet PHA 09/16/25 Verified 10:00 Atorvastatin (Lipitor) PHA 09/16/25 Verified 22:00 Carvedilol Tablet PHA 09/16/25 Verified (Coreg Tablet) 10:00 Famotidine Injection PHA 09/16/25 Verified (Pepcid Injection) 10:00 Furosemide Injection PHA 09/16/25 Verified (Lasix Injection) 10:00 Methylprednisolone PHA 09/16/25 Verified Sod Succ (Solu Medrol 10:00 Levalbuterol Hcl PHA 09/16/25 Verified (Xopenex Medneb) 06:00 Hemoglobin A1c LAB 09/16/25 Verified 00:23 Clonidine Hcl Tablet PHA 09/16/25 Verified (Catapres Tablet) 00:30 Clonidine Hcl Tablet PHA 09/16/25 Verified (Catapres Tablet) 00:30 Admit ADMIT 09/16/25 Verified 00:23 Allergies STEVAN 09/16/25 Verified 00:23 Code Status CODE 09/16/25 Verified 00:23 Sodium Chloride Lock PHA 09/16/25 Verified (Saline Lock Ns) 06:00 Oxygen Per Hour RT 09/16/25 Verified 00:23 Hydrocodone-Acet PHA 09/16/25 Verified 5/325mg Tab ([place] 00:30 Ondansetron Hcl PHA 09/16/25 Verified (Zofran) 00:30 Docusate Sodium PHA 09/16/25 Verified Capsule (Colace 00:30 Complete Blood Count LAB 09/17/25 Verified 04:00 Comprehensive LAB 09/17/25 Verified Metabolic Panel 04:00 Cardiac DIET 09/16/25 Verified Diet-2gna,Lofat,Lochol Breakfast Condition: Serious [facility] 09/16/25 Verified 00:23 Acetaminophen Tablet [facility] 09/16/25 Verified (Tylenol Tablet) 00:30 Bedrest With Bathroom [facility] 09/16/25 Verified Privileg 00:23 Maintain Bed Rest [facility] 09/16/25 Verified 00:23 Sequential [facility] 09/16/25 Verified Compression Device Nitroglycerin [facility] 09/16/25 Verified Sublingual (Ntrostat 00:30 Morphine Sulfate [facility] 09/16/25 Verified Injection 00:30 Stat Ekg For Chest [facility] 09/16/25 Verified Pain 00:23 Notify Md Of Changes [facility] 09/16/25 Verified From Base 00:23 Watermelon Inspector For [facility] 09/16/25 Verified 24 Hours 00:23 Emergency Dysrhythmia [facility] 09/16/25 Verified Protocol 00:23 Rhythm Strips Once [facility] 09/16/25 Verified Every Shift 00:23 Oxygen By Nasal RT 09/16/25 Verified Cannula 00:23 Problem List: (1) Acute on chronic systolic heart failure (2) Hypertensive urgency (3) Hyperglycemia (4) Generalized weakness Date of Service: Sep 16, 2025 Billing Provider: LARRY MARCOS DNP Common Visit Codes: [id number] INP/OBS CARE (HIGH) LARRY MARCOS DNP Sep 16, 2025 00:35
[2025-09-16] MEDS: NICOTINE 21MG/24 HR TOPICAL PATCH TD ONE (18:50)
[2025-09-16] MEDS: ATORVASTATIN 20 MG TAB PO SCH (21:45)
[2025-09-17] VITALS (19 sets, daily range): BP systolic 131–151; BP diastolic 86–111; PULSE 73–94; RESP 15–20; TEMP 97.8–98.3; O2SAT 92–100
[2025-09-17 05:53] LABS: Hematocrit 43.0 % (41.0-53.0); Hemoglobin 14.1 g/dL (13.5-17.5); Mean Corpuscular Hemoglobin 25.6 pg (28.0-32.0); Mean Corpuscular Volume 78.1 fL (80.0-100.0); Nucleated Red Blood Cells % 0.0 %
[2025-09-17 06:03] LABS: Alanine Aminotransferase 15 U/L (7-40); Albumin 3.5 g/dL (3.2-4.8); Alkaline Phosphatase 116 U/L (46-116); Anion Gap 8 (5-15); BUN/Creatinine Ratio 17.2 (10.0-20.0); Blood Urea Nitrogen 22 mg/dL (9-23); Carbon Dioxide 29 mmol/L (20-31); Chloride 102 mmol/L (98-107); Potassium 4.2 mmol/L (3.5-5.1); Sodium 139 mmol/L (136-145); Total Protein 7.4 g/dL (5.7-8.2)
[2025-09-17 06:04] LABS: Bilirubin, Total 0.8 mg/dL (0.2-1.0)
[2025-09-17 06:08] LABS: Calcium 8.7 mg/dL (8.7-10.4); Glucose 165 mg/dL (74-106)
[2025-09-17] MEDS: MORPHINE SULFATE INJ 2 MG/ml SYRG IV PRN (08:18)
[2025-09-17] MEDS: FUROSEMIDE 40 MG/4 ML VIAL IV SCH (17:26)
[2025-09-17] MEDS: HYDROcodone-ACET 5/325MG TAB PO PRN (22:05)
[2025-09-18] VITALS (18 sets, daily range): BP systolic 144–161; BP diastolic 101–120; PULSE 69–91; RESP 18–22; TEMP 97.5–98.7; O2SAT 95–100
[2025-09-18] MEDS: ACETAMINOPHEN 325 MG TAB PO PRN (20:42)
--- NOTE | 2025-09-18 20:57 | DVHPN2 ---
Reviewed: Care Plan, H&P, Labs Changes from previous H/P or p: No Changes General: Per HPI Eyes: No Pain, No Vision change, No Conjunctivae inflammation, No Eyelid inflammation, No Other, No Redness ENT: No Ear pain, No Ear discharge, No Nose pain, No Nose discharge, No Nose congestion, No Mouth pain, No Mouth swelling, No Throat pain, No Throat swelling, No Other Cardiovascular: No Chest Pain, No Palpitations, No Orthopnea, No Paroxysmal Noc. Dyspnea, No Edema, No Lt Headedness, No Other Respiratory: No Cough, No Dry; Shortness of breath; No SOB with excertion, No Wheezing, No Hemoptysis, No Pleuritic Pain, No Sputum; Other (SOB at rest) Gastrointestinal: No Nausea, No Vomiting, No Abdominal Pain, No Diarrhea, No Constipation, No Melena, No Hematochezia, No Other Genitourinary: No Dysuria, No Frequency, No Incontinence, No Hematuria, No Retention, No Other Musculoskeletal: No other, No neck pain, No shoulder pain, No arm pain, No back pain, No hand pain, No leg pain, No foot pain Skin: No Rash, No Lesions, No Jaundice, No Bruising, No Other Objective Vitals Vital Signs Date Time Temp Pulse Resp B/P (MAP) Pulse Ox O2 Delivery O2 Flow Rate FiO2 09/18/25 18:25 71 20 100 09/18/25 18:18 Nasal Cannula 2.0 09/18/25 18:18 28 09/18/25 18:16 147/103 09/18/25 17:00 98.0 98.0 Intake/Output Intake and Output 09/18/25 07:00 Intake Total 1254 ml Output Total 3600 ml Balance -2346 ml Intake Oral 1254 ml Output Urine Total 3600 ml General Appearance: Alert, Oriented X3, Cooperative Cardiovascular: Regular rate, Normal S1, Normal S2 Abdomen: Normal bowel sounds Medications Current Medications Medications Dose Ordered Sig/Guilherme Route Start Time Stop Time Status Last Admin Dose Admin Aspirin 81 mg DAILY PO 09/16/25 10:00 09/18/25 09:20 81 MG Atorvastatin Calcium 20 mg HS PO 09/16/25 22:00 09/17/25 21:47 20 MG Carvedilol 12.5 mg Q12HR PO 09/16/25 10:00 09/18/25 09:20 12.5 MG Famotidine 20 mg Q12HR IV 09/16/25 10:00 09/18/25 09:20 20 MG Methylprednisolone Sodium Succinate 40 mg BID IV 09/16/25 10:00 09/18/25 09:20 40 MG Levalbuterol HCl 0.625 mg Q6HR NEB 09/16/25 06:00 09/18/25 18:23 0.625 MG Clonidine HCl 0.1 mg Q4HP PRN PO 09/16/25 00:30 09/18/25 16:34 0.1 MG Sodium Chloride 10 ml Q8HR IV 09/16/25 06:00 09/18/25 14:00 10 ML Acetaminophen/ Hydrocodone Bitart 1 tab Q4HP PRN PO 09/16/25 00:30 09/18/25 16:33 1 TAB Ondansetron HCl 4 mg Q4HP PRN IV 09/16/25 00:30 Docusate Sodium 100 mg BIDPRN PRN PO 09/16/25 00:30 Acetaminophen 650 mg Q6HP PRN PO 09/16/25 00:30 09/18/25 20:42 650 MG Nitroglycerin 0.4 mg Q5MINP PRN SL 09/16/25 00:30 Morphine Sulfate 2 mg Q30M PRN IV 09/16/25 00:30 09/17/25 12:22 2 MG Furosemide 40 mg BIDD IV 09/17/25 18:00 09/18/25 18:16 40 MG Laboratory Results Laboratory Tests 09/17/25 05:13 Labs and/or images reviewed: Labs reviewed by me, Image(s) reviewed by me Assessment/Plan Assessment/Plan The patient is a 45-year-old male homeless with past medical history of hypertension, hyperlipidemia, COPD, and congestive heart failure who presented to [facility] ED with complaint of shortness of breaths. Patient reports he has been experiencing difficulty breathing for the past 1 day, shortness of breaths at rest, increased work of breathing, getting worse today that prompted this visit. Patient was seen and evaluated in the ED, laboratory data shows WBC 8.4, platelets 219, sodium 139, potassium 4.1, BUN 14, creatinine 1.17, glucose 166, calcium 8.8, BNP 1946.19, troponin 32, blood pressure 176/120, heart rate 92, temperature 97.9 F, O2 saturation 97% on oxygen. Chest x-ray revealing improved exam from most recent comparison, findings suggestive of mild heart failure remains. Patient was started on Lasix 60 mg IV, please see medication orders section in the computer. On my assessment, patient denied chest pain, no headache, dizziness, diaphoresis, currently on oxygen, no abdominal pain, diarrhea, nausea, vomiting, fever, no chills. Patient was admitted for further evaluation and medical management. Acute on chronic systolic heart failure Hypertensive urgency Hyperglycemia Generalized weakness Plan discussed with: Patient Date of Service: Sep 17, 2025 Billing Provider: LYDIA OVALLES DO Common Visit Codes: [id number] INP/OBS CARE(HIGH) LYDIA OVALLES DO Sep 18, 2025 20:57
--- NOTE | 2025-09-18 21:06 | DVHPN2 ---
Reviewed: Care Plan, H&P, Labs Changes from previous H/P or p: No Changes General: Per HPI Eyes: No Pain, No Vision change, No Conjunctivae inflammation, No Eyelid inflammation, No Other, No Redness ENT: No Ear pain, No Ear discharge, No Nose pain, No Nose discharge, No Nose congestion, No Mouth pain, No Mouth swelling, No Throat pain, No Throat swelling, No Other Cardiovascular: No Chest Pain, No Palpitations, No Orthopnea, No Paroxysmal Noc. Dyspnea, No Edema, No Lt Headedness, No Other Respiratory: No Cough, No Dry; Shortness of breath; No SOB with excertion, No Wheezing, No Hemoptysis, No Pleuritic Pain, No Sputum; Other (SOB at rest) Gastrointestinal: No Nausea, No Vomiting, No Abdominal Pain, No Diarrhea, No Constipation, No Melena, No Hematochezia, No Other Genitourinary: No Dysuria, No Frequency, No Incontinence, No Hematuria, No Retention, No Other Musculoskeletal: No other, No neck pain, No shoulder pain, No arm pain, No back pain, No hand pain, No leg pain, No foot pain Skin: No Rash, No Lesions, No Jaundice, No Bruising, No Other Objective Vitals Vital Signs Date Time Temp Pulse Resp B/P (MAP) Pulse Ox O2 Delivery O2 Flow Rate FiO2 09/18/25 18:25 71 20 100 09/18/25 18:18 Nasal Cannula 2.0 09/18/25 18:18 28 09/18/25 18:16 147/103 09/18/25 17:00 98.0 98.0 Intake/Output Intake and Output 09/18/25 07:00 Intake Total 1254 ml Output Total 3600 ml Balance -2346 ml Intake Oral 1254 ml Output Urine Total 3600 ml General Appearance: Alert, Oriented X3, Cooperative Cardiovascular: Regular rate, Normal S1, Normal S2 Abdomen: Normal bowel sounds Medications Current Medications Medications Dose Ordered Sig/Guilherme Route Start Time Stop Time Status Last Admin Dose Admin Aspirin 81 mg DAILY PO 09/16/25 10:00 09/18/25 09:20 81 MG Atorvastatin Calcium 20 mg HS PO 09/16/25 22:00 09/17/25 21:47 20 MG Carvedilol 12.5 mg Q12HR PO 09/16/25 10:00 09/18/25 09:20 12.5 MG Famotidine 20 mg Q12HR IV 09/16/25 10:00 09/18/25 09:20 20 MG Methylprednisolone Sodium Succinate 40 mg BID IV 09/16/25 10:00 09/18/25 09:20 40 MG Levalbuterol HCl 0.625 mg Q6HR NEB 09/16/25 06:00 09/18/25 18:23 0.625 MG Clonidine HCl 0.1 mg Q4HP PRN PO 09/16/25 00:30 09/18/25 16:34 0.1 MG Sodium Chloride 10 ml Q8HR IV 09/16/25 06:00 09/18/25 14:00 10 ML Acetaminophen/ Hydrocodone Bitart 1 tab Q4HP PRN PO 09/16/25 00:30 09/18/25 16:33 1 TAB Ondansetron HCl 4 mg Q4HP PRN IV 09/16/25 00:30 Docusate Sodium 100 mg BIDPRN PRN PO 09/16/25 00:30 Acetaminophen 650 mg Q6HP PRN PO 09/16/25 00:30 09/18/25 20:42 650 MG Nitroglycerin 0.4 mg Q5MINP PRN SL 09/16/25 00:30 Morphine Sulfate 2 mg Q30M PRN IV 09/16/25 00:30 09/17/25 12:22 2 MG Furosemide 40 mg BIDD IV 09/17/25 18:00 09/18/25 18:16 40 MG Laboratory Results Laboratory Tests 09/17/25 05:13 Assessment/Plan Assessment/Plan The patient is a 45-year-old male homeless with past medical history of hypertension, hyperlipidemia, COPD, and congestive heart failure who presented to [facility] ED with complaint of shortness of breaths. Patient reports he has been experiencing difficulty breathing for the past 1 day, shortness of breaths at rest, increased work of breathing, getting worse today that prompted this visit. Patient was seen and evaluated in the ED, laboratory data shows WBC 8.4, platelets 219, sodium 139, potassium 4.1, BUN 14, creatinine 1.17, glucose 166, calcium 8.8, BNP 1946.19, troponin 32, blood pressure 176/120, heart rate 92, temperature 97.9 F, O2 saturation 97% on oxygen. Chest x-ray revealing improved exam from most recent comparison, findings suggestive of mild heart failure remains. Patient was started on Lasix 60 mg IV, please see medication orders section in the computer. On my assessment, patient denied chest pain, no headache, dizziness, diaphoresis, currently on oxygen, no abdominal pain, diarrhea, nausea, vomiting, fever, no chills. Patient was admitted for further evaluation and medical management. Acute on chronic systolic heart failure Hypertensive urgency Hyperglycemia Generalized weakness continue with Lasix net negative daily as goal Plan discussed with: Patient Date of Service: Sep 18, 2025 Billing Provider: LYDIA OVALLES DO Common Visit Codes: [id number] INP/OBS CARE(HIGH) LYDIA OVALLES DO Sep 18, 2025 21:06
[2025-09-19] VITALS (11 sets, daily range): BP systolic 132–170; BP diastolic 83–126; PULSE 68–85; RESP 18–20; TEMP 97.8–98.4; O2SAT 94–100
[2025-09-19] MEDS ORDERED: METH4PAK PO (07:13)
[2025-09-19] MEDS ORDERED: HYDR-4902 PO (11:47)
--- NOTE | 2025-09-19 11:49 | DVHPN2 ---
Reviewed: Care Plan, H&P, Labs Changes from previous H/P or p: No Changes General: Per HPI Eyes: No Pain, No Vision change, No Conjunctivae inflammation, No Eyelid inflammation, No Other, No Redness ENT: No Ear pain, No Ear discharge, No Nose pain, No Nose discharge, No Nose congestion, No Mouth pain, No Mouth swelling, No Throat pain, No Throat swelling, No Other Cardiovascular: No Chest Pain, No Palpitations, No Orthopnea, No Paroxysmal Noc. Dyspnea, No Edema, No Lt Headedness, No Other Respiratory: No Cough, No Dry; Shortness of breath; No SOB with excertion, No Wheezing, No Hemoptysis, No Pleuritic Pain, No Sputum; Other (SOB at rest) Gastrointestinal: No Nausea, No Vomiting, No Abdominal Pain, No Diarrhea, No Constipation, No Melena, No Hematochezia, No Other Genitourinary: No Dysuria, No Frequency, No Incontinence, No Hematuria, No Retention, No Other Musculoskeletal: No other, No neck pain, No shoulder pain, No arm pain, No back pain, No hand pain, No leg pain, No foot pain Skin: No Rash, No Lesions, No Jaundice, No Bruising, No Other Objective Vitals Vital Signs Date Time Temp Pulse Resp B/P (MAP) Pulse Ox O2 Delivery O2 Flow Rate FiO2 09/19/25 11:39 76 18 100 09/19/25 11:33 Nasal Cannula 2.0 09/19/25 11:33 28 09/19/25 09:00 97.8 170/126 (141) 97.8 Intake/Output Intake and Output 09/19/25 07:00 Intake Total 1408 ml Output Total 2150 ml Balance -742 ml Intake Oral 1408 ml Output Urine Total 2150 ml # Bowel Movements 1 General Appearance: Alert, Oriented X3, Cooperative Cardiovascular: Regular rate, Normal S1, Normal S2 Abdomen: Normal bowel sounds Medications Current Medications Medications Dose Ordered Sig/Guilherme Route Start Time Stop Time Status Last Admin Dose Admin Aspirin 81 mg DAILY PO 09/16/25 10:00 09/19/25 08:26 81 MG Atorvastatin Calcium 20 mg HS PO 09/16/25 22:00 09/18/25 22:50 20 MG Carvedilol 12.5 mg Q12HR PO 09/16/25 10:00 09/19/25 08:26 12.5 MG Famotidine 20 mg Q12HR IV 09/16/25 10:00 09/19/25 08:27 20 MG Methylprednisolone Sodium Succinate 40 mg BID IV 09/16/25 10:00 09/19/25 08:27 40 MG Levalbuterol HCl 0.625 mg Q6HR NEB 09/16/25 06:00 09/19/25 11:32 0.625 MG Clonidine HCl 0.1 mg Q4HP PRN PO 09/16/25 00:30 09/18/25 16:34 0.1 MG Sodium Chloride 10 ml Q8HR IV 09/16/25 06:00 09/19/25 05:36 10 ML Acetaminophen/ Hydrocodone Bitart 1 tab Q4HP PRN PO 09/16/25 00:30 09/18/25 16:33 1 TAB Ondansetron HCl 4 mg Q4HP PRN IV 09/16/25 00:30 Docusate Sodium 100 mg BIDPRN PRN PO 09/16/25 00:30 Acetaminophen 650 mg Q6HP PRN PO 09/16/25 00:30 09/19/25 05:34 650 MG Nitroglycerin 0.4 mg Q5MINP PRN SL 09/16/25 00:30 Morphine Sulfate 2 mg Q30M PRN IV 09/16/25 00:30 09/17/25 12:22 2 MG Furosemide 40 mg BIDD IV 09/17/25 18:00 09/19/25 05:30 40 MG Laboratory Results Laboratory Tests 09/17/25 05:13 Labs and/or images reviewed: Labs reviewed by me, Image(s) reviewed by me Assessment/Plan Assessment/Plan Covering for Dr. Justin Acute on chronic systolic heart failure : Lasix improved Hypertensive urgency: Coreg Hypercholesterolemia: Lipitor Hyperglycemia Generalized weakness RN Winter at bedside Plan discussed with: Patient Date of Service: Sep 19, 2025 Billing Provider: ASHAN ANDERSON MD Common Visit Codes: [id number] INP/OBS CARE(HIGH) AHSAN ANDERSON MD Sep 19, 2025 11:49
--- NOTE | 2025-09-19 11:53 | DVHDS2 ---
Discharge Summary Date of Admission Sep 16, 2025 at 00:23 Date of Discharge: Sep 19, 2025 Admitting Diagnosis Shortness of breath Wounds: None Labs/Diagnostic Data: Laboratory Results Test 09/17/25 05:13 09/16/25 03:32 09/16/25 02:05 09/15/25 23:08 White Blood Count 16.8 10^3/uL (4.4-10.8) Red Blood Count 5.50 10^6/uL (4.5-5.90) Hemoglobin 14.1 g/dL (13.5-17.5) Hematocrit 43.0 % (41.0-53.0) Mean Corpuscular Volume 78.1 fL (80.0-100.0) Mean Corpuscular Hemoglobin 25.6 pg (28.0-32.0) Mean Corpuscular Hemoglobin Concent 32.8 g/dL (32.0-36.0) Red Cell Distribution Width 17.6 % (11.8-14.3) Platelet Count 232 10^3/uL (140-450) Mean Platelet Volume 7.1 fL (6.9-10.8) Neutrophils (%) (Auto) 91.4 % (37.0-80.0) Lymphocytes (%) (Auto) 3.8 % (10.0-50.0) Monocytes (%) (Auto) 4.7 % (0.0-12.0) Eosinophils (%) (Auto) 0.0 % (0.0-7.0) Basophils (%) (Auto) 0.1 % (0.0-2.0) Neutrophils # (Auto) 15.4 10 ^3/uL (1.6-8.6) Lymphocytes # (Auto) 0.6 10 ^3/uL (0.4-5.4) Monocytes # (Auto) 0.8 10 ^3/uL (0-1.3) Eosinophils # (Auto) 0 10 ^3/uL (0-0.8) Basophils # (Auto) 0 10 ^3/uL (0-0.2) Nucleated Red Blood Cells 0.0 % Sodium Level 139 mmol/L (136-145) Potassium Level 4.2 mmol/L (3.5-5.1) Chloride Level 102 mmol/L (98-107) Carbon Dioxide Level 29 mmol/L (20-31) Anion Gap 8 (5-15) Blood Urea Nitrogen 22 mg/dL (9-23) Creatinine 1.28 mg/dL (0.700-1.30) Glomerular Filtration Rate Calc 69 mL/min (>90) BUN/Creatinine Ratio 17.2 (10.0-20.0) Serum Glucose 165 mg/dL (74-106) Calcium Level 8.7 mg/dL (8.7-10.4) Total Bilirubin 0.8 mg/dL (0.2-1.0) Aspartate Amino Transferase (AST) 16 U/L (13-40) Alanine Aminotransferase (ALT) 15 U/L (7-40) Alkaline Phosphatase 116 U/L (46-116) Total Protein 7.4 g/dL (5.7-8.2) Albumin 3.5 g/dL (3.2-4.8) Hemoglobin A1c 6.6 % A1C (<5.7) Influenza Type A Antigen Negative (Negative) Influenza Type B Antigen Negative (Negative) SARS-CoV-2 Antigen (Rapid) Negative (NEGATIVE) Troponin I High Sensitivity 33 ng/L (</=54) Test 09/15/25 21:29 B-Type Natriuretic Peptide 1946.19 pg/mL (0-100) Other Laboratory Tests 09/17/25 05:13 Brief Hx & Hospital Course: Patient originally was seen by Dr. Justin 45-year-old male with a history of hypertension hypercholesterolemia diabetes came in for generalized weakness and shortness of breaths found to have exacerbation of congestive heart failure treated with the Lasix Coreg and Lipitor significantly improved being discharged home. Prescription for [place] for left foot pain transmitted to pharmacy he will continue all his home medications follow up with his primary Dr Dr. Sullivan. Consults/Reason for consult None Operations or Procedures None Condition at Discharge: Fair Final Diagnosis/Problems List Acute on chronic systolic heart failure : Lasix improved Hypertensive urgency: Coreg Hypercholesterolemia: Lipitor Hyperglycemia Generalized weakness Discharge Disposition: Home Discharge Instruct/Medications Diet: Cardiac 2g Na,low cholest Activity: No Restrictions, As Tolerated Follow Up/Referral: Follow up with the primary Dr Sullivan Resume all previous home meds Medications: [place] [facility] Scheduled Aspirin (Aspir-81), 1 TAB PO DAILY Atorvastatin Calcium (Lipitor), 1 TAB PO DAILY Carvedilol (Carvedilol), 1 TAB PO BID, (Reported) Empagliflozin (Jardiance), 10 MG PO DAILY Furosemide (Lasix), 40 MG PO DAILY Methylprednisolone (Medrol Dosepak), 4 MG PO UD Spironolactone (Aldactone), 12.5 MG PO DAILY Scheduled PRN Hydrocodone-Acetaminophen (Hydrocodone Bitartrate/AC 5-325 mg), 1 TAB PO QID PRN 39 (Time taken for discharge summary 39 minutes) Discharge Statement: "Patient was advised to return to the ER or call 911 if any headaches, dizziness, shortness of breath, chest pain, abdominal pain, bleeding, fevers, or worsening of medical condition. Patient was counseled about treatment plan, medications, possible side effects, patientverbalized understanding. All questions were answered to the best of my ability. This discharge took greater then 30 minutes in planning, reviewing documentation, counseling the patient, and discussing with other team members." ASSESSMENT ASSESSMENT Hospital Course improved Assessment Acute on chronic systolic heart failure : Lasix improved Hypertensive urgency: Coreg Hypercholesterolemia: Lipitor Hyperglycemia Generalized weakness Date of Service: Sep 19, 2025 Billing Provider: AHSAN ANDERSON MD Common Visit Codes: 40133-QOH/OBS DISCH DAY >30min AHSAN ANDERSON MD Sep 19, 2025 11:53
== END 2025-09-19 12:58 | disposition home or self-care (01) | DRG 133 ==
LOC: ER 21:03 → OVERFLOW 09-16 00:23 → TELE-EAST 09-16 04:30
PROVIDERS: ADMIT Family Medicine; ATTEND Family Medicine
DX: J96.01 Acute respiratory failure with hypoxia (principal); I50.23 Acute on chronic systolic (congestive) heart failure; I11.0 Hypertensive heart disease with heart failure; I16.0 Hypertensive urgency; Z59.00 Homelessness unspecified; E11.65 Type 2 diabetes mellitus with hyperglycemia; J44.9 Chronic obstructive pulmonary disease, unspecified; Z20.822 Contact with and (suspected) exposure to COVID-19; E78.00 Pure hypercholesterolemia, unspecified; F17.210 Nicotine dependence, cigarettes, uncomplicated; M79.672 Pain in left foot; Z79.899 Other long term (current) drug therapy
CPT/HCPCS: 36415; 71045; 80053; 83036; 83880; 84484; 85025; 87426; 87804; 93005; 94640; 99291; G0378; J3490